=== PATIENT | male | born 1950 | race Caucasian/White ===

== ENCOUNTER 2023-01-09 07:10 | Outpatient (OUT) | payer MEDICARE, OTHER, SELFPAY ==
[2023-01-09 07:55] LABS: Basophils Absolute Auto 0.1 10^3/uL (0.0-0.1); Basophils Percent Auto 1.1 % (0.2-2.0); Eosinophils Absolute Auto 0.2 10^3/uL (0.0-0.7); Eosinophils Percent Auto 4.4 % (0.9-7.0); Hematocrit 40.3 % (42.0-54.0); Hemoglobin 13.5 g/dL (14.0-18.0); Immature Granulocytes Abs Auto 0.01 10^3/uL (0.00-0.03); Immature Granulocytes Pct Auto 0.2 % (0.0-0.5); Lymphocytes Absolute Auto 1.3 10^3/uL (1.2-3.8); Lymphocytes Percent Auto 28.9 % (20.5-60.0); Mean Corpuscular HGB Conc 33.5 g/dL (29.9-35.2); Mean Corpuscular Hemoglobin 31.2 pg (25.9-34.0); Mean Corpuscular Volume 93.1 fL (80.0-94.0); Mean Platelet Volume 9.4 fL (9.5-13.5); Monocytes Absolute Auto 0.5 10^3/uL (0.3-0.8); Monocytes Percent Auto 11.7 % (1.7-12.0); Neutrophils Absolute Auto 2.3 10^3/uL (1.4-6.5); Neutrophils Percent Auto 53.7 % (43.0-75.0); Platelet Count 283 10^3/uL (150-450); Red Blood Count 4.33 10^6/uL (4.70-6.10); Red Cell Distribution Width 12.6 % (11.0-15.0); White Blood Count 4.4 10^3/uL (4.0-11.0)
[2023-01-09 09:08] LABS: Estimated Average Glucose 111 mg/dL; Glycohemoglobin A1C 5.5 % (4.5-6.2)
[2023-01-09 13:00] LABS: BUN Creatinine Ratio 19.1; Calcium 9.4 mg/dL (8.5-10.1); Carbon Dioxide 28.3 mmol/L (21.0-32.0); Chloride 101 mmol/L (98-107); Chol HDL Ratio 3.8; Cholesterol 211 mg/dL (<=200); Estimated GFR (African America >60 (>=60); Estimated GFR (Non-African Ame >60 (>=60); Glucose 103 mg/dL (74-106); HDL Cholesterol 55 mg/dL (40-60); Potassium 4.3 mmol/L (3.5-5.1); Sodium 138 mmol/L (136-145); Triglycerides 95 mg/dL (<=150)
[2023-01-09 13:32] LABS: Prostate Specific Antigen Scrn 2.31 ng/mL (<=4.00)
== END 2023-01-09 07:11 | disposition home or self-care (01) ==
LOC: LAB 07:17
PROVIDERS: PCP Internal Medicine; Visit Provider Internal Medicine
DX: E78.00 Pure hypercholesterolemia, unspecified (principal); I10 Essential (primary) hypertension; Z12.5 Encounter for screening for malignant neoplasm of prostate; R73.01 Impaired fasting glucose; D64.9 Anemia, unspecified
CPT/HCPCS: 36415; 80048; 80061; 83036; 85025; G0103

== ENCOUNTER 2023-02-04 19:59 | Outpatient (OUT) | payer MEDICARE, OTHER, SELFPAY | END 2023-02-04 20:00 | disposition home or self-care (01) | LOC: SLEEP 20:00 | PROVIDERS: PCP Internal Medicine; Visit Provider Internal Medicine | DX: G47.33 Obstructive sleep apnea (adult) (pediatric) (principal) | CPT/HCPCS: 95810 ==

== ENCOUNTER 2023-02-17 08:56 | Outpatient (OUT) | payer MEDICARE, OTHER, SELFPAY ==
--- NOTE | 2023-02-17 09:06 | XR_ITS ---
The [address] [address] Patient Name: EMILY RAMEY MRN: [id number] date: 1950 Sex: M Assigned Patient Location: Current Patient Location: Accession/Order Number: [id number] Exam Date: 02/17/2023 09:06 Report Date: 02/19/2023 09:20 At the request of: ANGEL GALLARDO Procedure: XR foot COLBY min 3V EXAMINATION: XR foot COLBY min 3V HISTORY: BILATERAL FOOT PAIN COMPARISON: No relevant comparison available. FINDINGS: RIGHT FINDINGS: BONES: Mild degenerative changes the first metatarsophalangeal joint. Persistent flexion and medial deviation of the second toe. No fracture, dislocation, bone lesion. Mild flattening of plantar arch. SOFT TISSUES: No visible soft tissue swelling. OTHER: Negative. LEFT FINDINGS: BONES: Moderate degenerative changes of the first metatarsophalangeal joint with qgao-wa-lhik articulation along the lateral margin. Persistent flexion of second toe. Calcaneal plantar spur. SOFT TISSUES: No visible soft tissue swelling. OTHER: Negative. XR/XR foot COLBY min 3V IMPRESSION: RIGHT CONCLUSION: 1. Persistent flexion of second toe consistent with history of hammertoe. 2. Mild degenerative changes of first metatarsophalangeal joint. LEFT CONCLUSION: 1. Persistent flexion of second toe consistent with history of hammertoe. 2. Moderate-marked degenerative changes of first metatarsophalangeal joint. Electronically authenticated by: ANA ACUÑA Date: 02/19/2023 09:20
== END 2023-02-17 08:57 | disposition home or self-care (01) ==
LOC: RAD 08:57
PROVIDERS: PCP Internal Medicine; Visit Provider Podiatrist Foot & Ankle Surgery
DX: M79.671 Pain in right foot (principal); M79.672 Pain in left foot
CPT/HCPCS: 73630

== ENCOUNTER 2023-03-09 20:08 | Outpatient (OUT) | payer MEDICARE, OTHER, SELFPAY | END 2023-03-09 20:09 | disposition home or self-care (01) | LOC: SLEEP 20:08 | PROVIDERS: PCP Internal Medicine; Visit Provider Internal Medicine | DX: G47.33 Obstructive sleep apnea (adult) (pediatric) (principal) | CPT/HCPCS: 95811 ==

== ENCOUNTER 2023-06-17 06:40 | Outpatient (OUT) | payer MEDICARE, OTHER, SELFPAY ==
[2023-06-17 06:59] LABS: Estimated GFR (African America >60 (>=60); Estimated GFR (Non-African Ame 52 (>=60)
--- NOTE | 2023-06-17 07:30 | CT_ITS ---
[address] [address] Patient Name: EMILY RAMEY MRN: [id number] date: 1950 Sex: M Assigned Patient Location: CT Current Patient Location: Accession/Order Number: [id number] Exam Date: 06/17/2023 08:20 Report Date: 06/18/2023 06:59 At the request of: ELICIA FRAGA Procedure: CT abdomen pelvis w con EXAMINATION: CT abdomen pelvis w con HISTORY: LUQ abdominal pain R10.12 COMPARISON: No relevant comparison available. TECHNIQUE: Axial, Coronal, and Sagittal images were obtained without and/or with IV contrast as indicated by examination type. Dose reduction techniques were achieved by using automated exposure control and/or adjustment of mA and/or kV according to patient size and/or use of iterative reconstruction technique. FINDINGS: LUNG BASES: No visible pulmonary or pleural disease. LIVER: No enlargement, atrophy, suspicious density, or significant focal lesion. BILIARY: No dilatation or calcification. PANCREAS: No lesion, fluid collection, or abnormal duct dilatation. SPLEEN: No enlargement or focal lesion. ADRENALS: No mass or enlargement. KIDNEYS: No mass, obstruction, or calcification. BOWEL/MESENTERY: No visible mass, obstruction, or bowel wall thickening. Normal appendix. Normal stool burden. AORTA/VASCULAR: No aneurysm or dissection. RETROPERITONEUM: No mass or adenopathy. LYMPH NODES: No adenopathy. URINARY BLADDER: No visible focal wall thickening, lesion, or calculus. PELVIC ORGANS: No visible mass. Pelvic organs appropriate for patient age. ABDOMINAL WALL: No mass or hernia. BONES: Multilevel marked degenerative disc disease of lumbar spine. Posterior decompression L3 and L5. Posterior mechanical fusion L5-S1. OTHER: Negative. CT/CT abdomen pelvis w con IMPRESSION: 1. No abnormal or suspicious findings to account for patient's symptoms. 2. Surgical changes and marked degenerative changes of lumbar spine. Electronically authenticated by: ANA ACUÑA Date: 06/18/2023 06:59
== END 2023-06-17 06:41 | disposition home or self-care (01) ==
LOC: CT 06:40
PROVIDERS: PCP Internal Medicine; Visit Provider Internal Medicine
DX: R10.12 Left upper quadrant pain (principal); R53.83 Other fatigue
CPT/HCPCS: 36415; 74177; 82565; Q9967

== ENCOUNTER 2023-09-16 13:58 | Outpatient (OUT) | payer MEDICARE, OTHER, SELFPAY ==
--- NOTE | 2023-09-16 | XR_ITS ---
The [address] [address] Patient Name: EMILY RAMEY MRN: [id number] date: 1950 Sex: M Assigned Patient Location: Current Patient Location: Accession/Order Number: [id number] Exam Date: 09/16/2023 14:00 Report Date: 09/16/2023 14:41 At the request of: ANGEL GALLARDO Procedure: XR foot LT min 3V PROCEDURE: XR foot LT min 3V COMPARISON: None. HISTORY: LEFT FOOT PAIN FINDINGS: BONES:No acute fracture or dislocation. Severe degenerative changes of the first metatarsal-phalangeal joint with [id number]-[id number]-[id number] articulation. Mild degenerative changes of the midfoot with joint space narrowing marginal osteophyte formation. Moderate enthesopathic spurring of the calcaneus SOFT TISSUES:Negative. No visible soft tissue swelling. EFFUSION:None visible. OTHER: Resting calcifications XR/XR foot LT min 3V IMPRESSION: Degenerative changes most significant at the first metatarsal-phalangeal joint Electronically authenticated by: SASHA BELL Date: 09/16/2023 14:41
== END 2023-09-16 13:59 | disposition home or self-care (01) ==
LOC: EC 13:58
PROVIDERS: PCP Internal Medicine; Visit Provider Podiatrist Foot & Ankle Surgery
DX: M79.672 Pain in left foot (principal)
CPT/HCPCS: 73630

== ENCOUNTER 2023-10-29 09:03 | Outpatient (OUT) | payer MEDICARE, OTHER, SELFPAY ==
--- OUTSIDE RECORDS SUMMARY | 2023-10-29 09:22 | XMS_ITS | CCD ---
Author Organization [facility] Care Team Providers Care Development Manager Name Role Phone Dipesh Cárdenas Unavailable Emily Pena Unavailable ENRIQUE SINGER Admitting Unavailable ENRIQUE SINGER Attending Unavailable UNKNOWN, PHYSICIAN Primary Care Unavailable UNKNOWN, PHYSICIAN Referring Unavailable Hector Fraga Unavailable FLAKITO, DR YOUNG Admitting Unavailable BALL, DR YOUNG Attending Unavailable BALL, DR YOUNG Primary Care Unavailable BALL, DR YOUNG Consulting Unavailable BALL, DR YOUNG Primary Care Unavailable HAY ., DR COLLADO Admitting Unavailable HAY ., DR COLLADO Attending Unavailable GRECHNY, CESAR Consulting Unavailable HAY ., DR COLLADO Consulting Unavailable BALL, DR YOUNG Admitting Unavailable BALL, DR YOUNG Attending Unavailable BALL, DR YOUNG Primary Care Unavailable BALL, DR YOUNG Consulting Unavailable BALL, DR YOUNG Admitting Unavailable BALL, DR YOUNG Attending Unavailable BALL, DR YOUNG Primary Care Unavailable BALL, DR YOUNG Consulting Unavailable FLAKITO, DR YOUNG Admitting Unavailable BALL, DR YOUNG Attending Unavailable BALL, DR YOUNG Primary Care Unavailable BALL, DR YOUNG Consulting Unavailable FLAKITO, HECTOR Primary Care Unavailable FLAKITO, HECTOR Primary Care Unavailable Héctor Jean Baptiste Primary Care Provider Hector Fraga DO Primary Care Provider KALFAS, RUBIN H Referring Unavailable KALFAS, RUBIN H Attending Unavailable HECTOR FRAGA Primary Care Unavailable KALFAS, RUBIN H Referring Unavailable KALGARCÍA, RUBIN H Attending Unavailable HECTOR FRAGA Primary Care Unavailable SHANDRA DALLAS Referring Unavailable HECTOR FRAGA Primary Care Unavailable TAY RUIZ Referring Unavailable HECTOR FRAGA Primary Care Unavailable DENZEL DALLASI Referring Unavailable HECTOR FRAGA Primary Care Unavailable HECTOR FRAGA Primary Care Unavailable KALGARCÍA, RUBIN H Referring Unavailable HECTOR FRAGA Primary Care Unavailable TAY RUIZ Referring Unavailable HÉCTOR JEAN BAPTISTE Primary Care Unavailab le KALFAS, RUBIN H Referring Unavailable HÉCTOR JEAN BAPTISTE Primary Care Unavailab le KALFAS, RUBIN H Referring Unavailable KALFAS, RUBIN H Admitting Unavailable JESSICA RUBIN H Attending Unavailable HÉCTOR JEAN BAPTISTE Primary Care Unavailab dorothy KALGARCÍA, RUBIN H Attending Unavailable HÉCTOR JEAN BAPTISTE Primary Care Unavailab le KALFAS, RUBIN H Referring Unavailable Allergies Allergy Classification Reported Allergen(s) Allergy Type Date of Onset Reaction(s) Facility (6 sources) patient allergy list reviewed by nurse or physicia Propensity to adverse reactions Comment:Done Tap.Me Other Medications Current Medications Medication Drug Class(es) Dates Sig (Normalized) Sig (Original) acetaminophen 325 mg oral tablet (20 sources) Start: 09-11-2023 take 1 tablet by mouth four times daily as needed Acetaminophen (Tylenol) 325 mg tablet Active MG PO September 11, 2023 12:00am FreeText[employer] tablet as needed Orally qid; Note: Source Status: Not-Taking\PRN; Provider: Flakito Young ( ) take 1 tablet by mouth every six hours Tylenol 325 MG 1 tablet as needed Orally qid Not-Taking/PRN acetaminophen (T YLENOL) 325 mg tablet Take by mouth q 6 HR. 0 Active Comment on above: Take by mouth q 6 HR . benazepril hydrochloride 20 mg oral tablet (20 sources) Angiotensin Converting Enzyme Inhibitor take 1 tablet by mouth every twenty-four hours Benazepril HCl 20 MG 1 tablet Orally Once a day Active benazepril (LOTE NSIN) 20 mg tablet Take by mouth q 24 HR. 0 Active Comment on above: Take by mouth q 24 H R. benazepril hydrochloride 20 mg / hydroCHLOROthiazide 25 mg oral tablet (17 sources) Thiazide Diuretic, Angiotensin Converting Enzyme Inhibitor take 1 tablet by mouth every twenty-four hours Benazepril-hydro CHLOROthiazide 20-25 MG 1 tablet Orally Once a day Active take 1 tablet by eddie th once daily Benazepril-hydroCHLOROthiazide 20-25 MG 1 tablet Orally Once a day Active celecoxib 100 mg oral capsule (19 sources) Nonsteroidal Anti-inflammatory Drug take 1 capsule by mouth every twelve hours CeleBREX 100 MG 1 capsule with food Orally bid Active cyclobenzaprine hydrochloride 10 mg oral tablet (18 sources) Muscle Relaxant Start: 2021 take 1 tablet by mouth every twenty-four hours Cyclobenzaprine HCl 10 MG 1 tablet at bedtime as needed Orally Once a day for 30 day(s) Feb, Active doxepin hydrochloride 10 mg oral capsule (3 sources) Tricyclic Antidepressant Start: 2022 take 1 capsule by mouth every twenty-four hours Doxepin HCl 10 MG 1 capsule at bedtime Orally Once a day for 30 days May, Active escitalopram 10 mg oral tablet (18 sources) Serotonin Reuptake Inhibitor Start: 2023 take 1 tablet by mouth once daily at bedtime Escitalopram Oxalate Active 1 TAB PO Daily at bedtime September 11, 2023 12:00am FreeTextSig: TAKE 1 TABLET BY MOUTH AT BEDTIME; Note: Source Status: Taking; Refills: 5; Qty: 30 Tablet; Provider: Flakito Young ( ) Start: 08-18-2022 take 1 tablet by eddie th once at bedtime Escitalopram Oxalate 10 MG 1 tablet Orally q HS for 30 day(s) Jul, Active take 1 tablet by eddie th at bedtime Escitalopram Oxalate 10 mg TAKE 1 TABLET BY MOUTH AT BEDTIME for 30 Active gabapentin 300 mg oral capsule (1 source) Anti-epileptic Agent Start: 12-10-2022 End: 01-10-2023 gabapentin (NEURONTIN) 300 mg capsule Indications: Low back pain with sciatica, sciatica laterality unspecified, unspecified back pain laterality, unspecified chronicity Take one 2-3 times per day 90 capsule 0 12/10/2022 01/10/2023 Active Comment on above: Take one 2-3 times per day omeprazole 40 mg delayed release oral capsule (17 sources) Proton Pump Inhibitor Start: 08-26-2022 take 1 capsule by mouth once daily Omeprazole 40 MG 1 capsule 30 minutes before morning meal Orally Once a day Aug, Active sildenafil 100 mg oral tablet (16 sources) Phosphodiesterase 5 Inhibitor Start: 09-11-2023 take 1 tablet by mouth once daily as needed Sildenafil Active MG PO September 11, 2023 12:00am [employer]Text[employer] tablet as needed Orally Once a day as needed for ED; Note: Source Status: Taking; Refills: 5; Provider: Flakito Moya Start: 10-01-2022 take 1 tablet by eddie th once daily as needed Sildenafil Citrate 100 MG 1 tablet as needed Orally Once a day as needed for ED for 30 days Sep, Active triamcinolone acetonide 0.001 mg/mg topical ointment (18 sources) Corticosteroid Start: 09-11-2023 Triamcinolone Acetonide Active 1 APPLIC TOPICAL Twice daily September 11, 2023 12:00am FreeText[employer] application Externally Twice a day; Note: Source Status: Taking; Provider: Flakito Young ( ) Triamcinolone Ac etonide 0.1 % 1 application Externally Twice a day Active zolpidem tartrate 5 mg oral tablet (14 sources) gamma-Aminobutyric Acid-ergic Agonist take 1 tablet by mouth every twenty-four hours Zolpidem Tartrate 5 MG 1 tablet at bedtime Orally Once a day Active Completed/Discontinued Medications Medication Drug Class(es) Dates Sig (Normalized) Sig (Original) aspirin 325 mg oral tablet (9 sources) Platelet Aggregation Inhibitor, Nonsteroidal Anti-inflammatory Drug take 1 tablet by mouth once daily aspirin 325 mg tablet Indications: Confusion , Mixed migraine and muscle contraction headache , Cervical spondylosis without myelopathy , Essential tremor , Disturbed concentration , Tinnitus, bilateral , Bradycardia , Vitamin D deficiency Take 325 mg by mouth once daily. 0 Active Comment on above: Take 325 mg by mouth once daily. Dexamethasone (20 sources) Corticosteroid Start: 02-20-2022 DEXAMETHASONE Feb, 4 mg eszopiclone 3 mg oral tablet (9 sources) eszopiclone (LUNESTA) 3 mg tab Indications: Confusion , Mixed migraine and muscle contraction headache , Cervical spondylosis without myelopathy , Essential tremor , Disturbed concentration , Tinnitus, bilateral , Bradycardia , Vitamin D deficiency Take by mouth at bedtime as needed. 0 Active Comment on above: Take by mouth at bed time as needed. Lisinopril (20 sources) Angiotensin Converting Enzyme Inhibitor Lisinopril Not-Taking/PRN take 1 tablet by mouth once aydee y lisinopril (ZESTRIL, PRINIVIL) 10 mg tablet Indications: Confusion , Mixed migraine and muscle contraction headache , Cervical spondylosis without myelopathy , Essential tremor , Disturbed concentration , Tinnitus, bilateral , Bradycardia , Vitamin D deficiency Take 10 mg by mouth once daily. 0 Active Lisinopril Not-T aking Lisinopril Activ e Comment on above: Take 10 mg by mouth once daily. methocarbamol 750 mg oral tablet (1 source) Muscle Relaxant Start: 023 take 1 tablet by mouth every six hours as needed methocarbamol (ROBAXIN) 750 mg tablet Take 1 tablet by mouth every 6 hours as needed. 40 tablet 0 11/08/2022 Active Comment on above: Take 1 tablet by eddie every 6 hours as needed. methylPREDNISolone acetate 40 mg/ml injectable suspension (20 sources) Corticosteroid Start: 022 DEPO-Medrol Feb, 40 mg Start: 09-02-2013 Depo-Medrol 80 mg Aug, 80 mg pantoprazole 40 mg delayed release oral tablet (10 sources) Proton Pump Inhibitor take 1 tablet by mouth once daily as needed pantoprazole DR (PROTONIX) 40 mg tablet Indications: Confusion , Mixed migraine and muscle contraction headache , Cervical spondylosis without myelopathy , Essential tremor , Disturbed concentration , Tinnitus, bilateral , Bradycardia , Vitamin D deficiency Take 40 mg by mouth once daily as needed. 0 Active Comment on above: Take 40 mg by mouth once daily as needed. predniSONE 20 mg oral tablet (19 sources) Start: 2 take 2 tablets by mouth every twenty-four hours predniSONE 20 MG 2 tablets Orally Once a day for 5 day(s) Feb, Not-Taking/PRN Problems Active Problems Problem Classification Problem Date Documented Da te Episodic/Chronic Abdominal pain (2 sources) Left upper quadrant pain Episodic Allergic reactions (1 source) Allergic contact dermatitis due to adhesives Episodic Anxiety disorders (8 sources) Generalized anxiety disorder; Translations: [Generalized anxiety disorder] 09-11-2023 Chronic Blindness and vision defects (10 sources) Other subjective visual disturbances; Translations: [Distorted vision] Episodic Chronic kidney disease (1 source) Chronic kidney disease; Translations: [CHRONIC KIDNEY DISEASE STAGE 3A] Onset: 01-08-2022 Deficiency and other anemia (12 sources) Anemia, unspecified; Translations: [ANEMIA UNSPECIFIED] Onset: 03-06-2022 Episodic Deficiency and other anemia (5 sources) Anemia; Translations: [Anemia, unspecified] Onset: 03-06-2022 Episodic Diabetes mellitus without complication (20 sources) Impaired fasting glycemia; Translations: [Impaired fasting glucose] Onset: 2022 Episodic Disorders of lipid metabolism (20 sources) Familial hypercholesterolemia ; Translations: [Familial hypercholesterolemia ] Onset: 02-04-2022 Chronic Esophageal disorders (20 sources) Gastro-esophageal reflux disease with esophagitis; Translations: [Gastroesophageal reflux disease with esophagitis without hemorrhage] Onset: 10-31-2022 Chronic Essential hypertension (20 sources) Essential hypertension; Translations: [Essential (primary) hypertension] Onset: 02-04-2022 Chronic Headache; including migraine (8 sources) Chronic tension-type headache; Translations: [Chronic tension-type headache, not intractable] 09-11-2023 Chronic Headache; including migraine (10 sources) Headache disorder; Translations: [Other complicated headache syndrome] Episodic Hyperplasia of prostate (20 sources) Lower urinary tract symptoms due to benign prostatic hypertrophy; Translations: [Benign prostatic hyperplasia with lower urinary tract symptoms] Chronic Hypertension with complications and secondary hypertension (19 sources) Chronic kidney disease due to hypertension; Translations: [Hypertensive chronic kidney disease with stage 1 through stage 4 chronic kidney disease, or unspecified chronic kidney disease] Onset: 01-08-2022 09-11-2023 Chronic Immunizations and screening for infectious disease (1 source) Contact with or exposure to other viral diseases; Translations: [Exposure to 2019 novel coronavirus] 09-11-2023 Episodic Malaise and fatigue (20 sources) Malaise; Translations: [Other malaise] Onset: 01-08-2022 Episodic Miscellaneous mental health disorders (18 sources) Primary insomnia; Translations: [Primary insomnia] 09-11-2023 Chronic Other aftercare (3 sources) Surgical follow-up; Translations: [Encounter for removal of sutures] Episodic Other aftercare (1 source) Encounter for removal of sutures Episodic Other connective tissue disease (13 sources) History of lumbar fusion; Translations: [Arthrodesis status] Episodic Other connective tissue disease (2 sources) History of spinal fusion; Translations: [Arthrodesis status] Episodic Other connective tissue disease (1 source) Other symptoms and signs involving the nervous system Episodic Other gastrointestinal disorders (1 source) Abdominal distension (gaseous) Episodic Other hereditary and degenerative nervous system conditions (20 sources) Resting tremor; Translations: [Other specified forms of tremor] Onset: 10-31-2022 Chronic Other hereditary and degenerative nervous system conditions (2 sources) Other specified forms of tremor; Translations: [Resting tremor] Onset: 10-31-2022 Chronic Other lower respiratory disease (1 source) Wheezing; Translations: [Wheeze] Episodic Other lower respiratory disease (7 sources) Solitary nodule of lung; Translations: [Solitary pulmonary nodule] 09-11-2023 Episodic Other lower respiratory disease (1 source) Solitary pulmonary nodule; Translations: [Solitary pulmonary nodule] Episodic Other male genital disorders (17 sources) Impotence of organic origin; 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] Chronic Other male genital disorders (1 source) Erectile dysfunction co-occurrent and due to arterial insufficiency; 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] 09-11-2023 Chronic Other nervous system disorders (1 source) Lesion of sciatic nerve, left lower limb Onset: 02-20-2022 Resolved: 02-20-2022 Chronic Other nervous system disorders (17 sources) Inflammatory and toxic neuropathy; Translations: [Polyneuropathy, unspecified] Chronic Other nervous system disorders (8 sources) Polyneuropathy; Translations: [Polyneuropathy, unspecified] 09-11-2023 Chronic Other nervous system disorders (1 source) Polyneuropathy, unspecified; Translations: [Polyneuropathy, unspecified] Chronic Other nervous system disorders (17 sources) Impaired cognition; Translations: [Other symptoms and signs involving cognitive functions and awareness] 09-11-2023 Episodic Other nervous system disorders (10 sources) Abnormal gait; Translations: [Unsteadiness on feet] Episodic Other nervous system disorders (11 sources) Paresthesia; Translations: [Paresthesia of skin] 09-11-2023 Episodic Other nervous system disorders (1 source) Other symptoms and signs involving cognitive functions and awareness; Translations: [Cognitive impairment] Episodic Other nutritional; endocrine; and metabolic disorders (8 sources) Overweight; Translations: [Overweight] 09-11-2023 Episodic Other screening for suspected conditions (not mental disorders or infectious disease) (4 sources) Encounter for screening for malignant neoplasm of prostate; Translations: [Encounter for screening for malignant neoplasm of colon] Onset: 01-08-2022 Episodic Other skin disorders (17 sources) Vesicular eczema of hands and/or feet; Translations: [Dyshidrosis [pompholyx]] Episodic Other skin disorders (1 source) Vesicular eczema; Translations: [Dyshidrosis [pompholyx]] 09-11-2023 Episodic Other upper respiratory disease (7 sources) Vasomotor rhinitis; Translations: [Vasomotor rhinitis] 09-11-2023 Chronic Other upper respiratory disease (1 source) Vasomotor rhinitis; Translations: [Vasomotor rhinitis] Chronic Parkinson`s disease (20 sources) Parkinson's disease; Translations: [Parkinson's disease] 09-11-2023 Chronic Residual codes; unclassified (8 sources) Obstructive sleep apnea syndrome; Translations: [Obstructive sleep apnea (adult) (pediatric)] 09-11-2023 Chronic Residual codes; unclassified (1 source) Obstructive sleep apnea (adult) (pediatric) Chronic Residual codes; unclassified (1 source) H/O Spinal surgery; Translations: [Other specified postprocedural states] Episodic Residual codes; unclassified (1 source) Other specified postprocedural states; Translations: [S/P laminectomy] Onset: 01-08-2023 Episodic Spondylosis; intervertebral disc disorders; other back problems (20 sources) Lumbar spondylosis with myelopathy; Translations: [Other spondylosis with myelopathy, lumbar region] Onset: 08-25-2022 Chronic Viral infection (1 source) COVID-19; Translations: [COVID-19] Onset: 02-04-2022 Past or Other Problems Problem Classification Problem Date Documented Date Episodic/Chronic Acute and unspecified renal failure (7 sources) Acute renal failure syndrome; Translations: [Acute kidney failure, unspecified] Resolved: 07-26-2021 Episodic Esophageal disorders (7 sources) Esophageal disorders; Translations: [Gastro-esophageal reflux disease with esophagitis, without bleeding] Onset: 10-31-2022 Fever of unknown origin (4 sources) Fever, unspecified; Translations: [FEVER UNSPECIFIED] Onset: 01-31-2022 Episodic Other aftercare (1 source) 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; Translations: [OTH [facility] CURRENT DRUG THERAPY] Onset: 02-04-2022 Episodic Other connective tissue disease (2 sources) Disorder of muscle, unspecified Onset: 02-20-2022 Resolved: 03-06-2022 Episodic Other connective tissue disease (1 source) Other symptoms and signs involving the musculoskeletal system Onset: 08-18-2022 Resolved: 03-06-2022 Episodic Other connective tissue disease (3 sources) Arthrodesis status; Translations: [S/P spinal fusion] Onset: 10-10-2022 Episodic Other connective tissue disease (7 sources) Prepatellar bursitis; Translations: [Prepatellar bursitis, right knee] Resolved: 02-15-2020 Episodic Other nutritional; endocrine; and metabolic disorders (7 sources) Body mass index 25-29 - overweight; Translations: [Body mass index 28.0-28.9, adult] Onset: 09-01-2017 Episodic Other upper respiratory disease (6 sources) Seasonal allergic rhinitis; Translations: [Other seasonal allergic rhinitis] Resolved: 02-15-2020 Chronic Other upper respiratory disease (1 source) Other seasonal allergic rhinitis; Translations: [Other seasonal allergic rhinitis] Resolved: 02-15-2020 Chronic Other upper respiratory infections (2 sources) Acute maxillary sinusitis; Translations: [Acute maxillary sinusitis] Onset: 02-04-2022 Episodic Spondylosis; intervertebral disc disorders; other back problems (20 sources) Lumbago with sciatica; Translations: [Lumbago with sciatica, unspecified side] Onset: 08-25-2022 Episodic Sprains and strains (2 sources) Strain of muscle, fascia and tendon of left hip, initial encounter Onset: 03-06-2022 Resolved: 03-06-2022 Episodic Results Test Name Value Interpretation Reference Range Facility No Panel InformationOrdered By: Freda Oneill on 09-11-2023 COVID/Influenza Antigen (POC) [facility] 03-02-2023 CNPN Telephone (NIQ) EMILY CALDWELL ([id number]) 1950 M Date Time Provider Department 03/02/23 RUBIN LOPEZ During your visit today, we recorded the following information about you: Leola Mtz 03/02/2023 3:49 PM Signed Patient is calling would like outside PT order and sent to [facility] [place] therapy. Phone number Call back # [phone] Naomi Raya RN 03/02/2023 4:57 PM Signed Neuro SPINE CARE COORDINATION QUICK NOTE Call to [facility] PT to obtain fax number- - order has been faxed. Fabiana Ricci PA-C 03/03/2023 6:16 AM Signed Addended by: FABIANA RICCI on: 03/03/2023 06:16 AM Modules accepted: Orders Allergies As of Date: 03/02/2023 (No Known Allergies) Date Reviewed: 11/08/2022 Reviewed by: Shannon Salmeron RN - Fully Assessed Reason for Visit: Orders [681] Primary Visit Diagnosis:S/P lumbar laminectomy [Z98.890] Other Visit Diagnosis:Radiculopa thy, lumbar region [M54.16] Order(s):CONSULT TO PHYSICAL THERAPY [9032] Order #: [id number]: 1 FUTURE Prescriptions as of 03/03/2023 - gabapentin (NEURONTIN) 300 mg capsule Take one 2-3 times per day - methocarbamol (ROBAXIN) 750 mg tablet Take 1 tablet by mouth every 6 hours as needed. - acetaminophen (TYLENOL) 325 mg tablet Take by mouth q 6 HR. - benazepril (LOTENSIN) 20 mg tablet Take by mouth q 24 HR. - pantoprazole DR (PROTONIX) 40 mg tablet Take 40 mg by mouth once daily as needed. Problem List As Of Date 03/02/2023 Noted Resolved Gastroesophageal reflux disease with esophagiti* Essential (primary) hypertension [I10] 02/04/2022 Anemia, unspecified [D64.9] 03/06/2022 Low back pain with sciatica [M54.40] 10/31/2022 Resting tremor [G25.2] 10/31/2022 Lumbar stenosis with neurogenic claudication [M*11/07/2022 Encounter Status:Closed by NAOMI RAYA on 03/02/23 [facility] 12-10-2022 [facility] Telephone (NIQ) EMILY CALDWELL ([id number]) 1950 M Date Time Provider Department 12/10/22 RUBIN LOPEZ During your visit today, we recorded the following information about you: Angélica Dove 12/10/2022 10:37 AM Signed Patient called reporting: continuing pain Pain level (Scale of 1 to 10): 7 Location: lower leg Describe your pain: burning When did the pain begin? Since surgery Any new weakness, falling, numbness/tingling of extremities? No Any changes in bowel/bladder control? No Are you taking pain medications or muscle relaxants? No If so, what are you taking and current dosage? Forwarded to team for review. Angélica Raya RN 12/10/2022 12:54 PM Signed Neuro SPINE CARE COORDINATION QUICK NOTE 11-07-22- SURGERY/PROCEDURE: Lumbar re-exploration with bilateral L3 and bilateral L4 nerve root foraminotomies Call to the and she has requested call back to pt at [phone]. CC-left lateral dennis burning pain - left buttock ( same as pre- op ) - standing Conservative tx Mobic daily Neurontin- - he took pre op and would like to restart. Pt requests script to [facility] - routed to BRANDY covering for refill Will follow up with pt. On 12-12-22 Allergies As of Date: 12/10/2022 (No Known Allergies) Date Reviewed: 11/08/2022 Reviewed by: Shannon Salmeron RN - Fully Assessed Reason for Visit: Pain [78] Primary Visit Diagnosis:Low back pain with sciatica, sciatica laterality unspecified, unspecified back pain laterality, unspecified chronicity [M54.40] Order(s):gabapentin (NEURONTIN) 300 mg capsuleTake one 2-3 times per dayDisp: 90 capsuleRfl: 0 Prescriptions as of 12/10/2022 - gabapentin (NEURONTIN) 300 mg capsule Take one 2-3 times per day - methocarbamol (ROBAXIN) 750 mg tablet Take 1 tablet by mouth every 6 hours as needed. - acetaminophen (TYLENOL) 325 mg tablet Take by mouth q 6 HR. - benazepril (LOTENSIN) 20 mg tablet Take by mouth q 24 HR. - pantoprazole DR (PROTONIX) 40 mg tablet Take 40 mg by mouth once daily as needed. Problem List As Of Date 12/10/2022 Noted Resolved Gastroesophageal reflux disease with esophagiti* Essential (primary) hypertension [I10] 02/04/2022 Anemia, unspecified [D64.9] 03/06/2022 Low back pain with sciatica [M54.40] 10/31/2022 Resting tremor [G25.2] 10/31/2022 Lumbar stenosis with neurogenic claudication [M*11/07/2022 Prescriptions ordered this encounter Disp Refills Start End GABAPENTIN 300 MG CAPSULE 90 c* 0 12/10/2022 01/10/2023 Sig: Take one 2-3 times per day Encounter Status:Closed by NAOMI SILVERMAN on 12/10/22 [facility] 11-13-2022 CNPN Telephone (NIQ) EMILY CALDWELL ([id number]) 1950 M Date Time Provider Department 11/13/22 RUBIN LOPEZ NIAnitha During your visit today, we recorded the following information about you: Mya Odom [facility] 11/13/2022 11:02 AM Signed Pt needs his sutures removed. Naomi Raya, RN 11/13/2022 12:51 PM Signed Neuro SPINE CARE COORDINATION POST OP FOLLOW UP SURGERY/PROCEDURE: Lumbar re-exploration with bilateral L3 and bilateral L4 nerve root foraminotomies ( 11/07/22) Call to the and they will have tejas removed 2 weeks post op locally . No red flags noted. Pt has not LE symptoms - he continues only with LBP tightness. Pt has not been icing or taking the Robaxin - encourage to take 1/2 of the Robaxin PRN Naomi Raya RN Allergies As of Date: 11/13/2022 (No Known Allergies) Date Reviewed: 11/08/2022 Reviewed by: Shannon Salmeron RN - Fully Assessed Reason for Visit: Suture removal [Other] Prescriptions as of 11/13/2022 - methocarbamol (ROBAXIN) 750 mg tablet Take 1 tablet by mouth every 6 hours as needed. - senna-docusate (SENNA-S) 8.6-50 mg per tablet 2 tablets by ORAL/FEEDING TUBE route twice daily. - oxyCODONE-acetaminop hen (PERCOCET) 5-325 mg tablet Take 1 tablet by mouth every 6 hours as needed for pain (for pain.) for up to 7 days. - acetaminophen (TYLENOL) 325 mg tablet Take by mouth q 6 HR. - benazepril (LOTENSIN) 20 mg tablet Take by mouth q 24 HR. - pantoprazole DR (PROTONIX) 40 mg tablet Take 40 mg by mouth once daily as needed. Problem List As Of Date 11/13/2022 Noted Resolved Gastroesophageal reflux disease with esophagiti* Essential (primary) hypertension [I10] 02/04/2022 Anemia, unspecified [D64.9] 03/06/2022 Low back pain with sciatica [M54.40] 10/31/2022 Resting tremor [G25.2] 10/31/2022 Lumbar stenosis with neurogenic claudication [M*11/07/2022 Encounter Status:Closed by NAOMI RAYA on 11/13/22 Normal [facility] CNCOon 11-11-2022 CNCO Letter Text Normal [facility] CNDSon 11-08-2022 CNDS HNO ID: [id number] Author: Juan David Benites MD Service: Neurosurgery Author Type: Resident Type: Discharge Summary Filed: 11/08/2022 9:41 AM Note Text: Attestation signed by Rubin Lopez MD at 11/12/2022 2:56 PM x [facility] [place] [id number] or [phone] [facility] C [facility] N F I D E N T I A L I N F O R M A T I O N Neurological [place] Discharge Summary Patient Name: Emily Caldwell Account #: Data Unavailable Admission Date: 11/07/2022 Date of Evaluation: 11/08/2022 Time of Evaluation: 9:33 AM Admission Date: 11/07/2022 Discharge Date: 11/08/2022 Attending Physician: Rubin Lopez MD PCP: Hector Fraga DO Reason for Hospitalization: L3/4 decompression Final Diagnoses: Patient Active Hospital Problem List: Lumbar stenosis with neurogenic claudication (11/07/2022) Operations During Hospitalization: 11/07/2022: Procedure: LAMINOTOMY W/ DECOMPRESSION OF NERVE ROOT(S) PARTIAL FACETECTOMY FORAMINOTOMY AND/OR EXCISION OF HERNIATED INTERVERTEBRAL DISC 1 INTERSPACE LUMBAR CPT(R) Code: 39850 - LAMNOTMY INCL W/DCMPRSN NRV ROOT 1 INTRSPC LUMBR Procedure: LAMINOTOMY W/ DECOMPRESSION OF NERVE ROOT(S) W/ PARTIAL FACETECTOMY FORAMINOTOMY AND/OR EXCISION OF HERNIATED INTERVERTEBRAL DISC CERVICAL/LUMBAR LEVEL 3 CPT(R) Code: 59121 - LAMNOTMY W/DCMPRSN NRV EACH ADDL CRVCL/LMBR Operative Duration: 3 Hr 34 Min 26 Sec Implants Used for Surgery: * No implants in log * Surgical Specimens: * No specimens in log * Incision/Procedure Start Time: 4:05 PM Incision Close/Procedure End Time: 6:29 PM Surgeon(s) and Role: * Rubin Lopez MD - Primary * Juan David Benites MD - Resident - Assisting Procedures During Hospitalization: No procedures performed Hospital Course: The patient was electively admitted to the [facility]. After being optimized for surgery by the Neurosurgery and IMPACT teams, Emily Caldwell was identified and brought into the Operating Room by the anesthesia and nursing teams. Prior to surgery the patient was treated with antibiotics and continued with antibiotics postoperatively. The patient underwent a L3/4 decompression with general endotracheal anesthesia. The patient tolerated the procedure and was taken to PACU in stable condition. The patient was then transferred up to [place] [address] hospital room for postoperative management. Patient was fitted with sequential compression devices for DVT prophylaxis. The patient was discharged on POD # 1 in stable condition. Complete and comprehensive discharge instructions were provided to the patient as well as necessary prescriptions. The patient had no further questions and was advised to call with any questions, concerns, or problems. Patient's pain was well controlled with Oral Pain Medications. Patient was hemodynamically stable postoperatively. Relevant labs included: CBC:No results for input(s): WBC, HB, HCT, PLT, MCV, RDWCV, NEUTP, ABSNEUT, LYMPHP, MONOP, EODINP in the last 168 hours. COAG: No results for input(s): APTT, INR in the last 168 hours. BMP: No results for input(s): GLUC, NA, K, CHLOR, CO2, ANION, BUN, CREAT in the last 168 hours. CHEM: No results for input(s): ALB, TPROT, CA, MG, P in the last 168 hours. HEPATIC: No results for input(s): ALKPHOS, ALT, AST, TBILI, LIPASE in the last 168 hours. URINALYSIS:No results for input(s): PH, SPGR, UGLUC, UBILI, UKET, UHB, UPROT, UROBIL, UWBC, SSA in the last 168 hours. Invalid input(s): NITR CARDIAC: No results for input(s): CKTEST, CKMB, CKMBP, TROPT, PBNP in the last 168 hours. HbA1C: No results found for: HBA1C Blood Glucose Checks: Vitamin D: Vitamin D 25 Hydroxy (ng/mL) Date Value 01/28/2016 34.1 ESR: WSR Date Value Ref Range Status 01/28/2016 5 0 - 10 mm/hr Final CRP: No results found for: CRP Estimated Creatinine Clearance: 56.1 mL/min (A) (based on SCr of 1.23 mg/dL (H)). Patient had no signs/symptoms of DVT, so no ultrasound was done during hospital course. NO Imaging performed during postoperative hospital course. Discharge Medications: Current Discharge Medication List START taking these medications methocarbamol (ROBAXIN) 750 mg Take 750 mg by mouth every 6 hours as needed. Qty: 40 tablet Refills: 0 senna-docusate (SENNA-S) 2 tablets 2 tablets by ORAL/FEEDING TUBE route twice daily. Qty: 120 tablet Refills: 0 oxyCODONE-acetaminop hen (PERCOCET) 1 tablet Take 1 tablet by mouth every 6 hours as needed for pain (for pain.). Qty: 28 tablet Refills: 0 Associated Diagnoses:Lumbar stenosis with neurogenic claudication CONTINUE these med (more content not included)... Normal [facility] THERAPY NTon 11-08-2022 THERAPY NT HNO ID: [id number] Author: Seble Jj, PT, DPT Service: Physical Therapy Author Type: Physical Therapist Type: Therapy (PT/OT/Speech/Resp) Filed: 11/08/2022 10:00 AM Note Text: Physical Therapy Evaluation SERVICE DATE: 11/08/2022 SERVICE TIME: 844 to 937 ROOM: [place] [address] Recommended Discharge Disposition: Home Recommended Discharge Disposition Comments: w/ progression to outpatient PT once spine precautions are lifted Anticipated Discharge Needs: Physical Assist at Home, Supervision at Home Physical Assist at Home for: Cleaning, Laundry, Meals, Shopping, Transportation Supervision at Home due to: Other: See Comment (to ensure pt is following spine precautions) PT 6 Clicks Score: 20 Precautions/Activity Restrictions: Fall Risk, Spine, Lines/Tubes/Drains Current Hospital Course: s/p L3/4 decompression Reason for Hospital Admission: planned surgery Relevant Past Medical History: HTN, GERD, Resting tremor, lumbar spine stenosis Response to Therapy Interventions: Good Participation in Activities, On-Track to Achieve Discharge Goals Assessment Comments: Pt demos good participation in therapy; PT evaluation orders dropped as PT started evaluation; Pt ambulated 400 feet w/ CGA and ww (350 feet w/ ww and 50 feet w/out ww); Pt demos an increase in LOB w/out ww as compared to ambulation w/ ww; LOB was minimal; Pt navigated 15 stairs w/ CGA and unilateral rail; Pt and family educated extensively on spine precautions via teach back and explanation; Pt provided w/ LE exercises in supine and seated; Pt and family provided w/ PT rec of home w/ potential progression to outpatient PT once spine precautions are lifted and they are agreeable Physical Therapy Problem List: Decreased Activity Tolerance, Decreased Range Of Motion, Decreased Strength, Functional Mobility Impairment, Balance Impaired Home Environment Patient Lives With: Spouse Assistance Available: Part-Time Entry To Home: Stairs, With Rail Number Of Stairs Into Home: 3 Number Of Stairs To Bed/Bath: 12 (pt has half bath on 1st floor; requires 2nd floor bath for shower) Stairs to Bed/Bath with: Unilateral Rail Tub/Shower Type: walk in Laundry: basement ( can complete; around 12 stairs to get to laundry) Equipment Owned: Cane, Shower Chair, Walker- Standard, Walker- Wheeled, Recyclable Materials Sorter Prior Functional Level: Within Functional Limits Prior Functional Level Comments: Per pt, previously indep w/ ADLs/iADLs; drives; works; grocery shopping Patient Report: I can walk with you CURRENT FUNCTIONAL STATUS: Most recent performance Current Functional Mobility Assist Level Additional Information Rolling Stand By Assistance Supine to Sit Stand By Assistance log roll technique Sit to Supine NT; pt OOB in chair at end of PT session Scooting Stand By Assistance Sit to Stand Contact Guard Assistance Stand to Sit Contact Guard Assistance Bed to Chair Contact Guard Assistance Bed To Chair Transfer Type: Stepping Bed To Chair Transfer Equipment: Gait Belt Toilet/Commode Gait Contact Guard Assistance Gait Device: Wheeled Walker, None (350 feet w/ ww; 50 feet w/out ww) Gait Distance (feet): 400 feet Stairs Contact Guard Assistance Stairs Device: Rail Number of Stairs: 15 Curb Step Car Transfer Blank sofia indicate activity not attempted General Deviations/Observati ons: Flexed trunk posture, Step length decreased -HLM: 8: Walk 250 feet or more Learning/Educational Needs: Functional Activities/Mobility, Precautions, Rehabilitation Techniques and Procedures, Safety Goals for Plan of Care: Patient/Caregiver Goals: Walk, Go Home Goals: Patient will demonstrate progress with functional mobility to allow safe discharge to home with available support and/or physical assistance. Rehab Potential: Good Patient will be discontinued from Physical Therapy when no further skilled needs are identified in this setting. PLAN: PT Frequency: Discontinue therapy services Reasons Therapy Services Discontinued: No skilled needs Plan of Care developed with: Patient, Family TREATMENT INTERVENTIONS: Therapy Diagnosis: Decreased activities of daily living (ADL), Muscle Weakness (generalized), General symptoms and signs-other Interventions Provided: Evaluation, Therapeutic Activity (96939), Gait Training (28347) $ Evaluation-Moderate (87919) Billed Units: 1 unit Therapeutic Activity (51259) Treatment Minutes: 28 $ Therapeutic Activity (11886) Billed Units: 2 units Gait Training (32274) Treatment Minutes: 10 $ Gait Training (08091) Billed Units: 1 unit Training AND Education Provided in: Assistive Device Use, Bed Mobility, Benefits of In-Hospital Mobility, Energy Conservation, Falls Prevention, Handout Issued, Positioning, Precautions/Restrict ions, Pre-gait Activities, Role of Physical Therapy, Sitting Balance, Stair Navigation, Standing Balance, Transfers The Following Therapeutic Skills Were Used: Acti (more content not included)... Normal [facility] ANES POSTPROC EVALon 023 ANES POSTPROC EVAL HNO ID: [id number] Author: Edis Ling MD Service: ? Author Type: Anesthesiologist Type: Anesthesia Postprocedure Evaluation Filed: 11/07/2022 9:48 PM Note Text: POST ANESTHESIA EVALUATION NOTE : 1950 Procedure Summary Date: 11/07/22 Room / Location: [address] [facility] Anesthesia Start: 1520 Anesthesia Stop: 1901 Procedures: LAMINOTOMY W/ DECOMPRESSION OF NERVE ROOT(S) PARTIAL FACETECTOMY FORAMINOTOMY AND/OR EXCISION OF HERNIATED INTERVERTEBRAL DISC 1 INTERSPACE LUMBAR (Bilateral: Back) LAMINOTOMY W/ DECOMPRESSION OF NERVE ROOT(S) W/ PARTIAL FACETECTOMY FORAMINOTOMY AND/OR EXCISION OF HERNIATED INTERVERTEBRAL DISC CERVICAL/LUMBAR LEVEL 3 (Bilateral: Back) Diagnosis: S/P spinal fusion Spinal stenosis of lumbar region with neurogenic claudication Pre-op testing (S/P spinal fusion [Z98.1]) (Spinal stenosis of lumbar region with neurogenic claudication [M48.062]) (Pre-op testing [Z01.818]) Surgeons: Rubin Lopez MD Responsible Provider: Edis Ling MD Anesthesia Type: general ASA Status: 2 Anesthesia Type: general Airway Type: ETT Last Vitals Vitals Value Taken Time BP 138/86 11/07/222099 Temp 36.7 ?C (98.1 ?F) 11/07/222099 Pulse 80 11/07/222099 Resp 17 11/07/222020 SpO2 95 % 11/07/222099 Vitals shown include unvalidated device data. Post Anesthesia Patient Status Patient Evaluation: bedside. Anticipated Disposition: inpatient floor planned admission. Neurological Status: aware and responsive. Pulmonary Status: breathing comfortably on room air Airway Control: returned to baseline unsupported. Cardiovascular Status: stable. Pain Management: clinically adequate Postoperative Hydration: acceptable. Intraoperative Events: no significant anesthesia events Post Operative Nausea/Vomiting Status: no significant post operative nausea or vomiting Recommendation: continue current plan of care. Anesthesia Observations No Documentation SIGNATURE: Edis Ling MD PATIENT NAME: Emily Caldwell DATE: November 07, 2022 TIME: 9:48 PM CSN: [id number] Normal [facility] ANES PRE-OPon 11-07-2022 ANES PRE-OP HNO ID: [id number] Author: Asael Beck III, MD Service: ? Author Type: Physician Type: Anesthesia Preprocedure Evaluation Filed: 11/07/2022 2:35 PM Note Text: ANESTHESIOLOGY DAY OF SURGERY NOTE : 1950 Procedure Information Date/Time: 11/07/22 1142 Procedures: LAMINOTOMY W/ DECOMPRESSION OF NERVE ROOT(S) PARTIAL FACETECTOMY FORAMINOTOMY AND/OR EXCISION OF HERNIATED INTERVERTEBRAL DISC 1 INTERSPACE LUMBAR (Bilateral: Back) LAMINOTOMY W/ DECOMPRESSION OF NERVE ROOT(S) W/ PARTIAL FACETECTOMY FORAMINOTOMY AND/OR EXCISION OF HERNIATED INTERVERTEBRAL DISC CERVICAL/LUMBAR LEVEL 3 (Bilateral: Back) Location: [facility] Surgeons: Rubin Lopez MD Estimated body mass index is 28.82 kg/m? as calculated from the following: Height as of this encounter: 170.2 cm (5' 7 ). Weight as of this encounter: 83.5 kg (184 lb). Most recent hematocrit and potassium results: Hematocrit 35.6 10/31/2022 Potassium 4.1 10/31/2022 Relevant Problems CARDIO (+) Essential (primary) hypertension GI (+) Gastroesophageal reflux disease with esophagitis I - PHYSICAL EVALUATION AIRWAY Patient intubated: No. Tracheostomy tube not present Mallampati: II. TM distance: >3 FB. Neck ROM: full ROM without neurological symptoms. Mouth opening: adequate. Short neck: no. Thick neck: no DENTAL Dental findings: teeth intact. II - ANESTHESIA PLAN ASA Score: 2 Anesthetic Plan: general Airway type: ETT NPO Status: adequate Beta Camryn Monitoring Plan Monitoring plan: standard ASA. Post Procedure Analgesic Plan Postoperative analgesic plan: parenteral or oral opioids and multimodal analgesia. Informed Consent Anesthetic risks, benefits, alternatives, personnel and consent discussed: yes. Patient / Responsible Libertarian agrees to proceed: yes Patient / Surrogate agrees to blood products: Yes Significant changes in the patient condition since the History and Physical, not otherwise documented in primary service progress note: no. Potential Anesthesia issues that may suggest increased risk of complications or contraindication to planned procedure: none. Vitals Value Taken Time BP 151/81 11/07/22 1219 Pulse 69 11/07/22 1219 Resp 18 11/07/22 1219 Temp 36.6 ?C (97.9 ?F) 11/07/22 1219 SpO2 97 % 11/07/22 1219 Facility-Administere d Medications as of 11/07/2022 Medication Dose Route Frequency - lidocaine (PF) 10 mg/mL (1 %) 1-2 mg injection (XYLOCAINE) 0.1-0.2 mL INTRADERMAL PRN Or - lidocaine 1% 0.25 mL subcutaneous j-tip syringe (XYLOCAINE) 0.25 mL SUBCUTANEOUS PRN - lactated ringers iv infusion 5-30 mL/hr INTRAVENOUS CONTINUOUS - NaCl 0.9% iv flush bag 20 mL INTRAVENOUS PRN - ceFAZolin iv piggyback 2 g in D5W (iso-osmotic) 100 mL (ANCEF) 2 g INTRAVENOUS Pre-Op Once - [COMPLETED] acetaminophen 1,000 mg tab(s) (TYLENOL) 1,000 mg ORAL ONCE - [COMPLETED] gabapentin 300 mg cap(s) (NEURONTIN) 300 mg ORAL ONCE Outpatient Medications as of 11/07/2022 Medication Sig - acetaminophen (TYLENOL) 325 mg tablet Take by mouth q 6 HR. - benazepril (LOTENSIN) 20 mg tablet Take by mouth q 24 HR. - lisinopril (ZESTRIL, PRINIVIL) 10 mg tablet Take 10 mg by mouth once daily. (Patient not taking: No sig reported) - aspirin 325 mg tablet Take 325 mg by mouth once daily. (Patient not taking: No sig reported) - pantoprazole DR (PROTONIX) 40 mg tablet Take 40 mg by mouth once daily as needed. - eszopiclone (LUNESTA) 3 mg tab Take by mouth at bedtime as needed. (Patient not taking: Reported on 10/10/2022) I have interviewed and examined the patient. I have reviewed the medical record and/or the pre-anesthesia evaluation, pertinent labs, and test results. This contains updated information obtained within 48 hours of Surgery/Procedure. SIGNATURE: Asael Beck III, MD PATIENT NAME: Emily Caldwell DATE: November 07, 2022 TIME: 2:35 PM CSN: [id number] Normal [facility] BRIEF OP NOTon 11-07-2022 BRIEF OP NOT HNO ID: [id number] Author: Juan David Benites MD Service: Neurosurgery Author Type: Resident Type: Brief Op Note Filed: 11/07/2022 6:44 PM Note Text: BRIEF OP NOTE LOG ID: [id number] Surgery/Procedure Date: 11/07/2022 Incision/Procedure Start Time: 4:05 PM Incision Close/Procedure End Time: 6:29 PM Surgeon(s)/Procedura list(s) and Truck Operator(s): Surgeon(s) and Role: * Rubin Lopez MD - Primary * Juan David Benites MD - Resident - Assisting Procedure(s): 1. L3/4 decompression Anesthesia: General Findings: 1. Satisfactory decompression of bilateral L3/4 nerve roots, L3/4 lateral recesses Estimated Blood Loss: 250 mls Specimens: * No specimens in log * Complications: None Pre-Op/Pre-Procedure Diagnosis: lumbar stenosis Post-Op/Post-Procedu re Diagnosis: Same as pre-op SIGNATURE: Juan David Benites MD PATIENT NAME: Emily Caldwell DATE: November 07, 2022 TIME: 6:43 PM PAGER/CONTACT #: [phone] Normal [facility] OPERATIVE NOon 11-07-2022 OPERATIVE NO HNO ID: [id number] Author: Rubin Lopez MD Service: Neurosurgery Author Type: Physician Type: Operative Report Filed: 11/12/2022 2:50 PM Note Text: [facility] - Operative Report [address] [place] [address] [place] EMILY CALDWELL : 1950 AGE: 72. SEX: M PATIENT TYPE: OP HOSP SVC: [facility] LOCATION: [place] [address] ATTENDING PHYSICIAN: Rubin Lopez M.D. CSN NUMBER: [id number] DATE OF SURGERY/PROCEDURE: 11/07/2022 INCISION/PROCEDURE START TIME: 4:05 PM INCISION CLOSE/PROCEDURE END TIME: 6:29 PM PREOPERATIVE DIAGNOSIS: Lumbar foraminal stenosis. POSTOPERATIVE DIAGNOSIS: Lumbar foraminal stenosis. SURGEON: Rubin Lopez M.D. PATHOLOGY TRANSCRIPTIONIST: Bud Benites. SURGERY/PROCEDURE: Lumbar re-exploration with bilateral L3 and bilateral L4 nerve root foraminotomies. The CPT codes for these procedures are 64072-89 and 51515-97. ANESTHESIA: General. DESCRIPTION OF PROCEDURE: After general endotracheal anesthesia was induced, the patient was placed in the prone position on the Fredy frame. The lumbosacral region was prepped and draped in the usual sterile fashion. A vertical midline incision was made from the spinous process of L2-L4. Paraspinal muscles were reflected bilaterally and a localization of the patient's pre-existing L5-S1 instrumentation confirmed the appropriate level. Scar tissue was dissected off the lateral bony margins on the left side at the L3 and L4 level. Foraminotomies were performed for the L3 and L4 nerve roots on the left side. Scar tissue was dissected off the lateral bony margins on the right side and foraminotomies were performed for the right L3 and L4 nerve roots. Hemostasis was achieved. The wound was thoroughly irrigated until clear and closed in the usual 3-layer fashion. The patient was then placed in the supine position, extubated, and taken to the recovery room in satisfactory condition. Dr. Gomez performed an unsupervised opening and closing of the incision with Dr. Lopez immediately available. Dr. Lopez performed the neural decompression with the assistance of Dr. Benites. Rubin Lopez M.D. IK:[id number] /[id number] Normal [facility] Basic metabolic 2000 panelon 10-31-2022 Anion gap [Moles/Vol] 12 mmol/L 9 - 18 mmol/L [facility] Calcium [Mass/Vol] 9.6 mg/dL 8.5 - 10. 2 mg/dL [facility] Chloride [Moles/Vol] 101 mmol/L 97 - 10 5 mmol/L [facility] CO2 [Moles/Vol] 25 mmol/L 22 - 30 mmol/L [facility] Creatinine [Mass/Vol] 1.23 mg/dL High 0.73 - 1.22 mg/dL [facility] Estimated Glomerular Filtration Rate 62 mL/min/1.73m >=60 mL/min/1.73m [facility] Glucose [Mass/Vol] 90 mg/dL 74 - 99 mg/dL [facility] Potassium [Moles/Vol] 4.1 mmol/L 3.7 - 5.1 mmol/L [facility] Sodium [Moles/Vol] 138 mmol/L 136 - 144 mmol/L [facility] Urea nitrogen [Mass/Vol] 20 mg/dL 9 - 24 mg/dL [facility] Anion gap [Moles/Vol] 12 mmol/L Normal 9-18 [facility] Comment on above: Order Comment: Speci men Type: BLOOD SPECIMENOrdering Facility: [facility] Address: [address] [place] [id number] Performed By: #### 2 4321-2 ####[facility] LABCLIA [id number] [place] [address] [place] Calcium [Mass/Vol] 9.6 mg/dL Normal 8.5-10.2 [facility] Comment on above: Order Comment: Speci men Type: BLOOD SPECIMENOrdering Facility: [facility] Address: [address] [place] [address] Performed By: #### 2 4321-2 ####[facility] LABCLIA [id number] [place] [address] [place] Chloride [Moles/Vol] 101 mmol/L Normal 97-105 [facility] Comment on above: Order Comment: Speci men Type: BLOOD SPECIMENOrdering Facility: [facility] Address: [address] [place] [address] Performed By: #### 2 4321-2 ####[facility] LABCLIA [id number] [place] [address] [place] CO2 [Moles/Vol] 25 mmol/L Normal 22-30 [facility] Comment on above: Order Comment: Speci men Type: BLOOD SPECIMENOrdering Facility: [facility] Address: [address] [place] [address] Performed By: #### 2 4321-2 ####[facility] LABCLIA [id number] [place] [address] [place] Creatinine [Mass/Vol] 1.23 mg/dL High 0.73-1.22 [facility] Comment on above: Order Comment: Speci men Type: BLOOD SPECIMENOrdering Facility: [facility] Address: [address] [place] [address] Performed By: #### 2 4321-2 ####[facility] LABCLIA [id number] [place] [address] [place] ESTIMATED GLOMERULAR FILTRATION RATE 62 mL/min/1.73m??? Normal >=60 [facility] Comment on above: Order Comment: Speci men Type: BLOOD SPECIMENOrdering Facility: [facility] Address: [address] Result Comment: Yanni mated Glomerular Filtration Rate (eGFR) is calculated using the 2020 CKD-EPI creatinine equation. This equation utilizes serum creatinine, sex, and age as parameters. The creatinine assay has traceable calibration to isotope dilution-mass spectrometry. Refer to KDIGO guidelines for clinical interpretation. In patients with unstable renal function, e.g. those with acute kidney injury, the eGFR may not accurately reflect actual GFR. Performed By: #### 2 4321-2 ####[facility] LABIA [id number] [place] [address] [place] Glucose [Mass/Vol] 90 mg/dL Normal 74-99 [facility] Comment on above: Order Comment: Beverly rea Type: BLOOD SPECIMENOrdering Facility: [facility] Address: [address] [place] [address] Result Comment: The [place] [employer] (ADA) provides guidance for cutoff values for fasting glucose and random glucose. The ADA defines fasting as no caloric intake for at least 8 hours. Fasting plasma glucose results between 100 to 125 mg/dL indicate increased risk for diabetes (prediabetes). Fasting plasma glucose results greater than or equal to 126 mg/dL meet the criteria for diagnosis of diabetes. In the absence of unequivocal hyperglycemia, results should be confirmed by repeat testing. In a patient with classic symptoms of hyperglycemia or hyperglycemic crisis, random plasma glucose results greater than or equal to 200 mg/dL meet the criteria for diagnosis of diabetes. Reference: Standards of Medical Care in Diabetes 2016, [place] [employer]. Diabetes Care. 2016.39(Suppl 1). Performed By: #### 2 4321-2 ####[facility] LABIA [id number] [place] [address] [place] Potassium [Moles/Vol] 4.1 mmol/L Normal 3.7-5.1 [facility] Comment on above: Order Comment: Beverly rea Type: BLOOD SPECIMENOrdering Facility: [facility] Address: [address] [address] Performed By: #### 2 4321-2 ####[facility] LABCLIA [id number] [place] [address] [place] Sodium [Moles/Vol] 138 mmol/L Normal 136-144 [facility] Comment on above: Order Comment: Speci men Type: BLOOD SPECIMENOrdering Facility: [facility] Address: [address] [address] Performed By: #### 2 4321-2 ####[facility] LABCLIA [id number] [address] [place] Urea nitrogen [Mass/Vol] 20 mg/dL Normal 9-24 [facility] Comment on above: Order Comment: Speci men Type: BLOOD SPECIMENOrdering Facility: [facility] Address: [address] [address] Performed By: #### 2 4321-2 ####[facility] LABCLIA [id number] [address] [place] CBC panel Auto (Bld)on 10-31 Erythrocyte distribution width (RBC) [Ratio] 13.8 % 11.5 - 15.0 % [facility] Hematocrit (Bld) [Volume fraction] 35.6 % Low 39.0 - 51.0 % [facility] Hemoglobin (Bld) [Mass/Vol] 12.0 g/dL Low 13.0 - 17.0 g/dL [facility] MCH (RBC) [Entitic mass] 31.7 pg 26.0 - 34.0 pg [facility] MCHC (RBC) [Mass/Vol] 33.7 g/dL 30.5 - 36.0 g/dL [facility] MCV (RBC) [Entitic vol] 94.2 fL 80.0 - 100.0 fL [facility] Nucleated RBC (Bld) [#/Vol] <0.01 k/uL [facility] Platelet mean volume (Bld) [Entitic vol] 9.7 fL 9.0 - 12.7 fL [facility] Platelets (Bld) [#/Vol] 269 10*3/uL 150 - 400 k/uL [facility] RBC (Bld) [#/Vol] 3.78 10*6/uL Low 4.20 - 6.0 0 m/uL [facility] WBC (Bld) [#/Vol] 5.19 10*3/uL 3.70 - 11. 00 k/uL [facility] Erythrocyte distribution width (RBC) [Ratio] 13.8 % Normal 11.5-15.0 [facility] Comment on above: Order Comment: Speci men Type: BLOOD SPECIMENOrdering Facility: [facility] Address: [address] [place] [address] Performed By: #### 5 8410-2 ####[facility] LABIA [id number] [address] STATES OF [facility] Hematocrit (Bld) [Volume fraction] 35.6 % Low 39.0-51.0 [facility] Comment on above: Order Comment: Speci men Type: BLOOD SPECIMENOrdering Facility: [facility] Address: [address] [place] [address] Performed By: #### 5 8410-2 ####[facility] LABIA [id number] [address] [place] Hemoglobin (Bld) [Mass/Vol] 12.0 g/dL Low 13.0-17.0 [facility] Comment on above: Order Comment: Speci men Type: BLOOD SPECIMENOrdering Facility: [facility] Address: [address] [place] [address] Performed By: #### 5 8410-2 ####[facility] LABCLIA [id number] [place] [address] [place] MCH (RBC) [Entitic mass] 31.7 pg Normal 26.0-34.0 [facility] Comment on above: Order Comment: Speci men Type: BLOOD SPECIMENOrdering Facility: [facility] Address: [address] [place] [address] Performed By: #### 5 8410-2 ####[facility] LABCLIA [id number] [place] [address] [place] MCHC (RBC) [Mass/Vol] 33.7 g/dL Normal 30.5-36.0 [facility] Comment on above: Order Comment: Speci men Type: BLOOD SPECIMENOrdering Facility: [facility] Address: [address] [place] [address] Performed By: #### 5 8410-2 ####[facility] [id number] [place] [address] [place] MCV (RBC) [Entitic vol] 94.2 fL Normal 80.0-100.0 [facility] Comment on above: Order Comment: Speci men Type: BLOOD SPECIMENOrdering Facility: [facility] Address: [address] [place] [address] Performed By: #### 5 8410-2 ####[facility] [id number] [place] [address] [place] Nucleated RBC (Bld) [#/Vol] 10*3/uL Normal <0.01 [facility] Comment on above: Order Comment: Speci men Type: BLOOD SPECIMENOrdering Facility: [facility] Address: [address] [place], [place] [address] Performed By: #### 5 8410-2 ####[facility] [id number] [place] [address] [place] Platelet mean volume (Bld) [Entitic vol] 9.7 fL Normal 9.0-12.7 [facility] Comment on above: Order Comment: Speci men Type: BLOOD SPECIMENOrdering Facility: [facility] Address: [address] [place], [place] [address] Performed By: #### 5 8410-2 ####[facility] [id number] [place] [address] [place] Platelets (Bld) [#/Vol] 269 10*3/uL Normal 150-400 [facility] Comment on above: Order Comment: Speci men Type: BLOOD SPECIMENOrdering Facility: [facility] Address: [address] [address] Performed By: #### 5 8410-2 ####[facility] LABCLIA [id number] [place] [address] [place] RBC (Bld) [#/Vol] 3.78 10*6/uL Low 4.20-6.[address] [facility] Comment on above: Order Comment: Speci men Type: BLOOD SPECIMENOrdering Facility: [facility] Address: [address] [address] Performed By: #### 5 8410-2 ####[facility] LABCLIA [id number] [place] [address] [place] WBC (Bld) [#/Vol] 5.19 10*3/uL Normal 3.70-11.[address] [facility] Comment on above: Order Comment: Speci men Type: BLOOD SPECIMENOrdering Facility: [facility] Address: [address] [address] Performed By: #### 5 8410-2 ####[facility] LABCLIA [id number] [place] [address] [place] CNOVon 10-31-2022 CNOV Office Visit (SPNSMN) EMILY CALDWELL ([id number]) 1950 M Date Time Provider Department 10/31/22 4:00 PM RUBIN LOPEZ SPNSMN During your visit today, we recorded the following information about you: Pulse Respiration Blood pressure Weight 79/minute 16/minute 114/69 83.5 kg Height 1.702 m Rubin Lopez MD 10/31/2022 2:47 PM Signed Complains of back pain and bilateral buttock and leg pain. Pain occurs primarily with activity and ambulation. It limits his activities plan: L3-4 decompression Risks, benefits, alternatives and personnel of surgery discussed with patient. He agrees to proceed. Rubin Lopez MD Referring Provider: RUBIN LOPEZ [[id number]] Allergies As of Date: 10/31/2022 (No Known Allergies) Date Reviewed: 10/31/2022 Reviewed by: Deyanira Reid MA - Fully Assessed Reason for Visit: Pre-Op Exam [87] Primary Visit Diagnosis:Neural foraminal stenosis of lumbar spine [M48.061] Other Visit Diagnoses:S/P spinal fusion [Z98.1] Spinal stenosis of lumbar region with neurogenic claudication [M48.062] Prescriptions as of 10/31/2022 - acetaminophen (TYLENOL) 325 mg tablet Take by mouth q 6 HR. - benazepril (LOTENSIN) 20 mg tablet Take by mouth q 24 HR. - lisinopril (ZESTRIL, PRINIVIL) 10 mg tablet Take 10 mg by mouth once daily. - aspirin 325 mg tablet Take 325 mg by mouth once daily. - pantoprazole DR (PROTONIX) 40 mg tablet Take 40 mg by mouth once daily as needed. - eszopiclone (LUNESTA) 3 mg tab Take by mouth at bedtime as needed. Problem List As Of Date 10/31/2022 Noted Resolved Gastroesophageal reflux disease with esophagiti* Essential (primary) hypertension [I10] 02/04/2022 Anemia, unspecified [D64.9] 03/06/2022 Low back pain with sciatica [M54.40] 10/31/2022 Resting tremor [G25.2] 10/31/2022 Encounter Status:Closed by RUBIN LOPEZ on 10/31/22 Normal [facility] CONFIRM BLOOD TYPEon 023 ABO O [facility] Rh Nom (Bld) Positive [facility] ABO O Normal [facility] Comment on above: Order Comment: Speci men Type: BLOOD SPECIMENOrdering Facility: [facility] Address: [address] [address] Performed By: #### C ONABO ####CC MAIN BLOOD BANKCLIA [id number] [address] Rh Nom (Bld) Positive Normal [facility] Comment on above: Order Comment: Speci men Type: BLOOD SPECIMENOrdering Facility: [facility] Address: [address] [address] Performed By: #### C ONABO ####CC MAIN BLOOD BANKCLIA [id number] [address] ECG COMPLETEon 10-31-2022 ECG COMPLETE Ventricular Rate : 67 BPM Atrial Rate : 67 BPM P-R Interval : 180 ms QRS Duration : 98 ms Q-T Interval : 420 ms QTC Calculation(Bazett) : 443 ms Calculated P [place] : 35 degrees Calculated R [place] : -11 degrees Calculated T [place] : 52 degrees NORMAL SINUS RHYTHM NORMAL ECG Confirmed by CHONG FOWLER M.D. ([id number]) on 11/03/2022 3:56:25 PM NAME : EMILY CALDWELL PID : [id number] : 1950 Gender : Male Race : ORD : [id number] Procedure Date : Oct 31 2022 12:14:42 Edit Date : Nov 03 2022 15:56:46 Diagnosis: NORMAL SINUS RHYTHM NORMAL ECG Confirmed by CHONG FOWLER M.D. ([id number]) on 11/03/2022 3:56:25 PM Test Reason : Location : 119 : A17 A17 Overread By : CHONG FOWLER M.D. Edited By : CHONG FOWLER M.D. Referred By : SHANDRA DALLAS Acquired by : MARIAN VERA [facility] HISTORY PHYSICALon 3 HISTORY PHYSICAL HNO ID: [id number] Author: Yousuf Killian MD Service: ? Author Type: Resident Type: HANDP Filed: 10/31/2022 12:28 PM Note Text: HISTORY AND PHYSICAL EXAMINATION Attending Note I evaluated the patient and personally participated in the meyer components. I agree with the resident's findings and plan as documented and have discussed the case and management of the patient's care with the resident. Signature: Shandra Dallas MD, PhD Date: 10/31/2022 Time: 12:28 PM SERVICE DATE: October 31, 2022 SERVICE TIME: 9:01 AM PRIMARY CARE PHYSICIAN: Hector Fraga DO REASON FOR VISIT: Emily Caldwell is a 72 year old male who is scheduled for LAMINOTOMY W/ DECOMPRESSION OF NERVE ROOT(S) PARTIAL FACETECTOMY FORAMINOTOMY AND/OR EXCISION OF HERNIATED INTERVERTEBRAL DISC 1 INTERSPACE LUMBAR, LAMINOTOMY W/ DECOMPRESSION OF NERVE ROOT(S) W/ PARTIAL FACETECTOMY FORAMINOTOMY AND/OR EXCISION OF HERNIATED INTERVERTEBRAL DISC CERVICAL/LUMBAR LEVEL 3 at the request of Dr. Rubin Lopez for consultation. My final recommendation will be communicated back to the requesting physician by way of shared medical record or letter. The patient has the following: There is no problem list on file for this patient. Subjective CHIEF COMPLAINT: Pre-op exam HPI: Emily Caldwell is a 72 year old male who presents for pre-anesthesia consultation for upcoming procedure. Patient has a history of stenosis of lumbar spine. Underwent L5-S1 interbody fusion and fixation with L3 laminectomy in 10/08. Has limited activity due to back pain and bilateral leg pain. Denies any fever, chills, nausea, vomiting, chest pain, abdominal pain, SOB. Above procedure is recommended to manage symptoms. Patient is scheduled for surgery on 11/07/2022. PAST MEDICAL HISTORY Diagnosis Date Hypertension Sinus disease PAST SURGICAL HISTORY Procedure Laterality Date LAMINECTOMY,LUMBAR SINUS SURGERY HX FAMILY HISTORY Problem Relation Age of Onset Diabetes Mother other (HTN) Father Heart Attack Father Heart Failure Father SOCIAL HISTORY: Social History Tobacco Use Smoking status: Never Substance Use Topics Alcohol use: No Drug use: No MEDICATIONS: Prior to Admission medications as of 10/10/22 1552 Medication Sig Last Dose Taking acetaminophen (TYLENOL) 325 mg tablet Take by mouth q 6 HR. benazepril (LOTENSIN) 20 mg tablet Take by mouth q 24 HR. lisinopril (ZESTRIL, PRINIVIL) 10 mg tablet Take 10 mg by mouth once daily. Patient not taking: Reported on 10/10/2022 aspirin 325 mg tablet Take 325 mg by mouth once daily. Patient not taking: Reported on 10/10/[address] (PROTONIX) 40 mg tablet Take 40 mg by mouth once daily as needed. eszopiclone (LUNESTA) 3 mg tab Take by mouth at bedtime as needed. Patient not taking: Reported on 10/10/2022 No medication comments found. CURRENT ALLERGIES: ALLERGIES No Known Allergies COVID VACCINATION STATUS: Not vaccinated, prior infection REVIEW OF SYSTEMS: PAIN ASSESSMENT: General: No weight loss, malaise or fevers. Neuro: No history of TIA's, stroke, FI[employer] tumor, impaired sensorium, hemiplegia, paraplegia or quadraplegia. Respiratory: No history of current cough or dyspnea, or pneumonia in the past 6 weeks. No history of respiratory/pulmonar y symptoms or problems. Cardiovascular: +HTN, No history of CHF or [place] GI: +GERD : No history of dysuria, frequency or incontinence,, stones or chronic kidney disease Endocrine: No history of diabetes. Has not taken steroids within the past 30 days. No history of endocrinological symptoms or problems. Hematology: No history of bleeding or clotting disorder. Pt is not taking anti-coagulation or platelet medications. No history of hematological symptoms or problems. Oncology: No history of CA metastasis, chemo within 30 days, or radiotherapy within 90 days. Has not lost 10% of body wt in 6 months. No history of oncological symptoms or problems. Psych: No history of psychiatric symptoms or problems. Musculoskeletal: +Lower back and bilateral leg pain Skin: Negative for lesions, rash and itching. Objective PHYSICAL EXAM: VITALS: BP 133/71 Pulse 70 Temp (Src) 97.3 (Temporal) Ht 5' 7 (1.70m) Wt 184 lb (83.5kg) SpO2 97% BMI 28.81 kg/(m2). General: Alert and oriented Skin: Normal color, no rash, no lesions. HEENT: EOM, pupils equal, round and reactive. Cardiovascular: Normal S1 AND S2, no rubs, murmurs or gallops. No JVD. Lungs: Normal breath sounds, no wheezes or crackles. Abdomen: Positive bowel sounds Extremities: No deformity, no edema or tenderness, no joint swelling or clubbing. Neurological: Normal cognition and motor skills. Pulses: Radial pulses 2+ Diagnostic tests reviewed for today's visit: Lab Value Units Date High Low HB No results within date range. HCT No results within date range. WBC No results within date range. PLT No results within date range. NA No results (more content not included)... Normal [facility] STAPH AUREUS PCRon 3 S. aureus and MRSA panel DIANA+probe (Nose) Normal Negative [facility] Comment on above: Order Comment: Speci men Type: SWAB OF INTERNAL NOSEOrdering Facility: [facility] Address: [address] [place] [address] Result Comment: Nega tive for Staphylococcus aureus by PCR. Negative for MRSA by PCR Performed By: #### S APCR ####[facility] LABCLIA [id number] [address] [place] TYPE AND SCREEN,30 DAYon ABO O [facility] HIstorical Ab Scr Status Negative [facility] Rh Nom (Bld) Positive [facility] ABO O Normal [facility] Comment on above: Order Comment: Speci men Type: BLOOD SPECIMENOrdering Facility: [facility] Address: [address] [place] [address] Performed By: #### T SCR30 ####CC [facility] BLOOD BANKCLIA [id number] [address] HISTORICAL AB SCR STATUS Negative Normal [facility] Comment on above: Order Comment: Speci men Type: BLOOD SPECIMENOrdering Facility: [facility] Address: [address] [place] [address] Performed By: #### T SCR30 ####CC MAIN BLOOD BANKCLIA [id number] [address] Rh Nom (Bld) Positive Normal [facility] Comment on above: Order Comment: Speci men Type: BLOOD SPECIMENOrdering Facility: [facility] Address: [address] [place] [address] Performed By: #### T SCR30 ####CC MAIN BLOOD BANKCLIA [id number] [address] [place] CNPNon 04-05-2023 CNPN Telephone (SPNSMN) TANVIREMILY Mehran ([id number]) 1950 Date Time Provider Department 10/22/22 RUBIN LOPEZ SPNSMN During your visit today, we recorded the following information about you: Naomi Raya RN 10/22/2022 2:53 PM Signed Neuro SPINE CARE COORDINATION SURGERY SCHEDULING Patient accepts surgery date of 11-07-[address] Lopez . Planned procedure is L3-4 foraminal decompression . PACC will be 10-31-22 . [employer]quest : completed Medications reviewed : Yes}. Meds to be stopped prior to surgery : NSAIDS and Vitamins and supplements. Additional pre op clearances needed : none. Any implanted devices : No. Transplant History No . Patient will get optimization lab work : none. Questions answered. Patient verbalizes understanding via teach back. Additional comments : home with . Preoperative Needs Assessment Do you live alone or with someone that can help you? Lives with caregiver Will you have assistance available at home after your surgery to help with physical activities such a toileting or dressing? Never How many steps do you need to climb to get into your home? 1-10 Once in your home, how many steps do you need to climb to access your bedroom or bathroom? 11-20 Do you use a mobility aid for walking/getting around? (note, if more than one type of aid is used, select the one that is used more frequently) None Anticipated LOS > 5 days: No Significant home social issues or Current history or past history of substance abuse: No Wheelchair baseline, Homebound baseline, Significant gait instability, or History of significant falls: No Thora/lumbar fusion any level planned or 2+ level posterior cervical fusion planned: No Myelopathic or Spine tumor: No Probability of non-home discharge disposition : Low [0] Naomi Raya RN Allergies As of Date: 10/22/2022 (No Known Allergies) Date Reviewed: 10/10/2022 Reviewed by: Natasha Rivera MA - Fully Assessed Reason for Visit: Follow Up [171] Prescriptions as of 10/22/2022 - acetaminophen (TYLENOL) 325 mg tablet Take by mouth q 6 HR. - benazepril (LOTENSIN) 20 mg tablet Take by mouth q 24 HR. - lisinopril (ZESTRIL, PRINIVIL) 10 mg tablet Take 10 mg by mouth once daily. - aspirin 325 mg tablet Take 325 mg by mouth once daily. - pantoprazole DR (PROTONIX) 40 mg tablet Take 40 mg by mouth once daily as needed. - eszopiclone (LUNESTA) 3 mg tab Take by mouth at bedtime as needed. Problem List As Of Date: 10/22/2022 (None) Encounter Status:Closed by NAOMI R[facility]A [facility] CALDWE[facility] ([id number]) 1950 M Date Time Provider Department 10/22/22 RUBIN LOPEZ SPNSDC During your visit today, we recorded the following information about you: Naomi Raya RN 10/22/2022 2:15 PM Signed Neuro SPINE CARE COORDINATION QUICK NOTE As per Dr. Lopez- MRI review L3 foraminal stenosis - L3-4 decompression recommended with no fusion Call to the pt and LM on identified VM requesting a call back - call back number has been provided. Allergies As of Date: 10/22/2022 (No Known Allergies) Date Reviewed: 10/10/2022 Reviewed by: Natasha Rivera MA - Fully Assessed Reason for Visit: Follow Up [171] Prescriptions as of 10/22/2022 - acetaminophen (TYLENOL) 325 mg tablet Take by mouth q 6 HR. - benazepril (LOTENSIN) 20 mg tablet Take by mouth q 24 HR. - lisinopril (ZESTRIL, PRINIVIL) 10 mg tablet Take 10 mg by mouth once daily. - aspirin 325 mg tablet Take 325 mg by mouth once daily. - pantoprazole DR (PROTONIX) 40 mg tablet Take 40 mg by mouth once daily as needed. - eszopiclone (LUNESTA) 3 mg tab Take by mouth at bedtime as needed. Problem List As Of Date: 10/22/2022 (None) Encounter Status:Closed by NAOMI RAYA on 10/22/22 [facility] CNPN Telephone (SPNSMN) EMILY CALDWELL ([id number]) 1950 M Date Time Provider Department 10/14/22 RUBIN LOPEZ [facility] During your visit today, we recorded the following information about you: Ilda Mckenzie [facility] 10/15/2022 2:08 PM Addendum Pt's called checking for receipt of the following image being sent from [facility]: 03/21/22: MRI Lumbar Spine W AND WO Contrast (report scanned) Images have not yet arrived; she will call back tomorrow to check again. FYI: Dr. Lopez requested this at 10/10/22 OV. Ilda Mckenzie [facility] 10/15/2022 2:10 PM Signed Images received via PACS and are available in Get Images. Ilda Mckenzie [facility] 10/15/2022 2:10 PM Signed Pt's called; she was advised that images have been received. Please advise once reviewed; ph: [phone] Naomi Raya RN 10/15/2022 2:52 PM Signed Neuro SPINE CARE COORDINATION QUICK NOTE Pending review with Dr. Lopez Allergies As of Date: 10/14/2022 (No Known Allergies) Date Reviewed: 10/10/2022 Reviewed by: Natasha Rivera MA - Fully Assessed Reason for Visit: External Imaging [Other] Prescriptions as of 10/15/2022 - acetaminophen (TYLENOL) 325 mg tablet Take by mouth q 6 HR. - benazepril (LOTENSIN) 20 mg tablet Take by mouth q 24 HR. - lisinopril (ZESTRIL, PRINIVIL) 10 mg tablet Take 10 mg by mouth once daily. - aspirin 325 mg tablet Take 325 mg by mouth once daily. - pantoprazole DR (PROTONIX) 40 mg tablet Take 40 mg by mouth once daily as needed. - eszopiclone (LUNESTA) 3 mg tab Take by mouth at bedtime as needed. Problem List As Of Date: 10/14/2022 (None) Encounter Status:Closed by ILDA FUENTES on 10/15/22 [facility] CNOVon 10-10-2022 CNOV Office Visit (SPNSMN) EMILY CALDWELL ([id number]) 1950 M Date Time Provider Department 10/10/22 4:00 PM RUBIN LOPEZ During your visit today, we recorded the following information about you: Pulse Respiration Blood pressure Weight 92/minute 16/minute 143/74 80.3 kg Height 1.702 m Rubin Lopez MD 10/10/2022 5:47 PM Signed SPINE SURGERY OUTPATIENT CONSULT This is an in-person visit. SERVICE DATE: 10/10/2022 PCP: DO Emily Barry is a 72 year old male presenting with spouse. CHIEF COMPLAINT: Bilateral buttock and leg pain > back pain HISTORY OF PRESENT ILLNESS Complains of back pain and bilateral buttock and leg pain. Pain occurs primarily with activity and ambulation. It limits his activities. He underwent L5-S1 interbody fusion and fixation with L3 laminectomy in 10/08. He had a short period of pain improvement but it has recurred. He also had ED immediately after surgery and this has not improved. He had left foot dorsiflexion weakness before surgery. This has not improved. Conservative measures to date have not given him any relief PREVIOUS CONSERVATIVE TREATMENTS: NSAID Tylenol PT Muscle relaxants Injections x 5 PREVIOUS SPINAL SURGERY: SURGERY #1: 10/08: L5-S1 interbody fusion and fixation with L3 laminectomy There is no problem list on file for this patient. PAST MEDICAL HISTORY Diagnosis Date Hypertension Sinus disease History reviewed. No pertinent surgical history. History reviewed. No pertinent family history. Social History Tobacco Use Smoking status: Never Substance Use Topics Alcohol use: No Drug use: No ALLERGIES No Known Allergies MEDICATIONS: acetaminophen (TYLENOL) 325 mg tablet Take by mouth q 6 HR. benazepril (LOTENSIN) 20 mg tablet Take by mouth q [address] (PROTONIX) 40 mg tablet Take 40 mg by mouth once daily as needed. lisinopril (ZESTRIL, PRINIVIL) 10 mg tablet Take 10 mg by mouth once daily. (Patient not taking: Reported on 10/10/2022) aspirin 325 mg tablet Take 325 mg by mouth once daily. (Patient not taking: Reported on 10/10/2022) eszopiclone (LUNESTA) 3 mg tab Take by mouth at bedtime as needed. (Patient not taking: Reported on 10/10/2022) Patient Entered Questionnaires PROMIS Score Percentiles Percentiles provide an indication of how the patient's score ranks in relation to the general population. Higher percentile rankings indicate better function/quality of life. 50th percentile is the average of the general population and indicates half of respondents had a worse score. Depression Screening: PHQ-9 Self-Harm (Item 9) response options: 0 Not at all 1 Several days 2 More than half the days 3 Nearly every day PHQ-9 Levels: 0-4 No to mild depression 5-9 Mild depression 10-14 Moderate depression 15-19 Moderately severe depression 20-27 Severe depression OBJECTIVE: PHYSICAL EXAM BP 143/74 Pulse 92 Resp 16 Ht 170.2 cm (5' 7 ) Wt 80.3 kg (177 lb) SpO2 98% BMI 27.72 kg/m? GENERAL APPEARANCE: Well nourished, well developed, and no apparent distress. NEURO PSYCH: Patient oriented to person, place, and time. Mood pleasant. Benign affect. MUSCULOSKELETAL VISUAL INSPECTION CERVICAL: WNL THORACIC: WNL LUMBAR: WNL MOTOR: 5/5 in all muscle groups. except left foot dorsiflexion 4/5 SENSORY: Normal sensory exam GAIT: Normal. IMAGING lumbar plain films (12/08); s/p L5-S1 fixation and interbody fusion. S/p L3 laminectomy Lumbar MRI 04/10) report only: severe bilateral foraminal stenosis at L3-4, L4-5 and L5-S1 ASSESSMENT/PLAN (Z98.1) S/P lumbar fusion (primary encounter diagnosis) (M48.061) Neural foraminal stenosis of lumbar spine Emily Caldwell has a condition that requires further workup. 1. Imaging: Lumbar X-Ray 2. He will send in his MRI 3. Follow up: Following above SIGNATURE: Rubin Lopez MD PATIENT NAME: Emily Caldwell DATE: October 10, 2022 TIME: 3:56 PM PAGER: Referring Provider: RUBIN LOPEZ [[id number]] Allergies As of Date: 10/10/2022 (No Known Allergies) Date Reviewed: 10/10/2022 Reviewed by: Natasha Rivera MA - Fully Assessed Reason for Visit: New Patient [172] Primary Visit Diagnosis:S/P lumbar fusion [Z98.1] Other Visit Diagnosis:Neural foraminal stenosis of lumbar spine [M48.061] Order(s):XR LUMBAR LIMITED 2V FLEX/EXT [[id number]] Order #: [id number] FUTURE Prescriptions as of 10/10/2022 - acetaminophen (TYLENOL) 325 mg tablet Take by mouth q 6 HR. - benazepril (LOTENSIN) 20 mg tablet Take by mouth q 24 HR. - lisinopril (ZESTRIL, PRINIVIL) 10 mg tablet Take 10 mg by mouth once daily. - aspirin 325 mg tablet Take 325 mg by mouth once daily. - pantoprazole DR (PROTONIX) 40 mg tablet Take 40 mg by mouth once daily as needed. - eszopiclone (LUNESTA) 3 mg tab Take by mouth at bedtime (more content not included)... Normal [facility] No Panel Informationon 10-10 [facility] XR LUMBAR 2V FLEX/EXTon 09-18 XR LUMBAR 2V FLEX/EXT * * *Final Report* * * DATE OF EXAM: Oct 10 2022 4:26PM HALLE 5230 - XR LUMBAR 2V FLEX/EXT / PROCEDURE REASON: S/P lumbar fusion * * * * Physician Interpretation * * * * EXAMINATION: XR LUMBAR 2V FLEX/EXT CLINICAL HISTORY: Lumbar fusion TECHNIQUE: XR LUMBAR 2V FLEX/EXT with 2 views on 2 images MQ: XLS_1 COMPARISON: None. RESULT: Lateral projections of the lumbar spine only Counting Reference: Lumbosacral junction on lateral view. For the purposes of this report, L5S1 is considered the last lumbar type disc space and L4-5 is considered the level of the iliac crest. Normal. Post-op assessment: Pedicle screws at L5/S1 with discectomy and interbody fusion with metallic cage at the same level. There is no fracture identified. There is degenerative disc disease which is severe from L1/L2 to L3/L4 with retrolisthesis of L3 and L2. No instability. IMPRESSION: Postsurgical and degenerative changes of the lumbar spine. No gross fracture. Anatomic Variant: None. L4-5 is considered the level of the iliac crest and assume there are 5 lumbar-type vertebrae. Airline Pilot: PSCB Transcribe Date/Time: Oct 10 2022 4:28P Dictated by : EDUAR TIAN MD This examination was interpreted and the report reviewed and electronically signed by: EDUAR TIAN MD on Oct 10 2022 4:30PM EST [id number] CN Normal [facility] CBC AUTO DIFFon 09-29-2022 BASO # 0.0 103/ul Normal 0.0-0.1 [facility] Comment on above: Performed By: #### F ERR, B12FOL, FETIBC #### [facility] [address] [address] [address] Nicole Lam Basophils/100 WBC (Bld) 0.8 % Normal 0.2-2.0 The [facility] Comment on above: Performed By: #### F ERR, B12FOL, FETIBC #### [facility] [address] [address] [address] Nicole Lam EO # 0.1 103/ul Normal 0.0-0.7 [facility] Comment on above: Performed By: #### F ERR, B12FOL, FETIBC #### [facility] [address] [place] [address] Dr. Nicole Lam Eosinophils/100 WBC (Bld) 3.0 % Normal 0.9-7.0 [facility] Comment on above: Performed By: #### F ERR, B12FOL, FETIBC #### [facility] [address] [place] [address] Dr. Nicole Lam Erythrocyte distribution width (RBC) [Ratio] 13.8 % Normal 11.0-15.0 [facility] Comment on above: Performed By: #### F ERR, B12FOL, FETIBC #### [facility] [address] [place] [address] Dr. Nicole Lam Hematocrit (Bld) [Volume fraction] 38.9 % Critically low 42.0-54.0 [facility] Comment on above: Performed By: #### F ERR, B12FOL, FETIBC #### [facility] [address] [place] [address] Dr. Nicole Lam Hemoglobin (Bld) [Mass/Vol] 13.2 g/dL Critically low 14.0-18.0 [facility] Comment on above: Performed By: #### F ERR, B12FOL, FETIBC #### [facility] [address] [place] [address] Dr. Nicole Lam IG # 0.01 10e3/ul Normal 0.00-0.03 The [facility] Comment on above: Performed By: #### F ERR, B12FOL, FETIBC #### [facility] [address] [place] [address] Dr. Nicole Lam IG % 0.3 % Normal 0.0-0.5 The [facility] Comment on above: Performed By: #### F ERR, B12FOL, FETIBC #### [facility] [address] [place] [address] Dr. Nicole Lam LYMPH # 1.1 103/ul Critically low 1.2-3.8 [facility] [place] Comment on above: Performed By: #### F ERR, B12FOL, FETIBC #### [facility] [address] [place] [address] Dr. Nicole Lam Lymphocytes/100 WBC (Bld) 26.4 % Normal 20.5-60.0 [facility] Comment on above: Performed By: #### F ERR, B12FOL, FETIBC #### [facility] [address] [place] [address] Dr. Nicole Lam MANUAL DIFF REQ NO Normal [facility] Comment on above: Performed By: #### F ERR, B12FOL, FETIBC #### [facility] [address] [place] [address] Dr. Nicole Lam MCH (RBC) [Entitic mass] 31.9 pg Normal 25.9-34.0 [facility] Comment on above: Performed By: #### F ERR, B12FOL, FETIBC #### [facility] [address] [place] [address] Dr. Nicole Lam MCHC (RBC) [Mass/Vol] 33.9 g/dL Normal 29.9-35.2 The [facility] Comment on above: Performed By: #### F ERR, B12FOL, FETIBC #### [facility] [address] [place] [address] Dr. Nicole Lam MCV (RBC) [Entitic vol] 94.0 fL Normal 80.0-94.0 The [facility] Comment on above: Performed By: #### F ERR, B12FOL, FETIBC #### [facility] [address] [place] [address] Dr. Nicole Lam MONO # 0.5 103/ul Normal 0.3-0.8 The [facility] Comment on above: Performed By: #### F ERR, B12FOL, FETIBC #### [facility] [address] [place] [address] Dr. Nicole Lam Monocytes/100 WBC (Bld) 11.6 % Normal 1.7-12.0 The [facility] Comment on above: Performed By: #### F ERR, B12FOL, FETIBC #### [facility] [address] [address] [address] Nicole Lam NEUT # 2.3 103/ul Normal 1.4-6.5 [facility] Comment on above: Performed By: #### F ERR, B12FOL, FETIBC #### [facility] [address] [place] [address] Dr. Nicole Lam Neutrophils/100 WBC (Bld) 57.9 % Normal 43.0-75.0 The [facility] Comment on above: Performed By: #### F ERR, B12FOL, FETIBC #### [facility] [address] [place] [address] Dr. Nicole Lam Platelet mean volume (Bld) [Entitic vol] 8.7 fL Critically low 9.5-13.5 [facility] Comment on above: Performed By: #### F ERR, B12FOL, FETIBC #### [facility] [address] [place] [address] Dr. Nicole Lam PLT 263 103/ul Normal 150-450 [facility] Comment on above: Performed By: #### F ERR, B12FOL, FETIBC #### [facility] [address] [place] [address] Dr. Nicole Lam RBC 4.14 106/ul Critically low 4.70-6.10 [facility] Comment on above: Performed By: #### F ERR, B12FOL, FETIBC #### [facility] [address] [place] [address] Dr. Nicole Lam WBC 4.0 103/ul Normal 4.0-11.0 The [facility] Comment on above: Performed By: #### F ERR, B12FOL, FETIBC #### [facility] [address] [place] [address] Dr. Nicole Lam FERRITINon 09-29-2022 Ferritin [Mass/Vol] 325.2786608 ng/mL 26. 0-388.0 ng/mL [employer] Other Ferritin [Mass/Vol] 202.0 ng/mL Normal 26.0-388.0 [facility] Comment on above: Performed By: #### F ERR, B12FOL, FETIBC #### [facility] [address] [address] [address] Nicole Lam IRON AND TIBCon 09-29-2022 Iron [Mass/Vol] 97.9120549 ug/dL 65.0-175 .0 ug/dL [employer] Other IRON AND TIBC 334.0 ug/dL 250.0-450.0 ug/dL [employer] Other IRON AND TIBC 29.0 % [employer] Other % SATURATION 29.0 % Normal [facility] Comment on above: Performed By: #### F ERR, B12FOL, FETIBC #### [facility] [address] [place] [address] Dr. Nicole Lam Iron [Mass/Vol] 97.0 ug/dL Normal 65.0-175.0 [facility] Comment on above: Performed By: #### F ERR, B12FOL, FETIBC #### [facility] [address] [address] [address] Nicole Lam TIBC DIRECT 334.0 ug/dL Normal 250.0-450.0 [facility] Comment on above: Performed By: #### F ERR, B12FOL, FETIBC #### [facility] [address] [place] [address] Dr. Nicole Lam VIT B12 AND FOLATEon 023 Cobalamin (Vitamin B12) [Mass/Vol] 774.5032157 pg/mL 193.0-986.0 pg/mL [employer] Other VIT B12 AND FOLATE 21.20 ng/mL 8.60-58.9 0 ng/mL [employer] Other VIT B12 AND FOLATE see note [employer] Other Cobalamin (Vitamin B12) [Mass/Vol] 611.0 pg/mL Normal 193.0-986.0 [facility] Comment on above: Performed By: #### F ERR, B12FOL, FETIBC #### [facility] [address] [address] [address] Nicole Lam FOLATE 21.20 ng/mL Normal 8.60-58.90 The [facility] Comment on above: Performed By: #### F ERR, B12FOL, FETIBC #### [facility] [address] [place] [address] Dr. Nicole Lam CBC AUTO DIFFon 06-17-2022 BASO # 0.1 103/ul Normal 0.0-0.1 [facility] Comment on above: Performed By: #### F ERR, B12FOL, FETIBC #### [facility] [address] [place] [address] Dr. Nicole Lam Basophils/100 WBC (Bld) 1.0 % Normal 0.2-2.0 [facility] Comment on above: Performed By: #### F ERR, B12FOL, FETIBC #### [facility] [address] [place] [address] Dr. Nicole Lam EO # 0.1 103/ul Normal 0.0-0.7 The [facility] Comment on above: Performed By: #### F ERR, B12FOL, FETIBC #### [facility] [address] [place] [address] Dr. Nicole Lam Eosinophils/100 WBC (Bld) 2.5 % Normal 0.9-7.0 The [facility] Comment on above: Performed By: #### F ERR, B12FOL, FETIBC #### [facility] [address] [place] [address] Dr. Nicole Lam Erythrocyte distribution width (RBC) [Ratio] 12.5 % Normal 11.0-15.0 The [facility] Comment on above: Performed By: #### F ERR, B12FOL, FETIBC #### [facility] [address] [place] [address] Dr. Nicole Lam Hematocrit (Bld) [Volume fraction] 37.5 % Critically low 42.0-54.0 [facility] Comment on above: Performed By: #### F ERR, B12FOL, FETIBC #### [facility] [address] [place] [address] Dr. Nicole Lam Hemoglobin (Bld) [Mass/Vol] 12.9 g/dL Critically low 14.0-18.0 [facility] Comment on above: Performed By: #### F ERR, B12FOL, FETIBC #### [facility] [address] [place] [address] Dr. Nicole Lam IG # 0.01 10e3/ul Normal 0.00-0.03 [facility] Comment on above: Performed By: #### F ERR, B12FOL, FETIBC #### [facility] [address] [place] [address] Dr. Nicole Lam IG % 0.2 % Normal 0.0-0.5 [facility] Comment on above: Performed By: #### F ERR, B12FOL, FETIBC #### [facility] [address] [place] [address] Dr. Nicole Lam LYMPH # 1.4 103/ul Normal 1.2-3.8 The [facility] Comment on above: Performed By: #### F ERR, B12FOL, FETIBC #### [facility] [address] [place] [address] Dr. Nicole Lam Lymphocytes/100 WBC (Bld) 28.0 % Normal 20.5-60.0 [facility] Comment on above: Performed By: #### F ERR, B12FOL, FETIBC #### [facility] [address] [place] [address] Dr. Nicole Lam MANUAL DIFF REQ NO Normal [facility] Comment on above: Performed By: #### F ERR, B12FOL, FETIBC #### [facility] [address] [place] [address] Dr. Nicole Lam MCH (RBC) [Entitic mass] 32.3 pg Normal 25.9-34.0 [facility] Comment on above: Performed By: #### F ERR, B12FOL, FETIBC #### [facility] [address] [place] [address] Dr. Nicole Lam MCHC (RBC) [Mass/Vol] 34.4 g/dL Normal 29.9-35.2 The [facility] Comment on above: Performed By: #### F ERR, B12FOL, FETIBC #### [facility] [address] [place] [address] Dr. Nicole Lam MCV (RBC) [Entitic vol] 94.0 fL Normal 80.0-94.0 The [facility] Comment on above: Performed By: #### F ERR, B12FOL, FETIBC #### [facility] [address] [place] [address] Dr. Nicole Lam MONO # 0.4 103/ul Normal 0.3-0.8 The [facility] Comment on above: Performed By: #### F ERR, B12FOL, FETIBC #### [facility] [address] [place] [address] Dr. Nicole Lam Monocytes/100 WBC (Bld) 7.8 % Normal 1.7-12.0 [facility] Comment on above: Performed By: #### F ERR, B12FOL, FETIBC #### [facility] [address] [place] [address] Dr. Nicole Lam NEUT # 3.1 103/ul Normal 1.4-6.5 The [facility] Comment on above: Performed By: #### F ERR, B12FOL, FETIBC #### [facility] [address] [place] [address] Dr. Nicole Lam Neutrophils/100 WBC (Bld) 60.5 % Normal 43.0-75.0 The [facility] Comment on above: Performed By: #### F ERR, B12FOL, FETIBC #### [facility] [address] [place] [address] Dr. Nicole Lam Platelet mean volume (Bld) [Entitic vol] 8.8 fL Critically low 9.5-13.5 [facility] Comment on above: Performed By: #### F ERR, B12FOL, FETIBC #### [facility] [address], [place] [address] Dr. Nicole Lam PLT 294 103/ul Normal 150-450 The [facility] Comment on above: Performed By: #### F ERR, B12FOL, FETIBC #### [facility] [address], [place] [address] Dr. Nicole Lam RBC 3.99 106/ul Critically low 4.70-6.10 [facility] Comment on above: Performed By: #### F ERR, B12FOL, FETIBC #### [facility] [address], [place] [address] Dr. Nicole Lam WBC 5.1 103/ul Normal 4.0-11.0 [facility] Comment on above: Performed By: #### F ERR, B12FOL, FETIBC #### [facility] [address], [place] [address] Dr. Nicole Lam EYE FOR FOREIGN BODYon 03-21 EYE FOR FOREIGN BODY [facility] Department of Radiology [address] [place] [id number] Patient Name: EMILY CALDWELL : 1950 Sex: M Age: Race: White Pt. 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 COMPARISON: None available. FINDINGS: There is no evidence of metallic or radiopaque foreign body within the orbits. Paranasal sinuses are clear. There is a presence of the dental filling. IMPRESSION: No evidence of metallic foreign body within the orbits. Electronically signed: Aj Givens. Transcribed by: [email or web address], User Resident: Electronically Signed by: AJ GIVENS @ 03/21/2022 02:37 PM Normal [facility] Comment on above: Order Comment: No: D o not add to previous draw MRI LUMBAR SPINE W WO CONTRA STon 03-21-2022 MRI LUMBAR SPINE W WO CONTRAST [facility] Department of Radiology [address] [place] [id number] Patient Name: EMILY CALDWELL : 1950 Sex: M Age: Race: White Pt. 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 Post contrast images obtained in sagittal T1 and axial T1. CONTRAST: Contrast: CLARISCAN .5mmol, 15 milliliter, Intravenous COMPARISON: Lumbar spine MRI dated 07/29/2021 FINDINGS: Minimal grade I retrolisthesis of L2 on L3. There is preservation of vertebral body heights and intervertebral disc spaces. The marrow signals within normal limits. The conus terminates at the L1 level. No epidural or paraspinous fluid collection is appreciated. No discitis or osteomyelitis in the lumbar spine. Mild levoscoliosis of the lumbar spine. T12-L1: There is a normal disc, central canal, and neural foramen. L1-L2: Moderate disc space narrowing. Disc desiccation. Mild disc bulge. No significant spinal canal stenosis. Bilateral neural foraminal are patent. L2-L3: Moderate disc space narrowing. Disc desiccation. Modic type II degenerative changes within the endplates. Mild disc bulge. No spinal canal stenosis. Moderate bilateral neural foraminal narrowing. L3-L4: Moderate disc space narrowing. Modic type I degenerative changes within the endplates. Mild disc bulge. Mild facet hypertrophic degenerative changes. Posterior decompression with bilateral laminectomy at this level. Severe bilateral neural foraminal narrowing. L4-L5: Moderate disc bulge. Posterior decompression with bilateral laminectomy. Bilateral transpedicular screws at L5. No spinal canal stenosis. Severe left neural foraminal narrowing. Moderate right neural foraminal narrowing. L5-S1: Previously seen mild grade I anterolisthesis of L5 on S1 is not appreciated on this exam. Intervertebral cage at L5-S1. Bilateral transpedicular screws at L4 and L5. Posterior decompression with bilateral laminectomy. No spinal canal stenosis. Severe left neural foraminal narrowing. Moderate right neural foraminal narrowing. No suspicious enhancement with IV contrast. IMPRESSION: Degenerative changes in the lumbar spine lead to: - Moderate bilateral neural foraminal narrowing at L2-L3. - Severe bilateral neural foraminal narrowing at L3-L4. - Severe left and moderate right neural foraminal narrowing at L4-L5. - Severe left and moderate right neural foraminal narrowing at L5-S1. -Modic type I degenerative changes within the endplates at L3-L4. Modic type II degenerative changes within the endplates at L2-L3. Posterior decompression with bilateral laminectomies at L3 and L5. Intervertebral cage at L5-S1. Bilateral transpedicular screws at L5 and S1. Electronically signed: Mili Rolon. Transcribed by: [email or web address], User Resident: Electronically Signed by: MILI ROLON @ 03/25/2022 09:18 AM Normal [facility] Comment on above: Order Comment: No: D o not add to previous draw METHYLMALONIC ACID (MMA)on 0 03-08-2022 Methylmalonic Acid, Serum 225 nmol/L Normal 0-378 [facility] Comment on above: Performed By: #### M MA2 #### [facility] [address] [place] [address] Dr. Nicole Lam CBC AUTO DIFFon 03-05-2022 BASO # 0.0 103/ul Normal 0.0-0.1 [facility] Comment on above: Performed By: #### C BC #### [facility] [address] [place] [address] Dr. Nicole Lam Basophils/100 WBC (Bld) 0.7 % Normal 0.2-2.0 [facility] Comment on above: Performed By: #### C BC #### [facility] [address] [place] [address] Dr. Nicole Lam EO # 0.1 103/ul Normal 0.0-0.7 [facility] Comment on above: Performed By: #### C BC #### [facility] [address] [place] [address] Dr. Nicole Lam Eosinophils/100 WBC (Bld) 3.2 % Normal 0.9-7.0 [facility] Comment on above: Performed By: #### C BC #### [facility] [address] [place] [address] Dr. Nicole Lam Erythrocyte distribution width (RBC) [Ratio] 14.5 % Normal 11.0-15.0 [facility] Comment on above: Performed By: #### C BC #### [facility] [address] [place] [address] Dr. Nicole Lam Hematocrit (Bld) [Volume fraction] 37.2 % Critically low 42.0-54.0 [facility] Comment on above: Performed By: #### C BC #### [facility] [address] [place] [address] Dr. Nicole Lam Hemoglobin (Bld) [Mass/Vol] 12.0 g/dL Critically low 14.0-18.0 [facility] Comment on above: Performed By: #### C BC #### [facility] [address] [place] [address] Dr. Nicole Lam IG # 0.01 10e3/ul Normal 0.00-0.03 [facility] Comment on above: Performed By: #### C BC #### [facility] [address] [place] [address] Dr. Nicole Lam IG % 0.2 % Normal 0.0-0.5 The [facility] Comment on above: Performed By: #### C BC #### [facility] [address] [place] [address] Dr. Nicole Lam LYMPH # 1.2 103/ul Normal 1.2-3.8 The [facility] Comment on above: Performed By: #### C BC #### [facility] [address] [place] [address] Dr. Nicole Lam Lymphocytes/100 WBC (Bld) 30.0 % Normal 20.5-60.0 [facility] Comment on above: Performed By: #### C BC #### [facility] [address] [place] [address] Dr. Nicole Lam MANUAL DIFF REQ NO Normal [facility] Comment on above: Performed By: #### C BC #### [facility] [address] [place] [address] Dr. Nicole Lam MCH (RBC) [Entitic mass] 30.0 pg Normal 25.9-34.0 [facility] Comment on above: Performed By: #### C BC #### [facility] [address] [place] [address] Dr. Nicole Lam MCHC (RBC) [Mass/Vol] 32.3 g/dL Normal 29.9-35.2 [facility] Comment on above: Performed By: #### C BC #### [facility] [address] [place] [address] Dr. Nicole Lam MCV (RBC) [Entitic vol] 93.0 fL Normal 80.0-94.0 [facility] Comment on above: Performed By: #### C BC #### [facility] [address] [place] [address] Dr. Nicole Lam MONO # 0.4 103/ul Normal 0.3-0.8 [facility] Comment on above: Performed By: #### C BC #### [facility] [address] [place] [address] Dr. Nicole Lam Monocytes/100 WBC (Bld) 8.9 % Normal 1.7-12.0 [facility] Comment on above: Performed By: #### C BC #### [facility] [address] [place] [address] Dr. Nicole Lam NEUT # 2.3 103/ul Normal 1.4-6.5 The [facility] Comment on above: Performed By: #### C BC #### [facility] [address] [place] [address] Dr. Nicole Lam Neutrophils/100 WBC (Bld) 57.0 % Normal 43.0-75.0 The [facility] Comment on above: Performed By: #### C BC #### [facility] [address] [address] [address] Nicole Lam Platelet mean volume (Bld) [Entitic vol] 9.2 fL Critically low 9.5-13.5 [facility] Comment on above: Performed By: #### C BC #### [facility] [address] [address] [address] Nicole Lam PLT 300 103/ul Normal 150-450 The [facility] Comment on above: Performed By: #### C BC #### [facility] [address] [address] [address] Nicole Lam RBC 4.00 106/ul Critically low 4.70-6.10 [facility] Comment on above: Performed By: #### C BC #### [facility] [address] [address] [address] Nicole Lam WBC 4.0 103/ul Normal 4.0-11.0 [facility] Comment on above: Performed By: #### C BC #### [facility] [address] [address] [address] Nicole Lam DIRECT LDLon 03-05-2022 Cholesterol in LDL [Mass/Vol] 152 mg/dL Normal [facility] Comment on above: Performed By: #### A LT, DLDL #### [facility] [address] [address] [address] Nicole Lam DLDL NORMAL SEE BELOW Normal The [facility] Comment on above: Result Comment: <100 mg/dl OPTIMAL 100 - 129 mg/dl NEAR OR ABOVE OPTIMAL 130 - 159 mg/dl BORDERLINE HIGH 160 - 189 mg/dl HIGH >190 mg/dl VERY HIGH Performed By: #### A LT, DLDL #### [facility] [address] [address] [address] Nicole Lam FERRITINon 03-05-2022 Ferritin [Mass/Vol] 272.0 ng/mL Normal 26.0-388.0 [facility] Comment on above: Performed By: #### F ERR, B12FOL, FETIBC #### [facility] [address] [place] [address] Dr. Nicole Lam IRON AND TIBCon 03-05-2022 % SATURATION 24.4 % Normal [facility] Comment on above: Performed By: #### F ERR, B12FOL, FETIBC #### [facility] [address] [place] [address] Dr. Nicole Lam Iron [Mass/Vol] 73.0 ug/dL Normal 65.0-175.0 The [facility] Comment on above: Performed By: #### F ERR, B12FOL, FETIBC #### [facility] [address] [place] [address] Dr. Nicole Lam TIBC DIRECT 299.0 ug/dL Normal 250.0-450.0 The [facility] Comment on above: Performed By: #### F ERR, B12FOL, FETIBC #### [facility] [address] [place] [address] Dr. Nicoel Lam SGPTon 03-05-2022 ALT [Catalytic activity/Vol] 27 U/L Normal 16-63 The [facility] Comment on above: Performed By: #### F ERR, B12FOL, FETIBC #### [facility] [address] [place] [address] Dr. Nicole Lam VIT B12 AND FOLATEon 022 Cobalamin (Vitamin B12) [Mass/Vol] 551.0 pg/mL Normal 193.0-986.0 [facility] Comment on above: Performed By: #### F ERR, B12FOL, FETIBC #### [facility] [address] [place] [address] Dr. Nicole Lam FOLATE 21.40 ng/mL Normal 8.60-58.90 [facility] Comment on above: Performed By: #### F ERR, B12FOL, FETIBC #### [facility] [address] [place] [address] Dr. Nicole Lam [facility]17 SARS-CoV-2 (COVID-19) RNA DIANA+probe Ql (Unsp spec) Detected Critically abnormal NOT DETECTED The [facility] Comment on above: Result Comment: This test is not yet approved or cleared by the [place] FDA. When there are no FDA-approved or cleared tests available, and other criteria are met, FDA can make tests available under an emergency access mechanism called an Emergency Use Authorization (EUA). The EUA for this test is supported by the Immigration Judge of Health and Human Service's declaration that circumstances exist to justify the emergency use of in vitro diagnostics for the detection and/or diagnosis of the virus that causes COVID-19. This EUA will remain in effect for the duration of the COVID-19 declaration justifying emergency of IVDs, unless it is terminated or revoked by the FDA (after which the test may no longer be used). Performed By: #### F ERR, B12FOL, FETIBC #### [facility] [address] [address] [address] Nicole Lam GROUP A STREP CULTUREon 01-17 S. pyogenes Ag Ql (Unsp spec) Culture Observations: NEGATIVE FOR GROUP A STREPTOCOCCUS. Normal The [facility] Comment on above: Performed By: #### G RASTCX, SSCRN #### [facility] [address] [address] [address] Nicole Lam STREPT SCREENon 01-31-2022 STREP SCREEN A Negative Normal NEGATIVE The [facility] Comment on above: Performed By: #### G RASTCX, SSCRN #### [facility] [address] [address] [address] Nicole Lam TESTOSTERONE, TOTALon 2021 Testosterone [Mass/Vol] 510 ng/dL Normal 264-916 [facility] Comment on above: Result Comment: Adul t male reference interval is based on a population of healthy nonobese males (BMI <30) between 19 and 39 years old. Marina et.al. JCEM 2017,102;3646-7415. PMID: [id number]. Performed By: #### F ERR, B12FOL, FETIBC #### [facility] [address] [address] [address] Nicole Lam CBC AUTO DIFFon 2022 BASO # 0.0 103/ul Normal 0.0-0.1 The [facility] Comment on above: Performed By: #### F ERR, B12FOL, FETIBC #### [facility] [address] [place] [address] Dr. Nicole Lam Basophils/100 WBC (Bld) 0.5 % Normal 0.2-2.0 The [facility] Comment on above: Performed By: #### F ERR, B12FOL, FETIBC #### [facility] [address] [place] [address] Dr. Nicole Lam EO # 0.2 103/ul Normal 0.0-0.7 The [facility] Comment on above: Performed By: #### F ERR, B12FOL, FETIBC #### [facility] [address] [place] [address] Dr. Nicole Lam Eosinophils/100 WBC (Bld) 2.9 % Normal 0.9-7.0 The [facility] Comment on above: Performed By: #### F ERR, B12FOL, FETIBC #### [facility] [address] [place] [address] Dr. Nicole Lam Erythrocyte distribution width (RBC) [Ratio] 13.6 % Normal 11.0-15.0 The [facility] Comment on above: Performed By: #### F ERR, B12FOL, FETIBC #### [facility] [address] [place] [address] Dr. Nicole Lam Hematocrit (Bld) [Volume fraction] 38.6 % Critically low 42.0-54.0 The [facility] Comment on above: Performed By: #### F ERR, B12FOL, FETIBC #### [facility] [address] [place] [address] Dr. Nicole Lam Hemoglobin (Bld) [Mass/Vol] 13.0 g/dL Critically low 14.0-18.0 [facility] Comment on above: Performed By: #### F ERR, B12FOL, FETIBC #### [facility] [address] [place] [address] Dr. Nicole Lam IG # 0.01 10e3/ul Normal 0.00-0.03 [facility] Comment on above: Performed By: #### F ERR, B12FOL, FETIBC #### [facility] [address] [place] [address] Dr. Nicole Lam IG % 0.2 % Normal 0.0-0.5 [facility] Comment on above: Performed By: #### F ERR, B12FOL, FETIBC #### [facility] [address] [place] [address] Dr. Nicole Lam LYMPH # 1.1 103/ul Critically low 1.2-3.8 The [facility] Comment on above: Performed By: #### F ERR, B12FOL, FETIBC #### [facility] [address] [place] [address] Dr. Nicole Lam Lymphocytes/100 WBC (Bld) 19.8 % Critically low 20.5-60.0 [facility] Comment on above: Performed By: #### F ERR, B12FOL, FETIBC #### [facility] [address] [place] [address] Dr. Nicole Lam MANUAL DIFF REQ NO Normal [facility] Comment on above: Performed By: #### F ERR, B12FOL, FETIBC #### [facility] [address] [place] [address] Dr. Nicole Lam MCH (RBC) [Entitic mass] 31.1 pg Normal 25.9-34.0 [facility] Comment on above: Performed By: #### F ERR, B12FOL, FETIBC #### [facility] [address] [place] [address] Dr. Nicole Lam MCHC (RBC) [Mass/Vol] 33.7 g/dL Normal 29.9-35.2 The [facility] Comment on above: Performed By: #### F ERR, B12FOL, FETIBC #### [facility] [address] [place] [address] Dr. Nicole Lam MCV (RBC) [Entitic vol] 92.3 fL Normal 80.0-94.0 [facility] Comment on above: Performed By: #### F ERR, B12FOL, FETIBC #### [facility] [address] [address] [address] Nicole Lam MONO # 0.5 103/ul Normal 0.3-0.8 The [facility] Comment on above: Performed By: #### F ERR, B12FOL, FETIBC #### [facility] [address] [place] [address] Dr. Nicole Lam Monocytes/100 WBC (Bld) 8.2 % Normal 1.7-12.0 [facility] Comment on above: Performed By: #### F ERR, B12FOL, FETIBC #### [facility] [address] [place] [address] Dr. Nicole Lam NEUT # 3.8 103/ul Normal 1.4-6.5 The [facility] Comment on above: Performed By: #### F ERR, B12FOL, FETIBC #### [facility] [address] [place] [address] Dr. Nicole Lam Neutrophils/100 WBC (Bld) 68.4 % Normal 43.0-75.0 The [facility] Comment on above: Performed By: #### F ERR, B12FOL, FETIBC #### [facility] [address] [place] [address] Dr. Nicole Lam Platelet mean volume (Bld) [Entitic vol] 8.9 fL Critically low 9.5-13.5 The [facility] Comment on above: Performed By: #### F ERR, B12FOL, FETIBC #### [facility] [address] [place] [address] Dr. Nicole Lam PLT 295 103/ul Normal 150-450 The [facility] Comment on above: Performed By: #### F ERR, B12FOL, FETIBC #### [facility] [address] [place] [address] Dr. Nicole Lam RBC 4.18 106/ul Critically low 4.70-6.10 The [facility] Comment on above: Performed By: #### F ERR, B12FOL, FETIBC #### [facility] [address] [address] [address] Nicole Lam WBC 5.6 103/ul Normal 4.0-11.0 [facility] Comment on above: Performed By: #### F ERR, B12FOL, FETIBC #### [facility] [address] [address] [address] Nicole Lam GLYCOHEMOGLOBIN A1Con 2021 ADA RECOMMENDATION SEE BELOW Normal The [facility] Comment on above: Result Comment: ADA RECOMMENDED LIMIT 4.0 - 6.0 ADA THERAPEUTIC TARGET < 7.0 ACTION SUGGESTED > 7.0 Performed By: #### F ERR, B12FOL, FETIBC #### [facility] [address] [address] [address] Nicole Lam Glucose [Mass/Vol] 120 mg/dL Normal The [facility] Comment on above: Performed By: #### F ERR, B12FOL, FETIBC #### [facility] [address] [address] [address] Nicole Lam HbA1c (Bld) [Mass fraction] 5.8 % Normal 4.5-6.2 [facility] Comment on above: Performed By: #### F ERR, B12FOL, FETIBC #### [facility] [address] [place] [address] Dr. Nicole Lam LIPID PROFILEon 2022 CHOL-HDL RATIO NORM SEE BELOW Normal [facility] Comment on above: Result Comment: 3.3 - 4.4 LOW RISK 4.4 - 7.1 AVERAGE RISK 7.1 - 11.0 MODERATE RISK >11.0 HIGH RISK Performed By: #### L IPID, BMP #### [facility] [address] [address] [address] Nicole Lam Cholesterol [Mass/Vol] 251 mg/dL Critically high <=200 [facility] Comment on above: Performed By: #### L IPID, BMP #### [facility] [address] [address] [address] Nicole Lam Cholesterol in HDL [Mass/Vol] 63 mg/dL Critically high 40-60 [facility] Comment on above: Performed By: #### L IPID, BMP #### [facility] [address] [address] [address] Nicole Lam Cholesterol in LDL [Mass/Vol] 151.6 mg/dL Normal [facility] Comment on above: Performed By: #### L IPID, BMP #### [facility] [address] [address] [address] Nicole Lam Cholesterol.total/Cho lesterol in HDL [Mass ratio] 4.0 {ratio} Normal [facility] Comment on above: Performed By: #### L IPID, BMP #### [facility] [address] [place] [address] Dr. Nicole Lam HDL NORMAL > or = 60 mg/dl - LOW CARDIOVASCULAR RISK <40 mg/dl - HIGH CARDIOVASCULAR RISK Normal [facility] Comment on above: Performed By: #### L IPID, BMP #### [facility] [address] [place] [address] Dr. Nicole Lam LDL CALC NORMAL SEE BELOW Normal [facility] Comment on above: Result Comment: <100 mg/dl OPTIMAL 100 - 129 mg/dl NEAR OR ABOVE OPTIMAL 130 - 159 mg/dl BORDERLINE HIGH 160 - 189 mg/dl HIGH >190 mg/dl VERY HIGH Performed By: #### L IPID, BMP #### [facility] [address] [place] [address] Dr. Nicole Lam Triglyceride [Mass/Vol] 182 mg/dL Critically high <=150 [facility] Comment on above: Performed By: #### L IPID, BMP #### [facility] [address] [place] [address] Dr. Nicole Lam VLDL CALC 36.4 mg/dL Normal [facility] Comment on above: Performed By: #### L IPID, BMP #### [facility] [address] [place] [address] Dr. Nicole Lam PROF CHEM 8 (BAS METB)on Anion gap [Moles/Vol] 10.5 mmol/L Normal [facility] Comment on above: Performed By: #### L IPID, BMP #### [facility] [address] [address] [address] Nicole Lam Calcium [Mass/Vol] 9.4 mg/dL Normal 8.5-10.[address] [facility] Comment on above: Performed By: #### L IPID, BMP #### [facility] [address] [place] [address] Dr. Nicole Lam Chloride [Moles/Vol] 104 mmol/L Normal 98-107 The [facility] Comment on above: Performed By: #### L IPID, BMP #### [facility] [address] [place] [address] Dr. Nicole Lam CO2 [Moles/Vol] 29.9 mmol/L Normal 21.0-32.0 The [facility] Comment on above: Performed By: #### L IPID, BMP #### [facility] [address] [place] [address] Dr. Nicole Lam Creatinine [Mass/Vol] 1.16 mg/dL Normal 0.70-1.30 The [facility] Comment on above: Performed By: #### L IPID, BMP #### [facility] [address] [place] [address] Dr. Nicole Lam EGFR-AF AZERBAIJANI >60 Normal >=60 The [facility] Comment on above: Performed By: #### L IPID, BMP #### [facility] [address] [place] [address] Dr. Nicole Lam EGFR-NON AF AZERBAIJANI >60 Normal >=60 The [facility] Comment on above: Performed By: #### L IPID, BMP #### [facility] [address] [place] [address] Dr. Nicole Lam Glucose [Mass/Vol] 104 mg/dL Normal 74-[address] [facility] Comment on above: Performed By: #### L IPID, BMP #### [facility] [address] [place] [address] Dr. Nicole Lam Potassium [Moles/Vol] 4.4 mmol/L Normal 3.5-5.1 The [facility] Comment on above: Performed By: #### L IPID, BMP #### [facility] [address] [address] [address] Nicole Lam Sodium [Moles/Vol] 140 mmol/L Normal 136-145 [facility] Comment on above: Performed By: #### L IPID, BMP #### [facility] [address] [place] [address] Dr. Nicole Lam Urea nitrogen [Mass/Vol] 18.0 mg/dL Normal 7.0-18.0 [facility] Comment on above: Performed By: #### L IPID, BMP #### [facility] [address] [address] [address] Nicole Lam Urea nitrogen/Creatinine [Mass ratio] 15.5 mg/mg Normal [facility] Comment on above: Performed By: #### L IPID, BMP #### [facility] [address] [place] [address] Dr. Nicole Lam HIP RIGHT 1 OR 2 VWS WITH PE LVISon 12-10-2021 HIP RIGHT 1 OR 2 VWS WITH PELVIS [facility] Department of Radiology [address] [place] [id number] Patient Name: EMILY CALDWELL : 1950 Sex: M Age: Race: White Pt. Location: Patient Status: D Ordered Date: 12/10/2021 2:40:00 PM Completed Date: 12/10/2021 02:48 PM Requesting Provider: DENA SPENCER Attending Provider: DENA SPENCER Report Copy To: HECTOR FRAGA Signs & Symptoms: M25.551 Pain in right hip I10 History: Comments: , right hip and groin pain, r/o fx, arthritis , Exam: HIP RIGHT 1 OR 2 VWS WITH PELVIS HIP RIGHT 1 OR 2 VWS WITH PELVIS 12/10/2021 2:48 PM CLINICAL INDICATIONS: M25.551 Pain in right hip I10 TECHNOLOGIST COMMENTS: pt states having right hip pain. no known trauma. evaluate lumbar hardware post op 8 weeks ago QUESTION FOR THE RADIOLOGIST: , right hip and groin pain, r/o fx, arthritis , PROTOCOL: AP(PA) and Lateral views were obtained. COMPARISON: None FINDINGS: No fracture, dislocation or healing fracture is appreciated. Hardware fusing L5-S1 is noted. Pelvic ring is intact. SI joints are symmetric. Subtle levoscoliosis is noted. Lateral osteophytes are appreciated and likely fused at least L2-L3 IMPRESSION: Chronic findings as detailed above Electronically signed: Laura Burns. Transcribed by: [email or web address], User Resident: Electronically Signed by: LAURA BURNS @ 12/11/2021 12:11 PM Normal The [facility] Comment on above: Order Comment: No: D o not add to previous draw LUMBAR SPINE 2 OR 3 [facility] LUMBAR SPINE 2 OR 3 [facility] Department of Radiology [address] [place] [id number] Patient Name: EMILY CALDWELL : 1950 Sex: M Age: Race: White Pt. Location: Patient Status: D Ordered Date: 12/10/2021 2:35:00 PM Completed Date: 12/10/2021 02:48 PM Requesting Provider: DENA SPENCER Attending Provider: DENA SPENCER Report Copy To: HECTOR FRAGA Signs & Symptoms: M48.061 Spinal stenosis, lumbar region without neurogenic catina I10 History: Comments: , eval hardware and alignment, r/o hardware malfunction, increased pain Exam: LUMBAR SPINE 2 OR 3 [facility] LUMBAR SPINE 2 OR 3 [facility] 12/10/2021 2:48 PM CLINICAL INDICATIONS: M48.061 Spinal stenosis, lumbar region without neurogenic catina I10 TECHNOLOGIST COMMENTS: pt states having right hip pain. no known trauma. evaluate lumbar hardware post op 8 weeks ago QUESTION FOR RADIOLOGIST: , eval hardware and alignment, r/o hardware malfunction, increased pain PROTOCOL: AP, Lateral and L5-S1 spot film was obtained. COMPARISON: 11/21/2021 FINDINGS: Prior L3 laminectomy. Hardware for fusion of L5-S1 is noted. 4 transpedicular screws are noted. Hardware appears well-positioned and intact. No acute complication. No new fracture is seen. Lateral osteophyte formation at L1-2 is noted. Lateral osteophytes fuses L2-3 IMPRESSION: Chronic findings as detailed above Electronically signed: Laura Burns. Transcribed by: [email or web address], User Resident: Electronically Signed by: LAURA BURNS @ 12/11/2021 12:49 PM Normal The [facility] Comment on above: Order Comment: No: D o not add to previous draw LUMBAR SPINE 4 OR 5 [facility] LUMBAR SPINE 4 OR 5 [facility] Department of Radiology [address] [place] [id number] Patient Name: EMILY CALDWELL : 1950 Sex: M Age: Race: White Pt. Location: 85 Patient Status: D Ordered Date: 11/21/2021 1:10:00 PM Completed Date: 11/21/2021 01:20 PM Requesting Provider: DENA SPENCER Attending Provider: ENRIQUE SINGER Report Copy To: HECTOR FRAGA Signs & Symptoms: M48.061 Spinal stenosis, lumbar region without neurogenic catina I10 History: Caldwell Comments: , in 1 month, eval hardware and alignment, s/p laminectomy and fusion , in 1 month, eval hardware and alignment, s/p laminectomy and fusion , , , Ordering Provider - A [employer]J [employer] , Exam: LUMBAR SPINE 4 OR 5 VWS LUMBAR SPINE 4 OR 5 VWS 11/21/2021 1:20 PM CLINICAL INDICATIONS: M48.061 Spinal stenosis, lumbar region without neurogenic catina I10 TECHNOLOGIST COMMENTS: pt states he had low back surgery in September 2021, s/p laminectomy and fusion, follow up QUESTION FOR RADIOLOGIST: , in 1 month, eval hardware and alignment, s/p laminectomy and fusion , in 1 month, eval hardware and alignment, s/p laminectomy and fusion , , , Ordering Provider - A TJ [employer] , PROTOCOL: AP,Lateral,L5-S1 spot,Flexion and Extension views were obtained. COMPARISON: October 12, 2021 IMPRESSION: Posterior shiv pedicle screw fixation L5-S1, associated interbody cage device, laminectomy of L3. No hardware complication is seen. Overall preserved lumbar vertebral body heights. Multilevel malalignment with 3 to 4 mm retrolisthesis L2 on L3, L3 on L4. Unchanged broad levoconvex lumbar curvature apex at L2-3. Vascular calcifications. Electronically signed: Adria Craig. Transcribed by: [email or web address], User Resident: Electronically Signed by: ADRIA CRAIG @ 11/24/2021 01:58 AM Normal [facility] Comment on above: Order Comment: No: D o not add to previous draw Operative Reporton 2 Operative Report MR#: [id number] I [facility] Pt. Name: Emily Caldwell Room #: [id number] Discharge 10/15/2021 Date: Birthdate: 1950 OPERATIVE REPORT DATE OF SURGERY: 10/11/2021 SURGEON: Enrique Singer MD CLINICAL SERVICE: Neurosurgery. PREOPERATIVE DIAGNOSES: Multilevel lumbar stenosis, low back pain, radiculopathy, spondylolysis with spondylolisthesis at L5-S1. POSTOPERATIVE DIAGNOSES: Multilevel lumbar stenosis, low back pain, radiculopathy, spondylolysis with spondylolisthesis at L5-S1. PROCEDURES: 1. L3 decompressive laminectomy with partial medial and lateral facetectomy and foraminotomy for decompression of spinal stenosis. 2. L5 complete laminectomy with resection of abnormal facets (Cabrales procedure) with decompression of severe stenosis with bilateral extensive foraminotomies. 3. Left-sided transverse lumbar interbody fusion using a titanium cage packed with locally harvested, cleaned, and morselized bone as well as extra packing of the disk space at L5-S1 for interbody fusion, use of image guidance for placement of the interbody cage. 4. Posterior nonsegmental instrumentation L5-S1 using Medtronic Solera pedicle screws, placed with the aid of the Cynvecor robot and with image guidance. 5. Posterior lateral fusion at L5-S1 using the remaining morselized, cleaned autograft bone from the laminectomies. ANESTHESIA: General endotracheal. ESTIMATED BLOOD LOSS: 200 mL. DRAINS: Hemovac. COMPLICATIONS: None. SPECIMEN: None. POSTOPERATIVE DISPOSITION: Recovery room, then on to the floor. INDICATION FOR PROCEDURE: The patient is a male in his 70s with back and left leg pain. He has spondylolisthesis at L5-S1. He has severe foraminal stenosis for the L5 nerve roots. He also has stenosis at the L3 level in buccal ligamentum flavum. He has subarticular and central stenosis. I counseled about the risks and benefits of surgery. I recommended decompression at L3 and decompression with fusion at L5-S1 given the pars defects and the spondylolisthesis. He voiced understanding and wished to proceed. OPERATIVE REPORT IN DETAIL: After obtaining written informed consent for the procedure, the patient was brought to the operating room, kept on his bed for induction of general anesthesia. After induction of general anesthesia and intubation, a Fan catheter was placed. SCDs were placed on his legs for DVT prophylaxis. He was rolled into the prone position on the open Fredy table. The iliac crest pads, thigh pads, and chest pad were in good position. His face on the prone pillow with no pressure on his eyes, nose, or chin. His arms are on armboards with padding. His feet were on pillows to take tension off his back and legs. His back was marked and then prepped and draped in usual sterile fashion. The preoperative time-out was completed. Perioperative IV antibiotic prophylactic therapy was given. Local anesthetic was instilled. The skin incision was created with a #10 blade scalpel. Subcutaneous tissue divided with Bovie electrocautery. Subperiosteal dissection was used to expose from the lower portion of L2 to the midportion of S1. Subperiosteal dissection was used to expose the L3, L5, and S1 lamina in particular. Gelpi retractors were inserted. A small stab incision was created on the left side and the PSIS pin was placed without difficulty. This was then docked to the Akella robot. The O-arm was brought to the field after draping the field sterilely and then the spin was completed. The registration was good and the O-arm was removed. With the O-arm registration good and confirmation of the levels to be operated, the site for the pedicle screws were selected on the Cynvecor robot. The trajectories were selected and then the robot was used to cannulate the pedicles bilaterally at L5 and S1. The pedicles were tapped and then sounded with a small ball probe. The instrumentation for the pedicle screws was placed without difficulty. Once the instrumentation was well placed, the robot was kept docked for the interbody fusion. The Leksell rongeur was used to remove the L5 spinous process and the lamina. The lamina was completely detached because of the bilateral pars defects. The remnant bones from the lateral portions were removed and there were large fragments of bone in the neural foramina. The L5 nerves were identified as were the S1 nerves. The epidural veins were coagulated as needed. The ligament was removed and then on the left side, the disk space was incised. The disk was removed and a good decompression was completed bilaterally. A bullet shaped titanium cage was then placed from the left side, packed with locally harvested, cleaned, and morselized bone for the interbody fusion at L5-S1. TLIF graft was placed from the left. The disk space was packed with further bone for bone fusion. The final x-rays were taken once the hardware and cag (more content not included)... Normal [facility] BASIC METABOLIC PANELon 09-18 Calcium [Mass/Vol] 8.8 mg/dL Normal 8.6-10.3 [facility] Comment on above: Order Comment: No: D o not add to previous draw Performed By: #### 5 0608 #### [facility] [address] Chloride [Moles/Vol] 97 mmol/L Low 98-107 [facility] Comment on above: Order Comment: No: D o not add to previous draw Performed By: #### 5 0608 #### [facility] [address] [place] [address], [facility] CO2 [Moles/Vol] 27 mmol/L Normal 21-31 [facility] Comment on above: Order Comment: No: D o not add to previous draw Performed By: #### 5 0608 #### [facility] [address] [place] [address], [facility] Creatinine [Mass/Vol] 0.99 mg/dL Normal 0.70-1.30 [facility] Comment on above: Order Comment: No: D o not add to previous draw Performed By: #### 5 0608 #### [facility] [address] [place] [address], [facility] GFR/1.73 sq M.predicted among blacks MDRD (S/P/Bld) [Vol rate/Area] mL/min/{1.73_m2} Normal >60 [facility] Comment on above: Order Comment: No: D o not add to previous draw Result Comment: Calc ulation may not be valid for patients over 70 years Performed By: #### 5 0608 #### [facility] [address] [place] [address], [place] GFR/1.73 sq M.predicted among non-blacks MDRD (S/P/Bld) [Vol rate/Area] mL/min/{1.73_m2} Normal >60 [facility] Comment on above: Order Comment: No: D o not add to previous draw Result Comment: Calc ulation may not be valid for patients over 70 years Performed By: #### 5 0608 #### [facility] [address] [place] [address], [place] Glucose [Mass/Vol] 107 mg/dL High 70-100 [facility] Comment on above: Order Comment: No: D o not add to previous draw Performed By: #### 5 0608 #### [facility] [address] [place] [address], [place] Potassium [Moles/Vol] 3.8 mmol/L Normal 3.5-5.1 [facility] Comment on above: Order Comment: No: D o not add to previous draw Performed By: #### 5 0608 #### [facility] [address] [place] [address], [place] Sodium [Moles/Vol] 132 mmol/L Low 136-145 [facility] Comment on above: Order Comment: No: D o not add to previous draw Performed By: #### 5 0608 #### [facility] [address] [place] [address], [place] Urea nitrogen [Mass/Vol] 18 mg/dL Normal 7-25 [facility] Comment on above: Order Comment: No: D o not add to previous draw Performed By: #### 5 0608 #### [facility] [address] [place] [id number], [facility] CBC COMPLETE BLOOD COUNTon 0 10-15-2021 Erythrocyte distribution width (RBC) [Ratio] 12.6 % Normal 11.5-15.0 [facility] Comment on above: Order Comment: No: D o not add to previous draw Performed By: #### 1 0070, 78456, 35748 #### [facility] [address] [place] [address], [facility] Hematocrit (Bld) [Volume fraction] 30.5 % Low 39.0-50.0 [facility] Comment on above: Order Comment: No: D o not add to previous draw Performed By: #### 1 0070, 09298, 66046 #### [facility] [address] [place] [address], [facility] Hemoglobin (Bld) [Mass/Vol] 10.6 g/dL Low 13.0-17.0 [facility] Comment on above: Order Comment: No: D o not add to previous draw Performed By: #### 1 0070, 30187, 41374 #### [facility] [address] [place] [address], [facility] MCH (RBC) [Entitic mass] 32.0 pg Normal 27.0-33.0 [facility] Comment on above: Order Comment: No: D o not add to previous draw Performed By: #### 1 0070, 75570, 30373 #### [facility] [address] [place] [address], [place] MCHC (RBC) [Mass/Vol] 34.8 g/dL Normal 32.0-35.0 [facility] Comment on above: Order Comment: No: D o not add to previous draw Performed By: #### 1 0070, 64450, 75262 #### [facility] [address] [place] [address], [place] MCV (RBC) [Entitic vol] 92.1 fL Normal 82.0-98.0 [facility] Comment on above: Order Comment: No: D o not add to previous draw Performed By: #### 1 0070, 14383, 75280 #### [facility] [address] [place] [address], [facility] Nucleated RBC/100 WBC (Bld) [Ratio] 0 % Normal 0-0 [facility] Comment on above: Order Comment: No: D o not add to previous draw Performed By: #### 1 0070, 14550, 24104 #### [facility] [address] [place] [address], [facility] PLAT CNT 277 10*3/uL Normal 150-400 [facility] Comment on above: Order Comment: No: D o not add to previous draw Performed By: #### 1 0070, 65652, 19271 #### [facility] [address] [place] [address], [facility] RBC (Bld) [#/Vol] 3.31 10*6/uL Low 4.20-5.70 [facility] Comment on above: Order Comment: No: D o not add to previous draw Performed By: #### 1 0070, 60408, 37791 #### [facility] [address] [place] [address], [facility] WBC (Bld) [#/Vol] 8.91 10*3/uL Normal 4.00-10.60 [facility] Comment on above: Order Comment: No: D o not add to previous draw Performed By: #### 1 0070, 23603, 97983 #### [facility] [address] [place] [address], [facility] BASIC METABOLIC PANELon 03-2 Calcium [Mass/Vol] 8.9 mg/dL Normal 8.6-10.3 [facility] Comment on above: Order Comment: No: D o not add to previous draw Performed By: #### 1 0070, 38509, 72050 #### [facility] [address] [place] [address], [place] Chloride [Moles/Vol] 98 mmol/L Normal 98-107 [facility] Comment on above: Order Comment: No: D o not add to previous draw Performed By: #### 1 0070, 70618, 61443 #### [facility] [address] [place] [address], [place] CO2 [Moles/Vol] 28 mmol/L Normal 21-31 [facility] Comment on above: Order Comment: No: D o not add to previous draw Performed By: #### 1 0070, 82078, 61861 #### [facility] [address] [place] [address], [place] Creatinine [Mass/Vol] 1.10 mg/dL Normal 0.70-1.30 [facility] Comment on above: Order Comment: No: D o not add to previous draw Performed By: #### 1 0070, 60552, 26660 #### [facility] [address] [place] [address], [place] GFR/1.73 sq M.predicted among blacks MDRD (S/P/Bld) [Vol rate/Area] mL/min/{1.73_m2} Normal >60 [facility] Comment on above: Order Comment: No: D o not add to previous draw Result Comment: Calc ulation may not be valid for patients over 70 years Performed By: #### 1 0070, 86719, 53454 #### [facility] [address] [place] [address], [place] GFR/1.73 sq M.predicted among non-blacks MDRD (S/P/Bld) [Vol rate/Area] mL/min/{1.73_m2} Normal >60 [facility] Comment on above: Order Comment: No: D o not add to previous draw Result Comment: Calc ulation may not be valid for patients over 70 years Performed By: #### 1 0070, 02180, 16020 #### [facility] [address] [place] [address], [place] Glucose [Mass/Vol] 105 mg/dL High 70-100 [facility] Comment on above: Order Comment: No: D o not add to previous draw Performed By: #### 1 0070, 97813, 32029 #### [facility] [address] [place] [address], [place] Potassium [Moles/Vol] 4.0 mmol/L Normal 3.5-5.1 [facility] Comment on above: Order Comment: No: D o not add to previous draw Performed By: #### 1 0070, 23142, 69874 #### [facility] [address] [place] [address], [place] Sodium [Moles/Vol] 133 mmol/L Low 136-145 [facility] Comment on above: Order Comment: No: D o not add to previous draw Performed By: #### 1 0070, 42721, 77278 #### [facility] [address] [place] [address], [place] Urea nitrogen [Mass/Vol] 18 mg/dL Normal 7-25 [facility] Comment on above: Order Comment: No: D o not add to previous draw Performed By: #### 1 0070, 56794, 83666 #### [facility] [address] [place] [address], [facility] CBC COMPLETE BLOOD COUNTon 0 10-14-2021 Erythrocyte distribution width (RBC) [Ratio] 13.2 % Normal 11.5-15.0 [facility] Comment on above: Order Comment: No: D o not add to previous draw Performed By: #### 5 0608 #### [facility] [address] [place] [address], [place] Hematocrit (Bld) [Volume fraction] 30.8 % Low 39.0-50.0 [facility] Comment on above: Order Comment: No: D o not add to previous draw Performed By: #### 5 0608 #### [facility] [address] [place] [address], [facility] Hemoglobin (Bld) [Mass/Vol] 10.7 g/dL Low 13.0-17.0 [facility] Comment on above: Order Comment: No: D o not add to previous draw Performed By: #### 5 0608 #### [facility] [address] [place] [address], [facility] MCH (RBC) [Entitic mass] 31.6 pg Normal 27.0-33.0 [facility] Comment on above: Order Comment: No: D o not add to previous draw Performed By: #### 5 0608 #### [facility] [address] [place] [address], [facility] MCHC (RBC) [Mass/Vol] 34.7 g/dL Normal 32.0-35.0 [facility] Comment on above: Order Comment: No: D o not add to previous draw Performed By: #### 5 0608 #### [facility] [address] [facility] [place] [address], [facility] MCV (RBC) [Entitic vol] 90.9 fL Normal 82.0-98.0 [facility] Comment on above: Order Comment: No: D o not add to previous draw Performed By: #### 5 0608 #### [facility] [address] [facility] [place] [address], [facility] Nucleated RBC/100 WBC (Bld) [Ratio] 0 % Normal 0-0 [facility] Comment on above: Order Comment: No: D o not add to previous draw Performed By: #### 5 0608 #### [facility] [address] [place] [address], [facility] PLAT CNT 222 10*3/uL Normal 150-400 [facility] Comment on above: Order Comment: No: D o not add to previous draw Performed By: #### 5 0608 #### [facility] [address] [place] [address], [facility] RBC (Bld) [#/Vol] 3.39 10*6/uL Low 4.20-5.70 [facility] Comment on above: Order Comment: No: D o not add to previous draw Performed By: #### 5 0608 #### [facility] [address] [place] [address], [facility] WBC (Bld) [#/Vol] 9.97 10*3/uL Normal 4.00-10.60 [facility] Comment on above: Order Comment: No: D o not add to previous draw Performed By: #### 5 0608 #### [facility] [address] [place] [address], [facility] MAGNESIUM BLOODon 10-14-2021 Magnesium [Mass/Vol] 1.9 mg/dL Normal 1.9-2.7 [facility] Comment on above: Order Comment: No: D o not add to previous draw Performed By: #### 1 0070, 39837, 87331 #### [facility] [address] [place] [address], [facility] PHOSPHORUS BLOODon Phosphate [Mass/Vol] 2.6 mg/dL Normal 2.5-5.0 [facility] Comment on above: Order Comment: No: D o not add to previous draw Performed By: #### 1 0070, 33018, 29455 #### [facility] [address] [place] [address], [facility] BASIC METABOLIC PANELon - Calcium [Mass/Vol] 8.7 mg/dL Normal 8.6-10.3 [facility] Comment on above: Order Comment: No: D o not add to previous draw Performed By: #### 1 0070, 98921, 70242 #### [facility] [address] [place] [address], [place] Chloride [Moles/Vol] 98 mmol/L Normal 98-107 [facility] Comment on above: Order Comment: No: D o not add to previous draw Performed By: #### 1 0070, 70768, 33623 #### [facility] [address] [place] [address], [place] CO2 [Moles/Vol] 24 mmol/L Normal 21-31 [facility] Comment on above: Order Comment: No: D o not add to previous draw Performed By: #### 1 0070, 83141, 07355 #### [facility] [address] [place] [address], [place] Creatinine [Mass/Vol] 1.16 mg/dL Normal 0.70-1.30 [facility] Comment on above: Order Comment: No: D o not add to previous draw Performed By: #### 1 0, 41983, 48112 #### [facility] [address] [place] [address], [place] GFR/1.73 sq M.predicted among blacks MDRD (S/P/Bld) [Vol rate/Area] mL/min/{1.73_m2} Normal >60 [facility] Comment on above: Order Comment: No: D o not add to previous draw Result Comment: Calc ulation may not be valid for patients over 70 years Performed By: #### 1 0, 58833, 23320 #### [facility] [address] [place] [address], [place] GFR/1.73 sq M.predicted among non-blacks MDRD (S/P/Bld) [Vol rate/Area] mL/min/{1.73_m2} Normal >60 [facility] Comment on above: Order Comment: No: D o not add to previous draw Result Comment: Calc ulation may not be valid for patients over 70 years Performed By: #### 1 0, 49221, 75720 #### [facility] [address] [place] [address], [facility] Glucose [Mass/Vol] 157 mg/dL High 70-100 [facility] on [facility]: Order Comment: No: D o not add to previous draw Performed By: #### 1 0070, 62507, 24371 #### [facility] [address] [place] [address], [place] Potassium [Moles/Vol] 3.3 mmol/L Low 3.5-5.1 [facility] Comment on above: Order Comment: No: D o not add to previous draw Performed By: #### 1 0, 95871, 45486 #### [facility] [address] [place] [address], [place] Sodium [Moles/Vol] 132 mmol/L Low 136-145 [facility] Comment on above: Order Comment: No: D o not add to previous draw Performed By: #### 1 0, 37623, 37657 #### [facility] [address] [place] [address], [facility] Urea nitrogen [Mass/Vol] 18 mg/dL Normal 7-25 [facility] Comment on above: Order Comment: No: D o not add to previous draw Performed By: #### 1 0, 37100, 32429 #### [facility] [address] [place] [address], [place] MAGNESIUM BLOODon 10-13-2021 Magnesium [Mass/Vol] 1.6 mg/dL Low 1.9-2.7 [facility] Comment on above: Order Comment: No: D o not add to previous draw Performed By: #### 1 0, 04413, 74056 #### [facility] [address] [place] [address], [place] PHOSPHORUS BLOODon Phosphate [Mass/Vol] 2.9 mg/dL Normal 2.5-5.0 [facility] Comment on above: Order Comment: No: D o not add to previous draw Performed By: #### 1 0070, 39691, 80743 #### [facility] [address] [place] [address], [facility] BASIC METABOLIC PANELon - Calcium [Mass/Vol] 8.9 mg/dL Normal 8.6-10.3 [facility] Comment on above: Order Comment: No: D o not add to previous draw Performed By: #### 0 0071 #### [facility] [address] [place] [address], [place] Chloride [Moles/Vol] 104 mmol/L Normal 98-107 [facility] Comment on above: Order Comment: No: D o not add to previous draw Performed By: #### 0 0071 #### [facility] [address] [place] [address], [place] CO2 [Moles/Vol] 22 mmol/L Normal 21-31 [facility] Comment on above: Order Comment: No: D o not add to previous draw Performed By: #### 0 0071 #### [facility] [address] [place] [address], [place] Creatinine [Mass/Vol] 0.98 mg/dL Normal 0.70-1.30 [facility] Comment on above: Order Comment: No: D o not add to previous draw Performed By: #### 0 0071 #### [facility] [address] [place] [address], [place] GFR/1.73 sq M.predicted among blacks MDRD (S/P/Bld) [Vol rate/Area] mL/min/{1.73_m2} Normal >60 [facility] Comment on above: Order Comment: No: D o not add to previous draw Result Comment: Calc ulation may not be valid for patients over 70 years Performed By: #### 0 0071 #### [facility] [address] [place] [address], [place] GFR/1.73 sq M.predicted among non-blacks MDRD (S/P/Bld) [Vol rate/Area] mL/min/{1.73_m2} Normal >60 [facility] Comment on above: Order Comment: No: D o not add to previous draw Result Comment: Calc ulation may not be valid for patients over 70 years Performed By: #### 0 [id number] #### [facility] [address] [place] [address], [place] Glucose [Mass/Vol] 115 mg/dL High 70-100 [facility] Comment on above: Order Comment: No: D o not add to previous draw Performed By: #### 0 [id number] #### [facility] [address] [place] [address], [place] Potassium [Moles/Vol] 3.9 mmol/L Normal 3.5-5.1 [facility] Comment on above: Order Comment: No: D o not add to previous draw Performed By: #### 0 [id number] #### [facility] [address] [place] [address], [place] Sodium [Moles/Vol] 135 mmol/L Low 136-145 [facility] Comment on above: Order Comment: No: D o not add to previous draw Performed By: #### 0 [id number] #### [facility] [address] [place] [address], [place] Urea nitrogen [Mass/Vol] 20 mg/dL Normal 7-25 [facility] Comment on above: Order Comment: No: D o not add to previous draw Performed By: #### 0 [id number] #### [facility] [address] [place] [address], [facility] CBC COMPLETE BLOOD COUNTon 0 - Erythrocyte distribution width (RBC) [Ratio] 13.2 % Normal 11.5-15.0 [facility] Comment on above: Order Comment: No: D o not add to previous draw Performed By: #### [id number] #### [facility] [address] [place] [address], [facility] Hematocrit (Bld) [Volume fraction] 30.8 % Low 39.0-50.0 [facility] Comment on above: Order Comment: No: D o not add to previous draw Performed By: #### [id number] #### [facility] [address] [place] [address], [facility] Hemoglobin (Bld) [Mass/Vol] 10.6 g/dL Low 13.0-17.0 [facility] Comment on above: Order Comment: No: D o not add to previous draw Performed By: #### [id number] #### [facility] [address] [facility] [facility] [place] [address], [facility] MCH (RBC) [Entitic mass] 31.9 pg Normal 27.0-33.0 [facility] Comment on above: Order Comment: No: D o not add to previous draw Performed By: #### [id number] #### [facility] [address] [place] [address], [facility] MCHC (RBC) [Mass/Vol] 34.4 g/dL Normal 32.0-35.0 [facility] Comment on above: Order Comment: No: D o not add to previous draw Performed By: #### [id number] #### [facility] [address] [place] [address], [facility] MCV (RBC) [Entitic vol] 92.8 fL Normal 82.0-98.0 [facility] Comment on above: Order Comment: No: D o not add to previous draw Performed By: #### [id number] #### [facility] [address] [facility] [facility] [place] [address], [facility] Nucleated RBC/100 WBC (Bld) [Ratio] 0 % Normal 0-0 [facility] Comment on above: Order Comment: No: D o not add to previous draw Performed By: #### [id number] #### [facility] [address] PLAT CNT 253 10*3/uL Normal 150-400 The [facility] Comment on above: Order Comment: No: D o not add to previous draw Performed By: #### [id number] #### [address] RBC (Bld) [#/Vol] 3.32 10*6/uL Low 4.20-5.70 The [facility] Comment on above: Order Comment: No: D o not add to previous draw Performed By: #### [id number] #### [address] WBC (Bld) [#/Vol] 13.88 10*3/uL High 4.00-10.60 [facility] Comment on above: Order Comment: No: D o not add to previous draw Performed By: #### [id number] #### [address] LUMBAR SPINE 2 OR 3 [facility] LUMBAR SPINE 2 OR 3 [facility] Department of Radiology [address] [place], [place] [id number] Patient Name: EMILY CALDWELL : 1950 Sex: M Age: Race: White Pt. Location: OUTP Patient Status: I Ordered Date: 10/12/2021 10:00:00 AM Completed Date: 10/12/2021 10:05 AM Requesting Provider: DENA SPENCER Attending Provider: ENRIQUE SINGER Report Copy To: Signs & Symptoms: Post OP History: See Comments Comments: Hardware Evaluation Exam: LUMBAR SPINE 2 OR 3 [facility] LUMBAR SPINE 2 OR 3 [facility] HISTORY: Postop surgery. COMPARISON: 10/11/2021. IMPRESSION: 1. Postoperative changes from L5-S1 posterior and interbody fusion. Minimal grade 1 anterolisthesis L5-S1. Postoperative changes from L3, likely L5 posterior decompression. 2. No acute modality. No compression deformity. Unchanged degenerative changes from MRI dated 07/29/2021. Slight broad-based levoconvex curvature spanning the lumbar spine. Electronically signed: Vish Ayon. Transcribed by: [email or web address], User Resident: Electronically Signed by: VISH AYON @ 10/13/2021 06:48 PM Normal [facility] Comment on above: Order Comment: No: D o not add to previous draw LUMBAR SPINE 2 OR 3 [facility] LUMBAR SPINE 2 OR 3 [facility] Department of Radiology [address] [place] [id number] Patient Name: EMILY CALDWELL : 1950 Sex: M Age: Race: White Pt. Location: OUTP Patient Status: I Ordered Date: 10/11/2021 10:30:00 AM Completed Date: 10/11/2021 03:47 PM Requesting Provider: ENRIQUE SINGER Attending Provider: ENRIQUE SINGER Report Copy To: Signs & Symptoms: L3 LAMINECTOMY, L5 LAMINECTOMY WITH L5-S1 INTERBODY FUSION AND POSTERIOR INSTRUMENTED FUSION History: Comments: L3 LAMINECTOMY, L5 LAMINECTOMY WITH L5-S1 INTERBODY FUSION AND POSTERIOR INSTRUMENTED FUSION Exam: LUMBAR SPINE 2 OR 3 [facility] LUMBAR SPINE 2 OR 3 [facility] 10/11/2021 3:47 PM CLINICAL INDICATIONS: L3 LAMINECTOMY, L5 LAMINECTOMY WITH L5-S1 INTERBODY FUSION AND POSTERIOR INSTRUMENTED FUSION TECHNOLOGIST COMMENTS: Dr Singer used 9 seconds of combined fluoro time for l3 laminectomy and L5-S1 fusion o-arm and red c-arm used QUESTION FOR RADIOLOGIST: L3 LAMINECTOMY, L5 LAMINECTOMY WITH L5-S1 INTERBODY FUSION AND POSTERIOR INSTRUMENTED FUSION PROTOCOL: AP, Lateral and L5-S1 spot film was obtained. COMPARISON: None. FINDINGS: 9 seconds fluoroscopy time utilized. [address] fluoroscopic runs were obtained. IMPRESSION: As above Electronically signed: Darin Garcia. Transcribed by: [email or web address], User Resident: DARIN GARCIA Electronically Signed by: DARIN GARCIA @ 10/13/2021 09:07 AM I personally read this/these film(s) with this resident Normal [facility] Comment on above: Order Comment: No: D o not add to previous draw POC GLUCOSE LABon 10-11-2021 Glucose [Mass/Vol] 107 mg/dL High 70-100 [facility] Comment on above: Performed By: #### [id number] #### [facility] [address] [place] [address], [facility] *MRSA/MSSA DNA NASALon 09-17 *MRSA/MSSA DNA NASAL Clinical Report: (D ) Specimen: NASAL SWAB Collected: 09/17/2021 15:02 Status: Final Last Updated: 09/17/2021 19:17 MSSA DNA (Final) Negative MRSA DNA (Final) Methicillin Resistant Staphylococcus aureus DNA Detected Normal [facility] Comment on above: Performed By: #### [id number] #### [facility] [address] [place] [address], [facility] APTTon 09-17-2021 aPTT Coag (Bld) [Time] 29.2 s Normal 25.0-35.0 [facility] Comment on above: Result Comment: ALL RESULTS MUST BE INTERPRETED WITH RESPECT TO BLOOD DRAWING ARTIFACT OR DILUTION ERROR OF ANTICOAGULANT AT THE TIME OF SAMPLING. THE APTT SHOULD NOT BE USED TO MONITOR UNFRACTIONATED HEPARIN THERAPY, THIS LABORATORY NO LONGER HAS AN ESTABLISHED THERAPEUTIC RANGE BASED ON THE APTT. IT IS RECOMMENDED THAT THE [facility] - HEPARIN ASSAY (ANTI-XA ACTIVITY) BE USED FOR THIS PURPOSE. Performed By: #### [id number] #### [facility] [address] [place] [address], [facility] BASIC METABOLIC PANELon Calcium [Mass/Vol] 9.1 mg/dL Normal 8.6-10.3 [facility] Comment on above: Performed By: #### 0 [id number] #### [facility] [address] [place] [address], [facility] Chloride [Moles/Vol] 103 mmol/L Normal 98-107 [facility] Comment on above: Performed By: #### 0 [id number] #### [facility] [address] [place] [address], [facility] CO2 [Moles/Vol] 28 mmol/L Normal 21-31 The [facility] Comment on above: Performed By: #### 0 [id number] #### [facility] [address] [place] [address], [facility] Creatinine [Mass/Vol] 1.31 mg/dL High 0.70-1.30 [facility] Comment on above: Performed By: #### 0 [id number] #### [facility] [address] [place] [address], [facility] eGFR- non- 54 ml/min/1.73sq m Abnormal >60 The [facility] Comment on above: Result Comment: Calc ulation may not be valid for patients over 70 years Performed By: #### 0 [id number] #### [facility] [address] [place] [address], [facility] GFR/1.73 sq M.predicted among blacks MDRD (S/P/Bld) [Vol rate/Area] mL/min/{1.73_m2} Normal >60 [facility] Comment on above: Result Comment: Calc ulation may not be valid for patients over 70 years Performed By: #### 0 [id number] #### [facility] [address] [place] [address], [facility] Glucose [Mass/Vol] 82 mg/dL Normal 70-100 [facility] Comment on above: Performed By: #### 0 [id number] #### [facility] [address] [place] [address], [facility] Potassium [Moles/Vol] 4.1 mmol/L Normal 3.5-5.1 [facility] Comment on above: Performed By: #### 0 [id number] #### [facility] [address] [facility] [facility] [place] [address], [facility] Sodium [Moles/Vol] 138 mmol/L Normal 136-145 [facility] Comment on above: Performed By: #### 0 [id number] #### [facility] [address] [place] [address], [facility] Urea nitrogen [Mass/Vol] 28 mg/dL High 7-25 [facility] Comment on above: Performed By: #### 0 [id number] #### [facility] [address] [place] [address], [facility] CBC W/DIFFon 09-17-2021 ABS IMM GRANS 0.0 10*3/uL Normal 0.0-0.2 The [facility] Comment on above: Performed By: #### [id number] #### [facility] [address] [facility] [place] [place] [address], [facility] ABS NEUTROPHILS 3.6 10*3/uL Normal 1.6-7.6 The [facility] Comment on above: Performed By: #### 5 [id number] #### [facility] [address] [place] [address], [facility] Basophils (Bld) [#/Vol] 0.0 10*3/uL Normal 0.0-0.2 [facility] Comment on above: Performed By: #### [id number] #### [facility] [address] [place] [address], [facility] Basophils/100 WBC (Bld) 0.7 % Normal 0.0-1.0 [facility] Comment on above: Performed By: #### 5 [id number] #### [facility] [address] [place] [address], [facility] Eosinophils (Bld) [#/Vol] 0.1 10*3/uL Normal 0.0-0.5 [facility] Comment on above: Performed By: #### 5 [id number] #### [facility] [address] [place] [address], [facility] Eosinophils/100 WBC (Bld) 2.4 % Normal 0.0-6.0 [facility] Comment on above: Performed By: #### 5 [id number] #### [facility] [address] [place] [address], [facility] Erythrocyte distribution width (RBC) [Ratio] 14.5 % Normal 11.5-15.0 [facility] Comment on above: Performed By: #### 5 [id number] #### [facility] [address] [place] [address], [facility] Hematocrit (Bld) [Volume fraction] 34.9 % Low 39.0-50.0 [facility] Comment on above: Performed By: #### 5 [id number] #### [facility] [address] Hemoglobin (Bld) [Mass/Vol] 12.1 g/dL Low 13.0-17.0 [facility] Comment on above: Performed By: #### 5 [id number] #### [facility] [address] [place] [address], [facility] IMMATURE GRANS 0.5 % Normal 0.0-1.0 [facility] Comment on above: Performed By: #### 5 [id number] #### [facility] [address] [place] [address], [facility] Lymphocytes (Bld) [#/Vol] 1.3 10*3/uL Normal 1.2-4.0 [facility] Comment on above: Performed By: #### 5 [id number] #### [facility] [address] [place] [address], [facility] Lymphocytes/100 WBC (Bld) 22.8 % Normal 20.0-45.0 [facility] Comment on above: Performed By: #### 5 [id number] #### [facility] [address] MCH (RBC) [Entitic mass] 31.8 pg Normal 27.0-33.0 [facility] Comment on above: Performed By: #### 5 [id number] #### [facility] [address] [facility] [place] [address], [facility] MCHC (RBC) [Mass/Vol] 34.7 g/dL Normal 32.0-35.0 [facility] Comment on above: Performed By: #### 5 [id number] #### [facility] [address] [place] [address], [facility] MCV (RBC) [Entitic vol] 91.8 fL Normal 82.0-98.0 [facility] Comment on above: Performed By: #### 5 [id number] #### [facility] [address] [facility] [place] [address], [facility] Monocytes (Bld) [#/Vol] 0.6 10*3/uL Normal 0.1-1.0 [facility] Comment on above: Performed By: #### [id number] #### [facility] [address] [place] [id number], [facility] MONOS 11.0 % Normal 5.0-12.0 [facility] Comment on above: Performed By: #### 5 [id number] #### [facility] [address] [place] [id number], [facility] Neutrophils/100 WBC (Bld) 62.6 % Normal 40.0-72.0 [facility] Comment on above: Performed By: #### [id number] #### [facility] [address] [facility] [place] [address], [facility] Nucleated RBC/100 WBC (Bld) [Ratio] 0 % Normal 0-0 [facility] Comment on above: Performed By: #### [id number] #### [facility] [address] [place] [address], [facility] PLAT CNT 256 10*3/uL Normal 150-400 [facility] Comment on above: Performed By: #### [id number] #### [facility] [address] [place] [id number], [facility] RBC (Bld) [#/Vol] 3.80 10*6/uL Low 4.20-5.70 [facility] Comment on above: Performed By: #### [id number] #### [facility] [address] [facility] [facility] [place] [id number], [facility] WBC (Bld) [#/Vol] 5.80 10*3/uL Normal 4.00-10.60 [facility] Comment on above: Performed By: #### [id number] #### [facility] [address] [place] [address], [facility] CHEST AND LATERALon 09-18-19 CHEST AND LATERAL [facility] Department of Radiology [address] [place] [address] Patient Name: EMILY CALDWELL : 1950 Sex: M Age: Race: White Pt. Location: 85 Patient Status: D Ordered Date: 09/17/2021 3:20:00 PM Completed Date: 09/17/2021 03:23 PM Requesting Provider: DENA SPENCER Attending Provider: DENA SPENCER Report Copy To: HECTOR FRAGA Signs & Symptoms: M43.16 Spondylolisthesis, lumbar region I10 History: Comments: evaluate Exam: CHEST AND LATERAL CHEST AND LATERAL 09/17/2021 3:23 PM CLINICAL INDICATIONS: M43.16 Spondylolisthesis, lumbar region I10 TECHNOLOGIST COMMENTS: pre op cxr hx: HBP QUESTION FOR THE RADIOLOGIST: evaluate PROTOCOL: AP(PA) and Lateral views were obtained. COMPARISON: None FINDINGS: Cardiomediastinal silhouette is mildly enlarged and aorta is tortuous with prominent aortic knob. The lungs are clear apart from nodule seen in the right upper lobe measuring 9 mm which likely represent calcified granuloma. No pneumothorax or pleural effusion. There is evidence of calcified right hilar and paratracheal mediastinal granulomatous lymph nodes. IMPRESSION: No acute process. 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 Approved by:Hilda Navarro09/17/2021 4:05 PM. I, Khalida Salas,have reviewed the image(s) and agree with the findings in this report. Electronically signed: Khalida Salas. Transcribed by: [email or web address], User Resident: HILDA BAPTISTE Electronically Signed by: KHALIDA SALAS @ 09/18/2021 09:54 AM I personally read this/these film(s) with this resident Normal [facility] Comment on above: Order Comment: No: D o not add to previous draw PROTHROMBIN TIMEon INR Coag (PPP) [Relative time] 0.96 {INR} Normal 0.91-1.16 [facility] Comment on above: Result Comment: ACCC P RECOMMENDED INR FOR WARFARIN THERAPY -------- ------- CONDITION INR PROPHYLAXIS OF VENOUS THROMBOSIS 2-3 (HIGH-RISK SURGERY) TREATMENT OF VENOUS THROMBOSIS 2-3 TREATMENT OF PULMONARY EMBOLISM 2-3 PREVENTION OF SYSTEMIC EMBOLISM: 2-3 ACUTE MYOCARDIAL INFARCTION TISSUE HEART VALVES VALVULAR HEART DISEASE ATRIAL FIBRILLATION RECURRENT SYSTEMIC EMBOLISM MECHANICAL HEART VALVE 2.5-3.5 FROM: ORAL ANTICOAGULANTS. MECHANISM OF ACTION, CLINICAL EFFECTIVENESS, AND OPTIMAL THERAPEUTIC RANGE. CHEST 1995;108:231S-246S. Performed By: #### [id number] #### [facility] [address] [facility] [place] [address], [facility] PT Coag (PPP) [Time] 12.8 s Normal 12.3-14.8 [facility] Comment on above: Result Comment: ALL RESULTS MUST BE INTERPRETED WITH RESPECT TO BLOOD DRAWING ARTIFACT OR DILUTION ERROR OF ANTICOAGULANT AT THE TIME OF SAMPLING. Performed By: #### [id number] #### [facility] [address] [place] [address], [facility] TYPE AND SCREENon 09-17-2021 ABO INTERPRETATION O Normal [facility] Comment on above: Performed By: #### [id number] #### [facility] [address] [place] [address], [place] RH INTERPRETATION Positive Normal [facility] Comment on above: Performed By: #### [id number] #### [facility] [address] [place] [address], [facility] Vital Signs Date Time Vital Sign Value Performing Clinician Facility 09-11-2023 17:13-0500 Body height 170.18 cm [facility] 09-11-2023 17:13-0500 Body mass index (BMI) [Ratio] 27.3 kg/m2 [facility] 09-11-2023 17:13-0500 Body temperature 101 [degF] [facility] 09-11-2023 17:13-0500 Body weight 79.37 kg [facility] 09-11-2023 17:13-0500 Diastolic blood pressure 70 mm[Hg] [facility] 09-11-2023 17:13-0500 Heart rate 79 /min [facility] 09-11-2023 17:13-0500 Respiratory rate 18 /min [facility] 09-11-2023 17:13-0500 SaO2% (BldA) [Mass fraction] 96 % [facility] 09-11-2023 17:13-0500 Systolic blood pressure 121 mm[Hg] [facility] 06-29-2023 11:30-0500 Body height 170.18 cm Hector Ball Other [facility] 06-29-2023 11:30-0500 Body mass index (BMI) [Ratio] 28.47 kg/m2 Hcetor Ball Other [employer] Other 06-29-2023 11:30-0500 Body weight 82.46 kg Hector Ball Other [facility] 06-29-2023 11:30-0500 Diastolic blood pressure 80 mm[Hg] Hector Ball Other [facility] 06-29-2023 11:30-0500 Respiratory rate 12 /min Hector Ball Other [facility] Other 06-29-2023 11:30-0500 Systolic blood pressure 135 mm[Hg] Hector Ball Other [facility] 2023 09:30-0400 Body height 170.18 cm Hector Ball Other [facility] Other 2023 09:30-0400 Body mass index (BMI) [Ratio] 28.88 kg/m2 Hector Ball Other [facility] [employer] Other 2023 09:30-0400 Body weight 83.64 kg Hector Ball Other [facility] Other 2023 09:30-0400 Diastolic blood pressure 72 mm[Hg] Hector Ball Other [facility] [employer] Other 2023 09:30-0400 Respiratory rate 12 /min Hector Ball Other [employer] Other 2023 09:30-0400 Systolic blood pressure 134 mm[Hg] Hector Ball Other [employer] Other 11-20-2022 10:45-0400 Body height 170.18 cm Hector Ball Other [employer] Other 11-20-2022 10:45-0400 Body mass index (BMI) [Ratio] 28.88 kg/m2 Hector Ball Other [employer] Other 11-20-2022 10:45-0400 Body weight 83.64 kg Hector Fraga Other [employer] Other 11-20-2022 10:45-0400 Diastolic blood pressure 73 mm[Hg] Hector Fraga Other [employer] Other 11-20-2022 10:45-0400 Systolic blood pressure 143 mm[Hg] Hector Fraga Other [employer] Other 10-31-2022 14:29-0400 Body height 170.2 cm Rubin Lopez MD Work Phone: [facility] 10-31-2022 14:29-0400 Body weight 83.46 kg Rubin Lopez MD Work Phone: [facility] 10-31-2022 14:29-0400 Diastolic blood pressure 69 mm[Hg] Rubin Lopez MD Work Phone: [facility] 10-31-2022 14:29-0400 Heart rate 79 /min Rubin Lopez MD Work Phone: [facility] 10-31-2022 14:29-0400 Respiratory rate 16 /min Rubin Lopez MD Work Phone: [facility] 10-31-2022 14:29-0400 SaO2% (BldA) [Mass fraction] 94 % Rubin Lopez MD Work Phone: [facility] 10-31-2022 14:29-0400 Systolic blood pressure 114 mm[Hg] Rubin Lopez MD Work Phone: [facility] 10-31-2022 10:21-0400 Body height 170.2 cm Pac 7 Work Phone: [facility] 10-31-2022 10:21-0400 Body temperature 97.3 [degF] Pacc 7 Work Phone: [facility] 10-31-2022 10:21-0400 Body weight 83.46 kg Pacc 7 Work Phone: [facility] 10-31-2022 10:21-0400 Diastolic blood pressure 71 mm[Hg] [facility] 7 Work Phone: [facility] 10-31-2022 10:21-0400 Heart rate 70 /min Pac 7 Work Phone: [facility] 10-31-2022 10:21-0400 SaO2% (BldA) [Mass fraction] 97 % [facility] 7 Work Phone: [facility] 10-31-2022 10:21-0400 Systolic blood pressure 133 mm[Hg] [facility] 7 Work Phone: [facility] 10-10-2022 15:45-0400 Body height 170.2 cm Rubin Lopez MD Work Phone: [facility] 10-10-2022 15:45-0400 Body weight 80.29 kg Rubin Lopez MD Work Phone: [facility] 10-10-2022 15:45-0400 Diastolic blood pressure 74 mm[Hg] Rubin Lopez MD Work Phone: [facility] 10-10-2022 15:45-0400 Heart rate 92 /min Rubin Lopez MD Work Phone: [facility] 10-10-2022 15:45-0400 Respiratory rate 16 /min Rubin Lopez MD Work Phone: [facility] 10-10-2022 15:45-0400 SaO2% (BldA) [Mass fraction] 98 % Rubin Lopez MD Work Phone: [facility] 10-10-2022 15:45-0400 Systolic blood pressure 143 mm[Hg] Rubin Lopez MD Work Phone: [facility] 10-01-2022 11:00-0400 Body height 170.18 cm Hector Ball Other [facility] Other 10-01-2022 11:00-0400 Body mass index (BMI) [Ratio] 28.38 kg/m2 Hector Ball Other [facility] Other 10-01-2022 11:00-0400 Body weight 82.19 kg Hector Ball Other [facility] Other 10-01-2022 11:00-0400 Diastolic blood pressure 88 mm[Hg] Hector Ball Other [facility] Other 10-01-2022 11:00-0400 Respiratory rate 12 /min Hector Ball Other [facility] Other 10-01-2022 11:00-0400 Systolic blood pressure 154 mm[Hg] Hector Ball Other [facility] Other 08-26-2022 10:45-0500 Body height 170.18 cm Hector Ball Other [facility] Other 08-26-2022 10:45-0500 Body mass index (BMI) [Ratio] 28.53 kg/m2 Hector Ball Other [facility] Other 08-26-2022 10:45-0500 Body weight 82.65 kg Hector Ball Other [facility] Other 08-26-2022 10:45-0500 Diastolic blood pressure 76 mm[Hg] Hector Ball Other [facility] Other 08-26-2022 10:45-0500 Respiratory rate 12 /min Hector Ball Other [facility] Other 08-26-2022 10:45-0500 Systolic blood pressure 122 mm[Hg] Hector Ball Other [facility] Other 03-06-2022 09:30-0400 Body height 170.18 cm Dipesh Cárdenas Other [facility] Other 03-06-2022 09:30-0400 Body mass index (BMI) [Ratio] 27.26 kg/m2 Dipesh Cárdenas Other [facility] Other 03-06-2022 09:30-0400 Body weight 78.97 kg Dipesh Cárdenas Other [facility] Other 03-06-2022 09:30-0400 Diastolic blood pressure 90 mm[Hg] Dipesh Cárdenas Other [facility] Other 03-06-2022 09:30-0400 Respiratory rate 18 /min Dipesh Cárdenas Other [facility] Other 03-06-2022 09:30-0400 SaO2% (BldA) [Mass fraction] 98 % Dipesh Cárdenas Other [facility] Other 03-06-2022 09:30-0400 Systolic blood pressure 138 mm[Hg] Dipesh Cárdenas Other [facility] Other 02-20-2022 14:00-0400 Body height 170.18 cm Dipesh Cárdenas Other [facility] Other 02-20-2022 14:00-0400 Body mass index (BMI) [Ratio] 27.26 kg/m2 Dipesh Cárdenas Other [facility] Other 02-20-2022 14:00-0400 Body weight 78.97 kg Dipesh Cárdenas Other [facility] Other 02-20-2022 14:00-0400 Diastolic blood pressure 82 mm[Hg] Dipesh Camargomer Other [facility] Other 02-20-2022 14:00-0400 Respiratory rate 18 /min Dipesh Cárdenas Other [facility] Other 02-20-2022 14:00-0400 SaO2% (BldA) [Mass fraction] 96 % Dipesh Cárdenas Other [facility] Other 02-20-2022 14:00-0400 Systolic blood pressure 134 mm[Hg] Dipesh Cárdenas Other [facility] Other Encounters Encounter Date Encounter Type Care Provider Facility Start: 09-11-2023 End: 09-11-2023 ambulatory [facility] Work Phone: Start: 09-11-2023 End: 09-11-2023 Patient encounter procedure [facility] Александр Work Phone: Start: 06-29-2023 End: 06-29-2023 ambulatory Hector Fraga Other [facility] Other Start: 06-29-2023 Office outpatient vi sit 15 minutes Hector Fraga [facility] Start: 06-29-2023 End: 06-29-2023 Patient encounter procedure [facility] Work Phone: Start: 06-19-2023 End: 06-19-2023 ambulatory Hector Fraga Other [facility] Other Start: 06-19-2023 Telephone encounter Hector Fraga [facility] Start: 06-18-2023 End: 06-18-2023 ambulatory Hector Flakito Other [facility] Other Start: 06-18-2023 Telephone encounter Hector Fraga [facility] Start: 06-15-2023 End: 06-15-2023 ambulatory Hector Fraga Other [facility] Other Start: 06-15-2023 Telephone encounter Hector Fraga [facility] Start: 06-08-2023 End: 06-08-2023 ambulatory Hector Fraga Other [facility] Other Start: 06-08-2023 Telephone encounter Hector Fraga [facility] Start: 03-10-2023 End: 03-10-2023 ambulatory Hector Fraga Other [facility] Other Start: 03-10-2023 Telephone encounter Hector Fraga [facility] Start: 02-11-2023 End: 02-11-2023 ambulatory Hector Fraga Other [facility] Other Start: 02-11-2023 Telephone encounter Hector BUSTILLO [facility] Start: 01-13-2023 End: 01-13-2023 ambulatory Hector Fraga Other [facility] Other Start: 01-13-2023 Telephone encounter Hector BUSTILLO [facility] Start: 01-08-2023 End: 01-08-2023 ambulatory Rubin Lopez MD Work Phone: [facility] Comment on above: S/P laminectomy (Jennifer mercedez Dx) Start: 01-08-2023 End: 01-08-2023 Telemedicine consultation with patient Rubin Lopez MD Work Phone: [facility] Start: 01-08-2023 End: 01-09-2023 ambulatory RUBIN LOPEZ Facility:[facility] Start: 2023 End: 2023 ambulatory Hector Fraga Other [facility] Other Start: 2023 Patient encounter procedure Hector Fraga [facility] Start: 11-20-2022 End: 11-20-2022 ambulatory Hector Fraga Other [facility] Other Start: 11-20-2022 Office outpatient vi sit 10 minutes Hector Fraga [facility] Start: 11-12-2022 End: 11-12-2022 ambulatory Hector Frgaa Other [facility] Other Start: 11-12-2022 Telephone encounter Hector Fraga [facility] Start: 11-07-2022 End: 11-08-2022 Evaluation and management of inpatient RUBIN LOPEZ Facility:[facility] Start: 10-31-2022 End: 11-01-2022 ambulatory RUBIN LOPEZ Facility:[facility] Start: 10-31-2022 End: 10-31-2022 Patient encounter procedure Rubin Lopez MD Work Phone: [facility] Comment on above: 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); S/P spinal fusion; Spinal stenosis of lumbar region with neurogenic claudication Start: 10-31-2022 Encounter for other preprocedural examination RUBIN LOPEZ [facility] Start: 10-31-2022 End: 11-01-2022 ambulatory TAY RUIZ Facility:[facility] Start: 10-31-2022 End: 11-01-2022 ambulatory HECTOR Griffin [place] Facility:[facility] Start: 10-31-2022 End: 10-31-2022 Admission to establishment [facility] 7 Work Phone: [facility] Start: 10-31-2022 End: 10-31-2022 ambulatory [facility] 7 Work Phone: Pre Anesthesia Comment on above: Preop testing (Prima ry Dx); Essential (primary) hypertension; Gastroesophageal reflux disease with esophagitis without hemorrhage; Anemia, unspecified type; Resting tremor Start: 10-31-2022 End: 10-31-2022 Patient encounter status [facility] 7 Work Phone: Pre Anesthesia Start: 10-27-2022 End: 10-27-2022 ambulatory Nurse [facility] Work Phone: [facility] Comment on above: Pre-Op Teaching Start: 10-22-2022 ambulatory Rubin Lopez MD Work Phone: [facility] Start: 10-22-2022 Patient encounter status Rubin Loepz MD Work Phone: [facility] Start: 10-22-2022 Telephone encounter Rubin naylor MD Work Phone: [facility] Comment on above: Follow Up Start: 10-17-2022 ambulatory Rubin Lopez MD Work Phone: [facility] Comment on above: MRI Start: 10-14-2022 End: 10-14-2022 ambulatory Hector Fraga Other [facility] Other Start: 10-14-2022 Telephone encounter Hector BUSTILLO [facility] Comment on above: External Imaging Start: 10-10-2022 End: 10-10-2022 ambulatory HÉCTOR JEAN BAPTISTE Facility:[facility] Start: 10-10-2022 End: 10-11-2022 ambulatory RUBIN LOPEZ Facility:[facility] Start: 10-10-2022 End: 10-10-2022 Subsequent hospital visit by physician Dank Moore J1-4 Work Phone: Radiology Comment on above: S/P lumbar fusion [Z 98.1] Start: 10-10-2022 End: 10-10-2022 Patient encounter procedure Rubin Lopez MD Work Phone: [facility] Comment on above: S/P lumbar fusion (P rimary Dx); Neural foraminal stenosis of lumbar spine Start: 10-01-2022 End: 10-01-2022 ambulatory HECTOR FRAGA Facility:[facility] Start: 10-01-2022 Office outpatient vi sit 15 minutes Hector FUNK [facility] Start: 09-29-2022 Telephone encounter Hector Fraga [facility] Start: 09-29-2022 End: 09-30-[address] HECTOR FRAGA Facility: Start: 09-23-2022 End: 09-23-2022 ambulatory Hector Fraga Other [facility] Other Start: 09-23-2022 Telephone encounter Hector Fraga [facility] Start: 09-16-2022 ambulatory HECTOR FRAGA Facility: [facility] Start: 08-26-2022 End: 08-26-2022 ambulatory Hector Fraga Other [facility] Other Start: 08-26-2022 Office outpatient vi sit 25 minutes Hector Fraga [facility] Start: 08-25-2022 ambulatory HECTOR FRAGA Facility: [facility] Start: 08-18-2022 End: 08-18-2022 ambulatory Hector Fraga Other [facility] Other Start: 08-18-2022 Telephone encounter Hector Fraga [facility] Start: 06-17-2022 End: 06-18-[address] HECTOR FRAGA Facility:[facility] Start: 03-06-2022 End: 03-06-2022 ambulatory Dipesh Cárdenas Other [facility] Other Start: 03-06-2022 Office outpatient vi sit 15 minutes Dipesh Cárdenas [facility] Start: 03-06-2022 Telephone encounter Emily BUSTILLO [facility] Start: 03-05-2022 End: 03-06-[address] HECTOR FRAGA Facility:[facility] Start: 02-20-2022 End: 02-20-2022 ambulatory Dipesh Cárdeans Other [facility] Other Start: 02-20-2022 Office outpatient vi sit 15 minutes Dipesh Cárdenas [facility] Start: 01-31-2022 End: 01-31-[address] HECTOR FRAGA Facility:[facility] Start: 2022 End: 01-07-[address] HECTOR FRAGA Facility:[facility] Start: 10-11-2021 End: 10-15-2021 Evaluation and management of inpatient ENRIQUE SINGER Facility:[facility] Procedures Date Procedure Procedure Detail Performing Clinician Start: 02-23-2024 COVID/Influenza Anti gen (POC) Start: 10-31-2022 Antibody screen Pacc 7 Work Phone: Start: 10-31-2022 Antibody screen RUBIN SHEEHANS Comment on above: Order Comment: Speci men Type: BLOOD SPECIMENOrdering Facility: [facility] Address: [address] [place], [place] [address] Performed By: #### T [id number] ####CC [facility] BLOOD BANKCLIA [id number] [facility] [id number] [id number] [facility] Start: 10-10-2022 Radex spine lumbosac ral 2/3 views Rubin Lopez MD Work Phone: Start: [address] GRADY IN [place] Comment on above: Performed By: #### F ERR, [id number], [id number] #### [facility] [address] [place] [address] Dr. Nicole Lam Start: 09-17-2021 Antibody screen ENRIQUE CHOU Comment on above: Performed By: #### [id number] #### [facility] [address] [facility] [place] [address], [facility] Start: 09-29-2018 Screening for malign ant neoplasm of prostate Hector Fraga Other Plan of Treatment Date Care Activity Detail Author Start: 10-31-2025 DIABETES SCREEN DIABETES SCREEN [facility] Start: 11-01-2023 BP CONTROLLED (<130/80) BP CONTROLLE D (<130/80) [facility] Start: 03-20-2023 Influenza vaccination INFLUENZ A (Season Ended) [facility] Start: 10-22-2022 End: 04-20-2023 [facility] PCR [facility] PCR Lab Routine S/P spinal fusion Spinal stenosis of lumbar region with neurogenic claudication Pre-op testing Expected: 10/22/2022, Expires: 04/20/2023 [facility] Work Phone: Comment on above: Expected: 10/22/2022 , Expires: 04/20/2023 Start: 07-20-2022 ADVANCE DIRECTIVE DISCUSSION ADVANCE DIRECTIVE DISCUSSION [facility] Start: 07-20-2022 DEPRESSION ASSESSMENT DEPRESSION ASS ESSMENT [facility] Start: 03-20-2022 Influenza vaccination INFLUENZA (#1) [facility] Start: 01-27-2019 DIABETES SCREEN DIABETES SCREEN [facility] Start: 2015 PNEUMOCOCCAL: 65+ (1 - PCV) PNEUMOCOCCAL: 65+ (1 - PCV) [facility] Start: 01-07-2000 SHINGRIX VACCINE (1 of 2) SHINGRIX VACCINE (1 of 2) [facility] Start: 1995 COLOGUARD (FIT-DNA) COLOGUARD (FIT-D NA) [facility] Start: 1995 Colonoscopy COLONOSCOPY [facility] Start: 1995 COLORECTAL CANCER SCREENING COLORECTAL CANCER SCREENING [facility] Start: [address] COLONOGRAPHY [facility] Start: 1995 FECAL OCCULT BLOOD FECAL OCCULT BLOO D [facility] Start: 1995 SIGMOIDOSCOPY SIGMOIDOSCOPY [facility] Start: 1985 LIPID SCREEN LIPID SCREEN [facility] Start: 1969 Urine microalbumin profile DTAP,TDAP,TD (1 - Tdap) [facility] Start: 01-07-1968 ANNUAL PCP TEAM DIRECTOR OF VIDEO ANALYTICS ERICA DISEASE VISIT ANNUAL PCP TEAM CHRONIC DISEASE VISIT [facility] Start: 01-07-1968 HEPATITIS C SCREENING HEPATITIS C SC ROSIE [facility] Start: 1950 COVID-19 VACCINE (#1) COVID-19 VACCI NE (#1) [facility] ECG COMPLETE ECG COMPLETE ECG Routine Preop testing 10/31/2022 12:14 PM EDT [facility] Work Phone: [employer] Proc edures Routine S/P spinal fusion Spinal stenosis of lumbar region with neurogenic claudication Pre-op testing Ordered: 10/22/2022 [facility] Work Phone: Comment on above: Ordered: 10/22/2022 REFER FOR ADMIT INTERVIEW REFER FOR ADMIT INTERVIEW Procedures Routine S/P spinal fusion Spinal stenosis of lumbar region with neurogenic claudication Pre-op testing Ordered: 10/22/2022 [facility] Work Phone: Comment on above: Ordered: 10/22/2022 [facility] Immunizations Immunization Date Immunization Notes Care Provider Fa cility 04-23-2020 influenza virus vaccine, split virus (incl. purified surface antigen) Hector Fraga Other [facility] Other 04-23-2020 influenza virus vaccine, unspecified formulation [facility] 12-30-2018 pneumococcal conjuga te vaccine, 13 valent Hector Fraga Other [facility] Payers Date Payer Category Payer Unknown [employer] SUPPLEMENT [id number] 2016-Present [id number] [place] [address] Indemnity [id number] 2014 Medicare MEDICARE MEDICAR E A AND B [id number] 2014-Present [phone] [address] [address] [place] [address] Medicare [id number] 1959 Medicare [id number] 1959 Private Health Insurance [id number] 1950 Unknown [id number]. [id number] 1950 Unknown [id number]. [id number] 1950 Unknown [id number]. [id number] 1950 Unknown [id number]. [id number] 1950 Unknown [id number] [id number]. [id number] 1950 Unknown [id number] [id number]. [id number] 1950 Unknown [id number]. [id number] 1950 Unknown [id number] [id number]. 2.594 1950 Unknown [id number] [id number] Unknown Regular Insurance [id number] Social History Date Type Detail Facility Sex Assigned At [facility] Other Start: 10-31-2022 End: 09-11-2023 Tobacco smoking status NHIS Never smoked tobacco [facility] Start: 10-10-2022 Alcohol intake Current non-dr home companion of alcohol (finding) [facility] Start: 1950 Sex Assigned At Not on file [facility] Start: 10-31-2022 Tobacco use and exposure Former smokeless tobacco user [facility] History of tobacco use Chews Tobacco [facility] Start: 10-31-2022 Alcohol intake Current drinke r of alcohol (finding) [facility] Start: 10-31-2022 Alcohol Comment 2 times a week per pt 10/31/2022 [facility] Start: 1950 Sex Assigned At Male F [facility] Clinical Notes 10-16-2021 to 06-29-2023 Note Date & Type Note Facility 06-29-2023 Evaluation note Encounter Date Diagnosis Assessment Notes Jun, Primary hypertension (ICD-10 - I10) This patient is instructed to consume a healthy, low-fat, low-salt diet. They are also encouraged to continue exercise to achieve/mainta in a normal BMI. Patient is instructed on home BP measurements: - rest for 5 minutes w/o talking- positioned w/ feet on floor and arm supported- average best 2/3 readings w/ goal < 135/85 _update office w/ home readings Jun, Lumbar spondylosis with myelopathy (ICD-10 - M47.16) The patient is instructed to avoid bending, twisting or lifting. They are to use intermittent heat and ice as needed. They may schedule a massage or gentle manipulation. They may safely use Tylenol as needed. Back much better after second procedure. Continues w/ left foot drop, which is likely permanent,. Jun, Gastroesophageal reflux disease with esophagitis without hemorrhage (ICD-10 - K21.00) Diet instructions: Smaller portions, avoid eating and laying flat, avoid eating or drinking prior to bedtime. Weight loss. Stopped PPI Jun, Anemia, unspecified type (ICD-10 - D64.9) Normal Fe, B12, FA No s/s GIB Suggest EGD due to intermittent heartburn to r/o esophagitis, gastritis or H. Pylori. Due for CRC screening Jun, Colon cancer screening (ICD-10 - Z12.11) Recommend colonoscopy due to anemia of unknown etiology. Denies change in appetite, bowel habits or weight. Denies melena or hematochezia [facility] Other 11-27-2023 Evaluation note* Encounter Date Diagnosis Assessment Notes Treatment Notes Treatment Clinical Notes May, Fatigue (ICD-10 - R53.83) [facility] Other 11-20-2023 Evaluation note* Encounter Date Diagnosis Assessment Notes Treatment Notes Treatment Clinical Notes May, LUQ abdominal pain (ICD-10 - R10.12) May, Fatigue, unspecified type (ICD-10 - R53.83) [facility] Other 07-26-2023 Evaluation note* Encounter Date Diagnosis Assessment Notes Treatment Notes Treatment Clinical Notes Jan, Anemia, unspecified type (ICD-10 - D64.9) Jan, Primary hypertension (ICD-10 - I10) Jan, MARU (obstructive sleep apnea) (ICD-10 - G47.33) AHI 46 [facility] Other 06-22-2023 NoteHNO ID: [id number] Author: Rubin Lopez MD Service: ? Author Type: Physician Type: Progress Notes Filed: 01/08/2023 11:39 AM Note Text: Phone call, postop visit, 15 minutes I have communicated my name and active licensure. The patient's identity and physical location were verified at the time of this visit. Either the patient or their legal sales representative printing has been informed of the risks and benefits of -- and alternatives to -- treatment through a remote evaluation and consents to proceed with the evaluation remotely. 11/07/2022: L3-4 decompression He states that his back and bilateral buttock and leg pain have improved. He is still having intermittent burning discomfort over his left dennis. The mild left foot weakness he had for approximately 1 year before the surgery has not improved. The weakness is intermittent but he occasionally catches his foot while he is walking. He was unable to tolerate gabapentin for his left dennis burning discomfort. He will see his pain therapy specialist for consideration of other treatment options. We will increase his activities. Return to clinic as needed. Rubin Lopez, [facility]06-22-2023 History of Present illness Narrative* Rubin Lopez MD - 01/08/2023 11:30 AM EDT Phone call, postop visit, 15 minutes I have communicated my name and active licensure. The patient's identity and physical location wereverified at the time of this visit. Either the patient or their legal sales representative printing has been informed of the risks and benefits of -- and alternatives to -- treatment through a remote evaluation andconsents to proceed with the evaluation remotely. 11/07/2022: L3-4 decompression He states that his back and bilateral buttock and leg pain have improved. He is still having intermittent burning discomfort over his left dennis. The mild left foot weakness he had for approximately 1year before the surgery has not improved. The weakness is intermittent but he occasionally catches his foot while he is walking. He was unable to tolerate gabapentin for his left dennis burning discomfort. He will see his pain therapy specialist for consideration of other treatment options. We will increase his activities. Return to clinic as needed. [facility]in [facility]* Encounter Date Diagnosis Assessment Notes Treatment Notes Treatment Clinical Notes Dec, Medicare annual well ness visit, subsequent (ICD-10 - Z00.00) Personalized health advice was given to the beneficiary including a written plan for screenings discussed and provided. Advanced care planning reviewed and/or information given as requested. Additional counseling was provided here today in regards to, [ ]. The above visit was performed by [ ], under direct supervision of [ ]. Document reviewed and amended by provider signed below. Dec, IFG (impaired fastin g glucose) (ICD-10 - R73.01) This patient is following a comprehensive diabetic treatment plan. They are checking their feet daily for calluses and nonhealing ulcers. They are being seen for yearly dilated eye examinations. Goals: SBP less than 130, LDL less than 100, FBS less than 140, AC and A1C less than 7%. They are checking their BS daily, will which are reviewed at the office visit. Continue regular routine monitoring of A1C,] Microalbumin, Dilated eye exam and Foot exam Dec, Primary hypertension (ICD-10 - I10) This patient is instructed to consume a healthy, low-fat, low-salt diet. They are also encouraged to continue exercise to achieve/maintain a normal BMI. Dec, Pure hypercholestero lemia (ICD-10 - E78.00) Instructed on diet and exercise with continued statin therapy.Discussed the beneficial effects of lowering cholesterol in reducing the risk for cerebrovascular and cardiovascular disease. Dec, Benign prostatic hyperplasia with lower urinary tract symptoms (ICD-10 - N40.1) Symptoms tolerable Yearly PSA Dec, Lumbar spondylosis w ith myelopathy (ICD-10 - M47.16) Much improved since most recent procedure Increase activity as tolerated Dec, Resting tremor (ICD- 10 - G25.2) Slight improvement, monitor for now Dec, Gastroesophageal ref lux disease with esophagitis without hemorrhage (ICD-10 - K21.00) Diet instructions: Smaller portions, avoid eating and laying flat, avoid eating or drinking prior to bedtime. Weight loss. PPI on occasion Dec, Suspected sleep apne a (ICD-10 - R29.818) Dec, Anemia, unspecified type (ICD-10 - D64.9) No s/s GI bleeding. Fe, B12, FA normal. Due for CRC screening, recommend colonoscopy Dec, Screening PSA (prost ate specific antigen) (ICD-10 - Z12.5) Dec, Colon cancer screeni ng (ICD-10 - Z12.11) [facility] Other 05-04-2023 Evaluation note* Encounter Date Diagnosis Assessment Notes Treatment Notes Treatment Clinical Notes November, Encounter for staple removal (ICD-10 - Z48.02) 12 tejas removed wo difficulty or complications November, Allergic contact dermatitis due to adhesives (ICD-10 - L23.1) Keep open to air. OTC topical steroids for itching November, S/P lumbar fusion (ICD-10 - Z98.1) Doing well postop w/o pain. Increase activity as tolerated [facility] Other 04-22-2023 NoteHNO ID: [id number] Author: Miranda Ford RN Service: Care Management Author Type: Registered Nurse Type: Care Mgt Progress Note Filed: 11/10/2022 10:51 AM Note Text: CARE MANAGEMENT UTILIZATION REVIEW COMMITTEE PROVIDER LIABLE (Admission Status Discrepancy Review) Admission Date: 11/07/2022 Patient's Initial Order is: Inpatient Date Received: November 10, 2022 Date Reviewed: November 10, 2022 Under the authority of the Utilization Management Plan, the Physician Advisor, Dr. Sagar Sherwood, has reviewed the medical record of the above patient. The following recommendation has been made by the Physician Advisor, based upon the current available medical information as of the date of this determination. The patient is appropriate for: Outpatient in a Bed/Extended Recovery Rationale for this decision: Lack of medical necessity for inpatient admission and less than 2 midnight stay SIGNATURE: Miranda Ford RN PATIENT NAME: Emily Caldwell DATE: November 10, 2022 TIME: 10:51 AM Disclaimer: The information in this determination is to be used for utilization management purposes only. The information and recommendation is made pursuant to Medicare Hospital Conditions of Participation (442 CFR Part 482) and is neither a judgment nor an assessment with regard to the appropriateness or quality of the clinical care. Nothing in this document may be used to limit clinical services provided to the above named patient. This form should be used as one part of the process utilized to ensure compliance with [facility] policy regarding Inpatient Admission and Observation Services. The definitions of Inpatient and Observation used in making the determination above are those provided in Medicare Benefit Policy Manual Chapter 1, Section 1 and 10, Chapter 6, Section 20, and the Medicare Claims Processing Manual Chapter 1, Section 50.3 and Chapter 4, Section 290. This recommendation should be considered as only one factor in determining the patient's final level of service along with other pertinent documentation such as the treating physician's order as documented evidence of concurrence.[facility]04-22-2023 NoteHNO ID: [id number] Author: Juan David Benites MD Service: Neurosurgery Author Type: Resident Type: Procedures Filed: 11/08/2022 11:18 AM Note Text: Neurosurgery Procedure Note Procedure: lumbar NA drain removal Area was prepped with betadine. Anchoring suture was cut and catheter slowly removed from patient. Catheter tip was intact. Steristrips were used to closed drain site. No complications. Hemostatic. Patient tolerated the procedure well. Juan David eBnites MD PGY-2, Neurological Surgery Pager: [phone] Neurosurgery measurement and verification engineer: [id number] 11:17 AM 11/08/22 Please page [phone] on weekends and after 6pmFirelands [facility]04-21-2023 NoteHNO ID: [id number] Author: Juan David Benites MD Service: Neurosurgery Author Type: Resident Type: Plan of Care Filed: 11/07/2022 6:54 PM Note Text: Neurosurgery Postop Note Patient: Emily Caldwell Interval HPI Postop check Objective Vitals 11/07/22 1219 BP: 151/81 Pulse: 69 Resp: 18 Temp: 36.6 ?C (97.9 ?F) TempSrc: Temporal SpO2: 97% Weight: 83.5 kg (184 lb) Height: 170.2 cm (5' 7 ) Exam Waking up from anesthesia CN grossly intact Strength: BUE: 5 RLE: HF 5 KE 5 DF 5 EHL 5 PF 5 LLE: HF 5 KE 5 DF 4 (baseline) EHL 5 PF 5 SILT in all dermatomes Dressing clean, dry, and intact (incision closed with tejas) Drain in place with minimal serosanguinous drainage Assessment/Plan 72 y/o M PMH HTN, GERD, anemia, resting tremor, back pain > bilateral buttock/BLE pain s/p L3 laminectomy, L5/S1 TLIF (09/2021, OSH), MRI from 03/2022 with L3/4 lateral recess stenosis and foraminal stenosis, now s/p L3/4 decompression 11/07/2022. -Neurologically stable -Drain output, full suction -Pain control -No fan -Advance diet as tolerated -PT/OT, mobilize -SQH on POD 2 -H60 when meets PACU criteria Juan David Benites MD PGY-2, Neurological Surgery Pager: [phone] Neurosurgery measurement and verification engineer: [id number] 6:54 PM 11/07/22 Please page [phone] on weekends and after 6pmFirelands [facility]04-21-2023 NoteHNO ID: [id number] Author: Vin Lynne APRN.SENIOR PRODUCT DEVELOPMENT ENGINEER Service: ? Author Type: Nurse Civil Engineering Draftsperson Type: Anesthesia Procedure Notes Filed: 11/07/2022 3:59 PM Note Text: ANESTHESIOLOGY PROCEDURE NOTE PIV General Information Procedure Start Time/Medication Administration: 11/07/2022 3:58 PM Procedure End Time: 11/07/2022 3:58 PM Patient Location: OR Staffing SENIOR PRODUCT DEVELOPMENT ENGINEER: Vin Lynne APRN.SENIOR PRODUCT DEVELOPMENT ENGINEER Performed by: JOSH Preparation Sterility Preparation: hand hygiene performed prior to procedure, surgical cap used, mask used, skin prep agent completely dried prior to procedure Site Prep: alcohol Procedure Details Indication: need for IV access Needle Size/Type: 18 gauge angiocath Orientation: Left Location: Hand SIGNATURE: Vin Lynne APRN.CRNA PATIENT NAME: Emily Caldwell DATE: November 07, 2022 TIME: 3:58 PM CSN: [id number] [facility]04-21-2023 NoteHNO ID: [id number] Author: Vin Lynne APRN.SENIOR PRODUCT DEVELOPMENT ENGINEER Service: ? Author Type: Nurse Civil Engineering Draftsperson Type: Anesthesia Procedure Notes Filed: 11/07/2022 3:58 PM Note Text: ANESTHESIOLOGY PROCEDURE NOTE Airway General Information Procedure Start Time/Medication Administration: 11/07/2022 3:34 PM Procedure End Time: 11/07/2022 3:36 PM Patient location during procedure: OR Timeout Performed Pre-procedure: timeout performed Consent Obtained: Yes Patient identity confirmed: arm band and patient Staffing SENIOR PRODUCT DEVELOPMENT ENGINEER: Vin Lynne APRN.SENIOR PRODUCT DEVELOPMENT ENGINEER Performed by: JOSH Indications and Patient Condition Indications for airway management: anesthesia Preoxygenated: yes anesthesia circuit Patient position: sniffing Method: asleep Difficult Mask: No Final Airway Details Final airway type: endotracheal airway Final Endotracheal Airway: ETT Cuffed: yes Successful intubation technique: video laryngoscopy Devices used: Hinkle and intubating stylet Endotracheal tube insertion site: oral Blade: Jayla Blade size: #4 ETT size (mm): 7.5 Measured from: teeth Measurement (cm): 22 Placement verified by: capnometry Cormack-Lehane Classification: grade I - full view of glottis SIGNATURE: Vin Lynne APRN.CRNA PATIENT NAME: Emily Caldwell DATE: November 07, 2022 TIME: 3:56 PM CSN: [id number] [facility]04-14-2023 NoteHNO ID: [id number] Author: Rubin Lopez MD Service: ? Author Type: Physician Type: Progress Notes Filed: 10/31/2022 2:47 PM Note Text: Complains of back pain and bilateral buttock and leg pain. Pain occurs primarily with activity and ambulation. It limits his activities plan: L3-4 decompression Risks, benefits, alternatives and personnel of surgery discussed with patient. He agrees to proceed. Rubin Lopez, [facility]04-14-2023 History of Present illness Narrative* Rubin Lopez MD - 10/31/2022 2:33 PM EDT Complains of back pain and bilateral buttock and leg pain. Pain occurs primarily with activity and ambulation. It limits his activities plan: L3-4 decompression Risks, benefits, alternatives and personnel of surgery discussed with patient. He agrees to proceed. Rubin Lopez MD documented in this encounterAult[facility]04-14-2023 History and physical note * Yousuf Killian MD - 10/31/2022 10:40 AM EDT HISTORY AND PHYSICAL EXAMINATION Attending Note I evaluated the patient and personally participated in the meyer components. I agree with the resident's findings and plan as documented and have discussed the case and management of the patient's carewith the resident. Signature: Shandra Dallas MD, PhD Date: 10/31/2022 Time: 12:28 PM SERVICE DATE: October 31, 2022 SERVICE TIME: 9:01 AM PRIMARY CARE PHYSICIAN: Hector Fraga DO REASON FOR VISIT: Emily Caldwell is a 72 year old male who is scheduled for LAMINOTOMY W/ DECOMPRESSION OF NERVE ROOT(S) PARTIAL FACETECTOMY FORAMINOTOMY AND/OR EXCISION OF HERNIATED INTERVERTEBRAL DISC 1 INTERSPACE LUMBAR, LAMINOTOMY W/ DECOMPRESSION OF NERVE ROOT(S) W/ PARTIAL FACETECTOMY FORAMINOTOMY AND/OR EXC ISION OF HERNIATED INTERVERTEBRAL DISC CERVICAL/LUMBAR LEVEL 3 at the request of Dr. Rubin Lopez for consultation. My final recommendation will be communicated back to the requesting physician by way of shared medical record or letter. The patient has the following: There is no problem list on file for this patient. Subjective CHIEF COMPLAINT: Pre-op exam HPI: Emily Caldwell is a 72 year old male who presents for pre-anesthesia consultation for upcoming procedure. Patient has a history of stenosis of lumbar spine. Underwent L5-S1 interbody fusion and fixation with L3 laminectomy in 10/08. Has limited activity due to back pain and bilateral leg pain. Denies any fever, chills, nausea, vomiting, chest pain, abdominal pain, SOB. Above procedure is recommended to manage symptoms. Patient is scheduled for surgery on 11/07/2022. PAST MEDICAL HISTORY Diagnosis Date Hypertension Sinus disease PAST SURGICAL HISTORY Procedure Laterality Date LAMINECTOMY,LUMBAR SINUS SURGERY HX FAMILY HISTORY Problem Relation Age of Onset Diabetes Mother other (HTN) Father Heart Attack Father Heart Failure Father SOCIAL HISTORY: Social History Tobacco Use Smoking status: Never Substance Use Topics Alcohol use: No Drug use: No MEDICATIONS: Prior to Admission medications as of 10/10/22 1552 Medication Sig Last Dose Taking acetaminophen (TYLENOL) 325 mg tablet Take by mouth q 6 HR. benazepril (LOTENSIN) 20 mg tablet Take by mouth q 24 HR. lisinopril (ZESTRIL, PRINIVIL) 10 mg tablet Take 10 mg by mouth once daily. Patient not taking: Reported on 10/10/2022 aspirin 325 mg tablet Take 325 mg by mouth once daily. Patient not taking: Reported on 10/10/[address] (PROTONIX) 40 mg tablet Take 40 mg by mouth once daily as needed. eszopiclone (LUNESTA) 3 mg tab Take by mouth at bedtime as needed. Patient not taking: Reported on 10/10/2022 No medication comments found. CURRENT ALLERGIES: ALLERGIES No Known Allergies COVID VACCINATION STATUS: Not vaccinated, prior infection REVIEW OF SYSTEMS: PAIN ASSESSMENT: General: No weight loss, malaise or fevers. Neuro: No history of TIA's, stroke, FIELD SUPERVISOR tumor, impaired sensorium, hemiplegia, paraplegia or quadraplegia. Respiratory: No history of current cough or dyspnea, or pneumonia in the past 6 weeks. No history of respiratory/pulmonary symptoms or problems. Cardiovascular: +HTN, No history of CHF or [place] GI: +GERD : No history of dysuria, frequency or incontinence,, stones or chronic kidney disease Endocrine: No history of diabetes. Has not taken steroids within the past 30 days. No history of endocrinological symptoms or problems. Hematology: No history of bleeding or clotting disorder. Pt is not taking anti- coagulation or platelet medications. No history of hematological symptoms or problems. Oncology: No history of CA metastasis, chemo within 30 days, or radiotherapy within 90 days. Has not lost 10% of body wt in 6 months. No history of oncological symptoms or problems. Psych: No history of psychiatric symptoms or problems. Musculoskeletal: +Lower back and bilateral leg pain Skin: Negative for lesions, rash and itching. Objective PHYSICAL EXAM: VITALS: BP 133/71 Pulse 70 Temp (Src) 97.3 (Temporal) Ht 5' 7 (1.70m) Wt 184 lb (83.5kg) SpO2 97% BMI 28.81 kg/(m^2). General: Alert and oriented Skin: Normal color, no rash, no lesions. HEENT: EOM, pupils equal, round and reactive. Cardiovascular: Normal S1 & S2, no rubs, murmurs or gallops. No JVD. Lungs: Normal breath sounds, no wheezes or crackles. Abdomen: Positive bowel sounds Extremities: No deformity, no edema or tenderness, no joint swelling or clubbing. Neurological: Normal cognition and motor skills. Pulses: Radial pulses 2+ Diagnostic tests reviewed for today's visit: Lab Value Units Date High Low HB No results within date range. HCT No results within date range. WBC No results within date range. PLT No results within date range. NA No results within date range. K No results within date range. GLUC No results within date range. BUN No results within date range. CREAT No results within date range. PTSEC No results within date range. INR No results within date range. APTT No results within date range. ALT No results within date range. AST No results within date range. TBILI No results within date range. TSH No results within date range. Lab Value Units Date High Low HCGQT No results within date range. UHCG No results within date range. HCG, BODY* No results within date range. Lab Value Units Date High Low ABORHD No results within date range. ABSCREEN No results within date range. No results found for: HBA1C No results found for this or any previous visit (from the past 8760 hour(s)). No results found for this or any previous visit (from the past 90167 hour(s)). Assessment/Plan Essential (primary) hypertension On benazepril 20 mg Gastroesophageal reflux disease with esophagitis Stable on pantoprazole Anemia, unspecified No clear reason. Scheduled for colonoscopy. Resting tremor Has had for 2 years. Not been worked up. METS: Climb a flight of stairs or walk up a hill (5.50 METs) ASA Class: 2 ANESTHESIA FINDINGS: Intubation History: No history of difficult intubation Significant Anesthesia Considerations: None Airway Exam: General: Normal appearance Mallampati Score is CLASS II ULBT: Class II - Lower incisors can bite the upper lip below the rosy line Neck: Distance from hyoid to mentum during neck extension is at least 3 finger breaths, Pain with neck movement (extension) Mouth: Normal tongue size Dentition: Intact Airway History: No abnormal airway history STOP BANG Score: Criteria: Snoring: no Tired: no Observed apnea: no Hypertension: yes PLAN This patient is optimally prepared for surgery pending LABS and EKG. CONSULTS: Patient does not require consults for optimization at this time. LABS INITIATED: BMP, CBC, Type+screen, Con ABO, EKG Planned Anesthetic: Per anesthesia choice Instructions Given to Patient: Instructions located in the after visit summary. Patient given verbal and written preop instructions and voices comprehension and compliance. SIGNATURE: Yousuf Killian MD PATIENT NAME: Emily Caldwell DATE: October 31, 2022 TIME: 9:01 AM documented in this encounterAultman Hospital04-14-2023 Instructions* Patient Instructions* Yousuf Killian MD - 10/31/2022 9:02 AM EDT PATIENT PREOPERATIVE INSTRUCTIONS Rubin Lopez MD has scheduled you for your procedure at this surgery center: [facility] Scheduling Office: [phone] --[address] [place] [address]. Please read below carefully for your personalized instructions. Dietary Restrictions: - No solid food after midnight. - You may have 12 ounces of clear liquids (water, clear juices such as apple juice or gatorade, carbonated beverages, clear tea, black coffee, jello) until 2 hours before scheduled arrival at facility. Is Patient Diabetic:No Medications: Do NOT take benazepril morning of surgery. If you start any new medications after today's visit, please contact the surgeon's office. Blood Thinning Medications: - Stop Vitamin E, ALL multi-vitamins, herbals and dietary supplements 7 days before surgery. Important Reminders: - Candy, mints, and tobacco products are NOT permitted the morning of surgery. - Hearing aids, dentures and glasses may be worn the morning of surgery. - NO jewelry, body piercings, makeup, hairpins or contacts are to be worn the day of surgery. If you develop symptoms such as a fever, cold, or flu, or have other changes to your health within TWO DAYS of scheduled surgery or the morning of surgery, please contact the surgery center above. Personal Belongings: -Please have photo ID and insurance cards. -If you do not have a copy of advance directives on file with us, please bring a copy with you on the day of surgery. - Leave ALL valuables and money at home or with family members. For Outpatient Procedures: - YOU MUST HAVE A RESPONSIBLE CANDLE MAKER TAKE YOU HOME. A HEDGE FUND ACCOUNTANT OR RN CORRECTIONAL CANNOT BE MADE A RESPONSIBLE CANDLE MAKER. - We recommend that a responsible person stays with you overnight to take care of you. - You cannot stay in a hotel alone after outpatient surgery. You will not be permitted to have yoursurgery, if you do not have someone to take care of you. Arrival Time for Surgery: - To obtain your arrival time for surgery, call your physician's office the day before your surgery. - If your surgery is scheduled for Thursday, call the Thursday before. Your surgeon s alterations expert will tell you what time to call the office. - If you have not reached the departmental alterations expert by 5 P.M., call [phone] after 5 P.M. the day before your surgery. Please be aware that emergency situations arise, which may delay or change your surgical time. If this happens, we will notify you as soon as possible and regret any inconvenience. If you already have an Advance Directive, please fax a copy to [phone] or email to for it to be added to your chart. If you do not have an Advance Directive, you can find the appropriate form and more information at [email or web address]. We recommend that youcomplete the Advance Directive form found on the website and bring it with you the day of your surgery. It can be witnessed and scanned into your chart that day. Yousuf Killian MD documented in this encounterAultman Hospital04-10-2023 NoteHNO ID: [id number] Author: Mikaela Upton LPN Service: ? Author Type: LICENSED NURSE Type: Progress Notes Filed: 10/27/2022 10:48 AM Note Text: Neuro SPINE CARE COORDINATION VSEA PRE-OP VISIT Met with patient via VSEA for pre op education. Given both written and verbal instructions re : Skin prep, wound care, pain management and post op restrictions. Provided to patient: [facility] Surgery Guide, Spine Surgery Pre/post op education. Yes Reviewed with patient to report to desk J19 for surgery ? Yes. Reviewed with the patient to call [phone] the day before to get surgery report time? Yes. Patient aware eat nothing after midnight prior to surgery, clear liquids only until 2 hours before report time. Yes. Discussed care post discharge : Self care, Home Health Care ( PT-OT-nurse), and acute rehab. Does patient have transportation to and from surgery ? Yes. Falls Education provided ? Yes Nasal swab to be obtained during PACC. Patient instructed in mupirocin treatment : to begin treatment 5 days prior to surgery if nasal swab positive or if swab not obtained. Questions answered and patient voice(s) understanding via teach back. Physical Therapy : if appropriate Additional Comments : All question answered. [facility] History of Present illness Narrative* Mikaela Upton LPN - 10/27/2022 10:47 AM EDT Neuro SPINE CARE COORDINATION VSEA PRE-OP VISIT Met with patient via VSEA for pre op education. Given both written and verbal instructions re : Skin prep, wound care, pain management and post op restrictions. Provided to patient: [facility] Surgery Guide, Spine Surgery Pre/post op education. Yes Reviewed with patient to report to desk Apriva for surgery ? Yes. Reviewed with the patient to call [phone] the day before to get surgery report time? Yes. Patient aware eat nothing after midnight prior to surgery, clear liquids only until 2 hours before report time. Yes. Discussed care post discharge : Self care, Home Health Care ( PT-OT-nurse), and acute rehab. Does patient have transportation to and from surgery ? Yes. Falls Education provided ? Yes Nasal swab to be obtained during PACC. Patient instructed in mupirocin treatment : to begin treatment 5 days prior to surgery if nasal swab positive or if swab not obtained. Questions answered and patient voice(s) understanding via teach back. Physical Therapy : if appropriate Additional Comments : All question answered. Mikaela Upton LPN documented in this encounterAultman Hospital04-05-2023 Miscellaneous Notes* Telephone Encounter - Naomi Raya RN - 10/22/2022 2:13 PM EDT Neuro SPINE CARE COORDINATION QUICK NOTE As per Dr. Lopez- MRI review L3 foraminal stenosis - L3-4 decompression recommended with no fusion Call to the pt and LM on identified VM requesting a call back - call back number has been provided. documented in this encounterAultman Hospital03-31-2023 Miscellaneous Notes* Telephone Encounter - Mya Odom [facility] - 10/17/2022 12:36 PM EDT withoutReceived outside imaging/report: Transmitted Yes - MRI images Report Yes Type of study MRI Lumbar spine w/wo contrast 03/21/22 Xray lumbar limited 10/10/22 Forwarded to team for review. Mya Odom [facility] documented in this encounterAultman Hospital03-29-2023 Miscellaneous Notes* Telephone Encounter - Naomi Raya RN - 10/15/2022 2:51 PM EDT Neuro SPINE CARE COORDINATION QUICK NOTE Pending review with Dr. Lopez * [facility] - [facility] 2[facility]09 PM EDT Pt's called; she was advised that images have been received. Please advise once reviewed; ph: [phone] * [facility] 2[facility]07 PM EDT Images received via PACS and are available in Get Images. * Telephone Encounter - [facility] - 10/14/2022 9:20 AM EDT Pt's called checking for receipt of the following image being sent from [facility]: 03/21/22: MRI Lumbar Spine W & WO Contrast (report scanned) Images have not yet arrived; she will call back tomorrow to check again. FYI: Dr. Lopez requested this at 10/10/22 OV. documented in this encounterAultman Hospital03-28-2023 Evaluation note* Encounter Date Diagnosis Assessment Notes Treatment Notes Treatment Clinical Notes Sep, Primary hypertension (ICD-10 - I10) [employer] Other 03-24-2023 NoteHNO ID: [id number] Author: RT Magnus(R) Service: Radiology Author Type: Technologist Type: Progress Notes Filed: 10/10/2022 4:27 PM Note Text: Radiology Service Progress Note PATIENT NAME: Emily Caldwell DATE OF SERVICE: October 10, 2022 TIME: 4:26 PM PATIENT IDENTITY VERIFICATION COMPLETED USING TWO (2) IDENTIFIERS: Name and Date of confirmed by patient verbally. FALL SCREENING: Has the patient had 2 falls in the last year or 1 fall with injury or currently using an Ambulatory Assistive Device (Walker, Cane, Wheelchair, Crutches, etc.)? No PATIENT GENDER DATA: Male PATIENT RELEVANT IMPLANT DATA REVIEWED: Not Applicable RADIOLOGY DEPARTMENT: General X-ray: Exam(s) Completed: Spine X-Ray(s): Lumbar FLEX-EXT PERIPHERAL IV DATA: Not applicable SIGNED BY: RT Magnus(R) October 10, 2022 4:26 [facility]03-24-2023 NoteHNO ID: [id number] Author: Rubin Lopez MD Service: ? Author Type: Physician Type: Progress Notes Filed: 10/10/2022 5:47 PM Note Text: SPINE SURGERY OUTPATIENT CONSULT This is an in-person visit. SERVICE DATE: 10/10/2022 PCP: Héctor Jean Baptiste DO Emily Caldwell is a 72 year old male presenting with spouse. CHIEF COMPLAINT: Bilateral buttock and leg pain > back pain HISTORY OF PRESENT ILLNESS Complains of back pain and bilateral buttock and leg pain. Pain occurs primarily with activity and ambulation. It limits his activities. He underwent L5-S1 interbody fusion and fixation with L3 laminectomy in 10/08. He had a short period of pain improvement but it has recurred. He also had ED immediately after surgery and this has not improved. He had left foot dorsiflexion weakness before surgery. This has not improved. Conservative measures to date have not given him any relief PREVIOUS CONSERVATIVE TREATMENTS: NSAID Tylenol PT Muscle relaxants Injections x 5 PREVIOUS SPINAL SURGERY: SURGERY #1: 10/08: L5-S1 interbody fusion and fixation with L3 laminectomy There is no problem list on file for this patient. PAST MEDICAL HISTORY Diagnosis Date Hypertension Sinus disease History reviewed. No pertinent surgical history. History reviewed. No pertinent family history. Social History Tobacco Use Smoking status: Never Substance Use Topics Alcohol use: No Drug use: No ALLERGIES No Known Allergies MEDICATIONS: acetaminophen (TYLENOL) 325 mg tablet Take by mouth q 6 HR. benazepril (LOTENSIN) 20 mg tablet Take by mouth q [address] (PROTONIX) 40 mg tablet Take 40 mg by mouth once daily as needed. lisinopril (ZESTRIL, PRINIVIL) 10 mg tablet Take 10 mg by mouth once daily. (Patient not taking: Reported on 10/10/2022) aspirin 325 mg tablet Take 325 mg by mouth once daily. (Patient not taking: Reported on 10/10/2022) eszopiclone (LUNESTA) 3 mg tab Take by mouth at bedtime as needed. (Patient not taking: Reported on 10/10/2022) Patient Entered Questionnaires PROMIS Score Percentiles Percentiles provide an indication of how the patient's score ranks in relation to the general population. Higher percentile rankings indicate better function/quality of life. 50th percentile is the average of the general population and indicates half of respondents had a worse score. Depression Screening: PHQ-9 Self-Harm (Item 9) response options: 0 Not at all 1 Several days 2 More than half the days 3 Nearly every day PHQ-9 Levels: 0-4 No to mild depression 5-9 Mild depression 10-14 Moderate depression 15-19 Moderately severe depression 20-27 Severe depression OBJECTIVE: PHYSICAL EXAM BP 143/74 Pulse 92 Resp 16 Ht 170.2 cm (5' 7 ) Wt 80.3 kg (177 lb) SpO2 98% BMI 27.72 kg/m? GENERAL APPEARANCE: Well nourished, well developed, and no apparent distress. NEURO PSYCH: Patient oriented to person, place, and time. Mood pleasant. Benign affect. MUSCULOSKELETAL VISUAL INSPECTION CERVICAL: WNL THORACIC: WNL LUMBAR: WNL MOTOR: 5/5 in all muscle groups. except left foot dorsiflexion 4/5 SENSORY: Normal sensory exam GAIT: Normal. IMAGING lumbar plain films (12/08); s/p L5-S1 fixation and interbody fusion. S/p L3 laminectomy Lumbar MRI 04/10) report only: severe bilateral foraminal stenosis at L3-4, L4-5 and L5-S1 ASSESSMENT/PLAN (Z98.1) S/P lumbar fusion (primary encounter diagnosis) (M48.061) Neural foraminal stenosis of lumbar spine Emily Caldwell has a condition that requires further workup. 1. Imaging: Lumbar X-Ray 2. He will send in his MRI 3. Follow up: Following above SIGNATURE: Rubin Lopez MD PATIENT NAME: Emily Caldwell DATE: October 10, 2022 TIME: 3:56 PM PAGER:[facility]03-24-2023 History of Present illness Narrative* RT Magnus(R) - 10/10/2022 4:50 PM EDT Radiology Service Progress Note PATIENT NAME: Emily Caldwell DATE OF SERVICE: October 10, 2022 TIME: 4:26 PM PATIENT IDENTITY VERIFICATION COMPLETED USING TWO (2) IDENTIFIERS: Name and Date of confirmedby patient verbally. FALL SCREENING: Has the patient had 2 falls in the last year or 1 fall with injury or currently using an Ambulatory Assistive Device (Walker, Cane, Wheelchair, Crutches, etc.)? No PATIENT GENDER DATA: Male PATIENT RELEVANT IMPLANT DATA REVIEWED: Not Applicable RADIOLOGY DEPARTMENT: General X-ray: Exam(s) Completed: Spine X-Ray(s): Lumbar FLEX-EXT PERIPHERAL IV DATA: Not applicable SIGNED BY: RT Magnus(R) October 10, 2022 4:26 PM [facility] History of Present illness Narrative* Rubin Lopez MD - 10/10/2022 3:55 PM EDT SPINE SURGERY OUTPATIENT CONSULT This is an in-person visit. SERVICE DATE: 10/10/2022 PCP: Héctor Jean Baptiste DO Emily Caldwell is a 72 year old male presenting with spouse. CHIEF COMPLAINT: Bilateral buttock and leg pain > back pain HISTORY OF PRESENT ILLNESS Complains of back pain and bilateral buttock and leg pain. Pain occurs primarily with activity and ambulation. It limits his activities. He underwent L5-S1 interbody fusion and fixation with L3 laminectomy in 10/08. He had a short period of pain improvement but it has recurred. He also had ED immediately after surgery and this has not improved. He had left foot dorsiflexion weakness before surgery. This has not improved. Conservative measures to date have not given him any relief PREVIOUS CONSERVATIVE TREATMENTS: NSAID Tylenol PT Muscle relaxants Injections x 5 PREVIOUS SPINAL SURGERY: SURGERY #1: 10/08: L5-S1 interbody fusion and fixation with L3 laminectomy There is no problem list on file for this patient. PAST MEDICAL HISTORY Diagnosis Date Hypertension Sinus disease History reviewed. No pertinent surgical history. History reviewed. No pertinent family history. Social History Tobacco Use Smoking status: Never Substance Use Topics Alcohol use: No Drug use: No ALLERGIES No Known Allergies MEDICATIONS: acetaminophen (TYLENOL) 325 mg tablet Take by mouth q 6 HR. benazepril (LOTENSIN) 20 mg tablet Take by mouth q [address] (PROTONIX) 40 mg tablet Take 40 mg by mouth once daily as needed. lisinopril (ZESTRIL, PRINIVIL) 10 mg tablet Take 10 mg by mouth once daily. (Patient not taking: Reported on 10/10/2022) aspirin 325 mg tablet Take 325 mg by mouth once daily. (Patient not taking: Reported on 10/10/2022) eszopiclone (LUNESTA) 3 mg tab Take by mouth at bedtime as needed. (Patient not taking: Reported on10/10/2022) Patient Entered Questionnaires PROMIS Score Percentiles Percentiles provide an indication of how the patient's score ranks in relation to the general population. Higher percentile rankings indicate better function/quality of life. 50th percentile is the average of the general population and indicates half of respondents had a worse score. Depression Screening: PHQ-9 Self-Harm (Item 9) response options: 0 Not at all 1 Several days 2 More than half the days 3 Nearly every day PHQ-9 Levels: 0-4 No to mild depression 5-9 Mild depression 10-14 Moderate depression 15-19 Moderately severe depression 20-27 Severe depression OBJECTIVE: PHYSICAL EXAM BP 143/74 Pulse 92 Resp 16 Ht 170.2 cm (5' 7 ) Wt 80.3 kg (177 lb) SpO2 98% BMI 27.72 kg/m GENERAL APPEARANCE: Well nourished, well developed, and no apparent distress. NEURO PSYCH: Patient oriented to person, place, and time. Mood pleasant. Benign affect. MUSCULOSKELETAL VISUAL INSPECTION CERVICAL: WNL THORACIC: WNL LUMBAR: WNL MOTOR: 5/5 in all muscle groups. except left foot dorsiflexion 4/5 SENSORY: Normal sensory exam GAIT: Normal. IMAGING lumbar plain films (12/08); s/p L5-S1 fixation and interbody fusion. S/p L3 laminectomy Lumbar MRI 04/10) report only: severe bilateral foraminal stenosis at L3-4, L4-5 and L5-S1 ASSESSMENT/PLAN (Z98.1) S/P lumbar fusion (primary encounter diagnosis) (M48.061) Neural foraminal stenosis of lumbar spine Emily Caldwell has a condition that requires further workup. 1. Imaging: Lumbar X-Ray 2. He will send in his MRI 3. Follow up: Following above SIGNATURE: Rubin Lopez MD PATIENT NAME: Emily Caldwell DATE: October 10, 2022 TIME: 3:56 PM PAGER: [facility] Evaluation note* Encounter Date Diagnosis Assessment Notes Treatment Notes Treatment Clinical Notes Sep, Primary hypertension (ICD-10 - I10) This patient is instructed to consume a healthy, low-fat, low-salt diet. They are also encouraged to continue exercise to achieve/maintain a normal BMI. Check home BP - rest, feet on floor and take 3 readings - average 2 lowest readings - goal < 140/90 Sep, Lumbar spondylosis with myelopathy (ICD-10 - M47.16) The patient is instructed to avoid bending, twisting or lifting. They are to use intermittent heat and ice as needed. They may schedule a massage or gentle manipulation. They may safely use Tylenol as needed. Keep active, seeking second opinion w/ [facility] Sep, Gastroesophageal reflux disease with esophagitis without hemorrhage (ICD-10 - K21.00) Diet instructions: Smaller portions, avoid eating and laying flat, avoid eating or drinking prior to bedtime. Weight loss. Continue PPI x 8-12 weeks than d/c of asymptomatic Sep, Anemia, unspecified type (ICD-10 - D64.9) Vitamin levels normal. No s/s bleeding. No further abdominal pain. Monitor for now w/ recommendations for EGD and colonoscopy later this year [facility] Other 03-07-2023 Evaluation note* Encounter Date Diagnosis Assessment Notes Treatment Notes Treatment Clinical Notes Sep, Anemia, unspecified type (ICD-10 - D64.9) [facility] Other 02-07-2023 Evaluation note* Encounter Date Diagnosis Assessment Notes Treatment Notes Treatment Clinical Notes Aug, Left upper quadrant abdominal pain (ICD-10 - R10.12) Diet instructions, monitor bowel habits, inspect for bleeding. Initiate PPI for next [address], scope, labs Aug, Abdominal bloating (ICD-10 - R14.0) Dietary instructions Aug, Primary hypertension (ICD-10 - I10) This patient is instructed to consume a healthy, low-fat, low-salt diet. They are also encouraged to continue exercise to achieve/maintain a normal BMI. Aug, IFG (impaired fasting glucose) (ICD-10 - R73.01) Healthy diet, exercise and weight loss. A1C yearly w/ MWE Aug, Benign prostatic hyperplasia with lower urinary tract symptoms (ICD-10 - N40.1) Symptoms w/o benefit w/ Cialis, tolerable. Yearly TERE and PSA Aug, Lumbar spondylosis with myelopathy (ICD-10 - M47.16) s/p fusion w/ post laminectomy syndrome. Completed injections w/ temporary improvement, considering pain stimulator. Aug, Fatigue (ICD-10 - R53.83) Consistent sleep routine, healthy diet and keep active Aug, Anemia, unspecified type (ICD-10 - D64.9) No s/s bleeding, previous Fe, B12, FA normal. Due for CRC screening, consider colonoscopy [facility] Other 08-18-2022 Evaluation note* Encounter Date Diagnosis Assessment Notes Treatment Notes Treatment Clinical Notes Feb, Tight unbalanced muscles (ICD-10 - R29.898) Patient has continued tightness and muscle strain in multiple muscle groups in the pelvic girdle as well as in the lower extremities. Predominantly his issues now in the gluteus medius but he also has significant tightness in his hamstrings as well as tightness and inflammation in the IT band and quads. Patient needs aggressive rehab exercising and at this point it is unclear if he can do all of this at home and I recommended physical therapy. He is in agreement with this and an order was given to him. He was also given other exercise handouts to work on gluten medius strengthening as well as IT band stretching. He is to follow-up after finishing physical therapy if he is not improving. I also recommended starting a muscle relaxer at nighttime to help alleviate some of the tightness in the muscles to see if we can get these muscles to relax better. Feb, Strain of gluteus medius of left lower extremity, initial encounter (ICD-10 - S76.012A) Feb, Hamstring tightness of both lower extremities (ICD-10 - M62.9) [facility] Other 08-18-2022 Evaluation note* Encounter Date Diagnosis Assessment Notes Treatment Notes Treatment Clinical Notes Feb, Strain of gluteus medius of left lower extremity, initial encounter (ICD-10 - S76.012A) [facility] Other 08-04-2022 Evaluation note* Encounter Date Diagnosis Assessment Notes Treatment Notes Treatment Clinical Notes Feb, Hamstring tightness of both lower extremities (ICD-10 - M62.9) Patient was also instructed to work on hamstring stretching as this will help to reduce strain on the back as well. Feb, Piriformis syndrome of left side (ICD-10 - G57.02) Patient has a significant history of spinal stenosis with surgical decompression and lumbar fusion. I did instruct him that some of his pain and discomfort in certain positions is coming from the spinal fusion in the decreased range of motion in the L5-S1 region. Because he has decreased range of motion in this region he is putting for stress on the pelvic girdle muscles which is now causing strain to the piriformis and causing compression of the sciatic nerve causing radicular symptoms. His worksite is on the left and I recommended a piriformis injection which she agreed to it was performed in the office today. Aftercare instruction detail the patient. Patient was given piriformis rehab exercises and instructed to do these starting in 2 days. He is to call and return if he needs further assistance and he is not improving as he would like. [facility] Other 04-01-2022 History general Narrative - Reported* Type Description Date Medical History hypertension Surgical History sinus surgery 1997 Surgical History back fusion 10/2021 Hospitalization History leg injury 2005 [facility] Other 03-30-2022 NoteMR#: [id number] I [facility] Pt[facility] Name: Emily Caldwell Admitted: 10/11/2021 Discharged: 10/15/2021 Date of : 1950 Physician: Enrique Singer MD DISCHARGE SUMMARY PRINCIPAL DIAGNOSIS FOR ADMISSION: The patient came in for a planned surgery for lumbar stenosis, lumbar spondylolisthesis, lumbar spondylosis, status post L3 laminectomy, L5 laminectomy with interbody fusion, L5 through S1 and posterior instrumented fusion, L5 through S1 that was performed on 10/11. Overall, procedure went well. HOSPITAL COURSE: No significant outcomes. The patient's condition at discharge is good. DISPOSITION: Home. Discharge instruction packet will be provided to the patient, that will include discharging on a healthy low-sodium diet. He may shower, allow water to run over the incision, do not scrub, itch, soak, immerse the incision in water. He may return to work when released by Neurosurgery. He is able to drive once he is not on narcotic pain medications and until released by Neurosurgery. No lifting more than 5 to 10 pounds and avoid any repetitive bending and twisting. He may weightbear as tolerated. Dressings are on his back and he may use gauze and tape and change this dressing every 1 to 2 days or when soiled, if it is wet or dirty and replace with just any dry dressing. Discharging home with walker and cane per request of the patient to help with his activities of daily living. Scripts were provided for this. He will have a followup appointment with Dena Spencer, nurse practitioner with Neurosurgery on October 24 at 2:45 p.m. in the Surgery Clinic. He is discharging home on his home medications as benazepril, hydrochlorothiazide 20-25 mg daily, gabapentin 300 mg oral 3 times per day. We will give him prescriptions for Senna-S 2 tablets daily for constipation. Scripts were provided for this. He may take Tylenol 650 mg oral every 6 hours as needed for pain, cyclobenzaprine 10 mg per day as needed for muscle spasms. Prescription was provided for 7 days and MiraLax, he can take daily as needed for constipation, which is 17 g oral powder packet once daily as needed. If any other questions or concerns, please give us a call. Electronically Signed by: Enrique Singer MD 10/16/2021 09:07 P Enrique Singer MD I have reviewed this discharge summary and confirmed the resident's documentation. Please note that there may be additional documentation from me. Date Dict: 10/15/2021/12:52 P/Sonja Cisneros CNP Date Trans: 10/16/2021 05:14 Klaudia/jose a [id number] [facility] [employer] Other Evaluation note* Diagnosis S/P lumbar fusion- Primary Arthrodesis status Neural foraminal stenosis of lumbar spine Spinal stenosis, lumbar region, without neurogenic claudication [facility] Diagnosis S/P lumbar fusion Arthrodesis status [facility]* Diagnosis S/P spinal fusion- Primary Arthrodesis status Spinal stenosis of lumbar region with neurogenic claudication Spinal stenosis, lumbar region, with neurogenic claudication Pre-op testing Preoperative examination, unspecified [facility]* Diagnosis Preop testing- Primary Preoperative examination, unspecified Essential (primary) hypertension Unspecified essential hypertension Gastroesophageal reflux disease with esophagitis without hemorrhage Anemia, unspecified type Resting tremor Abnormal involuntary movements S/P spinal fusion Arthrodesis status Spinal stenosis of lumbar region with neurogenic claudication Spinal stenosis, lumbar region, with neurogenic claudication Pre-op testing Preoperative examination, unspecified [facility]* Diagnosis Neural foraminal stenosis of lumbar spine- Primary Spinal stenosis, lumbar region, without neurogenic claudication S/P spinal fusion Arthrodesis status Spinal stenosis of lumbar region with neurogenic claudication Spinal stenosis, lumbar region, with neurogenic claudication S/P spinal fusion Arthrodesis status Spinal stenosis of lumbar region with neurogenic claudication Spinal stenosis, lumbar region, with neurogenic claudication Pre-op testing Preoperative examination, unspecified [facility]* Diagnosis S/P laminectomy- Primary Other postprocedural status [facility]* Diagnosis Onset Date Resolution Status Contact with and (suspected) exposure to covid-19 [email or web address] [facility] Work Phone: History general Narrative - Reported* Type Description Date Medical History hypertension Medical History Anemia, unspecified Medical History Benign prostatic hyp erplasia with lower urinary tract symptoms Medical History Erectile dysfunction due to robi rial insufficiency Medical History Lumbar spondylosis with myelopat hy Medical History Benign hypertension with chronic kidney disease, stage III Medical History IFG (impaired fasting glucose) Medical History Acute left-sided low back pain with left-sided sciatica Medical History Paresthesia Medical History Fatigue Medical History Peripheral polyneuropathy Medical History [place] Medical History Distorted vision Medical History Other complicated headache syndr ome Medical History Cognitive impairment Medical History Generally unsteady Medical History Dyshidrotic eczema Medical History Primary insomnia Medical History Parkinson''s disease Medical History Resting tremor Medical History Familial hypercholesterolemia Surgical History sinus surgery 1997 Surgical History back fusion 10/2021 Surgical History REMOVAL OF SPINAL LAMINA 2021 Hospitalization History leg injury 2005 Hospitalization History see surgical hx [facility] Other History general Narrative - Reported* Type Description Date Medical History hypertension Medical History Anemia, unspecified Medical History Benign prostatic hyp erplasia with lower urinary tract symptoms Medical History Erectile dysfunction due to robi rial insufficiency Medical History Lumbar spondylosis with myelopat hy Medical History Benign hypertension with chronic kidney disease, stage III Medical History IFG (impaired fasting glucose) Medical History Acute left-sided low back pain with left-sided sciatica Medical History Paresthesia Medical History Fatigue Medical History Peripheral polyneuropathy Medical History [place] Medical History Distorted vision Medical History Other complicated headache syndr ome Medical History Cognitive impairment Medical History Generally unsteady Medical History Dyshidrotic eczema Medical History Primary insomnia Medical History Parkinson''s disease Medical History Resting tremor Medical History Familial hypercholesterolemia Surgical History sinus surgery 1997 Surgical History back fusion 10/2021 Surgical History REMOVAL OF SPINAL LAMINA 2021 Surgical History Decompression Laminotomy 10/2022 Hospitalization History leg injury 2005 Hospitalization History see surgical hx [facility] Other History general Narrative - Reported* Type Description Date Medical History hypertension Medical History Anemia, unspecified Medical History Benign prostatic hyp erplasia with lower urinary tract symptoms Medical History Erectile dysfunction due to robi rial insufficiency Medical History Lumbar spondylosis with myelopat hy Medical History Benign hypertension with chronic kidney disease, stage III Medical History IFG (impaired fasting glucose) Medical History Paresthesia Medical History Fatigue Medical History Peripheral polyneuropathy Medical History Cognitive impairment Medical History Dyshidrotic eczema Medical History Primary insomnia Medical History Parkinson''s disease Medical History Resting tremor Medical History Familial hypercholesterolemia Medical History MARU Medical History lumbar spondyosis Surgical History sinus surgery 1997 Surgical History back fusion 10/2021 Surgical History REMOVAL OF SPINAL LAMINA 2021 Surgical History Decompression Laminotomy 10/2022 Hospitalization History leg injury 2005 Hospitalization History see surgical hx [facility] Other Reason for referral (narrative)* Diagnostic Procedure Only (Routine) - Pending Review Specialty Diagnoses / Procedures Referred By Bia t Referred To Contact XR IMAGING Diagnoses S/P lumbar fusion Procedures XR LUMBAR LIMITED 2V FLEX/EXT RADEX SPINE LUMBOSACRAL 2/3 VIEWS Rubin Lopez MD [address] [place] [address] Xr Imaging Referral ID Status Reason Start Date Expiration Date Visits Requested Visits Authorized [id number] Pending Review Auto-Generat ed Referral 10/10/2022 11/09/2023 1 1 [facility] for referral (narrative)* Diagnostic Procedure Only (Routine) - Pending Review Specialty Diagnoses / Procedures Referred By Jonasac t Referred To Contact XR IMAGING Diagnoses S/P lumbar fusion Procedures XR LUMBAR LIMITED 2V FLEX/EXT RADEX SPINE LUMBOSACRAL 2/3 VIEWS Rubin Lopez MD [address] [place] [address] Xr Imaging Referral ID Status Reason Start Date Expiration Date Visits Requested Visits Authorized [id number] Pending Review Auto-Generat ed Referral 10/10/2022 11/09/2023 1 [facility] Outpatient Procedure (Routine) - Closed Specialty Diagnoses / Procedures Referred By Contac t Referred To Contact [facility] Diagnoses Preop testing Procedures ECG COMPLETE ECG ROUTINE ECG W/LEAST 12 LDS W/I&R Shandra Dallas MD, PhD [address] [place] [address] [facility] [address] [address] Referral ID Status Reason Start Date Expiration Date V isits Requested Visits Authorized [id number] Closed Auto-Generate d Referral 10/31/2022 10/31/2023 1 1 [facility] Summary Purpose Family History Relationship Condition Age at Onset Recorded Date/T elton father Unknown Myocardial infarction Unknown Not Specified Diabetes mellitus Unknown Unknown Advance Directives Advance Directive Response Recorded Date/ Time Advance Directives No August 4:59pm Reason for Referral Specialty Diagnoses / Procedures Referred By Contac t Referred To Contact Diagnoses S/P spinal fusion Spinal stenosis of lumbar region with neurogenic claudication Pre-op testing Procedures REFER TO PACC - PRE ANESTHESIA CONSULTATION CLINIC OFFICE/OUTPATIENT [facility] 60-74 MINUTES Linda Blevins PA-C [address] [place] [address] Referral ID Status Reason Start Date Expiration Date Visits Requested Visits Authorized [id number] Authorized PCP Requested Referral 10/22/2022 10/22/2023 1 1 Specialty Diagnoses / Procedures Referred By Contac t Referred To Contact [facility] [place] Diagnoses S/P spinal fusion Spinal stenosis of lumbar region with neurogenic claudication Pre-op testing Procedures CONSULT TO [facility] OFFICE/OUTPATIENT NEW HIGH MDM 60-74 MINUTES Linda Blevins PA-C [address] [place] [address] Referral ID Status Reason Start Date Expiration Date Visits Requested Visits Authorized [id number] Authorized PCP Requested Referral 10/22/2022 10/22/2023 1 1 Chief Complaint and Reason for Visit Chief Complaint Follow Up Cough, congestion Reason for Visit Contact with and (cano spected) exposure to covid-19 Additional Source Comments REASON FOR VISIT (unrecogniz ed section and content) Reason Comments New Patient Reason Comments Radio Main J1 Specialty Diagnoses / Procedures Referred By Contac t Referred To Contact XR IMAGING Diagnoses S/P lumbar fusion Procedures XR LUMBAR LIMITED 2V FLEX/EXT RADEX SPINE LUMBOSACRAL 2/3 VIEWS Rubin Lopez MD [address] [id number] Xr Imaging Referral ID Status Reason Start Date Expiration Date Visits Requested Visits Authorized [id number] Pending Review Auto-Generat ed Referral 10/10/2022 11/09/2023 1 1 Reason Comments External Imaging Reason Comments Follow Up Reason Onset Date Comments Pre-Op Teaching 10/27/2022 Reason Comments Pre-Op Exam Reason Comments Post Op (unrecognized sect ion and content) No Status Records FoundNo Status Records FoundNo Status Records FoundNo Status Records Found INFORMATION SOURCE (unrecogn ized section and content) DATE CREATED AUTHOR 03/29/2022 [facility] DATE CREATED AUTHOR AUTHOR'S ORGANIZ ATION 09/30/2022 [facility] DATE CREATED AUTHOR AUTHOR'S ORGANIZ ATION 10/07/2022 [facility] DATE CREATED AUTHOR AUTHOR'S ORGANIZ ATION 03/03/2023 [facility] Source Comments (unrecognize d section and content) In the event this informatio n is protected by the Federal Confidentiality of Alcohol and Drug Abuse Patient Records regulations: The Federal rules restrict any use of the information to criminally investigate or prosecute any alcohol or drug abuse patient.[facility] the event this information is protected by the Federal Confidentiality of Alcohol and Drug Abuse Patient Records regulations: The Federal rules restrict any use of the information to criminally investigate or prosecute any alcohol or drug abuse patient.[facility] the event this information is protected by the Federal Confidentiality of Alcohol and Drug Abuse Patient Records regulations: The Federal rules restrict any use of the information to criminally investigate or prosecute any alcohol or drug abuse patient.[facility] the event this information is protected by the Federal Confidentiality of Alcohol and Drug Abuse Patient Records regulations: The Federal rules restrict any use of the information to criminally investigate or prosecute any alcohol or drug abuse patient.[facility] the event this information is protected by the Federal Confidentiality of Alcohol and Drug Abuse Patient Records regulations: The Federal rules restrict any use of the information to criminally investigate or prosecute any alcohol or drug abuse patient.[facility] the event this information is protected by the Federal Confidentiality of Alcohol and Drug Abuse Patient Records regulations: The Federal rules restrict any use of the information to criminally investigate or prosecute any alcohol or drug abuse patient.[facility] the event this information is protected by the Federal Confidentiality of Alcohol and Drug Abuse Patient Records regulations: The Federal rules restrict any use of the information to criminally investigate or prosecute any alcohol or drug abuse patient.[facility] Hospital[facility] the event this information is protected by the Federal Confidentiality of Alcohol and Drug Abuse Patient Records regulations: The Federal rules restrict any use of the information to criminally investigate or prosecute any alcohol or drug abuse patient.[facility] the event this information is protected by the Federal Confidentiality of Alcohol and Drug Abuse Patient Records regulations: The Federal rules restrict any use of the information to criminally investigate or prosecute any alcohol or drug abuse patient.[facility] the event this information is protected by the Federal Confidentiality of Alcohol and Drug Abuse Patient Records regulations: The Federal rules restrict any use of the information to criminally investigate or prosecute any alcohol or drug abuse patient.[facility] Care Teams (unrecognized sec tion and content) Development Manager Relationship Specialty Start Date End Date Héctor Jean Baptiste PCP - General Family Medicine 01/28/16 Development Manager Relationship Specialty Start Date End Date Héctor Jean Baptiste PCP - General Family Medicine 01/28/16 Development Manager Relationship Specialty Start Date End Date Héctor Jean Baptiste PCP - General Family Medicine 01/28/16 Development Manager Relationship Specialty Start Date End Date Héctor Jean Baptiste PCP - General Family Medicine 01/28/16 Development Manager Relationship Specialty Start Date End Date Héctor Jean Baptiste PCP - General Family Medicine 01/28/16 Development Manager Relationship Specialty Start Date End Date Héctor Jean Baptiste PCP - General Family Medicine 01/28/16 Development Manager Relationship Specialty Start Date End Date Hector Fraga, DO [address] [place] [address] PCP - General Internal Medicine 10/27/22 Development Manager Relationship Specialty Start Date End Date Hector Fraga, DO [address] [place] [address] PCP - General Internal Medicine 10/27/22 Development Manager Relationship Specialty Start Date End Date Hector Fraga, DO [address] [place] [address] PCP - General Internal Medicine 10/27/22 Development Manager Relationship Specialty Start Date End Date Hector Fraga, DO [address] [place] [address] PCP - General Internal Medicine 10/27/22 Team Status: Active Member Role Status Dates Hector Fraga DO Primary Care Provider Active Team Status: Inactive Member Role Status Dates Hector Fraga DO Attending Provider Active Sta rt: June 29, 2023 End: June 29, 2023 Team Status: Inactive Member Role Status Dates Hector Fraga DO Primary Care Provider Active Start: September 11, 2023 End: September 11, 2023 Freda Oneill APRN Attending Provider Active Start: September 11, 2023 End: September 11, 2023 Goals (unrecognized section and content) Goals may be documented in a n alternate section FOR RECORDS PERTAINING TO PATIENTS WHO ARE OR HAVE BEEN ENROLLED IN A CHEMICAL DEPENDENCY/SUBSTANCEABUSE PROGRAM, SOME INFORMATION MAY BE OMITTED. This clinical summary was aggregated from multiple sources. Caution should be exercised in using it in the provision of clinical care. This summary normalizes information from multiple sources, and as a consequence, information in this document may materially change the coding, format and clinical context of patient data. In addition, data may be omitted in some cases. CLINICAL DECISIONS SHOULD BE BASED ON THE PRIMARY CLINICAL RECORDS. [facility]. provides no warranty or guarantee of the accuracy or completeness of information in this document.
[2023-10-29 09:35] LABS: Basophils Absolute Auto 0.1 10^3/uL (0.0-0.1); Basophils Percent Auto 0.9 % (0.2-2.0); Eosinophils Absolute Auto 0.2 10^3/uL (0.0-0.7); Eosinophils Percent Auto 3.4 % (0.9-7.0); Hematocrit 41.9 % (42.0-54.0); Hemoglobin 13.9 g/dL (14.0-18.0); Immature Granulocytes Abs Auto 0.01 10^3/uL (0.00-0.03); Immature Granulocytes Pct Auto 0.2 % (0.0-0.5); Lymphocytes Absolute Auto 1.6 10^3/uL (1.2-3.8); Lymphocytes Percent Auto 24.8 % (20.5-60.0); Mean Corpuscular HGB Conc 33.2 g/dL (29.9-35.2); Mean Corpuscular Hemoglobin 31.1 pg (25.9-34.0); Mean Corpuscular Volume 93.7 fL (80.0-94.0); Mean Platelet Volume 9.5 fL (9.5-13.5); Monocytes Absolute Auto 0.7 10^3/uL (0.3-0.8); Monocytes Percent Auto 10.6 % (1.7-12.0); Neutrophils Absolute Auto 3.9 10^3/uL (1.4-6.5); Neutrophils Percent Auto 60.1 % (43.0-75.0); Platelet Count 287 10^3/uL (150-450); Red Blood Count 4.47 10^6/uL (4.70-6.10); Red Cell Distribution Width 13.5 % (11.0-15.0); White Blood Count 6.4 10^3/uL (4.0-11.0)
[2023-10-29 10:13] LABS: Alanine Aminotransferase 31 U/L (16-63); Albumin Level 3.9 g/dL (3.4-5.0); Alkaline Phosphatase 66 U/L (46-116); Anion Gap 15.1; Aspartate Amino Transferase 27 U/L (15-37); BUN Creatinine Ratio 18.4; Bilirubin Total 0.4 mg/dL (0.2-1.0); Calcium 9.8 mg/dL (8.5-10.1); Carbon Dioxide 28.2 mmol/L (21.0-32.0); Chloride 102 mmol/L (98-107); Estimated GFR (African America >60 (>=60); Estimated GFR (Non-African Ame 51 (>=60); Globulin 3.9 g/dL; Glucose 94 mg/dL (74-106); Potassium 4.3 mmol/L (3.5-5.1); Sodium 141 mmol/L (136-145); Thyroid Stimulating Hormone 1.842 uIU/mL (0.358-3.740); Total Protein 7.8 g/dL (6.4-8.2)
[2023-10-29 10:59] LABS: Estimated Average Glucose 126 mg/dL
== END 2023-10-29 09:04 | disposition home or self-care (01) ==
LOC: LAB 09:05
PROVIDERS: PCP Internal Medicine; Visit Provider Internal Medicine
DX: R53.83 Other fatigue (principal); N18.9 Chronic kidney disease, unspecified; E78.00 Pure hypercholesterolemia, unspecified; I12.9 Hypertensive chronic kidney disease with stage 1 through stage 4 chronic kidney disease, or unspecified chronic kidney disease
CPT/HCPCS: 36415; 80053; 83036; 84443; 85025

== ENCOUNTER 2023-11-11 13:43 | Outpatient (OUT) | payer MEDICARE, OTHER, SELFPAY ==
--- NOTE | 2023-11-11 14:00 | CA_ITS ---
Patient Name: EMILY RAMEY MR#: [id number] : 1950 Exam Date: 11/11/2023 Ordering Doctor: DR Hector Eagle D.O. ECHOCARDIOGRAM REPORT PROCEDURE: CA ECHO DOPPLER COMPLETE INDICATIONS: Chest pain, systolic murmur, hypertension COMPARISON: None. DESCRIPTION: COMPLETE ECHOCARDIOGRAM Real-time transthoracic echocardiography with 2D, M-mode, spectral and color flow Doppler performed. QUALITY: Technical quality was good. 67 , 170#, BSA 1.89 m2, BP 148/74 LEFT VENTRICLE: Normal chamber size. Normal left ventricular wall thickness. LV EF: Global left ventricular systolic function is normal; visually estimated ejection fraction is 55 to 60%. No segmental wall motion abnormalities. DIASTOLIC: Unable to assess diastolic function. ATRIAL SEPTUM: Visually appears intact. LEFT ATRIUM: Mild dilatation. RIGHT ATRIUM: Normal chamber size. RIGHT VENTRICLE: Normal chamber size. Normal right ventricular systolic function. TRICUSPID VALVE: Normal mobility and thickness. No stenosis with trivial regurgitation. No evidence of pulmonary hypertension. RVSP 34 mmHg MITRAL VALVE: Normal mobility and thickness. No evidence of mitral valve stenosis. There is no mitral annular calcification. Mild mitral regurgitation. AORTIC VALVE: Normal trileaflet appearance. Thickened aortic valve. Normal leaflet mobility. No evidence of aortic valve stenosis. No aortic regurgitation. AORTIC ROOT: Normal diameter and appearance. Ascending aorta is normal in size. PULMONIC VALVE: Normal thickness and mobility. No stenosis. No regurgitation. PERICARDIUM: No evidence of pericardial effusion. IVC: Collapses with inspirations. IVC is normal in size. CONCLUSION: 1. Global left ventricular systolic function is normal; visually estimated ejection fraction is 55 to 60% 2. Normal right ventricular size and systolic function 3. The left atrium is mildly dilated 4. Mild mitral regurgitation Adult Echocardiography Procedure Report Left Ventricle LVEDD (3.7 - 5.6 cm): 4.96 cm LVESD (2.2 - 4.0 cm): 3.42 cm LVIVS thickness (0.6 - 1.2 cm): 1.07 cm LVPW thickness (0.5 - 1.0 cm): 0.87 cm e': 0.06 m/s E - e': 6.49 LVOT Max Gradient: 2.56 mm[Hg] LVOT Area (cm2): 0.80 m/s Peak Velocity (LVOT): 0.80 m/s Mean Velocity (LVOT): 0.48 m/s LVOT Diameter 2.33 cm Left Atrium LA Volume Index (2D A2C): 38.97 ml/m2 Left Atrium Systolic Dimension: 4.85 cm Mitral Valve MV E to A Ratio: 0.50 Mitral Valve A-Wave Peak Velocity: 0.80 m/s Mitral Valve E-Wave Peak Velocity: 0.40 m/s Right Ventricle Aorta AO Root Diam: 3.34 cm Ascending Ao Diam: 3.28 cm Aortic Valve AoV Area (Peak Nick): 2.33 cm2, 2.33 cm2 AoV Area (VTI): 2.36 cm2, 2.36 cm2 Peak Velocity(Antegrade Flow): 1.47 m/s Peak Gradient(Antegrade Flow): 8.66 mm[Hg] Mean Velocity(Antegrade Flow): 0.93 m/s Mean Gradient(Antegrade Flow): 4.02 mm[Hg] Velocity Time Integral: 31.90 cm Tricuspid Valve Peak Velocity (Regurgitant Flow): 2.79 m/s, 2.73 m/s Pulmonic Valve Mean Gradient: 5.17 mm[Hg], 6.05 mm[Hg] Mean Velocity: 1.05 m/s, 1.20 m/s Peak Gradient: 9.55 mm[Hg], 10.55 mm[Hg] Right Atrium Dictated by: Girish Espinoza M.D. on 11/12/2023 at 15:37 Approved by: Girish Espinoza M.D. on 11/12/2023 at 15:41
== END 2023-11-11 13:44 | disposition home or self-care (01) ==
LOC: CARD 13:43
PROVIDERS: PCP Internal Medicine; Visit Provider Internal Medicine
DX: R01.1 Cardiac murmur, unspecified (principal); R07.9 Chest pain, unspecified; E78.00 Pure hypercholesterolemia, unspecified; R73.01 Impaired fasting glucose; I10 Essential (primary) hypertension
CPT/HCPCS: 93306

== ENCOUNTER 2023-11-12 10:57 | Outpatient (OUT) | payer MEDICARE, OTHER, SELFPAY ==
--- NOTE | 2023-11-12 10:45 | NM_ITS ---
Patient Name: EMILY RAMEY MR#: [id number] : 1950 Exam Date: 11/12/2023 Ordering Doctor: DR ELICIA FRAGA D.O. RADIOLOGY REPORT PROCEDURE: NM YASMANI PERF SPECT REST STR COMPARISON: None. INDICATIONS: CHEST PAIN, SYSTOLIC MURMUR, HYPERTENSION TECHNIQUE: Exam Description: Stress/Rest one day protocol gated SPECT Rest Imagin.2 mCi Tc-99m Cardiolite IV on 11/12/2023 Stress Imaging 30.0 mCi Tc-99m Cardiolite IV on 11/12/2023 Exercise Protocol: Darin Heart Rate (bpm): Rest: 78 Max: 151 PMHR: 102 Blood Pressure: Rest: 124/66 Max: 148/72 Exercise Time: Minutes: 7 Seconds: 00 Stage Reached: Stage: 3 Mets 10.1 Symptoms: Rest and peak stress ECG findings were normal and the exercise portion of the study was normal per attending physician Dr. Ronn Fraga . For more details please see separate cardiac stress test report. FINDINGS: QUALITY OF STUDY: Excellent. PERFUSION DEFECT: None. LOCATION: N/A SIZE: N/A. SEVERITY: N/A. TYPE: N/A. WALL MOTION: Normal. LV SIZE: Normal. 104 mL. TID / TCD: None; 0.9 LVEF: Normal. Calculated EF 58%. SUMMARY: Myocardial perfusion imaging study is NORMAL. CONCLUSION: 1. Normal nuclear medicine myocardial perfusion scan. Dictated by: Yasmani Robles M.D. on 11/12/2023 at 15:50 Approved by: Yasmani Robles M.D. on 11/12/2023 at 15:51
--- NOTE | 2023-11-12 13:31 | PM.STRESS ---
Stress Test Stress Test Requesting physician: Hector Eagle Procedure: Treadmill exercise test General Information: Reason for Stress Test: [Evaluation of chest pain] Cardiac History and Risk Factors: [This is a 73-year-old patient with no personal history of coronary disease. His father suffered a CVA. His primary risk factors include with additional primary risk factors include essential hypertension] Resting 12 - Lead Electrocardiogram: . Normal sinus rhythm with a ventricular rate of [address] interval is 0.20, QRS 0.08 and the QT 0.40. There are no pathologic Q waves and only nonspecific ST-T wave changes. Stress Test: Protocol: [. Darin protocol] Exercise Capacity: [. He demonstrated above average exercise capacity. He exercised for seven minutes achieving a heart rate of 151 bpm which is equivalent equivalent to one hundred two percent maximum predicted heart rate. He exercised into stage III of this protocol which is equal to 3.4 miles per hour fourteen percent grade in 10.1 METs units.] Blood Pressure Response: [Patient demonstrated normal blood pressure response to exercise. His resting blood pressure 124/66 increasing to a peak of 148/72 the gradually returning to baseline during recovery phase.] Rhythm: [Patient remained in sinus rhythm with rare PVCs during exercise.] ST - Response: [At peak exercise was minimal J-point depression with upsloping ST segments easily returning to baseline prior to 0.08 seconds.] Patient Response: [Patient denied chest pain or severe dyspnea during exercise.] Interpretation: There is no subjective or objective evidence suspicious for myocardial ischemia. Patient demonstrated normal heart rate and blood pressure response to exercise with an above average exercise capacity. Patient's Ott treadmill score was seven placing him in the low risk category. Cardiolite was injected with images in interpretation pending
== END 2023-11-12 10:58 | disposition home or self-care (01) ==
LOC: NM 10:57
PROVIDERS: PCP Internal Medicine; Visit Provider Internal Medicine
DX: R07.9 Chest pain, unspecified (principal); R01.1 Cardiac murmur, unspecified; E78.00 Pure hypercholesterolemia, unspecified; R73.01 Impaired fasting glucose; I10 Essential (primary) hypertension
CPT/HCPCS: 78452; 93017; A9500

== ENCOUNTER 2024-01-04 12:35 | Outpatient (OUT) | payer MEDICARE, OTHER, SELFPAY ==
[2024-01-04 13:53] LABS: Prostate Specific Antigen Scrn 2.05 ng/mL (<=4.00)
== END 2024-01-04 12:36 | disposition home or self-care (01) ==
PROVIDERS: PCP Internal Medicine; Visit Provider Internal Medicine
DX: Z00.00 Encounter for general adult medical examination without abnormal findings (principal); Z12.5 Encounter for screening for malignant neoplasm of prostate
CPT/HCPCS: 36415; G0103

== ENCOUNTER 2024-08-24 07:30 | Outpatient (OUT) | payer MEDICARE, OTHER, SELFPAY ==
--- OUTSIDE RECORDS SUMMARY | 2024-08-24 07:36 | XMS_ITS | CCD ---
Author Organization [facility] Care Team Providers Care Paving Bed Maker Name Role Phone Dipesh Cárdenas Unavailable Emily [...] Unavailable HAY ., DR COLLADO Attending Unavailable GRECHNYCESAR Consulting Unavailable HAY ., DR COLLADO Consulting [...] Consulting Unavailable FLAKITO, HECTOR Primary Care Unavailable BALL, HECTOR Primary Care Unavailable Héctor Jean Baptiste Primary Care Provider Hector Fraga DO Primary Care Provider Hector Fraga DO Primary Care Provider RUBIN LOPEZ Attending Unavailable HECTOR FRAGA Primary Care Unavailable Unavailable Primary Care Provider UnavailALEKSANDER Codne Attending Unavailable HECTOR FRAGA Referring Unavailable ALEKSANDER URENA Attending Unavailable HECTOR FRAGA Referring Unavailable ALEKSANDER URENA Attending Unavailable HECTOR FRAGA Referring Unavailable SASHA LACEY Attending Unavailable FABIANA RICCI Referring Unavailable Allergies Allergy Classification Reported Allergen(s) Allergy Type Date of Onset Reaction(s) Facility (6 sources) patient allergy list reviewed by nurse or physicia Propensity to adverse reactions 9 Comment:Done [employer] Other Medications Current Medications Medication Drug Class(es) Dates Sig (Normalized) Sig (Original) benazepril hydrochloride 20 mg / hydroCHLOROthiazide 25 mg oral tablet (20 sources) Thiazide Diuretic, Angiotensin Converting Enzyme Inhibitor Start: 11-09-2023 take 1 tablet by mouth once daily Benazepril-Hydr ochlorothiazide 20-25 mg tablet Active 0 .ROUTE .COMPLEX 90 November 09, 2023 12:24pm TAKE 1 TABLET BY MOUTH DAILY Start: 09-16-2023 End: 11-09-2023 take 1 tablet by mouth once daily Benazepril-Hydrochlorothiazide 20-25 mg tablet Discontinued 1 TAB PO Daily September 16, 2023 12:00am November 09, 2023 12:24pm take 1 tablet by eddie th once daily Benazepril-hydroCHLOROthiazide 20-25 MG 1 tablet Orally Once a day Active cyclobenzaprine hydrochloride 10 mg oral tablet (18 sources) Muscle Relaxant Start: 03-06-2022 take 1 tablet by mouth every twenty-four hours Cyclobenzaprine HCl 10 MG 1 tablet at bedtime as needed Orally Once a day for 30 day(s) Feb, Active gabapentin 300 mg oral capsule (4 sources) Anti-epilepti c Agent Start: 12-10-2022 End: 01-10-2023 gabapentin (NEURONTIN) 300 mg capsule Indications: Low back pain with sciatica, sciatica laterality unspecified, unspecified back pain laterality, unspecified chronicity Take one 2-3 times per day 90 capsule 12/10/2022 Active Comment on above: Take one 2-3 times p er day methocarbamol 750 mg oral tablet (5 sources) Muscle Relaxant Start: 01-19-2024 End: 02-18-2024 take 1 tablet by mouth three times daily methocarbamol (ROBAXIN) 750 mg tablet Take 1 tablet by mouth three times a day. 90 tablet 0 01/19/2024 02/18/2024 Active Start: 11-08-2022 take 1 tablet by eddie th every six hours as needed methocarbamol (ROBAXIN) 750 mg tablet Take 1 tablet by mouth every 6 hours as needed. 40 tablet 11/08/2022 Active Comment on above: Take 1 tablet by eddie th every 6 hours as needed. omeprazole 40 mg delayed release oral capsule (20 sources) Proton Pump Inhibitor Start: End: Omeprazole 40 mg capsule,delayed release(DR/EC) Active 40 MG PO Daily August 18, 2024 9:55am 30 minutes before morning meal pantoprazole 40 mg delayed release oral tablet (13 sources) Proton Pump Inhibitor take 1 tablet by mouth once daily as needed pantoprazole DR (PROTONIX) 40 mg tablet Indications: Confusion , Mixed migraine and muscle contraction headache , Cervical spondylosis without myelopathy , Essential tremor , Disturbed concentration , Tinnitus, bilateral , Bradycardia , Vitamin D deficiency Take 40 mg by mouth once daily as needed. Active Comment on above: Take 40 mg by mouth once daily as needed. sildenafil 100 mg oral tablet (20 sources) Phosphodiesterase 5 Inhibitor Start: take 1 tablet by mouth once daily as needed Sildenafil 100 mg tablet Active MG PO September 11, 2023 12:00am [employer] tablet as needed Orally Once a day as needed for ED; Note: Source Status: Taking; Refills: 5; Provider: Flakito Moya triamcinolone acetonide 0.001 mg/mg topical ointment (20 sources) Corticosteroid Start: Triamcinolone Acetonide 0.1 % ointment Active 1 APPLIC TOPICAL Twice daily September 11, 2023 12:00am [employer] application Externally Twice a day; Note: Source Status: Taking; Provider: Flakito Young ( ) zolpidem tartrate 5 mg oral tablet (14 sources) gamma-Aminobutyric Acid-ergic Agonist take 1 tablet by mouth every twenty-four hours Zolpidem Tartrate 5 MG 1 tablet at bedtime Orally Once a day Active Completed/Discontinued Medications Medication Drug Class(es) Dates Sig (Normalized) Sig (Original) acetaminophen 325 mg oral tablet (20 sources) Start: 09-11-2023 End: 09-16-2023 take 1 tablet by mouth four times daily as needed Acetaminophen (Tylenol) 325 mg tablet Discontinued MG PO September 11, 2023 12:00am September 16, 2023 2:25pm FreeTextSi tablet as needed Orally qid; Note: Source Status: Not-Takingundefined PRN; Provider: Flakito Young ( ) acetaminophen (T YLENOL) 325 mg tablet Take by mouth q 6 HR. Active Comment on above: Take by mouth q 6 HR . aspirin 325 mg oral tablet (9 sources) [...] Take 325 mg by mouth once daily. benazepril hydrochloride 20 mg oral tablet (20 sources) Angiotensin Converting Enzyme Inhibitor Start: 09-16-19 End: 01-04-20 take 1 tablet by mouth once daily Benazepril 20 mg tablet Discontinued 20 MG PO Daily September 16, 2023 12:00am January 04, 2024 10:41am benazepril (LOTE NSIN) 20 mg tablet Take by mouth q 24 HR. Active Comment on above: Take by mouth q 24 H R. celecoxib 200 mg oral capsule (20 sources) Nonsteroidal Anti-inflammatory Drug Start: End: take 1 capsule by mouth once daily as needed for pain Celecoxib 200 mg capsule Discontinued 200 MG PO Daily as needed for pain January 03, 2024 11:00pm August 18, 2024 9:54am take 1 capsule by mo [facility] every twelve hours CeleBREX 100 MG 1 capsule with food Oral ly bid Active Dexamethasone (20 sources) Corticosteroid Start: 02-20-2022 DEXAMETHASONE Feb, 4 mg dextromethorphan hydrobromide 1.5 mg/ml / pyrilamine maleate 1.5 mg/ml oral solution (3 sources) Uncompetitive I-pilvcj-L-aspartat e Receptor Antagonist, Sigma-1 Agonist Start: 09-11-2023 End: 09-16-2023 take 1 mL by mouth every eight hours Pyrilamine-Dextrom ethorphan (Arcade Dm) 7.5-7.5 mg/5 mL liquid Discontinued 10 ML PO Every 8 hours 150 5 September 11, 2023 12:00am September 16, 2023 2:25pm doxepin hydrochloride 10 mg oral capsule (7 sources) Tricyclic Antidepressant Start: 06-18-2023 End: 08-18-2024 take 1 capsule by mouth once daily at bedtime Doxepin 10 mg capsule Discontinued 10 MG PO Daily at bedtime September 16, 2023 12:00am August 18, 2024 9:54am doxycycline hyclate 100 mg oral capsule (3 sources) Tetracycline-class Drug Start: 09-16-2023 End: 10-28-2023 take 1 capsule by mouth twice daily Doxycycline Hyclate 100 mg capsule Discontinued 100 MG PO Twice daily 10 September 16, 2023 12:00am October 28, 2023 5:15pm escitalopram 10 mg oral tablet (20 sources) Serotonin Reuptake Inhibitor Start: 09-11-2023 End: 08-18-2024 take 1 tablet by mouth once daily at bedtime Escitalopram Oxalate 10 mg tablet Discontinued 1 TAB PO Daily at bedtime September 11, 2023 12:00am August 18, 2024 9:54am FreeTextSig: TAKE 1 TABLET BY MOUTH AT BEDTIME; Note: Source Status: Taking; Refills: 5; Qty: 30 Tablet; Provider: Flakito Young ( ) Start: 08-18-2022 take 1 tablet by eddie th once at bedtime Escitalopram Oxalate 10 MG 1 tablet Orally q HS for 30 day(s) Jul, Active eszopiclone 3 mg oral tablet (9 sources) eszopiclone (ASTON ESTA) 3 mg tab Indications: Confusion , Mixed migraine and muscle contraction headache , Cervical spondylosis without myelopathy , Essential tremor , Disturbed concentration , Tinnitus, bilateral , Bradycardia , Vitamin D deficiency Take by mouth at bedtime as needed. 0 Active Comment on above: Take by mouth at bed time as needed. Lisinopril (20 sources) Angiotensin Converting Enzyme Inhibitor Lisinopril Not-Takin g/PRN take 1 tablet by mouth once aydee [...] Take 10 mg by mouth once daily. methylPREDNISolone acetate 4 0 mg/ml injectable suspension (20 sources) Corticosteroid Start: 02-20-2022 DEPO-Medrol Feb, 40 mg Start: 09-02-2013 Depo-Medrol 80 mg Aug, 80 mg oseltamivir 75 mg oral capsule (3 sources) Neuraminidase Inhibitor Start: 09-11-2023 End: 09-16-2023 take 1 capsule by mouth twice daily Oseltamivir (Tamiflu) 75 mg capsule Discontinued 75 MG PO Twice daily 10 September 11, 2023 12:00am September 16, 2023 2:25pm predniSONE 20 mg oral tablet (20 sources) Start: 09-16-2023 End: 10-28-2023 take 1 tablet by mouth three times daily, then take 1 tablet by mouth twice daily, then take 1 tablet by mouth once daily Prednisone 20 mg tablet Discontinued 20 MG PO As Directed 12 September 16, 2023 12:00am October 28, 2023 5:15pm 1 tab tid w/ food x 2 days, then 1 tab bid w/ food x 2 days, then 1 tab qd w/ food x 2 days Start: 09-11-2023 End: 09-16-2023 take 1 tablet by mouth twice daily Prednisone 20 mg tablet Discontinued 20 MG PO Twice daily 10 September 11, 2023 12:00am September 16, 2023 2:25pm Start: 03-06-2022 take 2 tablets by mo uth every twenty-four hours predniSONE 20 MG 2 tablets Orally Once a day for 5 day(s) Feb, Not-Taking/PRN Problems Active Problems Problem Classification Problem Date Documented Da te Episodic/Chronic Abdominal pain (2 sources) Left upper quadrant pain Episodic Acute bronchitis (4 sources) Acute infective bronchitis; Translations: [Acute bronchitis due to other specified organisms] 09-16-2023 Episodic Allergic reactions (1 source) Allergic contact dermatitis due to adhesives Episodic Anxiety disorders (12 sources) Generalized anxiety disorder; Translations: [Generalized anxiety disorder] 09-11-2023 Chronic Blindness and vision defects (10 sources) Other subjective visual disturbances; Translations: [Distorted vision] Episodic Chronic kidney disease (4 sources) Chronic kidney disease; Translations: [Chronic kidney disease, unspecified] 10-28-2023 Chronic Chronic kidney disease (1 source) Chronic kidney disease; Translations: [CHRONIC KIDNEY DISEASE STAGE 3A] Onset: 01-08-2022 Deficiency and other anemia (11 sources) Anemia, unspecified; Translations: [ANEMIA UNSPECIFIED] Onset: 03-06-2022 Episodic Deficiency and other anemia (11 sources) Anemia; Translations: [Anemia, unspecified] Onset: 03-06-2022 [...] hypertension] Onset: 02-04-2022 Chronic Headache; including migraine (12 sources) Chronic tension-type headache; Translations: [Chronic tension-type headache, not intractable] 09-11-2023 Chronic Headache; including migraine (10 sources) Headache disorder; Translations: [Other complicated headache syndrome] Episodic Hyperplasia of prostate (20 sources) Lower urinary tract symptoms due to benign prostatic hypertrophy; Translations: [Benign prostatic hyperplasia with lower urinary tract symptoms] Chronic Hypertension with complications and secondary hypertension (20 sources) Chronic kidney disease due to hypertension; Translations: [Hypertensive chronic kidney disease with stage 1 through stage 4 chronic kidney disease, or unspecified chronic kidney disease] Onset: 01-08-2022 09-11-2023 Chronic Immunizations and screening for infectious disease (2 sources) Contact with or exposure to other viral diseases; Translations: [Exposure to 2019 novel coronavirus] 09-11-2023 Episodic Malaise and fatigue (20 sources) Malaise; Translations: [Other malaise] Onset: 01-08-2022 Episodic Miscellaneous mental health disorders (20 sources) Primary insomnia; Translations: [Primary insomnia] 09-11-2023 Chronic Nonspecific chest pain (3 sources) Chest pain; Translations: [Chest pain, unspecified] 10-29-2023 Episodic Other aftercare (3 sources) Surgical follow-up; Translations: [Encounter for removal of sutures] Episodic Other aftercare (1 source) Encounter for removal of sutures Episodic Other connective tissue disease (18 sources) History of lumbar fusion; Translations: [Arthrodesis status] Episodic Other connective tissue disease (2 sources) History of spinal fusion; Translations: [Arthrodesis status] Episodic Other connective tissue disease (1 source) Arthrodesis status Episodic Other connective tissue disease (1 source) Other symptoms and signs involving the nervous system Episodic Other connective tissue disease (1 source) Spasm of cervical paraspinous muscle; Translations: [Other muscle spasm] 07-22-2024 Episodic Other gastrointestinal disorders (1 source) Abdominal distension (gaseous) Episodic Other hereditary and degenerative nervous system conditions (20 sources) Resting tremor; Translations: [Other specified forms of tremor] Onset: 10-31-2022 Chronic Other hereditary and degenerative nervous system conditions (2 sources) Other specified forms of tremor; Translations: [Abnormal involuntary movements] Chronic Other lower respiratory disease (1 source) Wheezing; Translations: [Wheeze] Episodic Other lower respiratory disease (11 sources) Solitary nodule of lung; Translations: [Solitary pulmonary nodule] 09-11-2023 Episodic Other lower respiratory disease (1 source) Solitary pulmonary nodule; Translations: [Solitary pulmonary nodule] Episodic Other male genital disorders (18 sources) Impotence of organic origin; 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] Chronic Other male genital disorders (4 sources) Erectile dysfunction co-occurrent and due to arterial insufficiency; 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] 09-11-2023 Chronic Other nervous system disorders (1 source) Lesion of sciatic nerve, left lower limb Onset: 02-20-2022 Resolved: 02-20-2022 Chronic Other nervous system disorders (18 sources) Inflammatory and toxic neuropathy; Translations: [Polyneuropathy, unspecified] Chronic Other nervous system disorders (15 sources) Polyneuropathy; Translations: [Polyneuropathy, unspecified] 09-11-2023 Chronic Other nervous system disorders (1 source) Polyneuropathy, unspecified; Translations: [Polyneuropathy, unspecified] Chronic Other nervous system disorders (20 sources) Impaired cognition; Translations: [Other symptoms and signs involving cognitive functions and awareness] 09-11-2023 Episodic Other nervous system disorders (10 sources) Abnormal gait; Translations: [Unsteadiness on feet] Episodic Other nervous system disorders (14 sources) Paresthesia; Translations: [Paresthesia of skin] 09-11-2023 Episodic Other nervous system disorders (1 source) Other symptoms and signs involving cognitive functions and awareness; Translations: [Cognitive impairment] Episodic Other nutritional; endocrine; and metabolic disorders (12 sources) Overweight; Translations: [Overweight] 09-11-2023 Episodic Other screening for suspected conditions (not mental disorders or infectious disease) (9 sources) Encounter for screening for malignant neoplasm of prostate; Translations: [Encounter for screening for malignant neoplasm of colon] Onset: 01-08-2022 Episodic Other skin disorders (18 sources) Vesicular eczema of hands and/or feet; Translations: [Dyshidrosis [pompholyx]] Episodic Other skin disorders (4 sources) Vesicular eczema; Translations: [Dyshidrosis [pompholyx]] 09-11-2023 Episodic Other upper respiratory disease (11 sources) Vasomotor rhinitis; Translations: [Vasomotor rhinitis] 09-11-2023 Chronic Other upper respiratory disease (1 source) Vasomotor rhinitis; Translations: [Vasomotor rhinitis] Chronic Parkinson`s disease (20 sources) Parkinson's disease; Translations: [Parkinson's disease] 09-11-2023 Chronic Residual codes; unclassified (15 sources) Obstructive sleep apnea syndrome; Translations: [Obstructive sleep apnea (adult) (pediatric)] 09-11-2023 Chronic Residual codes; unclassified (4 sources) Obstructive sleep apnea (adult) (pediatric); Translations: [Obstructive sleep apnea (adult)(pediatric)] Chronic Residual codes; unclassified (2 sources) H/O Spinal surgery; Translations: [Other specified postprocedural states] Episodic Residual codes; unclassified (1 source) Other general symptoms and signs; Translations: [Other general symptoms] 09-11-2023 Episodic Residual codes; unclassified (4 sources) History of lumbar laminectomy; Translations: [Other specified postprocedural states] Onset: 03-06-2023 07-04-2024 Episodic Residual codes; unclassified (1 source) Memory impairment; Translations: [Other amnesia] 08-18-2024 Episodic Residual codes; unclassified (1 source) Other amnesia; Translations: [Memory loss] 08-18-2024 Episodic Spondylosis; intervertebral disc disorders; other back problems (20 sources) Lumbar spondylosis with myelopathy; Translations: [Other spondylosis with myelopathy, lumbar region] Onset: 08-25-2022 Chronic Spondylosis; intervertebral disc disorders; other back problems (20 sources) Lumbago with sciatica; Translations: [Lumbago with sciatica, unspecified side] Onset: 08-25-2022 Episodic Viral infection (1 source) COVID-19; Translations: [COVID-19] Onset: 02-04-2022 Past or Other Problems Problem Classification Problem Date Documented Date Episodic/Chronic Acquired foot deformities (3 sources) Left foot drop; Translations: [Foot drop, left foot] Onset: 03-06-2023 01-19-2024 Episodic Acute and unspecified renal failure (8 sources) Acute renal failure syndrome; Translations: [Acute kidney failure, unspecified] Resolved: 07-26-2021 Episodic Esophageal disorders (6 sources) Esophageal disorders; Translations: [Gastro-esophageal reflux disease with esophagitis, without bleeding] Fever of unknown origin (4 sources) Fever, unspecified; Translations: [FEVER UNSPECIFIED] Onset: 01-31-2022 Episodic Other aftercare (1 source) 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; Translations: [OTH ACTIVITY COORDINATOR CURRENT DRUG THERAPY] Onset: 02-04-2022 Episodic Other connective tissue disease (2 sources) Disorder of muscle, unspecified Onset: 02-20-2022 Resolved: 03-06-2022 Episodic Other connective tissue disease (1 source) Other symptoms and signs involving the musculoskeletal system Onset: 03-06-2022 Resolved: 03-06-2022 Episodic Other connective tissue disease (8 sources) Prepatellar bursitis; Translations: [Prepatellar bursitis, right knee] Resolved: 02-15-2020 Episodic Other nutritional; endocrine; and metabolic disorders (8 sources) Body mass index 25-29 - overweight; Translations: [Body mass index 28.0-28.9, adult] Onset: 09-01-2017 Episodic Other upper respiratory disease (7 sources) Seasonal allergic rhinitis; Translations: [Other seasonal allergic rhinitis] Resolved: 02-15-2020 Chronic Other upper respiratory disease (1 source) Other seasonal allergic rhinitis; Translations: [Other seasonal allergic rhinitis] Resolved: 02-15-2020 Chronic Other upper respiratory infections (2 sources) Acute maxillary sinusitis; Translations: [Acute maxillary sinusitis] Onset: 02-04-2022 Episodic Sprains and strains (2 sources) Strain of muscle, fascia and tendon of left hip, initial encounter Onset: 03-06-2022 Resolved: 03-06-2022 Episodic Results Test Name Value Interpretation Reference Range Facility [facility] 07-04-2024 [facility] Telephone (NIQ) PAULETTEEMILY PINEDA ([id number]) 1950 M Date Time Provider Department 07/04/24 RUBIN LOPEZ During your visit today, we recorded the following information about you: Luis Manuel Goodwin 07/04/2024 1:13 PM Signed Call received for Rubin Lopez MD regarding Emily Mehran Paulette. Caller: self Patient Identified by Name and : Emily Caldwell 1950 Reason for Call: Pt called an stated he is requesting a new PT Order. Last PT order was in January. Is there any additional information the provider should know? No Last Office Visit: 01/19/2024 Next scheduled appointment: Visit date not found Best number to reach caller: [phone] Best time to reach caller: Any Is it OK to leave a detailed voice message? Yes Naomi Agosto RN 07/04/2024 1:54 PM Signed Neuro SPINE CARE COORDINATION QUICK NOTE WALKER 02-09- for HX L3-4 decompression in 2022 PT recommended - pt would like to continue and is requesting updated script. Routed to BRANDY for review. Allergies As of Date: 07/04/2024 (No Known Allergies) Date Reviewed: 01/19/2024 Reviewed by: Lisandra Vazquez MA - Fully Assessed Reason for Visit: Orders [681] Primary Visit Diagnosis:S/P lumbar laminectomy [Z98.890] Other Visit Diagnosis:Radiculopa thy, lumbar region [M54.16] Order(s):CONSULT TO PHYSICAL THERAPY [9032] Order #: [id number]: 1 FUTURE Prescriptions as of 07/04/2024 - gabapentin (NEURONTIN) 300 mg capsule Take [...] as needed. Problem List As Of Date 07/04/2024 Noted Resolved Gastroesophageal reflux disease with esophagiti* Essential (primary) hypertension [I10] 02/04/2022 Anemia, unspecified [D64.9] 03/06/2022 Low back pain with sciatica [M54.40] 10/31/2022 Resting tremor [G25.2] 10/31/2022 Lumbar stenosis with neurogenic claudication [M*11/07/2022 Encounter Status:Closed by FABIANA RICCI on 07/04/24 [place] [facility] 01-19-2024 [facility] Office Visit ([facility]) EMILY CALDWELL ([id number]) 1950 M Date Time Provider Department 01/19/24 10:45 AM RUBIN LOPEZ [facility] During your visit today, we recorded the following information about you: Pulse Respiration Blood pressure Weight 63/minute 18/minute 155/84 80.9 kg Height 1.702 m Rubin Lopez MD 01/19/2024 11:57 AM Signed Return Patient Visit 11/07/2022: L3-4 decompression CC: Persistent back pain 74 year old prior history of L3/4 decompression on 11/07/22 and prior L5/S1 TLIF. Presents today in clinic regarding persistent low back pain as well as worsening left foot drop. Overall he denies any new numbness, tingling or changes in bowel or bladder function. He did do some PT that seems to help this. The back pain is relatively constant and does not have a particular position that improve his pain. No radiating pain. He also complains of some hand numbness but this is not new or worsening. CMT: PT Tylenol Aleve PE: BUE and BLE 5/5 left EHL and DF 2/5. No numbness in the bilateral lowers. Reflexes 1+ throughout. No hoffmans or babinski. Imaging: No recent imaging I had a discussion with the patient and his regarding his longstanding left foot drop. I told him that I did not feel that there was a high degree of probability that surgical decompression would give him any reasonable chance for improvement. Will start PT for electrical stimulation Start trial of Robaxin. Rubin Lopez MD Allergies As of Date: 01/19/2024 (No Known Allergies) Date Reviewed: 01/19/2024 Reviewed by: Lisandra Vazquez MA - Fully Assessed Reason for Visit: Established Patient [175] Primary Visit Diagnosis:S/P lumbar fusion [Z98.1] Other Visit Diagnoses:S/P laminectomy [Z98.890] Chronic bilateral low back pain without sciatica [M54.50, G89.29] Left foot drop [M21.372] Order(s):CONSULT TO PHYSICAL THERAPY [9093] Order #: [id number]: 1 FUTURE methocarbamol (ROBAXIN) 750 mg tabletTake 1 tablet by mouth three times a day.Disp: 90 tabletRfl: 0 Prescriptions as of 01/19/2024 - methocarbamol (ROBAXIN) 750 mg tablet Take 1 tablet by mouth three times a day. - gabapentin (NEURONTIN) 300 mg capsule Take [...] as needed. Problem List As Of Date 01/19/2024 Noted Resolved Gastroesophageal reflux disease with esophagiti* 3 Essential (primary) hypertension [I10] 02/04/2022 Anemia, unspecified [D64.9] 03/06/2022 Low back pain with sciatica [M54.40] 10/31/2022 Resting tremor [G25.2] 10/31/2022 Lumbar stenosis with neurogenic claudication [M*11/07/2022 Prescriptions ordered this encounter Disp Refills Start End METHOCARBAMOL 750 MG TABLET 90 t* 0 01/19/2024 02/18/2024 Route: ORAL Sig: Take 1 tablet by mouth three times a day. Encounter Status:Closed by RUBIN LOPEZ on 01/19/24 [facility] 01-07-2024 [facility] Telephone (NIQ) EMILY CALDWELL ([id number]) 1950 M Date Time Provider Department 01/07/24 RUBIN LOPEZ NIQ During your visit today, we recorded the following information about you: Leola Mtz 01/07/2024 1:23 PM Signed Call received for Rubin Lopez MD regarding Emily Caldwell. Caller: Self Patient Identified by Name and : Yes Reason for Call: General Question Patient is calling said his drop foot is getting worse and he is not sure what to do next. He said to call his phone he is hard to get hold of. Is there any additional information the provider should know? No Last Office Visit: 03/02/2023 Next scheduled appointment: Visit date not found Best number to reach caller: [phone] Best time to reach caller: anytime Is it OK to leave a detailed voice message? Yes Naomi Adorno RN 01/07/2024 2:20 PM Addendum Neuro SPINE CARE COORDINATION QUICK NOTE Call to the pt and LM Call back number provided Naomi Ryaa RN 01/07/2024 2:25 PM Signed Neuro SPINE CARE COORDINATION QUICK NOTE Call to the pt. And DW . CC- increased LBP and worsening of left foot drop- he continues with AFO No updated imaging done locally Pt and agree on follow up apt to discuss They accept apt with Dr. Lopez on 01-19-24 @ 10 45 am ( in person ) Allergies As of Date: 01/07/2024 (No Known Allergies) Date Reviewed: 11/08/2022 Reviewed by: Shannon Salmeron RN - Fully Assessed Reason for Visit: Patient Update [1234] Patient Question [1477] Prescriptions as of 01/07/2024 - gabapentin (NEURONTIN) 300 mg capsule Take [...] as needed. Problem List As Of Date 01/07/2024 Noted Resolved Gastroesophageal reflux disease with esophagiti* Essential (primary) hypertension [I10] 02/04/2022 Anemia, unspecified [D64.9] 03/06/2022 Low back pain with sciatica [M54.40] 10/31/2022 Resting tremor [G25.2] 10/31/2022 Lumbar stenosis with neurogenic claudication [M*11/07/2022 Encounter Status:Closed by NAOMI RAYA on 01/07/24 Normal [facility] Basophils Auto (Bld) [#/Vol] on 10-29-2023 Basophils (Bld) [#/Vol] 0.1 10 3/uL 0.0-0.1 [facility] Basophils/100 WBC Auto (Bld) on 10-29-2023 Basophils/100 WBC (Bld) 0.9 % 0.2-2.0 [facility] Eosinophils/100 WBC Auto (Bl d)on 10-29-2023 Eosinophils/100 WBC (Bld) 3.4 % 0.9-7.0 [facility] Erythrocyte distribution wid th Auto (RBC) [Ratio]on 10-29-2023 Erythrocyte distribution width (RBC) [Ratio] 13.5 % 11.0-15.0 [facility] Estimated glomerular filtrat ion rate (GFR) non- Americanon 10-29-2023 GFR/1.73 sq M.predicted among non-blacks MDRD (S/P/Bld) [Vol rate/Area] 51 mL/min/{1.73_m2} >=60 [facility] Globulin Calc (S) [Mass/Vol] on 10-29-2023 Globulin (S) [Mass/Vol] 3.9 g/dL [facility] Glucose mean value [Mass/vol ume] in Blood Estimated from glycated hemoglobinon 10-29-2023 Average glucose Estimated from glycated hemoglobin (Bld) [Mass/Vol] 126 mg/dL [facility] Hematocrit Auto (Bld) [Volum e fraction]on 10-29-2023 Hematocrit (Bld) [Volume fraction] 41.9 % 42.0-54.0 [facility] Hemoglobin [Mass/volume] in Bloodon 10-29-2023 Hemoglobin (Bld) [Mass/Vol] 13.9 g/dL 14.0-18.0 [facility] Laboratory - Chemistry and C hemistry - challengeon 10-29-2023 Albumin [Mass/Vol] 3.9 g/dL 3.4-5.0 [facility] ALP [Catalytic activity/Vol] 66 U/L 46-116 [facility] ALT [Catalytic activity/Vol] 31 U/L 16-63 [facility] AST [Catalytic activity/Vol] 27 U/L 15-37 [facility] Bilirubin [Mass/Vol] 0.4 mg/dL 0.2-1.0 [facility] Calcium [Mass/Vol] 9.8 mg/dL 8.5-10.1 [facility] Chloride [Moles/Vol] 102 mmol/L 98-107 [facility] CO2 [Moles/Vol] 28.2 mmol/L 21.0-32.0 [facility] Creatinine [Mass/Vol] 1.36 mg/dL 0.70-1.30 [facility] GFR/1.73 sq M.predicted MDRD (S/P/Bld) [Vol rate/Area] mL/min/{1.73_m2} >=60 [facility] Glucose [Mass/Vol] 94 mg/dL 74-106 [facility] Potassium [Moles/Vol] 4.3 mmol/L 3.5-5.1 [facility] Protein [Mass/Vol] 7.8 g/dL 6.4-8.2 [facility] Sodium [Moles/Vol] 141 mmol/L 136-145 [facility] TSH Qn 1.842 m[IU]/L 0.358-3.740 [facility] Urea nitrogen [Mass/Vol] 25.0 mg/dL 7.0-18.0 [facility] Urea nitrogen/Creatinine [Mass ratio] 18.4 mg/mg [facility] Laboratory - Hematology and Cell countson 10-29-2023 HbA1c (Bld) [Mass fraction] 6.0 % 4.5-6.2 [facility] Comment on above: ADA RECOMMENDED LIMI T 4.0 - 6.0ADA THERAPEUTIC TARGET < 7.0ACTION SUGGESTED> 7.0 Immature granulocytes/100 WBC (Bld) 0.2 % 0.0-0.5 [facility] Leukocytes [#/volume] correc ten for nucleated erythrocytes in Blood by Automated counon 10-29-2023 WBC corrected for nucl RBC Auto (Bld) [#/Vol] 6.4 10 3/uL 4.0-11.0 [facility] Lymphocytes Auto (Bld) [#/Vo l]on 10-29-2023 Lymphocytes (Bld) [#/Vol] 1.6 10 3/uL 1.2-3.8 [facility] Lymphocytes/100 WBC Auto (Bl d)on 10-29-2023 Lymphocytes/100 WBC (Bld) 24.8 % 20.5-60.0 [facility] MCH Auto (RBC) [Entitic mass ]on 10-29-2023 MCH (RBC) [Entitic mass] 31.1 pg 25.9-34.0 [facility] MCHC Auto (RBC) [Mass/Vol]on 10-29-2023 MCHC (RBC) [Mass/Vol] 33.2 g/dL 29.9-35.2 [facility] MCV Auto (RBC) [Entitic vol] on 10-29-2023 MCV (RBC) [Entitic vol] 93.7 fL 80.0-94.0 [facility] Monocytes Auto (Bld) [#/Vol] on 10-29-2023 Monocytes (Bld) [#/Vol] 0.7 10 3/uL 0.3-0.8 [facility] Monocytes/100 WBC Auto (Bld) on 10-29-2023 Monocytes/100 WBC (Bld) 10.6 % 1.7-12.0 [facility] Neutrophils Auto (Bld) [#/Vo l]on 10-29-2023 Neutrophils (Bld) [#/Vol] 3.9 10 3/uL 1.4-6.5 [facility] Neutrophils/100 WBC Auto (Bl d)on 10-29-2023 Neutrophils/100 WBC (Bld) 60.1 % 43.0-75.0 [facility] No Panel Informationon 10-28 Eosinophils # (Auto) 0.2 10 3/uL 0.0-0.7 [facility] Immature Granulocyte # (Auto) 0.01 10 3/uL 0.00-0.03 [facility] Platelet mean volume Auto (B ld) [Entitic vol]on 10-29-2023 Platelet mean volume (Bld) [Entitic vol] 9.5 fL 9.5-13.5 [facility] Platelets Auto (Bld) [#/Vol] on 10-29-2023 Platelets (Bld) [#/Vol] 287 10 3/uL 150-450 [facility] RBC Auto (Bld) [#/Vol]on RBC (Bld) [#/Vol] 4.47 10 6/uL 4.70-6.10 [facility] Serum or plasma albumin/glob ulin mass ratioon 10-29-2023 Albumin/Globulin [Mass ratio] 1.0 {ratio} [facility] Serum or plasma anion gap de terminationon 10-29-2023 Anion gap [Moles/Vol] 15.1 mmol/L [facility] No Panel InformationOrdered By: Freda Oneill on 09-11-2023 COVID/Influenza Antigen (POC) [facility] COVID/Influenza Antigen (POC) [facility] Basic metabolic 2000 panelon 10-31-2022 Anion gap [Moles/Vol] 12 mmol/L 9 - 18 mmol/L [facility] Calcium [Mass/Vol] 9.6 mg/dL 8.5 - 10. 2 mg/dL [facility] Chloride [Moles/Vol] 101 mmol/L 97 - 10 5 mmol/L [facility] CO2 [Moles/Vol] 25 mmol/L 22 - 30 mmol/L [facility] Creatinine [Mass/Vol] 1.23 mg/dL High 0.73 - 1.22 mg/dL [facility] Estimated Glomerular Filtration Rate 62 mL/min/1.73m >=60 mL/min/1.73m [facility] Glucose [Mass/Vol] 90 mg/dL 74 - 99 mg/dL [facility] Potassium [Moles/Vol] 4.1 mmol/L 3.7 - 5.1 mmol/L [facility] Sodium [Moles/Vol] 138 mmol/L 136 - 144 mmol/L [facility] Urea nitrogen [Mass/Vol] 20 mg/dL 9 - 24 mg/dL [facility] CBC panel Auto (Bld)on 10-31 Erythrocyte distribution width (RBC) [Ratio] 13.8 % 11.5 - 15.0 % [facility] Hematocrit (Bld) [Volume fraction] 35.6 % Low 39.0 - 51.0 % [facility] Hemoglobin (Bld) [Mass/Vol] 12.0 g/dL Low 13.0 - 17.0 g/dL [facility] MCH (RBC) [Entitic mass] 31.7 pg 26.0 - 34.0 pg [facility] MCHC (RBC) [Mass/Vol] 33.7 g/dL 30.5 - 36.0 g/dL [facility] MCV (RBC) [Entitic vol] 94.2 fL 80.0 - 100.0 fL [facility] Nucleated RBC (Bld) [#/Vol] <0.01 k/uL [facility] Platelet mean volume (Bld) [Entitic vol] 9.7 fL 9.0 - 12.7 fL [facility] Platelets (Bld) [#/Vol] 269 10*3/uL 150 - 400 k/uL [facility] RBC (Bld) [#/Vol] 3.78 10*6/uL Low 4.20 - 6.0 0 m/uL [facility] WBC (Bld) [#/Vol] 5.19 10*3/uL 3.70 - 11. 00 k/uL [facility] CONFIRM BLOOD TYPEon 023 ABO O [facility] Rh Nom (Bld) Positive [facility] TYPE AND SCREEN,30 DAYon ABO O [facility] HIstorical Ab Scr Status Negative [facility] Rh Nom (Bld) Positive [facility] No Panel Informationon 10-10 [facility] CBC AUTO DIFFon 09-29-2022 BASO # 0.0 103/ul Normal 0.0-0.1 [facility] Comment on above: Performed By: #### F ERR, B12FOL, FETIBC #### [facility] [address] [place] [address] Dr. Nicole Lam Basophils/100 WBC (Bld) 0.8 % Normal 0.2-2.0 [facility] Comment on above: Performed By: #### F ERR, B12FOL, FETIBC #### [facility] [address] [place] [address] Dr. Nicole Lam EO # 0.1 103/ul Normal 0.0-0.7 [facility] Comment on above: Performed By: #### F ERR, B12FOL, FETIBC #### [facility] [address] [place] [address] Dr. Nicole Lam Eosinophils/100 WBC (Bld) 3.0 % Normal 0.9-7.0 [facility] Comment on above: Performed By: #### F ERR, B12FOL, FETIBC #### [facility] [address] [place] [address] Dr. Nicole Lam Erythrocyte distribution width (RBC) [Ratio] 13.8 % Normal 11.0-15.0 [facility] Comment on above: Performed By: #### F ERR, B12FOL, FETIBC #### [facility] [address] [place] [address] Dr. Nicole Lam Hematocrit (Bld) [Volume fraction] 38.9 % Critically low 42.0-54.0 [facility] Comment on above: Performed By: #### F ERR, B12FOL, FETIBC #### [facility] [address] [place] [address] Dr. Nicole Lam Hemoglobin (Bld) [Mass/Vol] 13.2 g/dL Critically low 14.0-18.0 [facility] Comment on above: Performed By: #### F ERR, B12FOL, FETIBC #### [facility] [address] [place] [address] Dr. Nicole Lam IG # 0.01 10e3/ul Normal 0.00-0.03 [facility] Comment on above: Performed By: #### F ERR, B12FOL, FETIBC #### [facility] [address] [place] [address] Dr. Nicole Lam IG % 0.3 % Normal 0.0-0.5 [facility] Comment on above: Performed By: #### F ERR, B12FOL, FETIBC #### [facility] [address] [place] [address] Dr. Nicole Lam LYMPH # 1.1 103/ul Critically low 1.2-3.[address] [facility] Comment on above: Performed By: #### F ERR, B12FOL, FETIBC #### [facility] [address] [place] [address] Dr. Nicole Lam Lymphocytes/100 WBC (Bld) 26.4 % Normal 20.5-60.0 [facility] Comment on above: Performed By: #### F ERR, B12FOL, FETIBC #### [facility] [address] [place] [address] Dr. Nicole Lam MANUAL DIFF REQ NO Normal [facility] Comment on above: Performed By: #### F ERR, B12FOL, FETIBC #### [facility] [address] [place] [address] Dr. Nicole Lam MCH (RBC) [Entitic mass] 31.9 pg Normal 25.9-34.0 [facility] Comment on above: Performed By: #### F ERR, B12FOL, FETIBC #### [facility] [address] [place] [address] Dr. Nicole Lam MCHC (RBC) [Mass/Vol] 33.9 g/dL Normal 29.9-35.2 [facility] Comment on above: Performed By: #### F ERR, B12FOL, FETIBC #### [facility] [address] [place] [address] Dr. Nicole Lam MCV (RBC) [Entitic vol] 94.0 fL Normal 80.0-94.0 [facility] Comment on above: Performed By: #### F ERR, B12FOL, FETIBC #### [facility] [address] [place] [address] Dr. Nicole Lam MONO # 0.5 103/ul Normal 0.3-0.8 [facility] Comment on above: Performed By: #### F ERR, B12FOL, FETIBC #### [facility] [address] [place] [address] Dr. Nicole Lam Monocytes/100 WBC (Bld) 11.6 % Normal 1.7-12.0 [facility] Comment on above: Performed By: #### F ERR, B12FOL, FETIBC #### [facility] [address] [place] [address] Dr. Nicole Lam NEUT # 2.3 103/ul Normal 1.4-6.5 [facility] Comment on above: Performed By: #### F ERR, B12FOL, FETIBC #### [facility] [address] [place] [address] Dr. Nicole Lam Neutrophils/100 WBC (Bld) 57.9 % Normal 43.0-75.0 [facility] Comment on above: Performed By: #### F ERR, B12FOL, FETIBC #### [facility] [address] [place] [address] Dr. Nicole Lam Platelet mean volume (Bld) [Entitic vol] 8.7 fL Critically low 9.5-13.5 [facility] Comment on above: Performed By: #### F ERR, B12FOL, FETIBC #### [facility] [address] [address] [address] Nicole Lam PLT 263 103/ul Normal 150-450 [facility] Comment on above: Performed By: #### F ERR, B12FOL, FETIBC #### [facility] [address] [address] [address] Nicole Lam RBC 4.14 106/ul Critically low 4.70-6.10 [facility] Comment on above: Performed By: #### F ERR, B12FOL, FETIBC #### [facility] [address] [address] [address] Nicole Lam WBC 4.0 103/ul Normal 4.0-11.0 [facility] Comment on above: Performed By: #### F ERR, B12FOL, FETIBC #### [facility] [address] [address] [address] Nicole Lam FERRITINon 09-29-2022 Ferritin [Mass/Vol] 869.2822750 ng/mL 26. 0-388.0 ng/mL [employer] [facility] [employer] Other Ferritin [Mass/Vol] 202.0 ng/mL Normal 26.0-388.0 [facility] Comment on above: Performed By: #### F ERR, B12FOL, FETIBC #### [facility] [address] [address] [address] Nicole Lam IRON AND TIBCon 09-29-2022 Iron [Mass/Vol] 97.5958821 ug/dL 65.0-175 .0 ug/dL [employer] Other IRON AND TIBC 334.0 ug/dL 250.0-450.0 ug/dL [employer] Other IRON AND TIBC 29.0 % [employer] Other % SATURATION 29.0 % Normal [facility] Comment on above: Performed By: #### F ERR, B12FOL, FETIBC #### [facility] [address] [place] [address] Dr. Nicole Lam Iron [Mass/Vol] 97.0 ug/dL Normal 65.0-175.0 [facility] Comment on above: Performed By: #### F ERR, B12FOL, FETIBC #### [facility] [address] [place] [address] Dr. Nicole Lam TIBC DIRECT 334.0 ug/dL Normal 250.0-450.0 [facility] Comment on above: Performed By: #### F ERR, B12FOL, FETIBC #### [facility] [address] [place] [address] Dr. Nicole Lam VIT B12 AND FOLATEon 023 Cobalamin (Vitamin B12) [Mass/Vol] 719.2504268 pg/mL 193.0-986.0 pg/mL [employer] Other VIT B12 AND FOLATE 21.20 ng/mL 8.60-58.9 0 ng/mL [employer] Other VIT B12 AND FOLATE see note [employer] Other Cobalamin (Vitamin B12) [Mass/Vol] 611.0 pg/mL Normal 193.0-986.0 [facility] Comment on above: Performed By: #### F ERR, B12FOL, FETIBC #### [facility] [address] [place] [address] Dr. Nicole Lam FOLATE 21.20 ng/mL Normal 8.60-58.90 [facility] Comment on above: Performed By: #### F ERR, B12FOL, FETIBC #### [facility] [address] [place] [address] Dr. Nicole Lam CBC AUTO DIFFon 06-17-2022 BASO # 0.1 103/ul Normal 0.0-0.1 [facility] Comment on above: Performed By: #### F ERR, B12FOL, FETIBC #### [facility] [address] [place] [address] Dr. Nicole Lam Basophils/100 WBC (Bld) 1.0 % Normal 0.2-2.0 [facility] Comment on above: Performed By: #### F ERR, B12FOL, FETIBC #### [facility] [address] [place] [address] Dr. Nicole Lam EO # 0.1 103/ul Normal 0.0-0.7 [facility] Comment on above: Performed By: #### F ERR, B12FOL, FETIBC #### [facility] [address] [place] [address] Dr. Nicole Lma Eosinophils/100 WBC (Bld) 2.5 % Normal 0.9-7.0 [facility] Comment on above: Performed By: #### F ERR, B12FOL, FETIBC #### [facility] [address] [place] [address] Dr. Nicole Lam Erythrocyte distribution width (RBC) [Ratio] 12.5 % Normal 11.0-15.0 [facility] Comment on above: Performed By: #### F ERR, B12FOL, FETIBC #### [facility] [address] [place] [address] Dr. Nicole Lam Hematocrit (Bld) [Volume fraction] 37.5 % Critically low 42.0-54.0 [facility] Comment on above: Performed By: #### F ERR, B12FOL, FETIBC #### [facility] [address] [place] [address] Dr. Nicole Lam Hemoglobin (Bld) [Mass/Vol] 12.9 g/dL Critically low 14.0-18.0 [facility] Comment on above: Performed By: #### F ERR, B12FOL, FETIBC #### [facility] [address] [place] [address] Dr. Nicole Lam IG # 0.01 10e3/ul Normal 0.00-0.03 [facility] Comment on above: Performed By: #### F ERR, B12FOL, FETIBC #### [facility] [address] [place] [address] Dr. Nicole Lam IG % 0.2 % Normal 0.0-0.5 [facility] Comment on above: Performed By: #### F ERR, B12FOL, FETIBC #### [facility] [address] [place] [address] Dr. Nicole Lam LYMPH # 1.4 103/ul Normal 1.2-3.8 [facility] Comment on above: Performed By: #### F ERR, B12FOL, FETIBC #### [facility] [address] [place] [address] Dr. Nicole Lam Lymphocytes/100 WBC (Bld) 28.0 % Normal 20.5-60.0 [facility] Comment on above: Performed By: #### F ERR, B12FOL, FETIBC #### [facility] [address] [place] [address] Dr. Nicole Lam MANUAL DIFF REQ NO Normal [facility] Comment on above: Performed By: #### F ERR, B12FOL, FETIBC #### [facility] [address] [place] [address] Dr. Nicole Lam MCH (RBC) [Entitic mass] 32.3 pg Normal 25.9-34.0 [facility] Comment on above: Performed By: #### F ERR, B12FOL, FETIBC #### [facility] [address] [place] [address] Dr. Nicole Lam MCHC (RBC) [Mass/Vol] 34.4 g/dL Normal 29.9-35.2 [facility] Comment on above: Performed By: #### F ERR, B12FOL, FETIBC #### [facility] [address] [place] [address] Dr. Nicole Lam MCV (RBC) [Entitic vol] 94.0 fL Normal 80.0-94.0 [facility] Comment on above: Performed By: #### F ERR, B12FOL, FETIBC #### [facility] [address] [place] [address] Dr. Nicole Lam MONO # 0.4 103/ul Normal 0.3-0.8 [facility] Comment on above: Performed By: #### F ERR, B12FOL, FETIBC #### [facility] [address] [address] [address] Nicole Lam Monocytes/100 WBC (Bld) 7.8 % Normal 1.7-12.0 [facility] Comment on above: Performed By: #### F ERR, B12FOL, FETIBC #### [facility] [address] [place] [address] Dr. Nicole Lam NEUT # 3.1 103/ul Normal 1.4-6.5 [facility] Comment on above: Performed By: #### F ERR, B12FOL, FETIBC #### [facility] [address] [place] [address] Dr. Nicole Lam Neutrophils/100 WBC (Bld) 60.5 % Normal 43.0-75.0 [facility] Comment on above: Performed By: #### F ERR, B12FOL, FETIBC #### [facility] [address] [place] [address] Dr. Nicole Lam Platelet mean volume (Bld) [Entitic vol] 8.8 fL Critically low 9.5-13.5 [facility] Comment on above: Performed By: #### F ERR, B12FOL, FETIBC #### [facility] [address] [place] [address] Dr. Nicole Lam PLT 294 103/ul Normal 150-450 [facility] Comment on above: Performed By: #### F ERR, B12FOL, FETIBC #### [facility] [address] [place] [address] Dr. Nicole Lam RBC 3.99 106/ul Critically low 4.70-6.10 [facility] Comment on above: Performed By: #### F ERR, B12FOL, FETIBC #### [facility] [address] [place] [address] Dr. Nicole Lam WBC 5.1 103/ul Normal 4.0-11.0 [facility] Comment on above: Performed By: #### F ERR, B12FOL, FETIBC #### [facility] [address] [address] [address] 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 Electronically signed: Aj Givens. Transcribed by: [email or web address], User Resident: Electronically Signed by: AJ GIVENS @ 03/21/2022 02:37 PM Normal [facility] Comment on above: Order Comment: No: D o not add to previous draw MRI LUMBAR SPINE W WO CONTRA STon 03-21-2022 MRI LUMBAR SPINE W WO CONTRAST [facility] Department of Radiology [address] [place] [id number] Patient Name: EMILY CALDWELL : 1950 Sex: M Age: Race: White Pt. Location: Patient Status: D Ordered Date: 01/29/2022 4:05:00 PM Completed Date: 03/21/2022 03:16 PM Requesting Provider: DENA SPENCER Attending Provider: DENA SPENCER Report Copy To: Signs & Symptoms: M48.061 Spinal stenosis, lumbar region without neurogenic catina I10 History: Gosia Comments: persistent back pain, recent surgery, now [...] S1. Electronically signed: Mili Rolon. Transcribed by: [email or web address], User Resident: Electronically Signed by: MILI ROLON @ 03/25/2022 09:18 AM Normal [facility] Comment on above: Order Comment: No: D o not add to previous draw METHYLMALONIC ACID (MMA)on 0 03-08-2022 Methylmalonic Acid, Serum 225 nmol/L Normal 0-378 [facility] Comment on above: Performed By: #### M MA2 #### [facility] [address] [place] [address] Dr. Nicole Lam CBC AUTO DIFFon 03-05-2022 BASO # 0.0 103/ul Normal 0.0-0.1 [facility] Comment on above: Performed By: #### C BC #### [facility] [address] [place] [address] Dr. Nicole Lam Basophils/100 WBC (Bld) 0.7 % Normal 0.2-2.0 [facility] Comment on above: Performed By: #### C BC #### [facility] [address] [place] [address] Dr. Nicole Lam EO # 0.1 103/ul Normal 0.0-0.7 [facility] Comment on above: Performed By: #### C BC #### [facility] [address] [place] [address] Dr. Nicole Lam Eosinophils/100 WBC (Bld) 3.2 % Normal 0.9-7.0 [facility] Comment on above: Performed By: #### C BC #### [facility] [address] [place] [address] Dr. Nicole Lam Erythrocyte distribution width (RBC) [Ratio] 14.5 % Normal 11.0-15.0 [facility] Comment on above: Performed By: #### C BC #### [facility] [address] [place] [address] Dr. Nicole Lam Hematocrit (Bld) [Volume fraction] 37.2 % Critically low 42.0-54.0 [facility] Comment on above: Performed By: #### C BC #### [facility] [address] [place] [address] Dr. Nicole Lam Hemoglobin (Bld) [Mass/Vol] 12.0 g/dL Critically low 14.0-18.0 [facility] Comment on above: Performed By: #### C BC #### [facility] [address] [place] [address] Dr. Nicole Lam IG # 0.01 10e3/ul Normal 0.00-0.03 [facility] Comment on above: Performed By: #### C BC #### [facility] [address] [place] [address] Dr. Nicole Lam IG % 0.2 % Normal 0.0-0.5 [facility] Comment on above: Performed By: #### C BC #### [facility] [address] [place] [address] Dr. Nicole Lam LYMPH # 1.2 103/ul Normal 1.2-3.8 [facility] Comment on above: Performed By: #### C BC #### [facility] [address] [place] [address] Dr. Nicole Lam Lymphocytes/100 WBC (Bld) 30.0 % Normal 20.5-60.0 [facility] Comment on above: Performed By: #### C BC #### [facility] [address] [place] [address] Dr. Nicole Lam MANUAL DIFF REQ NO Normal [facility] Comment on above: Performed By: #### C BC #### [facility] [address] [place] [address] Dr. Nicole Lam MCH (RBC) [Entitic mass] 30.0 pg Normal 25.9-34.0 [facility] Comment on above: Performed By: #### C BC #### [facility] [address] [place] [address] Dr. Nicole Lam MCHC (RBC) [Mass/Vol] 32.3 g/dL Normal 29.9-35.2 [facility] Comment on above: Performed By: #### C BC #### [facility] [address] [place] [address] Dr. Nicole Lam MCV (RBC) [Entitic vol] 93.0 fL Normal 80.0-94.0 [facility] Comment on above: Performed By: #### C BC #### [facility] [address] [place] [address] Dr. Nicole Lam MONO # 0.4 103/ul Normal 0.3-0.8 [facility] Comment on above: Performed By: #### C BC #### [facility] [address] [place] [address] Dr. Nicole Lam Monocytes/100 WBC (Bld) 8.9 % Normal 1.7-12.0 [facility] Comment on above: Performed By: #### C BC #### [facility] [address] [place] [address] Dr. Nicole Lam NEUT # 2.3 103/ul Normal 1.4-6.5 [facility] Comment on above: Performed By: #### C BC #### [facility] [address] [place] [address] Dr. Nicole Lam Neutrophils/100 WBC (Bld) 57.0 % Normal 43.0-75.0 [facility] Comment on above: Performed By: #### C BC #### [facility] [address] [place] [address] Dr. Nicole Lam Platelet mean volume (Bld) [Entitic vol] 9.2 fL Critically low 9.5-13.5 [facility] Comment on above: Performed By: #### C BC #### [facility] [address] [place] [address] Dr. Nicole Lam PLT 300 103/ul Normal 150-450 [facility] Comment on above: Performed By: #### C BC #### [facility] [address] [place] [address] Dr. Nicole Lam RBC 4.00 106/ul Critically low 4.70-6.10 [facility] Comment on above: Performed By: #### C BC #### [facility] [address] [place] [address] Dr. Nicole Lam WBC 4.0 103/ul Normal 4.0-11.0 [facility] Comment on above: Performed By: #### C BC #### [facility] [address] [place] [address] Dr. Nicole Lam DIRECT LDLon 03-05-2022 Cholesterol in LDL [Mass/Vol] 152 mg/dL Normal [facility] Comment on above: Performed By: #### A LT, DLDL #### [facility] [address] [place] [address] Dr. Nicole Lam DLDL NORMAL SEE BELOW Normal [facility] Comment on above: Result Comment: <100 mg/dl OPTIMAL 100 - 129 mg/dl NEAR OR ABOVE OPTIMAL 130 - 159 mg/dl BORDERLINE HIGH 160 - 189 mg/dl HIGH >190 mg/dl VERY HIGH Performed By: #### A LT, DLDL #### [facility] [address] [place] [address] Dr. Nicole Lam FERRITINon 03-05-2022 Ferritin [Mass/Vol] 272.0 ng/mL Normal 26.0-388.0 [facility] Comment on above: Performed By: #### F ERR, B12FOL, FETIBC #### [facility] [address] [place] [address] Dr. Nicole Lam IRON AND TIBCon 03-05-2022 % SATURATION 24.4 % Normal [facility] Comment on above: Performed By: #### F ERR, B12FOL, FETIBC #### [facility] [address] [place] [address] Dr. Nicole Lam Iron [Mass/Vol] 73.0 ug/dL Normal 65.0-175.0 [facility] Comment on above: Performed By: #### F ERR, B12FOL, FETIBC #### [facility] [address] [place] [address] Dr. Nicole Lam TIBC DIRECT 299.0 ug/dL Normal 250.0-450.0 [facility] Comment on above: Performed By: #### F ERR, B12FOL, FETIBC #### [facility] [address] [address] [address] Nicole Lam SGPTon 03-05-2022 ALT [Catalytic activity/Vol] 27 U/L Normal 16-63 [facility] Comment on above: Performed By: #### F ERR, B12FOL, FETIBC #### [facility] [address] [address] [address] Nicole Lam VIT B12 AND FOLATEon 022 Cobalamin (Vitamin B12) [Mass/Vol] 551.0 pg/mL Normal 193.0-986.0 [facility] Comment on above: Performed By: #### F ERR, B12FOL, FETIBC #### [facility] [address] [address] [address] Nicole Lam FOLATE 21.40 ng/mL Normal 8.60-58.90 [facility] Comment on above: Performed By: #### F ERR, B12FOL, FETIBC #### [facility] [address] [address] [address] Nicole Lam [facility]17 SARS-CoV-2 (COVID-19) RNA DIANA+probe Ql (Unsp spec) Detected Critically abnormal NOT DETECTED [facility] Comment on above: Result Comment: This test is not yet approved or cleared by the [place] FDA. When there are no FDA-approved or cleared tests available, and other criteria are met, FDA can make tests available under an emergency access mechanism called an Emergency Use Authorization (EUA). The EUA for this test is supported by the Compliance Mgr of Health and Human Service's declaration that [...] By: #### F ERR, B12FOL, FETIBC #### [facility] [address] [place] [address] Dr. Nicole Lam GROUP A STREP CULTUREon 01-17 S. pyogenes Ag Ql (Unsp spec) Culture Observations: NEGATIVE FOR GROUP A STREPTOCOCCUS. Normal [facility] Comment on above: Performed By: #### G RASTCX, SSCRN #### [facility] [address] [place] [address] Dr. Nicole Lam STREPT SCREENon 01-31-2022 STREP SCREEN A Negative Normal NEGATIVE [facility] Comment on above: Performed By: #### G RASTCX, SSCRN #### [facility] [address] [place] [address] Dr. Nicole Lam TESTOSTERONE, TOTALon 2021 Testosterone [Mass/Vol] 510 ng/dL Normal 264-916 [facility] Comment on above: Result Comment: Adul t male reference interval is based on a population of healthy nonobese males (BMI <30) between 19 and 39 years old. Marina et.al. JCEM 2017,102;4646-5489. PMID: [id number]. Performed By: #### F ERR, B12FOL, FETIBC #### [facility] [address] [place] [address] Dr. Nicole Lam CBC AUTO DIFFon 2022 BASO # 0.0 103/ul Normal 0.0-0.1 [facility] Comment on above: Performed By: #### F ERR, B12FOL, FETIBC #### [facility] [address] [place] [address] Dr. Nicole Lam Basophils/100 WBC (Bld) 0.5 % Normal 0.2-2.0 [facility] Comment on above: Performed By: #### F ERR, B12FOL, FETIBC #### [facility] [address] [place] [address] Dr. Nicole Lam EO # 0.2 103/ul Normal 0.0-0.7 [facility] Comment on above: Performed By: #### F ERR, B12FOL, FETIBC #### [facility] [address] [place] [address] Dr. Nicole Lam Eosinophils/100 WBC (Bld) 2.9 % Normal 0.9-7.0 [facility] Comment on above: Performed By: #### F ERR, B12FOL, FETIBC #### [facility] [address] [place] [address] Dr. Nicole Lam Erythrocyte distribution width (RBC) [Ratio] 13.6 % Normal 11.0-15.0 [facility] Comment on above: Performed By: #### F ERR, B12FOL, FETIBC #### [facility] [address] [place] [address] Dr. Nicole Lam Hematocrit (Bld) [Volume fraction] 38.6 % Critically low 42.0-54.0 [facility] Comment on above: Performed By: #### F ERR, B12FOL, FETIBC #### [facility] [address] [place] [address] Dr. Nicole Lam Hemoglobin (Bld) [Mass/Vol] 13.0 g/dL Critically low 14.0-18.0 [facility] Comment on above: Performed By: #### F ERR, B12FOL, FETIBC #### [facility] [address] [place] [address] Dr. Nicole Lam IG # 0.01 10e3/ul Normal 0.00-0.03 [facility] Comment on above: Performed By: #### F ERR, B12FOL, FETIBC #### [facility] [address] [place] [address] Dr. Nicole Lam IG % 0.2 % Normal 0.0-0.5 [facility] Comment on above: Performed By: #### F ERR, B12FOL, FETIBC #### [facility] [address] [place] [address] Dr. Nicole Lam LYMPH # 1.1 103/ul Critically low 1.2-3.[address] [facility] Comment on above: Performed By: #### F ERR, B12FOL, FETIBC #### [facility] [address] [place] [address] Dr. Nicole Lam Lymphocytes/100 WBC (Bld) 19.8 % Critically low 20.5-60.0 [facility] Comment on above: Performed By: #### F ERR, B12FOL, FETIBC #### [facility] [address] [place] [address] Dr. Nicole Lam MANUAL DIFF REQ NO Normal [facility] Comment on above: Performed By: #### F ERR, B12FOL, FETIBC #### [facility] [address] [place] [address] Dr. Nicole Lam MCH (RBC) [Entitic mass] 31.1 pg Normal 25.9-34.0 [facility] Comment on above: Performed By: #### F ERR, B12FOL, FETIBC #### [facility] [address] [place] [address] Dr. Nicole Lam MCHC (RBC) [Mass/Vol] 33.7 g/dL Normal 29.9-35.2 [facility] Comment on above: Performed By: #### F ERR, B12FOL, FETIBC #### [facility] [address] [place] [address] Dr. Nicole Lam MCV (RBC) [Entitic vol] 92.3 fL Normal 80.0-94.0 [facility] Comment on above: Performed By: #### F ERR, B12FOL, FETIBC #### [facility] [address] [place] [address] Dr. Nicole Lam MONO # 0.5 103/ul Normal 0.3-0.8 [facility] Comment on above: Performed By: #### F ERR, B12FOL, FETIBC #### [facility] [address] [place] [address] Dr. Nicole Lam Monocytes/100 WBC (Bld) 8.2 % Normal 1.7-12.0 [facility] Comment on above: Performed By: #### F ERR, B12FOL, FETIBC #### [facility] [address] [address] [address] Nicole Lam NEUT # 3.8 103/ul Normal 1.4-6.5 [facility] Comment on above: Performed By: #### F ERR, B12FOL, FETIBC #### [facility] [address] [address] [address] Nicole Lam Neutrophils/100 WBC (Bld) 68.4 % Normal 43.0-75.0 [facility] Comment on above: Performed By: #### F ERR, B12FOL, FETIBC #### [facility] [address] [address] [address] Nicole Lam Platelet mean volume (Bld) [Entitic vol] 8.9 fL Critically low 9.5-13.5 [facility] Comment on above: Performed By: #### F ERR, B12FOL, FETIBC #### [facility] [address] [address] [address] Nicole Lam PLT 295 103/ul Normal 150-450 [facility] Comment on above: Performed By: #### F ERR, B12FOL, FETIBC #### [facility] [address] [address] [address] Nicole Lam RBC 4.18 106/ul Critically low 4.70-6.10 [facility] Comment on above: Performed By: #### F ERR, B12FOL, FETIBC #### [facility] [address] [place] [address] Dr. Nicole Lam WBC 5.6 103/ul Normal 4.0-11.0 [facility] Comment on above: Performed By: #### F ERR, B12FOL, FETIBC #### [facility] [address] [place] [address] Dr. Nicole Lam GLYCOHEMOGLOBIN A1Con 2021 ADA RECOMMENDATION SEE BELOW Normal [place] Comment on above: Result Comment: ADA RECOMMENDED LIMIT 4.0 - 6.0 ADA THERAPEUTIC TARGET < 7.0 ACTION SUGGESTED > 7.0 Performed By: #### F ERR, B12FOL, FETIBC #### [facility] [address] [address] [address] Nicole Lam Glucose [Mass/Vol] 120 mg/dL Normal [place] Comment on above: Performed By: #### F ERR, B12FOL, FETIBC #### [facility] [address] [address] [address] Nicole Lam HbA1c (Bld) [Mass fraction] 5.8 % Normal 4.5-6.2 [facility] Comment on above: Performed By: #### F ERR, B12FOL, FETIBC #### [facility] [address] [address] [address] Nicole Lam LIPID PROFILEon 2022 CHOL-HDL RATIO NORM SEE BELOW Normal [facility] Comment on above: Result Comment: 3.3 - 4.4 LOW RISK 4.4 - 7.1 AVERAGE RISK 7.1 - 11.0 MODERATE RISK >11.0 HIGH RISK Performed By: #### L IPID, BMP #### [facility] [address] [place] [address] Dr. Nicole Lam Cholesterol [Mass/Vol] 251 mg/dL Critically high <=200 [facility] Comment on above: Performed By: #### L IPID, BMP #### [facility] [address] [place] [address] Dr. Nicole Lam Cholesterol in HDL [Mass/Vol] 63 mg/dL Critically high 40-60 [facility] Comment on above: Performed By: #### L IPID, BMP #### [facility] [address] [place] [address] Dr. Nicole Lam Cholesterol in LDL [Mass/Vol] 151.6 mg/dL Normal [facility] Comment on above: Performed By: #### L IPID, BMP #### [facility] [address] [address] [address] Nicole Lam Cholesterol.total/Cho lesterol in HDL [Mass ratio] 4.0 {ratio} Normal [facility] Comment on above: Performed By: #### L IPID, BMP #### [facility] [address] [address] [address] Nicole Lam HDL NORMAL > or = 60 mg/dl - LOW CARDIOVASCULAR RISK <40 mg/dl - HIGH CARDIOVASCULAR RISK Normal [facility] Comment on above: Performed By: #### L IPID, BMP #### [facility] [address] [address] [address] Nicole Lam LDL CALC NORMAL SEE BELOW Normal [facility] Comment on above: Result Comment: <100 mg/dl OPTIMAL 100 - 129 mg/dl NEAR OR ABOVE OPTIMAL 130 - 159 mg/dl BORDERLINE HIGH 160 - 189 mg/dl HIGH >190 mg/dl VERY HIGH Performed By: #### L IPID, BMP #### [facility] [address] [address] [address] Nicole Lam Triglyceride [Mass/Vol] 182 mg/dL Critically high <=150 [facility] Comment on above: Performed By: #### L IPID, BMP #### [facility] [address] [address] [address] Nicole Lam VLDL CALC 36.4 mg/dL Normal [facility] Comment on above: Performed By: #### L IPID, BMP #### [facility] [address] [address] [address] Nicole Lam PROF CHEM 8 (BAS METB)on Anion gap [Moles/Vol] 10.5 mmol/L Normal [facility] Comment on above: Performed By: #### L IPID, BMP #### [facility] [address] [address] [address] Nicole Lam Calcium [Mass/Vol] 9.4 mg/dL Normal 8.5-10.1 [place] Comment on above: Performed By: #### L IPID, BMP #### [facility] [address] [address] [address] Nicole Lam Chloride [Moles/Vol] 104 mmol/L Normal 98-107 [facility] Comment on above: Performed By: #### L IPID, BMP #### [facility] [address] [address] [address] Nicole Lam CO2 [Moles/Vol] 29.9 mmol/L Normal 21.0-32.0 [facility] Comment on above: Performed By: #### L IPID, BMP #### [facility] [address] [place] [address] Dr. Nicole Lam Creatinine [Mass/Vol] 1.16 mg/dL Normal 0.70-1.30 [facility] Comment on above: Performed By: #### L IPID, BMP #### [facility] [address] [address] [address] Nicole Lam EGFR-AF [place]ER >60 Normal >=60 [facility] Comment on above: Performed By: #### L IPID, BMP #### [facility] [address] [place] [address] Dr. Nicole Lam EGFR-NON AF [place] >60 Normal >=60 [facility] Comment on above: Performed By: #### L IPID, BMP #### [facility] [address] [place] [address] Dr. Nicole Lam Glucose [Mass/Vol] 104 mg/dL Normal 74-106 [place] Comment on above: Performed By: #### L IPID, BMP #### [facility] [address] [place] [address] Dr. Nicole Lam Potassium [Moles/Vol] 4.4 mmol/L Normal 3.5-5.1 [facility] Comment on above: Performed By: #### L IPID, BMP #### [facility] [address] [place] [address] Dr. Nicole Lam Sodium [Moles/Vol] 140 mmol/L Normal 136-145 [place] Comment on above: Performed By: #### L IPID, BMP #### [facility] [address] [place] [address] Dr. Nicole Lam Urea nitrogen [Mass/Vol] 18.0 mg/dL Normal 7.0-18.0 [facility] Comment on above: Performed By: #### L IPID, BMP #### [facility] [address] [place] [address] Dr. Nicole Lam Urea nitrogen/Creatinine [Mass ratio] 15.5 mg/mg Normal [facility] Comment on above: Performed By: #### L IPID, BMP #### [facility] [address] [place], [place] [address] Dr. Nicole Lam HIP RIGHT 1 OR 2 VWS WITH PE LVISon 12-10-2021 HIP RIGHT 1 OR 2 VWS WITH PELVIS [facility] Department of Radiology [address] [place] [address] Patient Name: EMILY CALDWELL : [...] above Electronically signed: Laura Burns. Transcribed by: [email or web address], User Resident: Electronically Signed by: LAURA BURNS @ 12/11/2021 12:11 PM Normal [facility] Comment on above: Order Comment: No: D o not add to previous draw LUMBAR SPINE 2 OR 3 VWSon LUMBAR SPINE 2 OR 3 S [facility] Department of Radiology [address] [place] [id number] Patient Name: EMILY CALDWELL : 1950 [...] pain Exam: LUMBAR SPINE 2 OR 3 VWS LUMBAR SPINE 2 OR 3 VWS 12/10/2021 2:48 PM CLINICAL INDICATIONS: M48.061 Spinal [...] above Electronically signed: Laura Burns. Transcribed by: [email or web address], User Resident: Electronically Signed by: LAURA BURNS @ 12/11/2021 12:49 PM Normal [facility] Comment on above: Order Comment: No: D o not add to previous draw LUMBAR SPINE 4 OR 5 [facility] LUMBAR SPINE 4 OR 5 [facility] Department of Radiology [address] [place] [id number] Patient Name: EMILY CALDWELL : 1950 Sex: M Age: Race: White Pt. 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 Electronically signed: Adria Craig. Transcribed by: [email or web address], User Resident: Electronically Signed by: ADRIA CRAIG @ 11/24/2021 01:58 AM Normal [facility] Comment on above: Order Comment: No: D o not add to previous draw Operative Reporton 2 Operative Report MR#: [id number] I [facility] Pt. Name: Emily Caldwell Room #: [id number] Discharge 10/15/2021 Date: Birthdate: 1950 OPERATIVE REPORT [...] screws, placed with the aid of the Evgen robot and with image guidance. 5. Posterior [...] difficulty. This was then docked to the Evgen robot. The O-arm was brought to the field after draping the field sterilely and then the spin was completed. The registration was good and the O-arm was removed. With the O-arm registration good and confirmation of the levels to be operated, the site for the pedicle screws were selected on the Edtripsor robot. The trajectories were selected and then [...] cag (more content not included)... Normal [facility] BASIC METABOLIC PANELon 03-2 Calcium [Mass/Vol] 8.8 mg/dL Normal 8.6-10.3 [facility] Comment on above: Order Comment: No: D o not add to previous draw Performed By: #### [id number] #### [facility] [address] [place] [address], [place] Chloride [Moles/Vol] 97 mmol/L Low 98-107 [facility] Comment on above: Order Comment: No: D o not add to previous draw Performed By: #### 5 [id number] #### [facility] [address] [place] [address], [place] CO2 [Moles/Vol] 27 mmol/L Normal 21-31 [facility] Comment on above: Order Comment: No: D o not add to previous draw Performed By: #### 5 [id number] #### [facility] [address] [place] [address], [place] Creatinine [Mass/Vol] 0.99 mg/dL Normal 0.70-1.30 [facility] Comment on above: Order Comment: No: D o not add to previous draw Performed By: #### 5 [id number] #### [facility] [address] [place] [address], [facility] GFR/1.73 sq M.predicted among blacks MDRD (S/P/Bld) [Vol rate/Area] mL/min/{1.73_m2} Normal >60 [facility] Comment on above: Order Comment: No: D o not add to previous draw Result Comment: Calc ulation may not be valid for patients over 70 years Performed By: #### 5 [id number] #### [facility] [address] [place] [address], [facility] GFR/1.73 sq M.predicted among non-blacks MDRD (S/P/Bld) [Vol rate/Area] mL/min/{1.73_m2} Normal >60 [facility] Comment on above: Order Comment: No: D o not add to previous draw Result Comment: Calc ulation may not be valid for patients over 70 years Performed By: #### 5 [id number] #### [facility] [address] [place] [address], [facility] Glucose [Mass/Vol] 107 mg/dL High 70-100 [facility] Comment on above: Order Comment: No: D o not add to previous draw Performed By: #### 5 [id number] #### [facility] [address] [place] [address], [facility] Potassium [Moles/Vol] 3.8 mmol/L Normal 3.5-5.1 [facility] Comment on above: Order Comment: No: D o not add to previous draw Performed By: #### 5 [id number] #### [facility] [address] [place] [address], [place] Sodium [Moles/Vol] 132 mmol/L Low 136-145 The [facility] Comment on above: Order Comment: No: D o not add to previous draw Performed By: #### 5 0608 #### [facility] [address] [place] [address], [facility] Urea nitrogen [Mass/Vol] 18 mg/dL Normal 7-25 [facility] Comment on above: Order Comment: No: D o not add to previous draw Performed By: #### 5 0608 #### [facility] [address] [place] [address], [facility] CBC COMPLETE BLOOD COUNTon 0 - Erythrocyte distribution width (RBC) [Ratio] 12.6 % Normal 11.5-15.0 [facility] Comment on above: Order Comment: No: D o not add to previous draw Performed By: #### 1 0070, 74613, 68407 #### [facility] [address] [place] [address], [facility] Hematocrit (Bld) [Volume fraction] 30.5 % Low 39.0-50.0 [facility] Comment on above: Order Comment: No: D o not add to previous draw Performed By: #### 1 0070, 17935, 37173 #### [facility] [address] [place] [address], [facility] Hemoglobin (Bld) [Mass/Vol] 10.6 g/dL Low 13.0-17.0 [facility] Comment on above: Order Comment: No: D o not add to previous draw Performed By: #### 1 0, 21758, 28562 #### [facility] [address] [place] [address], [facility] MCH (RBC) [Entitic mass] 32.0 pg Normal 27.0-33.0 [facility] Comment on above: Order Comment: No: D o not add to previous draw Performed By: #### 1 0070, 75065, 95640 #### [facility] [address] [place] [address], [facility] MCHC (RBC) [Mass/Vol] 34.8 g/dL Normal 32.0-35.0 [facility] Comment on above: Order Comment: No: D o not add to previous draw Performed By: #### 1 0070, 14374, 30263 #### [facility] [address] [address], [facility] MCV (RBC) [Entitic vol] 92.1 fL Normal 82.0-98.0 [facility] Comment on above: Order Comment: No: D o not add to previous draw Performed By: #### 1 0070, 59776, 63272 #### [facility] [address] [place] [address], [facility] Nucleated RBC/100 WBC (Bld) [Ratio] 0 % Normal 0-0 [facility] Comment on above: Order Comment: No: D o not add to previous draw Performed By: #### 1 0070, 65190, 15908 #### [facility] [address] [place] [id number], [place] PLAT CNT 277 10*3/uL Normal 150-400 [facility] Comment on above: Order Comment: No: D o not add to previous draw Performed By: #### 1 0070, 35427, 61175 #### [facility] [address] [place] [id number], [facility] RBC (Bld) [#/Vol] 3.31 10*6/uL Low 4.20-5.70 [facility] Comment on above: Order Comment: No: D o not add to previous draw Performed By: #### 1 0070, 67459, 44327 #### [facility] [address] [place] [id number], [facility] WBC (Bld) [#/Vol] 8.91 10*3/uL Normal 4.00-10.60 [facility] Comment on above: Order Comment: No: D o not add to previous draw Performed By: #### 1 0070, 39066, 61691 #### [facility] [address] BASIC METABOLIC PANELon 03-2 -2021 Calcium [Mass/Vol] 8.9 mg/dL Normal 8.6-10.3 [facility] Comment on above: Order Comment: No: D o not add to previous draw Performed By: #### 1 0, 24725, 76143 #### [facility] [address] [place] [id number], [facility] Chloride [Moles/Vol] 98 mmol/L Normal 98-107 [facility] Comment on above: Order Comment: No: D o not add to previous draw Performed By: #### 1 0070, 34374, 13673 #### [facility] [address] [place] [address], [place] CO2 [Moles/Vol] 28 mmol/L Normal 21-31 [facility] Comment on above: Order Comment: No: D o not add to previous draw Performed By: #### 1 0, 20468, 98639 #### [facility] [address] [place] [address], [place] Creatinine [Mass/Vol] 1.10 mg/dL Normal 0.70-1.30 [facility] Comment on above: Order Comment: No: D o not add to previous draw Performed By: #### 1 0070, 66084, 59828 #### [facility] [address] [place] [address], [place] GFR/1.73 sq M.predicted among blacks MDRD (S/P/Bld) [Vol rate/Area] mL/min/{1.73_m2} Normal >60 [facility] Comment on above: Order Comment: No: D o not add to previous draw Result Comment: Calc ulation may not be valid for patients over 70 years Performed By: #### 1 0070, 67029, 92932 #### [facility] [address] [place] [address], [place] GFR/1.73 sq M.predicted among non-blacks MDRD (S/P/Bld) [Vol rate/Area] mL/min/{1.73_m2} Normal >60 [facility] Comment on above: Order Comment: No: D o not add to previous draw Result Comment: Calc ulation may not be valid for patients over 70 years Performed By: #### 1 0070, 56520, 03888 #### [facility] [address] [place] [address], [place] Glucose [Mass/Vol] 105 mg/dL High 70-100 [facility] Comment on above: Order Comment: No: D o not add to previous draw Performed By: #### 1 0070, 40046, 15204 #### [facility] [address] [place] [address], [place] Potassium [Moles/Vol] 4.0 mmol/L Normal 3.5-5.1 [facility] Comment on above: Order Comment: No: D o not add to previous draw Performed By: #### 1 0070, 10651, 52161 #### [facility] [address] [place] [id number], [facility] Sodium [Moles/Vol] 133 mmol/L Low 136-145 [facility] Comment on above: Order Comment: No: D o not add to previous draw Performed By: #### 1 0070, 09968, 44919 #### [facility] [address] [place] [address], [facility] Urea nitrogen [Mass/Vol] 18 mg/dL Normal 7-25 [facility] Comment on above: Order Comment: No: D o not add to previous draw Performed By: #### 1 0, 58335, 35782 #### [facility] [address] CBC COMPLETE BLOOD COUNTon 0 - Erythrocyte distribution width (RBC) [Ratio] 13.2 % Normal 11.5-15.0 [facility] Comment on above: Order Comment: No: D o not add to previous draw Performed By: #### 5 0608 #### [facility] [address] [place] [address], [facility] Hematocrit (Bld) [Volume fraction] 30.8 % Low 39.0-50.0 [facility] Comment on above: Order Comment: No: D o not add to previous draw Performed By: #### 5 0608 #### [facility] [address] [place] [id number], [facility] Hemoglobin (Bld) [Mass/Vol] 10.7 g/dL Low 13.0-17.0 [facility] Comment on above: Order Comment: No: D o not add to previous draw Performed By: #### 5 0608 #### [facility] [address] [place] [id number], [facility] MCH (RBC) [Entitic mass] 31.6 pg Normal 27.0-33.0 [facility] Comment on above: Order Comment: No: D o not add to previous draw Performed By: #### 5 0608 #### [facility] [address] [place] [address], [facility] MCHC (RBC) [Mass/Vol] 34.7 g/dL Normal 32.0-35.0 [facility] Comment on above: Order Comment: No: D o not add to previous draw Performed By: #### 5 0608 #### [facility] [address] [place] [address], [facility] MCV (RBC) [Entitic vol] 90.9 fL Normal 82.0-98.0 [facility] Comment on above: Order Comment: No: D o not add to previous draw Performed By: #### 5 0608 #### [facility] [address] [facility] [place] [address], [facility] Nucleated RBC/100 WBC (Bld) [Ratio] 0 % Normal 0-0 [facility] Comment on above: Order Comment: No: D o not add to previous draw Performed By: #### 5 0608 #### [facility] [address] [facility] [place] [address], [facility] PLAT CNT 222 10*3/uL Normal 150-400 [facility] Comment on above: Order Comment: No: D o not add to previous draw Performed By: #### 5 0608 #### [facility] [address] [facility] [place] [address], [facility] RBC (Bld) [#/Vol] 3.39 10*6/uL Low 4.20-5.70 [facility] Comment on above: Order Comment: No: D o not add to previous draw Performed By: #### 5 0608 #### [facility] [address] [place] [address], [facility] WBC (Bld) [#/Vol] 9.97 10*3/uL Normal 4.00-10.60 [facility] Comment on above: Order Comment: No: D o not add to previous draw Performed By: #### 5 0608 #### [facility] [address] [place] [address], [facility] MAGNESIUM BLOODon 10-14-2021 Magnesium [Mass/Vol] 1.9 mg/dL Normal 1.9-2.7 [facility] Comment on above: Order Comment: No: D o not add to previous draw Performed By: #### 1 0070, 77204, 21948 #### [facility] [address] [place] [address], [place] PHOSPHORUS BLOODon Phosphate [Mass/Vol] 2.6 mg/dL Normal 2.5-5.0 [facility] Comment on above: Order Comment: No: D o not add to previous draw Performed By: #### 1 0070, 48156, 03349 #### [facility] [address] [place] [address], [facility] BASIC METABOLIC PANELon 09-18 Calcium [Mass/Vol] 8.7 mg/dL Normal 8.6-10.3 [facility] Comment on above: Order Comment: No: D o not add to previous draw Performed By: #### 1 0070, 44840, 00497 #### [facility] [address] [place] [address], [place] Chloride [Moles/Vol] 98 mmol/L Normal 98-107 [facility] Comment on above: Order Comment: No: D o not add to previous draw Performed By: #### 1 0070, 47154, 41931 #### [facility] [address] [place] [address], [place] CO2 [Moles/Vol] 24 mmol/L Normal 21-31 [facility] Comment on above: Order Comment: No: D o not add to previous draw Performed By: #### 1 0070, 36440, 10207 #### [facility] [address] [place] [address], [facility] Creatinine [Mass/Vol] 1.16 mg/dL Normal 0.70-1.30 [facility] Comment on above: Order Comment: No: D o not add to previous draw Performed By: #### 1 0, 95415, 02849 #### [facility] [address] [place] [address], [place] GFR/1.73 sq M.predicted among blacks MDRD (S/P/Bld) [Vol rate/Area] mL/min/{1.73_m2} Normal >60 [facility] Comment on above: Order Comment: No: D o not add to previous draw Result Comment: Calc ulation may not be valid for patients over 70 years Performed By: #### 1 0, 65410, 26516 #### [facility] [address] [place] [address], [facility] GFR/1.73 sq M.predicted among non-blacks MDRD (S/P/Bld) [Vol rate/Area] mL/min/{1.73_m2} Normal >60 [facility] Comment on above: Order Comment: No: D o not add to previous draw Result Comment: Calc ulation may not be valid for patients over 70 years Performed By: #### 1 0, 86644, 00543 #### [facility] [address] [place] [address], [place] Glucose [Mass/Vol] 157 mg/dL High 70-100 [facility] Comment on above: Order Comment: No: D o not add to previous draw Performed By: #### 1 0070, 85217, 81219 #### [facility] [address] [place] [address], [place] Potassium [Moles/Vol] 3.3 mmol/L Low 3.5-5.1 [facility] Comment on above: Order Comment: No: D o not add to previous draw Performed By: #### 1 0, 25033, 80526 #### [facility] [address] [place] [address], [facility] Sodium [Moles/Vol] 132 mmol/L Low 136-145 [facility] Comment on above: Order Comment: No: D o not add to previous draw Performed By: #### 1 0070, 72308, 39092 #### [facility] [address] [place] [address], [facility] Urea nitrogen [Mass/Vol] 18 mg/dL Normal 7-25 [facility] Comment on above: Order Comment: No: D o not add to previous draw Performed By: #### 1 0070, 42654, 33923 #### [facility] [address] [place] [id number], [facility] MAGNESIUM BLOODon 10-13-2021 Magnesium [Mass/Vol] 1.6 mg/dL Low 1.9-2.7 [facility] Comment on above: Order Comment: No: D o not add to previous draw Performed By: #### 1 0, 49575, 94818 #### [facility] [address] [place] [address], [facility] PHOSPHORUS BLOODon Phosphate [Mass/Vol] 2.9 mg/dL Normal 2.5-5.0 [facility] Comment on above: Order Comment: No: D o not add to previous draw Performed By: #### 1 0, 86160, 13522 #### [facility] [address] [place] [address], [place] BASIC METABOLIC PANELon - Calcium [Mass/Vol] 8.9 mg/dL Normal 8.6-10.3 [facility] Comment on above: Order Comment: No: D o not add to previous draw Performed By: #### 0 0071 #### [facility] [address] [place] [address], [place] Chloride [Moles/Vol] 104 mmol/L Normal 98-107 [facility] Comment on above: Order Comment: No: D o not add to previous draw Performed By: #### 0 0071 #### [facility] [address] [place] [address], [place] CO2 [Moles/Vol] 22 mmol/L Normal 21-31 [facility] Comment on above: Order Comment: No: D o not add to previous draw Performed By: #### 0 0071 #### [facility] [address] [place] [address], [facility] Creatinine [Mass/Vol] 0.98 mg/dL Normal 0.70-1.30 [facility] Comment on above: Order Comment: No: D o not add to previous draw Performed By: #### 0 0071 #### [facility] [address] [place] [address], [facility] GFR/1.73 sq M.predicted among blacks MDRD (S/P/Bld) [Vol rate/Area] mL/min/{1.73_m2} Normal >60 [facility] Comment on above: Order Comment: No: D o not add to previous draw Result Comment: Calc ulation may not be valid for patients over 70 years Performed By: #### 0 0071 #### [facility] [address] [place] [address], [facility] GFR/1.73 sq M.predicted among non-blacks MDRD (S/P/Bld) [Vol rate/Area] mL/min/{1.73_m2} Normal >60 [facility] Comment on above: Order Comment: No: D o not add to previous draw Result Comment: Calc ulation may not be valid for patients over 70 years Performed By: #### 0 0071 #### [facility] [address] [place] [address], [place] Glucose [Mass/Vol] 115 mg/dL High 70-100 [facility] Comment on above: Order Comment: No: D o not add to previous draw Performed By: #### 0 0071 #### [facility] [address] [place] [address], [facility] Potassium [Moles/Vol] 3.9 mmol/L Normal 3.5-5.1 [facility] Comment on above: Order Comment: No: D o not add to previous draw Performed By: #### 0 0071 #### [facility] [address] [place] [address], [facility] Sodium [Moles/Vol] 135 mmol/L Low 136-145 [facility] Comment on above: Order Comment: No: D o not add to previous draw Performed By: #### 0 0071 #### [facility] [address] [place] [id number], [facility] Urea nitrogen [Mass/Vol] 20 mg/dL Normal 7-25 [facility] Comment on above: Order Comment: No: D o not add to previous draw Performed By: #### 0 0071 #### [facility] [address] [place] [address], [facility] CBC COMPLETE BLOOD COUNTon 0 - Erythrocyte distribution width (RBC) [Ratio] 13.2 % Normal 11.5-15.0 [facility] Comment on above: Order Comment: No: D o not add to previous draw Performed By: #### 5 0608 #### [facility] [address] [place] [id number], [facility] Hematocrit (Bld) [Volume fraction] 30.8 % Low 39.0-50.0 [facility] Comment on above: Order Comment: No: D o not add to previous draw Performed By: #### 5 0608 #### [facility] [address] [place] [id number], [facility] Hemoglobin (Bld) [Mass/Vol] 10.6 g/dL Low 13.0-17.0 [facility] Comment on above: Order Comment: No: D o not add to previous draw Performed By: #### 5 0608 #### [facility] [address] [place] [address], [facility] MCH (RBC) [Entitic mass] 31.9 pg Normal 27.0-33.0 [facility] Comment on above: Order Comment: No: D o not add to previous draw Performed By: #### 5 0608 #### [facility] [address] [place] [address], [facility] MCHC (RBC) [Mass/Vol] 34.4 g/dL Normal 32.0-35.0 [facility] Comment on above: Order Comment: No: D o not add to previous draw Performed By: #### 5 0608 #### [facility] [address] [place] [address], [facility] MCV (RBC) [Entitic vol] 92.8 fL Normal 82.0-98.0 [facility] Comment on above: Order Comment: No: D o not add to previous draw Performed By: #### 5 0608 #### [facility] [address] [place] [address], [facility] Nucleated RBC/100 WBC (Bld) [Ratio] 0 % Normal 0-0 [facility] Comment on above: Order Comment: No: D o not add to previous draw Performed By: #### 5 0608 #### [facility] [address] [place] [address], [facility] PLAT CNT 253 10*3/uL Normal 150-400 [facility] Comment on above: Order Comment: No: D o not add to previous draw Performed By: #### 5 0608 #### [facility] [address] [place] [address], [facility] RBC (Bld) [#/Vol] 3.32 10*6/uL Low 4.20-5.70 [facility] Comment on above: Order Comment: No: D o not add to previous draw Performed By: #### 5 0608 #### [address] WBC (Bld) [#/Vol] 13.88 10*3/uL High 4.00-10.60 [facility] Comment on above: Order Comment: No: D o not add to previous draw Performed By: #### 5 0608 #### [address] LUMBAR SPINE 2 OR 3 Son LUMBAR SPINE 2 OR 3 VWS [facility] Department of Radiology [address] [place] [address] [phone] Patient Name: EMILY CALDWELL : 1950 Sex: M Age: Race: White Pt. Location: OUTP Patient Status: I Ordered Date: 10/12/2021 10:00:00 AM Completed Date: 10/12/2021 10:05 AM Requesting Provider: DENA SPENCER Attending Provider: ENRIQUE SINGER Report Copy To: Signs & Symptoms: Post OP History: See Comments Comments: Hardware Evaluation Exam: LUMBAR SPINE 2 OR 3 VWS LUMBAR SPINE 2 OR 3 VWS HISTORY: Postop surgery. COMPARISON: 10/11/2021. IMPRESSION: 1. Postoperative changes from L5-S1 posterior and interbody fusion. Minimal grade 1 anterolisthesis L5-S1. Postoperative changes from L3, likely L5 posterior decompression. 2. No acute modality. No compression deformity. Unchanged degenerative changes from MRI dated 07/29/2021. Slight broad-based levoconvex curvature spanning the lumbar spine. Electronically signed: Vish Ayon. Transcribed by: [email or web address], User Resident: Electronically Signed by: VISH AYON @ 10/13/2021 06:48 PM Normal [facility] Comment on above: Order Comment: No: D o not add to previous draw LUMBAR SPINE 2 OR 3 Son LUMBAR SPINE 2 OR 3 [facility] Department of Radiology [address] [place] [phone] Patient Name: EMILY CALDWELL : 1950 [...] FUSION Exam: LUMBAR SPINE 2 OR 3 S LUMBAR SPINE 2 OR 3 VWS 10/11/2021 [...] above Electronically signed: Darin Garcia. Transcribed by: [email or web address], User Resident: DARIN GARCIA Electronically Signed by: DARIN GARCIA @ 10/13/2021 09:07 AM I personally read this/these film(s) with this resident Normal [facility] Comment on above: Order Comment: No: D o not add to previous draw POC GLUCOSE LABon 10-11-2021 Glucose [Mass/Vol] 107 mg/dL High 70-100 [facility] Comment on above: Performed By: #### 5 0608 #### [facility] [address] *MRSA/MSSA DNA NASALon 09-17 *MRSA/MSSA DNA NASAL Clinical Report: (D ) Specimen: NASAL SWAB Collected: 09/17/2021 15:02 Status: Final Last Updated: 09/17/2021 19:17 MSSA DNA (Final) Negative MRSA DNA (Final) Methicillin Resistant Staphylococcus aureus DNA Detected Normal [facility] Comment on above: Performed By: #### 5 0608 #### [facility] [address] [place] [address], [facility] APTTon 09-17-2021 aPTT Coag (Bld) [Time] 29.2 s Normal 25.0-35.0 [facility] Comment on above: Result Comment: ALL [...] PURPOSE. Performed By: #### 5 0608 #### [facility] [address] [place] [address], [place] BASIC METABOLIC PANELon 03-0 Calcium [Mass/Vol] 9.1 mg/dL Normal 8.6-10.3 [facility] Comment on above: Performed By: #### 0 0071 #### [facility] [address] [place] [address], [place] Chloride [Moles/Vol] 103 mmol/L Normal 98-107 [facility] Comment on above: Performed By: #### 0 0071 #### [facility] [address] [place] [address], [place] CO2 [Moles/Vol] 28 mmol/L Normal 21-31 [facility] Comment on above: Performed By: #### 0 0071 #### [facility] [address] [place] [address], [place] Creatinine [Mass/Vol] 1.31 mg/dL High 0.70-1.30 [facility] Comment on above: Performed By: #### 0 0071 #### [facility] [address] [place] [address], [place] eGFR- non- 54 ml/min/1.73sq m Abnormal >60 [facility] Comment on above: Result Comment: Calc ulation may not be valid for patients over 70 years Performed By: #### 0 0071 #### [facility] [address] [place] [address], [place] GFR/1.73 sq M.predicted among blacks MDRD (S/P/Bld) [Vol rate/Area] mL/min/{1.73_m2} Normal >60 [facility] Comment on above: Result Comment: Calc ulation may not be valid for patients over 70 years Performed By: #### 0 0071 #### [facility] [address] [place] [address], [place] Glucose [Mass/Vol] 82 mg/dL Normal 70-100 [facility] Comment on above: Performed By: #### 0 0071 #### [facility] [address] [place] [address], [facility] Potassium [Moles/Vol] 4.1 mmol/L Normal 3.5-5.1 [facility] Comment on above: Performed By: #### 0 0071 #### [facility] [address] [facility] [facility] [place] [address], [facility] Sodium [Moles/Vol] 138 mmol/L Normal 136-145 [facility] Comment on above: Performed By: #### 0 0071 #### [facility] [address] [facility] [facility] [place] [address], [facility] Urea nitrogen [Mass/Vol] 28 mg/dL High 7-25 The [facility] Comment on above: Performed By: #### [id number] #### [facility] [address] [facility] [place] [address], [facility] CBC W/DIFFon 09-17-2021 ABS IMM GRANS 0.0 10*3/uL Normal 0.0-0.2 The [facility] Comment on above: Performed By: #### [id number] #### [facility] [address] [facility] [place] [place] [address], [facility] ABS NEUTROPHILS 3.6 10*3/uL Normal 1.6-7.6 The [facility] Comment on above: Performed By: #### [id number] #### [facility] [address] [facility] [place] [address], [facility] Basophils (Bld) [#/Vol] 0.0 10*3/uL Normal 0.0-0.2 The [facility] Comment on above: Performed By: #### [id number] #### [facility] [address] [facility] [place] [place] [address], [place] Basophils/100 WBC (Bld) 0.7 % Normal 0.0-1.0 The [facility] Comment on above: Performed By: #### [id number] #### [facility] [address] [place] [address], [facility] Eosinophils (Bld) [#/Vol] 0.1 10*3/uL Normal 0.0-0.5 The [facility] Comment on above: Performed By: #### [id number] #### [facility] [address] [place] [address], [facility] Eosinophils/100 WBC (Bld) 2.4 % Normal 0.0-6.0 The [facility] Comment on above: Performed By: #### [id number] #### [facility] [address] Erythrocyte distribution width (RBC) [Ratio] 14.5 % Normal 11.5-15.0 [facility] Comment on above: Performed By: #### [id number] #### [facility] [address] [facility] [place] [address], [facility] Hematocrit (Bld) [Volume fraction] 34.9 % Low 39.0-50.0 [facility] Comment on above: Performed By: #### [id number] #### [facility] [address] [place] [address], [facility] Hemoglobin (Bld) [Mass/Vol] 12.1 g/dL Low 13.0-17.0 [facility] Comment on above: Performed By: #### [id number] #### [facility] [address] [facility] [facility] [place] [address], [facility] IMMATURE GRANS 0.5 % Normal 0.0-1.0 The [facility] Comment on above: Performed By: #### [id number] #### [facility] [address] [place] [address], [facility] Lymphocytes (Bld) [#/Vol] 1.3 10*3/uL Normal 1.2-4.0 [facility] Comment on above: Performed By: #### [id number] #### [facility] [address] [facility] [place] [address], [facility] Lymphocytes/100 WBC (Bld) 22.8 % Normal 20.0-45.0 [facility] Comment on above: Performed By: #### [id number] #### [facility] [address] [facility] [place] [address], [facility] MCH (RBC) [Entitic mass] 31.8 pg Normal 27.0-33.0 [facility] Comment on above: Performed By: #### [id number] #### [facility] [address] [facility] [address], [facility] MCHC (RBC) [Mass/Vol] 34.7 g/dL Normal 32.0-35.0 [facility] Comment on above: Performed By: #### [id number] #### [facility] [address] [facility] [place] [address], [facility] MCV (RBC) [Entitic vol] 91.8 fL Normal 82.0-98.0 [facility] Comment on above: Performed By: #### [id number] #### [facility] [address] [facility] [place] [address], [facility] Monocytes (Bld) [#/Vol] 0.6 10*3/uL Normal 0.1-1.0 [facility] Comment on above: Performed By: #### [id number] #### [facility] [address] [facility] [place] [address], [facility] MONOS 11.0 % Normal 5.0-12.0 [facility] Comment on above: Performed By: #### [id number] #### [facility] [address] [place] [address], [facility] Neutrophils/100 WBC (Bld) 62.6 % Normal 40.0-72.0 [facility] Comment on above: Performed By: #### [id number] #### [address] Nucleated RBC/100 WBC (Bld) [Ratio] 0 % Normal 0-0 [facility] Comment on above: Performed By: #### [id number] #### [place] [address], [facility] PLAT CNT 256 10*3/uL Normal 150-400 The [facility] Comment on above: Performed By: #### [id number] #### [address] RBC (Bld) [#/Vol] 3.80 10*6/uL Low 4.20-5.70 The [facility] Comment on above: Performed By: #### [id number] #### [address] WBC (Bld) [#/Vol] 5.80 10*3/uL Normal 4.00-10.60 [facility] Comment on above: Performed By: #### [id number] #### [address] CHEST AND LATERALon 09-18-19 CHEST AND LATERAL [facility] Department of Radiology [address] [place] [id number] Patient Name: EMILY CALDWELL : 1950 Sex: M Age: Race: White Pt. Location: Patient Status: D Ordered Date: 09/17/2021 3:20:00 [...] report. Electronically signed: Khalida Salas. Transcribed by: [email or web address], User Resident: HILDA BAPTISTE Electronically Signed by: KHALIDA SALAS @ 09/18/2021 09:54 AM I personally read this/these film(s) with this resident Normal [facility] Comment on above: Order Comment: No: D o not add to previous draw PROTHROMBIN TIMEon INR Coag (PPP) [Relative time] 0.96 {INR} Normal 0.91-1.16 [facility] Comment on above: Result Comment: ACCC [...] 1995;[id number]. Performed By: #### [id number] #### [facility] [address] PT Coag (PPP) [Time] 12.8 s Normal 12.3-14.8 [facility] Comment on above: Result Comment: ALL RESULTS MUST BE INTERPRETED WITH RESPECT TO BLOOD DRAWING ARTIFACT OR DILUTION ERROR OF ANTICOAGULANT AT THE TIME OF SAMPLING. Performed By: #### [id number] #### [facility] [address] [employer] TYPE AND SCREENon 09-17-2021 ABO INTERPRETATION O Normal [facility] Comment on above: Performed By: #### [id number] #### [facility] [address] [place] [address], [facility] RH INTERPRETATION Positive Normal The [facility] Comment on above: Performed By: #### [id number] #### [facility] [address] [place] [address], [facility] Vital Signs Date Time Vital Sign Value Performing Clinician Facility 08-18-2024 09:22-0500 Body height 170.18 cm [facility] 08-18-2024 09:22-0500 Body mass index (BMI) [Ratio] 26.5 kg/m2 [facility] 08-18-2024 09:22-0500 Body weight 76.82 kg [facility] 08-18-2024 09:22-0500 Diastolic blood pressure 80 mm[Hg] [facility] 08-18-2024 09:22-0500 Heart rate 64 /min [facility] 08-18-2024 09:22-0500 Respiratory rate 12 /min [facility] 08-18-2024 09:22-0500 Systolic blood pressure 127 mm[Hg] [facility] 01-19-2024 10:49-0400 Body height 170.2 cm Rubin Lopez MD Work Phone: [facility] 01-19-2024 10:49-0400 Body mass index (BMI) [Ratio] 27.93 kg/m2 Rubin Lopez MD Work Phone: [facility] 01-19-2024 10:49-0400 Body weight 80.9 kg Rubin Lopez MD Work Phone: [facility] 01-19-2024 10:49-0400 Diastolic blood pressure 84 mm[Hg] Rubin Lopez MD Work Phone: [facility] 01-19-2024 10:49-0400 Heart rate 63 /min Rubin Lopez MD Work Phone: [facility] 01-19-2024 10:49-0400 Respiratory rate 18 /min Rubin Lopez MD Work Phone: [facility] 01-19-2024 10:49-0400 Systolic blood pressure 155 mm[Hg] Rubin Lopez MD Work Phone: [facility] 01-04-2024 11:40-0400 Body height 170.18 cm [facility] 01-04-2024 11:40-0400 Body mass index (BMI) [Ratio] 28 kg/m2 [facility] 01-04-2024 11:40-0400 Body weight 81.19 kg [facility] 01-04-2024 11:40-0400 Diastolic blood pressure 84 mm[Hg] [facility] 01-04-2024 11:40-0400 Heart rate 70 /min [facility] 01-04-2024 11:40-0400 Respiratory rate 12 /min [facility] 01-04-2024 11:40-0400 Systolic blood pressure 133 mm[Hg] [facility] 10-29-2023 11:46-0400 Body height 170.18 cm [facility] 10-29-2023 11:46-0400 Body mass index (BMI) [Ratio] 27.6 kg/m2 [facility] 10-29-2023 11:46-0400 Body weight 79.88 kg [facility] 10-29-2023 11:46-0400 Diastolic blood pressure 81 mm[Hg] [facility] 10-29-2023 11:46-0400 Heart rate 66 /min [facility] 10-29-2023 11:46-0400 Respiratory rate 12 /min [facility] 10-29-2023 11:46-0400 Systolic blood pressure 133 mm[Hg] [facility] 09-16-2023 15:14-0500 Body height 170.18 cm [facility] 09-16-2023 15:14-0500 Body mass index (BMI) [Ratio] 27.6 kg/m2 [facility] 09-16-2023 15:14-0500 Body weight 79.83 kg [facility] 09-16-2023 15:14-0500 Diastolic blood pressure 81 mm[Hg] [facility] 09-16-2023 15:14-0500 Heart rate 75 /min [facility] 09-16-2023 15:14-0500 Respiratory rate 12 /min [facility] 09-16-2023 15:14-0500 Systolic blood pressure 153 mm[Hg] [facility] 09-11-2023 17:13-0500 Body height 170.18 cm [facility] 09-11-2023 17:13-0500 Body mass index (BMI) [Ratio] 27.3 kg/m2 [facility] 09-11-2023 17:13-0500 Body temperature 101 [degF] [facility] 09-11-2023 17:13-0500 Body weight 79.37 kg [facility] 09-11-2023 17:13-0500 Diastolic blood pressure 70 mm[Hg] [facility] 09-11-2023 17:13-0500 Heart rate 79 /min [facility] 09-11-2023 17:13-0500 Respiratory rate 18 /min [facility] 09-11-2023 17:13-0500 SaO2% (BldA) [Mass fraction] 96 % [facility] 09-11-2023 17:13-0500 Systolic blood pressure 121 mm[Hg] [facility] 06-29-2023 11:30-0500 Body height 170.18 cm Hector Ball Other [facility] 06-29-2023 11:30-0500 Body mass index (BMI) [Ratio] 28.47 kg/m2 Hector Ball Other [facility] [employer] Other 06-29-2023 11:30-0500 Body weight 82.46 kg Hector Ball Other [facility] 06-29-2023 11:30-0500 Diastolic blood pressure 80 mm[Hg] Hector Ball Other [facility] 06-29-2023 11:30-0500 Respiratory rate 12 /min Hector Ball Other [facility] [employer] Other 06-29-2023 11:30-0500 Systolic blood pressure 135 mm[Hg] Hector Ball Other [facility] 2023 09:30-0400 Body height 170.18 cm Hector Ball Other [facility] [employer] Other 2023 09:30-0400 Body mass index (BMI) [Ratio] 28.88 kg/m2 Hector Ball Other [employer] Other 2023 09:30-0400 Body weight 83.64 kg Hector Ball Other [employer] Other 2023 09:30-0400 Diastolic blood pressure 72 mm[Hg] Hector Ball Other [employer] Other 2023 09:30-0400 Respiratory rate 12 /min Hector Ball Other [employer] Other 2023 09:30-0400 Systolic blood pressure 134 mm[Hg] Hector Ball Other [employer] Other 11-20-2022 10:45-0400 Body height 170.18 cm Hector Ball Other [employer] Other 11-20-2022 10:45-0400 Body mass index (BMI) [Ratio] 28.88 kg/m2 Hector Ball Other [employer] Other 11-20-2022 10:45-0400 Body weight 83.64 kg Hector Ball Other [employer] Other 11-20-2022 10:45-0400 Diastolic blood pressure 73 mm[Hg] Hector Ball Other [employer] Other 11-20-2022 10:45-0400 Systolic blood pressure 143 mm[Hg] Hector Ball Other [employer] Other 10-31-2022 14:29-0400 Body height 170.2 cm Rubin Lopez MD Work Phone: [facility] 10-31-2022 14:29-0400 Body weight 83.46 kg Rubin Lopez MD Work Phone: [facility] 10-31-2022 14:29-0400 Diastolic blood pressure 69 mm[Hg] Rubin Lopez MD Work Phone: [facility] 10-31-2022 14:29-0400 Heart rate 79 /min Rubin Lopez MD Work Phone: [facility] 10-31-2022 14:29-0400 Respiratory rate 16 /min Rubin Lopez MD Work Phone: [facility] 10-31-2022 14:29-0400 SaO2% (BldA) [Mass fraction] 94 % Rubin Lopez MD Work Phone: [facility] 10-31-2022 14:29-0400 Systolic blood pressure 114 mm[Hg] Rubin Lopez MD Work Phone: [facility] 10-31-2022 10:21-0400 Body height 170.2 cm Pacc 7 Work Phone: [facility] 10-31-2022 10:21-0400 Body temperature 97.3 [degF] Pacc 7 Work Phone: [facility] 10-31-2022 10:21-0400 Body weight 83.46 kg Pacc 7 Work Phone: [facility] 10-31-2022 10:21-0400 Diastolic blood pressure 71 mm[Hg] Pacc 7 Work Phone: [facility] 10-31-2022 10:21-0400 Heart rate 70 /min Pacc 7 Work Phone: [facility] 10-31-2022 10:21-0400 SaO2% (BldA) [Mass fraction] 97 % Pacc 7 Work Phone: [facility] 10-31-2022 10:21-0400 Systolic blood pressure 133 mm[Hg] Pacc 7 Work Phone: [facility] 10-10-2022 15:45-0400 Body height 170.2 cm Rubin Lopez MD Work Phone: [facility] 10-10-2022 15:45-0400 Body weight 80.29 kg Rubin Lopez MD Work Phone: [facility] 10-10-2022 15:45-0400 Diastolic blood pressure 74 mm[Hg] Rubin Lopez MD Work Phone: [facility] 10-10-2022 15:45-0400 Heart rate 92 /min Rubin Lopez MD Work Phone: [facility] 10-10-2022 15:45-0400 Respiratory rate 16 /min Rubin Lopez MD Work Phone: [facility] 10-10-2022 15:45-0400 SaO2% (BldA) [Mass fraction] 98 % Rubingrayson Lopez MD Work Phone: [facility] 10-10-2022 15:45-0400 Systolic blood pressure 143 mm[Hg] Rubin Lopez MD Work Phone: [facility] 10-01-2022 11:00-0400 Body height 170.18 cm Hector Ball Other [employer] Other 10-01-2022 11:00-0400 Body mass index (BMI) [Ratio] 28.38 kg/m2 Hector Ball Other [employer] Other 10-01-2022 11:00-0400 Body weight 82.19 kg Hector Ball Other [employer] Other 10-01-2022 11:00-0400 Diastolic blood pressure 88 mm[Hg] Hector Ball Other [employer] Other 10-01-2022 11:00-0400 Respiratory rate 12 /min Hector Ball Other [employer] Other 10-01-2022 11:00-0400 Systolic blood pressure 154 mm[Hg] Hector Ball Other [employer] Other 08-26-2022 10:45-0500 Body height 170.18 cm Hector Ball Other [employer] Other 08-26-2022 10:45-0500 Body mass index (BMI) [Ratio] 28.53 kg/m2 Hector Ball Other [employer] Other 08-26-2022 10:45-0500 Body weight 82.65 kg Hector Ball Other [employer] Other 08-26-2022 10:45-0500 Diastolic blood pressure 76 mm[Hg] Hector Ball Other [employer] Other 08-26-2022 10:45-0500 Respiratory rate 12 /min Hector Ball Other [employer] Other 08-26-2022 10:45-0500 Systolic blood pressure 122 mm[Hg] Hector Ball Other [employer] Other 03-06-2022 09:30-0400 Body height 170.18 cm Dipesh Cárdenas Other [employer] Other 03-06-2022 09:30-0400 Body mass index (BMI) [Ratio] 27.26 kg/m2 Dipesh Cárdenas Other [employer] Other 03-06-2022 09:30-0400 Body weight 78.97 kg Dipesh Cárdenas Other [employer] Other 03-06-2022 09:30-0400 Diastolic blood pressure 90 mm[Hg] Dipesh Cárdenas Other [employer] Other 03-06-2022 09:30-0400 Respiratory rate 18 /min Dipesh Camargomer Other [employer] Other 03-06-2022 09:30-0400 SaO2% (BldA) [Mass fraction] 98 % Dipesh Camargomer Other [employer] Other 03-06-2022 09:30-0400 Systolic blood pressure 138 mm[Hg] Dipesh Melia Other [employer] Other 02-20-2022 14:00-0400 Body height 170.18 cm Dipesh Camargomer Other [employer] Other 02-20-2022 14:00-0400 Body mass index (BMI) [Ratio] 27.26 kg/m2 Dipesh Camargomer Other [employer] Other 02-20-2022 14:00-0400 Body weight 78.97 kg Dipesh Cárdenas Other [employer] Other 02-20-2022 14:00-0400 Diastolic blood pressure 82 mm[Hg] Dipesh Melia Other [employer] Other 02-20-2022 14:00-0400 Respiratory rate 18 /min Dipesh Camargomer Other [employer] Other 02-20-2022 14:00-0400 SaO2% (BldA) [Mass fraction] 96 % Dipesh Melia Other [employer] Other 02-20-2022 14:00-0400 Systolic blood pressure 134 mm[Hg] Dipesh Cárdenas Other [facility] [employer] Other Encounters Encounter Date Encounter Type Care Provider Facility Start: 08-18-2024 End: 08-18-2024 ambulatory [facility] Work Phone: Start: 08-18-2024 End: 08-18-2024 Patient encounter procedure [facility] Work Phone: Start: 08-17-2024 Patient encounter procedure [facility] Start: 07-22-2024 End: 07-22-2024 ambulatory Sasha Lacey PT Work Phone: [facility] Comment on above: Radiculopathy, lumba r region (Primary Dx); S/P lumbar laminectomy; Cervical paraspinal muscle spasm; Radiculopathy, unspecified spinal region Start: 07-22-2024 End: 07-22-2024 Bamboo flowsheet Sasha Lacey PT Work Phone: [facility] Start: 07-22-2024 End: 07-22-2024 Bamboo flowsheet Sasha Lacey PT Work Phone: [facility] Start: 07-04-2024 End: 07-04-2024 Telephone encounter Rubin Lopez MD Work Phone: Neurology Comment on above: Orders Start: 01-19-2024 End: 01-19-2024 ambulatory RUBIN LOPEZ Facility:[facility] Start: 01-19-2024 End: 01-19-2024 Patient encounter procedure Rubin Lopez MD Work Phone: [facility] Comment on above: S/P lumbar fusion (P rimary Dx); S/P laminectomy; Chronic bilateral low back pain without sciatica; Left foot drop Start: 01-15-2024 End: 01-15-2024 ambulatory ALEKSANDER URENA Not Available Start: 01-13-2024 End: 01-13-2024 ambulatory ALEKSANDER URENA Not Available Start: 01-07-2024 Telephone encounter Rubin naylor MD Work Phone: Neurology Comment on above: Patient Update; Harleen ent Question Start: 2024 End: 01-07-2024 ambulatory ALEKSANDER URENA Not Available Start: 01-04-2024 Telephone encounter Hector Fraga [facility] Start: 01-04-2024 Patient encounter status [facility] Start: 01-04-2024 End: 01-04-2024 ambulatory [facility] Work Phone: Start: 01-04-2024 End: 01-04-2024 Patient encounter procedure [facility] Physician [facility] Work Phone: Start: 10-29-2023 End: 10-29-2023 ambulatory [facility] Work Phone: Start: 10-29-2023 End: 10-29-2023 Patient encounter procedure [facility] Physician [facility] Work Phone: Start: 10-29-2023 Non-patient / Non-visit [facility] Physician [facility] [employer] Work Phone: Start: 09-16-2023 End: 09-16-2023 Patient encounter procedure [facility] Physician [facility] Work Phone: Start: 09-11-2023 End: 09-11-2023 ambulatory [facility] Work Phone: Start: 09-11-2023 End: 09-11-2023 Patient encounter procedure [facility] Physician [facility] Александр Work Phone: Start: 06-29-2023 End: 06-29-2023 ambulatory Hector Flakito Other [employer] Other Start: 06-29-2023 Office outpatient vi sit 15 minutes Hector Fraga [facility] Start: 06-29-2023 End: 06-29-2023 Patient encounter procedure [facility] Physician [facility] Work Phone: Start: 06-19-2023 End: 06-19-2023 ambulatory Hector Fraga Other [employer] Other Start: 06-19-2023 Telephone encounter Hector Fraga [facility] Start: 06-18-2023 End: 06-18-2023 ambulatory Hector Fraga Other [employer] Other Start: 06-18-2023 Telephone encounter Hector Fraga [facility] Start: 06-15-2023 End: 06-15-2023 ambulatory Hector Fraga Other [employer] Other Start: 06-15-2023 Telephone encounter Hector Fraga [facility] Start: 06-08-2023 End: 06-08-2023 ambulatory Hector Fraga Other [employer] Other Start: 06-08-2023 Telephone encounter Hector Fraga [facility] Start: 03-10-2023 End: 03-10-2023 ambulatory Hector Fraga Other [employer] Other Start: 03-10-2023 Telephone encounter Hector Fraga [facility] Start: 02-11-2023 End: 02-11-2023 ambulatory Hector Fraga Other [employer] Other Start: 02-11-2023 Telephone encounter Hector Fraga [facility] Start: 01-13-2023 End: 01-13-2023 ambulatory Hector Fraga Other [employer] Other Start: 01-13-2023 Telephone encounter Hector Ball FP [facility] Start: 01-08-2023 End: 01-08-2023 ambulatory Rubin Lopez MD Work Phone: [facility] Comment on above: S/P laminectomy (Jennifer mercedez Dx) Start: 01-08-2023 End: 01-08-2023 Telemedicine consultation with patient Rubin Lopez MD Work Phone: [facility] Start: 2023 End: 2023 ambulatory Hector Fraga Other [employer] Other Start: 2023 Patient encounter procedure Hector Fraga [facility] Start: 11-20-2022 End: 11-20-2022 ambulatory Hector Fraga Other [employer] Other Start: 11-20-2022 Office outpatient vi sit 10 minutes Hector Fraga [facility] Start: 11-12-2022 End: 11-12-2022 ambulatory Hector Fraga Other [employer] Other Start: 11-12-2022 Telephone encounter Hector Fraga FP [facility] Start: 10-31-2022 End: 10-31-2022 Patient encounter procedure Rubin Lopez MD Work Phone: [facility] Comment on above: 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); S/P spinal fusion; Spinal stenosis of lumbar region with neurogenic claudication Start: 10-31-2022 End: 10-31-2022 Admission to establishment [facility] Work Phone: [facility] Start: 10-31-2022 End: 10-31-2022 ambulatory [facility] 7 Work Phone: Pre Anesthesia Comment on above: Preop testing (Prima ry Dx); Essential (primary) hypertension; Gastroesophageal reflux disease with esophagitis without hemorrhage; Anemia, unspecified type; Resting tremor Start: 10-31-2022 End: 10-31-2022 Patient encounter status [facility] 7 Work Phone: Pre Anesthesia Start: 10-27-2022 End: 10-27-2022 ambulatory Nurse [facility] Work Phone: [facility] Comment on above: Pre-Op Teaching Start: 10-22-2022 ambulatory Rubin Lopez MD Work Phone: [facility] Start: 10-22-2022 Patient encounter status Rubin Lopez MD Work Phone: [facility] Start: 10-22-2022 Telephone encounter Rubin naylor MD Work Phone: [facility] Comment on above: Follow Up Start: 10-17-2022 ambulatory Rubin Lopez MD Work Phone: [facility] Comment on above: MRI Start: 10-14-2022 End: 10-14-2022 ambulatory Hector Fraga Other [employer] Other Start: 10-14-2022 Telephone encounter Hector BUSTILLO G [facility] Comment on above: External Imaging Start: 10-10-2022 End: 10-10-2022 Subsequent hospital visit by physician Dank Main J1-4 Work Phone: Radiology Comment on above: S/P lumbar fusion [Z 98.1] Start: 10-10-2022 End: 10-10-2022 Patient encounter procedure Rubin Lopez MD Work Phone: [facility] Comment on above: S/P lumbar fusion (P rimary Dx); Neural foraminal stenosis of lumbar spine Start: 10-01-2022 End: 10-01-2022 ambulatory HECTOR FRAGA Facility:[facility] Start: 10-01-2022 Office outpatient vi sit 15 minutes Hector Fraga [facility] Start: 09-29-2022 Telephone encounter Hector BUSTILLO [facility] Start: 09-29-2022 End: 09-30-[address] HECTOR FRAGA Facility: Start: 09-23-2022 End: 09-23-2022 ambulatory Hector Fraga Other [employer] Other Start: 09-23-2022 Telephone encounter Hector BUSTILLO [facility] Start: 09-16-2022 ambulatory HECTOR FRAGA Facility: [facility] Start: 08-26-2022 End: 08-26-2022 ambulatory Hector Fraga Other [employer] Other Start: 08-26-2022 Office outpatient vi sit 25 minutes Hector Fraga [facility] Start: 08-25-2022 ambulatory HECTOR FRAGA Facility: [facility] Start: 08-18-2022 End: 08-18-2022 ambulatory Hector Fraga Other [employer] Other Start: 08-18-2022 Telephone encounter Hector Isaac [facility] Start: 06-17-2022 End: 06-18-[address] HECTOR FRAGA Facility:[facility] Start: 03-06-2022 End: 03-06-2022 ambulatory Dipesh Camargomer Other [employer] Other Start: 03-06-2022 Office outpatient vi sit 15 minutes Dipesh Cárdenas [facility] Start: 03-06-2022 Telephone encounter Emily BUSTILLO [facility] Start: 03-05-2022 End: 03-06-[address] HECTOR FRAGA Facility:[facility] Start: 02-20-2022 End: 02-20-2022 ambulatory Dipesh Cárdenas Other [employer] Other Start: 02-20-2022 Office outpatient vi sit 15 minutes Dipesh Cárdenas [facility] Start: 01-31-2022 End: 01-31-[address] HECTOR FRAGA Facility:[facility] Start: 2022 End: 01-07-[address] HECTOR FRAGA Facility:[facility] Start: 10-11-2021 End: 10-15-2021 Evaluation and management of inpatient ENRIQUE SINGER Facility:[facility] Procedures Date Procedure Procedure Detail Performing Clinician Start: 09-11-2023 COVID/Influenza Anti gen (POC) Start: 10-31-2022 Antibody screen Pacc 7 Work Phone: Start: 10-10-2022 Radex spine lumbosac ral 2/3 views Rubin Lopez MD Work Phone: Start: [address] GRADY [place] Comment on above: Performed By: #### F ERR, [id number], [id number] #### [facility] [address] [place] [address] Dr. Nicole Lam Start: 09-17-2021 Antibody screen ENRIQUE CHOU Comment on above: Performed By: #### [id number] #### [facility] [address] [place] [address], [facility] Start: 09-29-2018 Screening for malign ant neoplasm of prostate Hector Fraga Other Plan of Treatment Date Care Activity Detail Author Start: 10-31-2025 [facility]ABET[facility] Start: 10-31-2025 Diabetes Screening Diabetes Screenin g [facility] Start: 2025 RSV Vaccine (1 - 1-d ose 75+ series) RSV Vaccine (1 - 1-dose 75+ series) [facility] Start: 07-22-2024 End: 07-22-2024 ambulatory 07/22/2024 4:00 PM EST Evaluation [facility] [address] [place] [address] Sasha Lacey, PT [address] [place] [address] Radiculopathy, lumbar region (Primary Dx); S/P lumbar laminectomy [facility] Comment on above: Radiculopathy, lumba r region (Primary Dx); S/P lumbar laminectomy Start: 03-20-2024 Covid-19 Vaccine ( season) Covid-19 Vaccine ( season) [facility] Start: 03-20-2024 Influenza vaccination [facility] Start: 01-19-2024 End: 01-19-2024 Patient encounter procedure 01/19/2024 10:45 AM EDT Office Visit [facility] [address] [id number] Rubin Lopez MD [address] [place] [address] add on per MT [facility] Comment on above: add on per MT Start: 11-01-2023 BP CONTROLLED (<130/80) BP CONTROLLE D (<130/80) [facility] Start: 07-20-2023 Advance Directive Discussion Advance Directive Discussion [facility] Start: 07-20-2023 Behavioral Health Screening Behavioral Health Screening [facility] Start: 03-20-2023 Covid-19 Vaccine ( season) Covid-19 Vaccine ( season) [facility] Start: 03-20-2023 Influenza vaccination INFLUENZ A (Season Ended) [facility] Start: 10-22-2022 End: 04-20-2023 [facility] PCR [facility] PCR Lab Routine S/P spinal fusion Spinal stenosis of lumbar region with neurogenic claudication Pre-op testing Expected: 10/22/2022, Expires: 04/20/2023 [facility] Work Phone: Comment on above: Expected: 10/22/2022 , Expires: 04/20/2023 Start: 07-20-2022 ADVANCE DIRECTIVE DISCUSSION ADVANCE DIRECTIVE DISCUSSION [facility] Start: 07-20-2022 DEPRESSION ASSESSMENT DEPRESSION ASS ESSMENT [facility] Start: 03-20-2022 Influenza vaccination INFLUENZA (#1) [facility] Start: 10-19-2021 Screening for malign ant neoplasm of colon [facility] Start: 12-31-2019 Pneumococcal Vaccine : 50+ (2 of 2 - PPSV23) Pneumococcal Vaccine: 50+ (2 of 2 - PPSV23) [facility] Start: 12-31-2019 Pneumococcal Vaccine : 65+ (2 of 2 - PPSV23 or PCV20) Pneumococcal Vaccine: 65+ (2 of 2 - PPSV23 or PCV20) [facility] Start: 01-27-2019 DIABETES SCREEN DIABETES SCREEN [facility] Start: 2015 PNEUMOCOCCAL: 65+ (1 - PCV) PNEUMOCOCCAL: 65+ (1 - PCV) [facility] Start: 2010 RSV Vaccine (1 - 1-d ose 60+ series) RSV Vaccine (1 - 1-dose 60+ series) [facility] Start: 01-07-2000 SHINGRIX VACCINE (1 of 2) SHINGRIX VACCINE (1 of 2) [facility] Start: 1995 COLOGUARD (FIT-DNA) COLOGUARD (FIT-D NA) [facility] Start: 1995 Colonoscopy COLONOSCOPY [facility] Start: 1995 COLORECTAL CANCER SCREENING COLORECTAL CANCER SCREENING [facility] Start: [address] COLONOGRAPHY [facility] Start: 1995 FECAL OCCULT BLOOD FECAL OCCULT BLOO D [facility] Start: 1995 Screening for malign ant neoplasm of colon [facility] Start: 1995 SIGMOIDOSCOPY [facility]OSCOPY [facility] Start: 1985 Lipid panel Lipid Screening [facility] Start: 1985 LIPID SCREEN LIPID SCREEN [facility] Start: 1969 Urine microalbumin profile [facility] Start: 01-07-1968 ANNUAL PCP TEAM POND SCALER ERICA DISEASE VISIT ANNUAL PCP TEAM CHRONIC DISEASE VISIT [facility] Start: 01-07-1968 Anxiety Screening Anxiety Screening [facility] Start: 01-07-1968 BP Controlled (<130/80) BP Controlle d (<130/80) [facility] Start: 01-07-1968 Depression Screening Depression Scre ening [facility] Start: 01-07-1968 HEPATITIS C SCREENING HEPATITIS C SC [facility] Start: 01-07-1968 Hepatitis C screening Hepatitis C [facility] Start: 1950 COVID-19 VACCINE (#1) COVID-19 VACCI NE (#1) [facility] Comprehensive metabo lic 2000 panel - Serum or Plasma [facility] ECG COMPLETE ECG COMPLETE ECG Routine Preop testing 10/31/2022 12:14 PM EDT [facility] Work Phone: [employer] Proc edures Routine S/P spinal fusion Spinal stenosis of lumbar region with neurogenic claudication Pre-op testing Ordered: 10/22/2022 [facility] Work Phone: Comment on above: Ordered: 10/22/2022 REFER FOR ADMIT INTERVIEW REFER FOR ADMIT INTERVIEW Procedures Routine S/P spinal fusion Spinal stenosis of lumbar region with neurogenic claudication Pre-op testing Ordered: 10/22/2022 [facility] Work Phone: Comment on above: Ordered: 10/22/[address] [facility] Immunizations Immunization Date Immunization Notes Care Provider Fa mary 04-23-2020 influenza virus vaccine, split virus (incl. purified surface antigen) Hector Fraga Other [employer] Other 04-23-2020 influenza virus vaccine, unspecified formulation [facility] 12-30-2018 pneumococcal conjuga te vaccine, 13 valent Hector Fraga Other [facility] Payers Date Payer Category Payer Private Health Insurance [employer] [id number] [facility] [employer] [facility] MEDICARE SUPPLEMENT [id number] 2016-Present [phone] [address] [place] [address] Indemnity [id number] 2014 Medicare [id number] 1959 Medicare [id number] 1959 Private Health Insurance [id number] 1950 Unknown [id number] 2.16.840.1.085726.3.579. 2.647 1950 Unknown [id number] 2.16.840.1.304265.3.579. 2.593 1950 Unknown [id number] 2.16.840.1.327478.3.579. 2.593 1950 Unknown [id number] 2.16.840.1.887534.3.579. 2.593 1950 Unknown [id number] 2.16.840.1.030086.3.579. 2.593 1950 Unknown [id number] 2.16.840.1.901786.3.579. 2.593 1950 Unknown [id number] 2.16.840.1.028400.3.579. 2.594 1950 Unknown [id number] 2.16.840.1.501245.3.579. 2.594 1950 Unknown [id number] 2.16.840.1.677179.3.579. 2.594 1950 Unknown [id number] 2.16.840.1.147306.3.579. 2.1259 1950 Unknown [id number] 2.16.840.1.506787.3.579. 2.1259 1950 Unknown [id number] 2.16.840.1.996546.3.579. 2.1259 1950 Unknown [id number] 2.16.840.1.675574.3.579. 2.1259 Unknown Regular Insurance [id number] Social History Date Type Detail Facility Start: 10-31-2022 End: 03-26-2023 Sex Assigned At [facility] [email or web address] Other Start: 10-31-2022 End: 09-11-2023 Tobacco smoking status DCIS Never smoked tobacco [facility] Start: 10-10-2022 Alcohol intake Current non-dr edge worker of alcohol (finding) [facility] Start: 1950 Sex Assigned At Not on file [facility] Start: 10-31-2022 Tobacco use and exposure Former smokeless tobacco user [facility] History of tobacco use Chews Tobacco [facility] Start: 10-31-2022 End: 01-19-2024 Alcohol intake Current drinker of alcohol (finding) [facility] Start: 10-31-2022 Alcohol Comment 2 times a week per pt 10/31/2022 [facility] Start: 1950 Sex Assigned At Male F [facility] Start: 10-31-2022 End: 03-26-2023 History of Social function [facility] National Score (1-100), lower number is lower risk 65 [facility] Start: 03-26-2023 Tobacco use and exposure Smokeless tobacco non-user [facility] Start: 03-26-2023 Alcoholic beverage intake Lifetime non-drinker (finding) [facility] Start: 03-26-2023 Alcohol Comment caffeine 1-2 c ups per day [facility] Start: 08-18-2024 Sex Male (finding) [facility] Clinical Notes 10-16-2021 to 07-22-2024 Sasha Lacey, PT - 07/22/2024 4:00 PM ESTTelephone Encounter - Naomi Raya RN - 07/04/2024 1:51 PM ESTTelephone Encounter - Naomi Ryaa RN - 07/04/2024 1:51 PM EST Note Date & Type Note Facility 07-22-2024 History of Presen t illness Narrative Physical Therapy Physical Therapy Evaluation Visit Patient Name: Emily Caldwell Today's Date: 07/22/2024 Encounter Diagnoses Name Primary? Radiculopathy, lumbar region Yes S/P lumbar laminectomy Cervical paraspinal muscle spasm Radiculopathy, unspecified spinal region Time In: 4:20 pm Time out: 4:50 pm Supervised Time: 30 Min Total Time: 30 Min Evaluation Time: 20 Minutes Visit Number: 1 (Medicare-Visits Based on medical necessity) Chief Complaint: Chronic and progressive cervical, thoracic, and lumbar pain with exacerbation in symptoms over the past several weeks PRECAUTIONS: Subjective History: 74 yo male presents per Fabiana Ricci MD with reports of lumbar laminectomy surgery secondary to chronic bilateral LE radiculopathy on 11/07/22 with Rubin Lopez MD with the [facility]. Participated in outpatient PT in 2022 under my supervision at [facility]. Did well to manage symptoms until recent 2-3 months when pain became more limiting. Pain is across lower lumbar spine with chronic profound left foot drop with utilization of bracing. New onset mid to lower cervical pain with radiation of symptoms into the mid thoracic and left greater than right elbow to digit 4/5 distribution consistent with C7-T1 radiculopathy (07/22/24DBO) Pain: Reports pain up to 5-6/10 intensity in mid to lower cervical spine and bilateral left greater then right elbow to digits 4-5. Additionally chronic lumbar pain with newer progression of LE cramping primarily in the anterior thighs (quadriceps) Objective: Examination performed on 07/22/24DBO Lumbar Spine: The patient presents with subacute/chronic lumbar pain with exacerbation of cramping primarily in the anterior mid thighs (quadriceps). Reports pain is consistently present during static and prolonged standing and is reduced with sitting or laying. Patient's LE mechanical assessment demonstrates mild hip/lumbar spine flexion with gait. Lumbar flexion 50 degrees, lumbar extension 10 degrees, side-bending 15 degrees. Hip extension was 10 degrees. 90/90 HS length test demonstrated moderate trunk and LE flexibility deficit at -25 degrees from full knee extension. There was moderate increased paraspinal tone through the thoracolumbar and lumbosacral spine. Positive PA testing with reproduction of familiar lumbar spine pain. Negative SLUMP/SLR examination with normal dermatome and myotome testing. The patient had increased pain with extended static standing and walking with minimal pain with sitting and lying consistent with lumbar stenosis condition. The patient's Back Index scored 46 indicative of moderate functional impairment consistent with PT examination findings. Cervical Spine: Mild to moderate forward head. Denies surgical history. Negative vertebral artery and cranial nerve screen. Positive PA testing worse at C7-T1 consistent with complaints of lower cervical radiculopathy in forearm and digits 4-5 worse on the left. Positive response to distraction with noxious response to compression. Cervical ROM moderate restriction in capsular pattern with rotation 65 degrees, side-bending 30 degrees, and extension reduced by 25-50%. Therapy Diagnosis: The patient's primary functional limitation is associated with changing and maintaining body position with regard to the cervical/lumbar spine with moderate impairment via Neck and Back Indexes consistent with examination (07/22/24DBO) Functional Limitations: Moderate Neck and back pain, spasm, and radiculopathy. 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 [employer] INTERVENTIONS PT Initial Evaluation: Low complexity including education on this condition including ergonomic, postural considerations, and expectations of PT treatment progression (20 Min) Manual: Grade I/II cervical and lumbar PA, mobilization, STM for improvement of tissue tone and pain (10 Min) Therapeutic Exercise: Per Exercise Grid found in patient documents including cervical and lumbar flexion-based flexibility, core strength, ergonomic, and postural program to assist adjunct faculty for medical terminology management (PRN) Therapeutic Activity: Exercises to improve dynamic activities, functional tasks, functional mobility to return to prior activity level (PRN) Neuromuscular Re-education: Neuromuscular reeducation including muscle facilitation, ergonomic and postural training, core strengthening (PRN-May including supine and side-lying MET 10 second hold and relax program 3-5 repetitions in standard cervical/lumbar spinal distribution) Modalities: Electrical Stimulation/Ice prone over 2-3 pillows post session IFC High/Low Sweep for inflammation and pain control (PRNf); UltraSound-1 MHz 1.5 w/cm2 at L4-S1 disc interspaces (PRN); Mechanical lumbar traction for decompression (PRN) Goals: Short Term Goals: To be met by 10/01/24 The patient to demonstrate 50% reduction in pain to at worst 4/10 intensity with good reduction in sciatica symptoms in 1-2 weeks and no sciatica in 2-4 weeks The patient to achieve 90/90 HS length testing of <15 degrees from full knee extension as demonstration of improvement in trunk and LE flexibility with core and LE strength improvements to 4+/5 in 4-8 weeks Patient to achieve functional cervical mobility with rotation 70 degrees in 4-12 weeks The patient to score <20% residual functional impairment via Neck/Back Index f/u difficulty questionnaire in 4-6 weeks The patient to demonstrate good compliance to ergonomic and postural recommendations and have prophylactic management plan in place including routine home management via flexibility and strength exercises to reduce risk of future exacerbations to be met by conclusion of PT expected in 4-8 weeks Rehab Potential: Good PT Assessment: The patient has participated in 1 outpatient PT sessions since start of care on 07/22/24 for cervical and lumbar pain/radiculopathy with paraspinal spasm and intermittent UE/LE radiculopathy that is consistent with stenosis exacerbation. Patient is agreeable with PT POC and is motivated to participate. Successfully implemented initial PT HEP and demonstrated good initial response to intervention. Plan: Recommend outpatient PT 1-3 times/week for up to 12 weeks per above PT POC pending patient progress and medical necessity standards (07/22/24-DBO) I hereby deem this POC medically necessary. Please sign below and fax back to the number below. Physician Signature: Date: documented in this encounter [facility] 07-04-2024 Telephone encounter Note Neuro SPINE CARE COORDINATION QUICK NOTE WALKER 724- for HX L3-4 decompression in 2022 PT recommended - pt would like to continue and is requesting updated script. Routed to BRANDY for review. [facility] Work Phone: 07-04-2024 Miscellaneous Notes Neuro SPINE CARE COORDINATION QUICK NOTE WALKER 24- for HX L3-4 decompression in 2022 PT recommended - pt would like to continue and is requesting updated script. Routed to BRANDY for review. Call received for Rubin Lopez MD regarding Emily Caldwell. Caller: self Patient Identified by Name and : Emily Caldwell 1950 Reason for Call: Pt called an stated he is requesting a new PT Order. Last PT order was in January. Is there any additional information the provider should know? No Last Office Visit: 01/19/2024 Next scheduled appointment: Visit date not found Best number to reach caller: [phone] Best time to reach caller: Any Is it OK to leave a detailed voice message? Yes Luis Manuel Goodwin documented in this encounter [facility] 07-04-2024 Telephone encounter Note Call received for Rubin Lopez MD regarding Emily Caldwell. Caller: self Patient Identified by Name and : Emily Caldwell 1950 Reason for Call: Pt called an stated he is requesting a new PT Order. Last PT order was in January. Is there any additional information the provider should know? No Last Office Visit: 01/19/2024 Next scheduled appointment: Visit date not found Best number to reach caller: [phone] Best time to reach caller: Any Is it OK to leave a detailed voice message? Yes Luis Manuel Goodwin [facility] 01-19-2024 Note HNO ID: [id number] Author: RUBIN LOPEZ MD Service: ? Author Type: Physician Type: Progress Notes Filed: 01/19/2024 11:57 Note Text: Return Patient Visit 11/07/2022: L3-4 decompression CC: Persistent back pain 74 year old prior history of L3/4 decompression on 11/07/22 and prior L5/S1 TLIF. Presents today in clinic regarding persistent low back pain as well as worsening left foot drop. Overall he denies any new numbness, tingling or changes in bowel or bladder function. He did do some PT that seems to help this. The back pain is relatively constant and does not have a particular position that improve his pain. No radiating pain. He also complains of some hand numbness but this is not new or worsening. CMT: PT Tylenol Aleve PE: BUE and BLE 5/5 left EHL and DF 2/5. No numbness in the bilateral lowers. Reflexes 1+ throughout. No hoffmans or babinski. Imaging: No recent imaging I had a discussion with the patient and his regarding his longstanding left foot drop. I told him that I did not feel that there was a high degree of probability that surgical decompression would give him any reasonable chance for improvement. Will start PT for electrical stimulation Start trial of Robaxin. Rubin Lopez MD [facility] 01-19-2024 History of Presen t illness Narrative Return Patient Visit 11/07/2022: L3-4 decompression CC: Persistent back pain 74 year old prior history of L3/4 decompression on 11/07/22 and prior L5/S1 TLIF. Presents today in clinic regarding persistent low back pain as well as worsening left foot drop. Overall he denies any new numbness, tingling or changes in bowel or bladder function. He did do some PT that seems to help this. The back pain is relatively constant and does not have a particular position that improve his pain. No radiating pain. He also complains of some hand numbness but this is not new or worsening. CMT: PT Tylenol Aleve PE: BUE and BLE 5/5 left EHL and DF 2/5. No numbness in the bilateral lowers. Reflexes 1+ throughout. No hoffmans or babinski. Imaging: No recent imaging I had a discussion with the patient and his regarding his longstanding left foot drop. I told him that I did not feel that there was a high degree of probability that surgical decompression would give him any reasonable chance for improvement. Will start PT for electrical stimulation Start trial of Robaxin. Rubin Lopez MD documented in this encounter [facility] 01-07-2024 Telephone encounter Note Neuro SPINE CARE COORDINATION QUICK NOTE Call to the pt. And DW . CC- increased LBP and worsening of left foot drop- he continues with AFO No updated imaging done locally Pt and agree on follow up apt to discuss They accept apt with Dr. Lopez on 01-19-24 @ 10 45 am ( in person ) [facility] Work Phone: 01-07-2024 Miscellaneous Notes Neuro SPINE CARE COORDINATION QUICK NOTE Call to the pt. And DW . CC- increased LBP and worsening of left foot drop- he continues with AFO No updated imaging done locally Pt and agree on follow up apt to discuss They accept apt with Dr. Lopez on 01-19-24 @ 10 45 am ( in person ) Neuro SPINE CARE COORDINATION QUICK NOTE Call to the pt and LM Call back number provided Call received for Rubin Lopez MD regarding Emily Caldwell. Caller: Self Patient Identified by Name and : Yes Reason for Call: General Question Patient is calling said his drop foot is getting worse and he is not sure what to do next. He said to call his phone he is hard to get hold of. Is there any additional information the provider should know? No Last Office Visit: 03/02/2023 Next scheduled appointment: Visit date not found Best number to reach caller: [phone] Best time to reach caller: anytime Is it OK to leave a detailed voice message? Yes Leola Mtz documented in this encounter [facility] 01-07-2024 Telephone encounter Note Neuro SPINE CARE COORDINATION QUICK NOTE Call to the pt and LM Call back number provided [facility] 01-07-2024 Telephone encounter Note Call received for Rubin Lopez MD regarding Emily Mehran Caldwell. Caller: Self Patient Identified by Name and : Yes Reason for Call: General Question Patient is calling said his drop foot is getting worse and he is not sure what to do next. He said to call his phone he is hard to get hold of. Is there any additional information the provider should know? No Last Office Visit: 03/02/2023 Next scheduled appointment: Visit date not found Best number to reach caller: [phone] Best time to reach caller: anytime Is it OK to leave a detailed voice message? Yes Leola Mtz [facility] 06-29-2023 Evaluation note Encounter Date Diagnosis Assessment [...] habits or weight. Denies melena or hematochezia [employer] Other 11-27-2023 Evaluation note* Encounter Date Diagnosis Assessment Notes Treatment Notes Treatment Clinical Notes May, Fatigue (ICD-10 - R53.83) [employer] Other 11-20-2023 Evaluation note* Encounter Date Diagnosis Assessment Notes Treatment Notes Treatment Clinical Notes May, LUQ abdominal pain (ICD-10 - R10.12) May, Fatigue, unspecified type (ICD-10 - R53.83) [employer] Other 07-26-2023 Evaluation note* Encounter Date Diagnosis Assessment Notes Treatment Notes Treatment Clinical Notes Jan, Anemia, unspecified type (ICD-10 - D64.9) Jan, Primary hypertension (ICD-10 - I10) Jan, MARU (obstructive sleep apnea) (ICD-10 - G47.33) AHI 46 [employer] Other 06-22-2023 History of Present illness Narrative* Rubin Lopez MD - 01/08/2023 11:30 AM EDT Phone call, postop visit, 15 minutes I have communicated my name and active licensure. The patient's identity and physical location wereverified at the time of this visit. Either the patient or their legal inside account representative has been informed of the risks and [...] needed. Rubin Lopez MD documented in this encounterTr[facility] System06-[facility] Evaluation note* Encounter Date Diagnosis Assessment Notes [...] Colon cancer screeni ng (ICD-10 - Z12.11) [employer] Other 05-04-2023 Evaluation note* Encounter Date Diagnosis [...] postop w/o pain. Increase activity as tolerated [employer] Other 04-14-2023 History of Present illness Narrative* Rubin Lopez MD - 10/31/2022 2:33 PM EDT Complains of back pain and bilateral buttock and leg pain. Pain occurs primarily with activity and ambulation. It limits his activities plan: L3-4 decompression Risks, benefits, alternatives and personnel of surgery discussed with patient. He agrees to proceed. Rubin Lopez MD documented in this encounterTr[facility] System04-14-2023 History and physical note * Yousuf Killian MD - 10/31/2022 10:40 AM EDT HISTORY AND PHYSICAL EXAMINATION Attending Note I evaluated the patient and personally participated in the meyer components. I agree with the resident's findings and plan as documented and have discussed the case and management of the patient's carewith the resident. Signature: Kaylin Latif MD, PhD Date: 10/31/2022 Time: 12:28 PM [...] fevers. Neuro: No history of TIA's, stroke, STERNMAN tumor, impaired sensorium, hemiplegia, paraplegia or quadraplegia. Respiratory: No history of current cough or dyspnea, or pneumonia in the past 6 weeks. No history of respiratory/pulmonary symptoms or problems. Cardiovascular: +HTN, No history of CHF or RI GI: +GERD : No history of dysuria, [...] or any previous visit (from the past 45329 hour(s)). Assessment/Plan Essential (primary) hypertension On benazepril [...] 2022 TIME: 9:01 AM documented in this encounterTrinity Health System04-14-2023 Instructions* Patient Instructions* Yousuf Killian MD - 10/31/2022 9:02 AM EDT PATIENT PREOPERATIVE INSTRUCTIONS Rubin Lopez MD has scheduled you for your procedure at this surgery center: [facility] Scheduling Office: [phone] --[address] [place] [address]. Please read below carefully for your personalized [...] Procedures: - YOU MUST HAVE A RESPONSIBLE TOURIST CAMP ATTENDANT TAKE YOU HOME. A SUBSTANCE ABUSE THERAPIST OR DISTRICT MANAGER MAJOR ACCOUNTS SALES CANNOT BE MADE A RESPONSIBLE TOURIST CAMP ATTENDANT. - We recommend that a responsible person [...] call the Thursday before. Your surgeon s gathering machine feeder will tell you what time to call the office. - If you have not reached the departmental gathering machine feeder by 5 P.M., call [phone] after 5 P.M. the day before your surgery. Please be aware that emergency situations arise, which may delay or change your surgical time. If this happens, we will notify you as soon as possible and regret any inconvenience. If you already have an Advance Directive, please fax a copy to [phone] or email to for it to be [...] day. Yousuf Killian MD documented in this encounterTrinity Health System04-10-2023 History of Present illness Narrative* Mikaela Upton LPN - 10/27/2022 10:47 AM EDT Neuro SPINE CARE COORDINATION [facility] PRE-OP VISIT Met with patient via [facility]SEA for pre op education. Given both written and verbal instructions re : Skin prep, wound care, pain management and post op restrictions. Provided to patient: [facility] Surgery Guide, Spine Surgery Pre/post op education. Yes Reviewed with patient to report to desk JAbyz for surgery ? Yes. Reviewed with the patient to call [phone] the day before to get surgery report [...] answered. Mikaela Upton LPN documented in this encounterTrinity Health System04-05-2023 Miscellaneous Notes* Telephone Encounter - Naomi Raya RN - 10/22/2022 2:13 PM EDT Neuro SPINE CARE COORDINATION QUICK NOTE As per Dr. Lopez- MRI review L3 foraminal stenosis - L3-4 decompression recommended with no fusion Call to the pt and LM on identified VM requesting a call back - call back number has been provided. documented in this encounterTrinity Health System03-31-2023 Miscellaneous Notes* [place] [facility] [place]17/2022 12:36 PM EDT withoutReceived outside imaging/report: Transmitted Yes - MRI images Report Yes Type of study MRI Lumbar spine w/wo contrast 03/21/22 Xray lumbar limited 10/10/22 Forwarded to team for review. [facility] [place] Electronically signed by [facility] [place] 10/17/2022 12:46 PM EDT documented in this encounterTrinity Health System03-29-2023 Miscellaneous Notes* Telephone Encounter - Naomi Raya RN - 10/15/2022 2:51 PM EDT Neuro SPINE CARE COORDINATION QUICK NOTE Pending review with Dr. oLpez * [facility]09 PM EDT Pt's called; she was advised that images have been received. Please advise once reviewed; ph: [phone] * [facility] - [facility] 10[facility]15[facility] 2:07 PM EDT Images received via PACS and are available in Get Images. * Telephone Encounter - [facility] - 10/14/2022 9:20 AM EDT Pt's called checking for receipt of the following image being sent from [facility]: 03/21/22: MRI Lumbar Spine W & WO Contrast (report scanned) Images have not yet arrived; she will call back tomorrow to check again. FYI: Dr. Lopez requested this at 10/10/22 OV. documented in this encounterTrinity Health System03-28-2023 Evaluation note* Encounter Date Diagnosis Assessment Notes Treatment Notes Treatment Clinical Notes Sep, Primary hypertension (ICD-10 - I10) [place] [employer] Other 03-24-2023 History of Present illness Narrative* RT Magnus(R) [...] 10, 2022 4:26 PM documented in this encounterTrinity Health System03-24-2023 History of Present illness Narrative* Rubin Lopez [...] TIME: 3:56 PM PAGER: documented in this encounterTrinity Health System03-15-2023 Evaluation note* Encounter Date Diagnosis Assessment Notes [...] for EGD and colonoscopy later this year [employer] Other 03-07-2023 Evaluation note* Encounter Date Diagnosis Assessment Notes Treatment Notes Treatment Clinical Notes Sep, Anemia, unspecified type (ICD-10 - D64.9) [employer] Other 02-07-2023 Evaluation note* Encounter Date Diagnosis [...] normal. Due for CRC screening, consider colonoscopy [employer] Other 08-18-2022 Evaluation note* Encounter Date Diagnosis [...] of both lower extremities (ICD-10 - M62.9) [employer] Other 08-18-2022 Evaluation note* Encounter Date Diagnosis Assessment Notes Treatment Notes Treatment Clinical Notes Feb, Strain of gluteus medius of left lower extremity, initial encounter (ICD-10 - S76.012A) [employer] Other 08-04-2022 Evaluation note* Encounter Date Diagnosis [...] is not improving as he would like. [employer] Other 04-01-2022 History general Narrative - Reported* Type Description Date Medical History hypertension Surgical History sinus surgery 1997 Surgical History back fusion 10/2021 Hospitalization History leg injury 2005 [employer] Other 03-30-2022 NoteMR#: [id number] I [facility] Pt. Name: Emily Caldwell Admitted: 10/11/2021 [...] CNP Date Trans: 10/16/2021 05:14 Klaudia/jose a [id number] [facility] noteNo [place] [employer] Other Evaluation note* Diagnosis S/P lumbar fusion- Primary Arthrodesis status Neural foraminal stenosis of lumbar spine Spinal stenosis, lumbar region, without neurogenic claudication [facility]* Diagnosis S/P lumbar fusion Arthrodesis status documented in this encounter [facility]* Diagnosis S/P spinal fusion- Primary Arthrodesis status Spinal stenosis of lumbar region with neurogenic claudication Spinal stenosis, lumbar region, with neurogenic claudication Pre-op testing Preoperative examination, unspecified documented in this encounter [facility]* Diagnosis Preop testing- Primary Preoperative examination, unspecified Essential (primary) hypertension Unspecified essential hypertension Gastroesophageal reflux disease with esophagitis without hemorrhage Anemia, unspecified type Resting tremor Abnormal involuntary movements S/P spinal fusion Arthrodesis status Spinal stenosis of lumbar region with neurogenic claudication Spinal stenosis, lumbar region, with neurogenic claudication Pre-op testing Preoperative examination, unspecified documented in this encounter [facility]* Diagnosis Neural foraminal stenosis of lumbar [...] Preoperative examination, unspecified documented [facility] this encounter [facility]* Diagnosis S/P laminectomy- Primary Other postprocedural status documented [facility] this encounter [facility]* Diagnosis Onset Date Resolution Status Contact with and (suspected) exposure to covid-19 noneactive [facility] Work Phone: Evaluation note* Diagnosis Onset Date Resolution Status Contact with and (suspected) exposure to covid-19 noneactive Flu-like symptoms noneactive Acute bronchitis due to other specified organisms acute Primary hypertension acute Elevated cholesterol acute IFG (impaired fasting glucose) acute MARU (obstructive sleep apnea) acute Primary hypertension acute [facility] Work Phone: Evaluation note* Diagnosis Onset Date Resolution Status Chest pain acute Elevated cholesterol acute IFG (impaired fasting glucose) acute MARU (obstructive sleep apnea) acute Primary hypertension acute Cervical spondylosis acute Lumbar spondylosis with myelopathy acute [facility] Work Phone: Evaluation note* Diagnosis S/P lumbar fusion- Primary Arthrodesis status S/P laminectomy Other postprocedural status Chronic bilateral low back pain without sciatica Left foot drop Other acquired deformity of ankle and foot documented in this encounter [facility]* Diagnosis Preop testing- Primary Preoperative examination, unspecified Essential (primary) hypertension Unspecified essential hypertension Gastroesophageal reflux disease with esophagitis without hemorrhage Anemia, unspecified type Resting tremor Abnormal involuntary movements S/P lumbar laminectomy- Primary Other postprocedural status Radiculopathy, lumbar region Thoracic or lumbosacral neuritis or radiculitis, unspecified [facility]* Diagnosis Radiculopathy, lumbar region- Primary Thoracic or lumbosacral neuritis or radiculitis, unspecified S/P lumbar laminectomy Cervical paraspinal muscle spasm Spasm of muscle Radiculopathy, unspecified spinal region [facility]* Diagnosis Onset Date Resolution Status Admit Date Cervical spondylosis acute Keith mckeony 2024 9:16am Chronic kidney disease acute Declan mansfield 2024 9:16am Gastroesophageal reflux dise ase with esophagitis without hemorrhage acute August 18 9:16am IFG (impaired fasting glucose) acute August 18, 2024 9:16am Lumbar spondylosis with myelopathy acute August 18 9:16am Medicare annual wellness vis it, subsequent acute August 18 9:16am Memory deficit acute August 182024 9:16am MARU (obstructive sleep apnea) acute August 18, 2024 9:16am Primary hypertension acute Keith 2024 9:16am Resting tremor acute August 182024 9:16am Screening for colon cancer acute August 18, 2024 9:16am Screening PSA (prostate spec ific antigen) acute August 18 9:16am [facility] Work Phone: Hisdnai general Narrative - Reported* Type Description Date [...] injury 2005 Hospitalization History see surgical hx [employer] Other Histzmf general Narrative - Reported* Type Description Date [...] leg injury 2005 Hospitalization History see surgical [employer] Other History general Narrative - Reported* Type [...] injury 2005 Hospitalization History see surgical hx [employer] Other Reason for referral (narrative)* Diagnostic Procedure Only (Routine) - Pending Review Specialty Diagnoses / Procedures Referred By Jonasac t Referred To Contact XR IMAGING Diagnoses S/P lumbar fusion Procedures XR LUMBAR LIMITED 2V FLEX/EXT RADEX SPINE LUMBOSACRAL 2/3 VIEWS Rubin Lopez MD [address] [place] [address] Xr Imaging Referral ID Status Reason Start Date Expiration Date Visits Requested Visits Authorized [id number] Pending Review Auto-Generat ed Referral 10/10/2022 11/09/2023 1 1 [facility] for referral (narrative)* Diagnostic Procedure Only (Routine) - Pending Review Specialty Diagnoses / Procedures Referred By Bia t Referred To Contact XR IMAGING Diagnoses S/P lumbar fusion Procedures XR LUMBAR LIMITED 2V FLEX/EXT RADEX SPINE LUMBOSACRAL 2/3 VIEWS Rubin Lopez MD [address] [place] [address] Xr Imaging Referral ID Status Reason Start Date Expiration Date Visits Requested Visits Authorized [id number] Pending Review Auto-Generat ed Referral 10/10/2022 11/09/2023 1 1 [facility] for referral (narrative)* Outpatient Procedure (Routine) - Closed Specialty Diagnoses / Procedures Referred By Contac t Referred To Contact [facility] Diagnoses Preop testing Procedures ECG COMPLETE ECG ROUTINE ECG W/LEAST 12 LDS W/I&R Kaylin Latif MD, PhD [address] [place] [address] [facility] [place] [id number] Referral ID Status Reason Start Date Expiration Date V isits Requested Visits Authorized [id number] Closed Auto-Generate d Referral 10/31/2022 10/31/2023 1 1 [facility] for visit Narrative* Rehabilitation - Outpatient (Routine) - Authorized Specialty Diagnoses / Procedures Referred By Contac t Referred To Contact Physical Therapy Diagnoses Other specified postprocedural states Radiculopathy, lumbar region S/P lumbar laminectomy Procedures [place] PHYS THERAPY EVALUATION Fabiana Ricci MD [address] [facility] [place] [address] Phone: tel: fax: Sasha Lacey, PT [address] [place] [address] Phone: tel: fax: Referral ID Status Reason Start Date Expiration Date Visits Requested Visits Authorized [id number] Authorized Consult and Treat 07/04/2024 12/31/2024 18 18 [facility] Summary Purpose Family History Relationship Condition Age at Onset Recorded Date/T elton father Unknown Myocardial infarction Unknown Not Specified Diabetes mellitus Unknown Unknown Relationship Condition Age at Onset Recorded Date/T elton father Unknown Myocardial infarction Unknown mother Diabetes mellitus Unknown Unknown Advance Directives Advance Directive Response Recorded Date/ Time Advance Directives No August 4:59pm Advance Directive Response Recorded Date/ Time Advance Directives No August 5:59pm Reason for Referral Specialty Diagnoses / Procedures Referred By Contac t Referred To Contact [facility] Diagnoses S/P lumbar fusion S/P laminectomy Chronic bilateral low back pain without sciatica Left foot drop Procedures CONSULT TO PHYSICAL THERAPY PHYSICAL THERAPY EVALUATION HIGH COMPLEX 45 MINS Rubin Lopez MD [address] [place] [address] [facility] [place] [id number] Referral ID Status Reason Start Date Expiration Date Visits Requested Visits Authorized [id number] Authorized PCP Requested Referral Auto-Generate d Referral 01/19/2024 01/18/2025 99 99 Specialty Diagnoses / Procedures Referred By Contac t Referred To Contact Diagnoses S/P spinal fusion Spinal stenosis of lumbar region with neurogenic claudication Pre-op testing Procedures REFER TO PACC - PRE ANESTHESIA CONSULTATION CLINIC OFFICE/OUTPATIENT [facility] 60-74 MINUTES Linda Blevins PA-C [address] [place] [address] Referral ID Status Reason Start Date Expiration Date Visits Requested Visits Authorized [id number] Authorized PCP Requested Referral 10/22/2022 10/22/2023 1 1 Specialty Diagnoses / Procedures Referred By Contac t Referred To Contact [facility] [place] Diagnoses S/P spinal fusion Spinal stenosis of lumbar region with neurogenic claudication Pre-op testing Procedures CONSULT TO [facility] OFFICE/OUTPATIENT [facility] 60-74 MINUTES Linda Blevins PA-C [address] [place] [address] Referral ID Status Reason Start Date Expiration Date Visits Requested Visits Authorized [id number] Authorized PCP Requested Referral 10/22/2022 10/22/2023 1 1 Chief Complaint and Reason for Visit Chief Complaint Follow Up Cough, congestion Reason for Visit Contact with and (cano spected) exposure to covid-19 Chief Complaint Cough, congestion cough Exhaustion, Tiredness Reason for Visit Contact with and (cano spected) exposure to covid-19 Flu-like symptoms Acute bronchitis due to other specified organisms Primary hypertension Elevated cholesterol IFG (impaired fasting glucose) MARU (obstructive sleep apnea) Primary hypertension Chief Complaint Exhaustion, Tirednes s back/neck pain Reason for Visit Chest pain Elevated cholesterol IFG (impaired fasting glucose) MARU (obstructive sleep apnea) Primary hypertension Cervical spondylosis Lumbar spondylosis with myelopathy Chief Complaint Admit Date wellness August 18, 2024 9 :16am Reason for Visit Admit Date Cervical spondylosis August 18, 2024 9:16am Chronic kidney disease August 18 9:16am Gastroesophageal reflux dise ase with esophagitis without hemorrhage August 18, 2024 9:16am IFG (impaired fasting glucose) July 222024 9:16am Lumbar spondylosis with myelopathy Janua 2024 9:16am Medicare annual wellness visit, subseque nt August 18, 2024 9:16am Memory deficit August 18, 2024 9 :16am MARU (obstructive sleep apnea) August 182024 9:16am Primary hypertension August 18, 2024 9:16am Resting tremor August 18, 2024 9 :16am Screening for colon cancer August 18, 2024 9:16am Screening PSA (prostate specific antigen ) August 18, 2024 9:16am Additional Source Comments REASON FOR VISIT (unrecogniz ed section and content) Reason Comments New Patient Reason Comments Radio Main J1 Specialty Diagnoses / Procedures Referred By Contac t Referred To Contact XR IMAGING Diagnoses S/P lumbar fusion Procedures XR LUMBAR LIMITED 2V FLEX/EXT RADEX SPINE LUMBOSACRAL 2/3 VIEWS Rubin Lopez MD [address] [place] [address] Xr Imaging Referral ID Status Reason Start Date Expiration Date Visits Requested Visits Authorized [id number] Pending Review Auto-Generat ed Referral 10/10/2022 11/09/2023 1 1 Reason Comments External Imaging Reason Comments Follow Up Reason Onset Date Comments Pre-Op Teaching 10/27/2022 Reason Comments Pre-Op Exam Reason Comments Post Op Reason Comments Patient Update Patient Question Reason Comments Established Patient Reason Comments Orders (unrecognized sect ion and content) No Status Records FoundNo Status Records FoundNo Status Records FoundNo Status Records FoundNo Status Records Found INFORMATION SOURCE (unrecogn ized section and content) DATE CREATED AUTHOR 03/29/2022 [facility] DATE CREATED AUTHOR AUTHOR'S ORGANIZ ATION 09/30/2022 [facility] DATE CREATED AUTHOR AUTHOR'S ORGANIZ ATION 10/07/2022 [facility] DATE CREATED AUTHOR AUTHOR'S ORGANIZ ATION 07/06/2024 [facility] DATE CREATED AUTHOR AUTHOR'S ORGANIZ ATION 07/30/2024 [facility] EPIC Source Comments (unrecognize d section and content) In the event this informatio n is protected by the Federal Confidentiality of Alcohol and Drug Abuse Patient Records regulations: The Federal rules restrict any use of the information to criminally investigate or prosecute any alcohol or drug abuse patient.[facility] SystemIn the event this information is protected by the Federal Confidentiality of Alcohol and Drug Abuse Patient Records regulations: The Federal rules restrict any use of the information to criminally investigate or prosecute any alcohol or drug abuse patient.[facility] SystemIn the event this information is protected by the Federal Confidentiality of Alcohol and Drug Abuse Patient Records regulations: The Federal rules restrict any use of the information to criminally investigate or prosecute any alcohol or drug abuse patient.[facility] SystemIn the event this information is protected by the Federal Confidentiality of Alcohol and Drug Abuse Patient Records regulations: The Federal rules restrict any use of the information to criminally investigate or prosecute any alcohol or drug abuse patient.[facility] SystemIn the event this information is protected by the Federal Confidentiality of Alcohol and Drug Abuse Patient Records regulations: The Federal rules restrict any use of the information to criminally investigate or prosecute any alcohol or drug abuse patient.[facility] SystemIn the event this information is protected by the Federal Confidentiality of Alcohol and Drug Abuse Patient Records regulations: The Federal rules restrict any use of the information to criminally investigate or prosecute any alcohol or drug abuse patient.[facility] SystemIn the event this information is protected by the Federal Confidentiality of Alcohol and Drug Abuse Patient Records regulations: The Federal rules restrict any use of the information to criminally investigate or prosecute any alcohol or drug abuse patient.[facility] SystemIn the event this information is protected by the Federal Confidentiality of Alcohol and Drug Abuse Patient Records regulations: The Federal rules restrict any use of the information to criminally investigate or prosecute any alcohol or drug abuse patient.[facility] SystemIn the event this information is protected by the Federal Confidentiality of Alcohol and Drug Abuse Patient Records regulations: The Federal rules restrict any use of the information to criminally investigate or prosecute any alcohol or drug abuse patient.[facility] SystemIn the event this information is protected by the Federal Confidentiality of Alcohol and Drug Abuse Patient Records regulations: The Federal rules restrict any use of the information to criminally investigate or prosecute any alcohol or drug abuse patient.[facility] SystemIn the event this information is protected by the Federal Confidentiality of Alcohol and Drug Abuse Patient Records regulations: The Federal rules restrict any use of the information to criminally investigate or prosecute any alcohol or drug abuse patient.[facility] SystemIn the event this information is protected by the Federal Confidentiality of Alcohol and Drug Abuse Patient Records regulations: The Federal rules restrict any use of the information to criminally investigate or prosecute any alcohol or drug abuse patient.[facility] System[facility] the event this information is protected by the Federal Confidentiality of Alcohol and Drug Abuse Patient Records regulations: The Federal rules restrict any use of the information to criminally investigate or prosecute any alcohol or drug abuse patient.[facility] Care Teams (unrecognized sec tion and content) Team Status: Active Member Role Status Dates Hector Fraga , Primary Care Provider Active Team Status: Inactive Member Role Status Dates Hector Fraga , DO Primary Care Provide r, Attending Provider Active Start: August 18, 2024 End: August 18, 2024 Team Status: Active Member Role Status Dates Hector Fraga , Primary Care Provider Active Team Status: Active Member Role Status Dates Hector Fraga , DO Primary Care Provide r, Attending Provider Active Start: October 29, 2023 Team Status: Inactive Member Role Status Dates Hector Fraga , DO Primary Care Provide r, Attending Provider Active Start: October 29, 2023 End: October 29, 2023 Team Status: Inactive Member Role Status Dates Hector Fraga , DO Primary Care Provide r, Attending Provider Active Start: January 04, 2024 End: January 04, 2024 Paving Bed Maker Relationship Specialty Start Date End Date Héctor Jean Baptistew PCP - General Family Medicine 01/28/16 Paving Bed Maker Relationship Specialty Start Date End Date Héctor Jean Baptistew PCP - General Family Medicine 01/28/16 Paving Bed Maker Relationship Specialty Start Date End Date Héctor Jean Baptiste Shreyas PCP - General Family Medicine 01/28/16 Paving Bed Maker Relationship Specialty Start Date End Date Markel Héctor Pritchett PCP - General Family Medicine 01/28/16 Paving Bed Maker Relationship Specialty Start Date End Date Markel Héctor Shreyas PCP - General Family Medicine 01/28/16 Paving Bed Maker Relationship Specialty Start Date End Date Héctor Jean Baptiste Shreyas PCP - General Family Medicine 01/28/16 Paving Bed Maker Relationship Specialty Start Date End Date Hector Fraga, DO [address] [facility] [place] [address] PCP - General Internal Medicine 10/27/22 Paving Bed Maker Relationship Specialty Start Date End Date Hector Fraga, DO [address] [facility] [place] [address] PCP - General Internal Medicine 10/27/22 Paving Bed Maker Relationship Specialty Start Date End Date Hector Fraga, DO [address] [facility] [place] [address] PCP - General Internal Medicine 10/27/22 Paving Bed Maker Relationship Specialty Start Date End Date Hector Fraga, DO [address] [facility] [place] [address] PCP - General Internal Medicine 10/27/22 Team Status: Inactive Member Role Status Dates Hector Fraga DO Attending Provider Active Sta rt: June 29, 2023 End: June 29, 2023 Team Status: Inactive Member Role Status Dates Hector Fraga DO Primary Care Provider Active Start: September 11, 2023 End: September 11, 2023 Freda Oneill APRN Attending Provider Active Start: September 11, 2023 End: September 11, 2023 Team Status: Inactive Member Role Status Dates Hector Fraga DO Primary Care Provide r, Attending Provider Active Start: September 16, 2023 End: September 16, 2023 Paving Bed Maker Relationship Specialty Start Date End Date Hector Fraga DO [address] [id number] PCP - General Internal Medicine 10/27/22 Paving Bed Maker Relationship Specialty Start Date End Date Hector Fraga DO [address] [place] [address] PCP - General Internal Medicine 10/27/22 Paving Bed Maker Relationship Specialty Start Date End Date Hector Fraga DO [address] [place] [address] PCP - General Internal Medicine 10/27/22 Team Status: Inactive Member Role Status Dates Hector Fraga DO Primary Care Provide r, Attending Provider Active Start: August 18, 2024 End: August 18, 2024 Goals (unrecognized section and content) Goals may [...] BE BASED ON THE PRIMARY CLINICAL RECORDS. [facility] [employer] [facility]. provides no warranty or guarantee of the accuracy or completeness of information in this document.
[2024-08-24 07:56] LABS: Basophils Percent Auto 0.8 % (0.2-2.0); Eosinophils Absolute Auto 0.1 10^3/uL (0.0-0.7); Eosinophils Percent Auto 2.1 % (0.9-7.0); Hematocrit 43.8 % (42.0-54.0); Hemoglobin 14.7 g/dL (14.0-18.0); Immature Granulocytes Abs Auto 0.01 10^3/uL (0.00-0.03); Immature Granulocytes Pct Auto 0.2 % (0.0-0.5); Lymphocytes Absolute Auto 1.5 10^3/uL (1.2-3.8); Mean Corpuscular HGB Conc 33.6 g/dL (29.9-35.2); Mean Corpuscular Hemoglobin 31.3 pg (25.9-34.0); Mean Corpuscular Volume 93.2 fL (80.0-94.0); Mean Platelet Volume 9.1 fL (9.5-13.5); Monocytes Absolute Auto 0.6 10^3/uL (0.3-0.8); Monocytes Percent Auto 11.6 % (1.7-12.0); Neutrophils Absolute Auto 2.7 10^3/uL (1.4-6.5); Neutrophils Percent Auto 55.3 % (43.0-75.0); Platelet Count 313 10^3/uL (150-450); White Blood Count 4.8 10^3/uL (4.0-11.0)
[2024-08-24 08:34] LABS: Percent Iron Saturation 34.6 %
[2024-08-24 08:42] LABS: Alanine Aminotransferase 24 U/L (16-63); Albumin Globulin Ratio 1.2; Albumin Level 4.2 g/dL (3.4-5.0); Alkaline Phosphatase 72 U/L (46-116); Anion Gap 11.6; Aspartate Amino Transferase 23 U/L (15-37); BUN Creatinine Ratio 18.4; Bilirubin Total 0.5 mg/dL (0.2-1.0); Calcium 9.7 mg/dL (8.5-10.1); Carbon Dioxide 32.5 mmol/L (21.0-32.0); Chloride 102 mmol/L (98-107); Chol HDL Ratio 3.4; Cholesterol 180 mg/dL (<=200); Estimated GFR (African America >60 (>=60 mL/min/1.73m^2); Estimated GFR (Non-African Ame 56 (>=60 mL/min/1.73m^2); Globulin 3.6 g/dL; Glucose 102 mg/dL (74-106); HDL Cholesterol 53 mg/dL (40-60); Potassium 5.1 mmol/L (3.5-5.1); Sodium 141 mmol/L (136-145); Thyroid Stimulating Hormone 1.312 uIU/mL (0.358-3.740); Total Protein 7.8 g/dL (6.4-8.2); Triglycerides 155 mg/dL (<=150)
[2024-08-24 08:43] LABS: Prostate Specific Antigen Scrn 2.67 ng/mL (<=4.00)
[2024-08-24 08:46] LABS: Estimated Average Glucose 117 mg/dL; Glycohemoglobin A1C 5.7 % (4.5-6.2)
[2024-08-25 07:09] LABS: Vitamin B12 613 pg/mL (232-1245)
== END 2024-08-24 07:31 | disposition home or self-care (01) ==
LOC: LAB 07:34
PROVIDERS: PCP Internal Medicine; Visit Provider Internal Medicine
DX: D64.9 Anemia, unspecified (principal); I10 Essential (primary) hypertension; E78.00 Pure hypercholesterolemia, unspecified; R73.01 Impaired fasting glucose
CPT/HCPCS: 36415; 80053; 80061; 82607; 82728; 82746; 83036; 83540; 83550; 84443; 85025; G0103

== ENCOUNTER 2025-01-03 08:34 | Outpatient (OUT) | payer MEDICARE, OTHER, SELFPAY ==
--- OUTSIDE RECORDS SUMMARY | 2023-09-16 09:45 | XMS_ITS ---
Author Organization The [facility] in [place] Address [address] [place] [address] Care Team Providers Care Program Support Assistant Name Role Phone Hector Eagle DO Primary Care Provider Fritz Felix [facility] [phone] Allergies No Known Allergies Results Component Value Reference Range Notes XR Foot LT (3 views) * Reviewed date:09/23/2023 08:45:51 AM Interpretation: Performing Lab: Notes/Report: REASON FOR VISIT surgical discussion Medications Medication SIG (Take, Route, Frequency, Duration) Notes Start Date End Date Status Tylenol 325 MG 1 tablet as needed O rally every 4 hrs Active Escitalopram Oxalate 10 MG TAKE 1 TABLET BY MOUTH AT BEDTIME Oral for 30 Days Active Benazepril-hydroCHLOROthiaz annita 20-25 MG TAKE 1 TABLET BY MOUTH DAILY Oral for 90 Days Active Tammie Active Social History Tobacco Use: Social History Observation Description Date Details (start date - stop date) Never Smoker NA - NA Tobacco Use/Smoking Question Answer Notes Patient is a nonsmoker Vital Signs Weight 170 lbs 09/16/2023 Height 67 in 09/16/2023 Temperature 97 degrees Fahrenheit 09/16/2023 Heart Rate 70 /min 09/16/2023 BMI 26.62 kg/m2 09/16/2023 Encounters Encounter Location Date Provider Diagnosis [facility] (PODIATRY) [address] [place] [address] [place] [address] 09/16/2023 Fritz Lackey Hallux valgus (acquired), left foot M20.12 ; Other hammer toe(s) (acquired), left foot M20.42 ; Other specified joint disorders, left ankle and foot M25.872 and Left foot pain M79.672 Assessments Encounter Date Diagnosis (ICD Code) Assessment Notes Treatment Notes Treatment Clinical Notes Section Notes 09/16/2023 Hallux valgus (acquired), left foot (ICD-10 - M20.12) Patient was seen and evaluated. Patient education was provided and all questions were answered to satisfaction. patient presents for follow-up primarily regarding his left bunion and contracture of 2nd toe. he recently went on vacation and when walking in beach his left foot became much more painful which limited his activities. Since returning his pain has improved. He presents today with his wife1. Imaging reviewed with the patient which is consistent with arthritic bunion, 2nd hammertoe with previous dislocation syndrome2. I discussed potential need for surgical intervention which would include 1st MPJ fusion, Bud osteotomy 2nd metatarsal, hammertoe correction, and bone graft 3. I discussed postoperative course which would include one week in a splint at which time he is to be nonambulatory followed by 5-6 weeks of weightbearing as tolerated in a cam boot4. patient will consider his options and call to preserve her surgical date if he would like to proceed Follow-up:as needed 09/16/2023 Other hammer toe(s) (acquired), left foot (ICD-10 - M20.42) 09/16/2023 Other specified joint disorders, left ankle and foot (ICD-10 - M25.872) 09/16/2023 Left foot pain (ICD-10 - M79.672) 09/16/2023 Other He is happy wit h nonoperative treatment and bracing for left foot drop which currently does not affect his activities daily living a recreation. He also has right bunion and toe contracture which is not nearly as painful. Plan Of Treatment Treatment Notes Assessment Notes Hallux valgus (acquired), left foot Patient was seen and evaluated. Patient education was provided and all questions were answered to satisfaction. patient presents for follow-up primarily regarding his left bunion and contracture of 2nd toe. he recently went on vacation and when walking in beach his left foot became much more painful which limited his activities. Since returning his pain has improved. He presents today with his wife1. Imaging reviewed with the patient which is consistent with arthritic bunion, 2nd hammertoe with previous dislocation syndrome2. I discussed potential need for surgical intervention which would include 1st MPJ fusion, Bud osteotomy 2nd metatarsal, hammertoe correction, and bone graft 3. I discussed postoperative course which would include one week in a splint at which time he is to be nonambulatory followed by 5-6 weeks of weightbearing as tolerated in a cam boot4. patient will consider his options and call to preserve her surgical date if he would like to proceed Follow-up:as needed Other He is happy with non operative treatment and bracing for left foot drop which currently does not affect his activities daily living a recreation. He also has right bunion and toe contracture which is not nearly as painful. Progress Notes * Lon CALDWELLDOB:[birth year] (73 yo M)Acc No.[id number]:09/16/2023 Follow Up Patient: Lon Coulter Provider: Dorian Lackey DPM MS :1950 A ge:73 Y S ex:Male Date:09/16/2023 Address:[address] [place], [place] [id number] Pcp:Hector Eagle, DO Check In:01:44 PM ESTCheck O ut:02:25 PM EST Subjective: * Chief Complaints: * S urgical discussion * HPI: G eneral: Patient states he has worsening hammertoes. Also reports he went on vacation and struggled. He knew his options of braceing or surgery and he is not wanting either but is leaning to the surgery . He is truggling with tthe pain daily. leroy westbrook relates thatHe has a similar issue on both his feet but his left is more symptomatic than his right. He allso has a foot drop for which she wears a brace and iis currently satisfied with nonoperative treatment for that issue. * ROS: G eneral/Constitutional: Chills d enies. F ever d enies. W eight gain?denies. W eight loss d enies. S kin: Skin Ulcers d enies. S kin lesion(s) d enies. ? C ardiovascular: Difficulty breathing on exertion d enies. L eg cramps?denies. E sudhakar d enies. C hest pain d enies. R espiratory: Difficulty breathing d enies. D yspnea d enies.?Cough d enies. G astrointestinal: Diarrhea d enies. N ausea d enies. V omiting?denies. M usculoskeletal: Bone/Joint Symptoms d enies. C angel Pain d enies.?Leg cramps d enies. N eurologic: Numbness d enies. T ingling d enies . G ait abnormality d enies. ? H ematology: Anemia D enies. E asy bruising d enies. ? A ll Other Systems: Review of Systems (ROS) S ee HPI for details,All others negative except those mentioned in HPI. * Active Problem List M20.12 Hallux valgus (acqui red), left foot Modified On:09/16/2023/U Status:confirmed M20.11 Hallux valgus (acqui red), right foot Modified On:02/17/2023U Status:confirmed M25.872 Other specified join t disorders, left ankle and foot Modified On:09/16/2023/U Status:confirmed M20.42 Other hammer toe(s) (acquired), left foot Modified On:09/16/2023/U Status:confirmed M20.41 Other hammer toe(s) (acquired), right foot Modified On:02/17/2023/U Status:confirmed M79.672 Left foot pain Modified On:09/16/2023 Status:confirmed * Medical History: * Surgical History: m ultiple back surgeries * Hospitalization/Major Diagno stic Procedure: D enies Past Hospitalization * Family History: F ather: diagnosed with Heart Disease. * Social History: T obacco Use: T obacco Use/Smoking P atient is a n onsmoker * Medications: T akingAllegra Benazepril-hydroCHLOROthiazide 20-25 MG Tablet TAKE 1 TABLET BY MOUTH DAILY Oral Escitalopram Oxalate 10 MG Tablet TAKE 1 TABLET BY MOUTH AT BEDTIME Oral Tylenol(Acetaminophen) 325 MG Tablet 1 tablet as needed Orally every 4 hrsMedication List reviewed and reconciled with the patientTaking Tammie Taking Benazepril-hydroCHLOROthiazide 20-25 MG Tablet TAKE 1 TABLET BY MOUTH DAILY Oral Taking Escitalopram Oxalate 10 MG Tablet TAKE 1 TABLET BY MOUTH AT BEDTIME Oral Taking Tylenol(Acetaminophen) 325 MG Tablet 1 tablet as needed Orally every 4 hrsMedication List reviewed and reconciled with the patient * Allergies: N .K.D.A.no[Allergies Verified] Objective: * Vitals: W t:170 lbs, Ht: 67 in, Temp:97 F, HR:70 /min, BMI:26.62 Index, Pain scale:2 1-10, Ht-cm: 170.18 cm, Wt-k.11 kg. * Examination: P odiatry Examination: SKIN: s kin intact, n o sign of infection. MUSCULOSKELETAL: l eft foot: POP overthe medial eminence of the 1st metatarsal head; hallux is in avalgus position which is rigid with overlapping 2nd toe. Range of motion of the great toe elicits pain and crepitus and is limited to ten degrees of dorsiflexion and ten degrees of plantarflexion. 2nd toe is dorsally dislocated and overlapping the great toe.. NEUROLOGICAL: l ight touch sensation intact, n egative tinel's sign. VASCULAR: P edal pulses palpable, C apillary refill is brisk to toe, D igital hair intact. X rays: xrays were obtained and reviewed in my office today of the left foot. No fracture is noted. Increased 1-2 intermetarsal angle is noted. Hallux is in a valgus position 1 st MPJ joint space is asymmetrically narrowed with cystic formation of 1st met head. 2nd toe is dorsally contracted. Assessment: * Assessment: 1. H allux valgus (acquired), left foot - M20.12 2 . O ther hammer toe(s) (acquired), left foot - M20.42 3 . O ther specified joint disorders, left ankle and foot - M25.872 4 . L eft foot pain - M79.672 Plan: * Treatment: 2. L eft foot pain I maging: XR Foot LT (3 views) * 3. O thers Notes: He is happy with nonoperative treatment and bracing for left foot drop which currently does not affect his activities daily living a recreation. He also has right bunion and toe contracture which is not nearly as painful. * Procedure Codes: * * Sign off status: Completed Visit Status: C HK (Check Out) true * Provider: Dorian Lackey DPM, MS Date: 0 09/16/2023 Generated for Taylor morton/Ashkan/Kattyitting on: 0 01/03/2025 08:41 AM EDT History and Physical Notes * HPI (History of Present Illness) Category Sub-Category Detail Notes Category Not es General Patient states he has worsening hammertoes. Also reports he went on vacation and struggled. He knew his options of braceing or surgery and he is not wanting either but is leaning to the surgery . He is truggling with tthe pain daily. he relates thatHe has a similar issue on both his feet but his left is more symptomatic than his right. He allso has a foot drop for which she wears a brace and iis currently satisfied with nonoperative treatment for that issue. Examination Category Sub-Category Detail Notes Category Not es Podiatry Examination SKIN: skin intact, no sign of infection Xrays: xrays were obtained and reviewed in my office today of the left foot. No fracture is noted. Increased 1-2 intermetarsal angle is noted. Hallux is in a valgus position 1st MPJ joint space is asymmetrically narrowed with cystic formation of 1st met head. 2nd toe is dorsally contracted MUSCULOSKELETAL: left foot: POP over the medial eminence of the 1st metatarsal head; hallux is in a valgus position which is rigid with overlapping 2nd toe. Range of motion of the great toe elicits pain and crepitus and is limited to ten degrees of dorsiflexion and ten degrees of plantarflexion. 2nd toe is dorsally dislocated and overlapping the great toe. NEUROLOGICAL: light touch sensatio n intact, negative tinel's sign VASCULAR: Pedal pulses palpabl e, Capillary refill is brisk to toe, Digital hair intact
--- OUTSIDE RECORDS SUMMARY | 2025-01-03 08:40 | XMS_ITS | Clinical Summary ---
[facility] Organization [facility] Address [id number] [address] [place] [address] Care Team Providers Care Supervisor Bonding Name Role Phone Unavailable Primary Care Provider Unavailabl e Social History Tobacco Use Types Packs/Day Years Used Date Smoking Tobacco: Never Assessed Childcare Answer Date Recorded Childcare Unknown 12/29/2018 Employment Answer Date Recorded Employment Unknown 12/29/2018 Sex and Gender Information Value Date Recorded Sex Assigned at Not on file Legal Sex Male 11:30 AM EDT Gender Identity Not on file Sexual Orientation Not on file Plan of Treatment Health Maintenance Due Date Last Done Comments Depression Screening 1962 Tobacco Screening 1962 Adult BMI Screening 01/07/1968 DTaP,Tdap and Td Vaccines (1 - Tdap) 1969 Zoster (Shingles) Vaccine (1 of 2) 01/07/2000 Fall Risk Screening 2015 Influenza Vaccine 03/20/2025 Medical Devices Not on file Insurance [address] [place] [address] MEDICARE [facility]
--- OUTSIDE RECORDS SUMMARY | 2025-01-03 08:40 | XMS_ITS | Clinical Summary ---
Author Organization [facility] Address [address] [place] [address] Care Team Providers Care Child And Family Services Specialist Name Role Phone Hector Eagle DO Primary Care Provider [phone] Social History Tobacco Use Types Packs/Day Years Used Date Smoking Tobacco: Never Assessed Sex and Gender Information Value Date Recorded Sex Assigned at Not on file Legal Sex Male 8:19 PM EST Gender Identity Not on file Sexual Orientation Not on file Plan of Treatment Health Maintenance Due Date Last Done Comments HEPATITIS C VIRUS SCREENING 1950 TETANUS 1950 TDAP (ADULT) 1969 LIPID SCREENING 1990 PNEUMOCOCCAL VACCINE SERIES (1 of 1 - PCV) 01/07/2000 ZOSTER (SHINGLES) VACCINE (1 of 2) 01/07/2000 ABDOMINAL AORTIC ANEURYSM HI GH RISK SCREEN 2015 COLORECTAL CANCER SCREENING DISCUSSION 10/20/2019 10/19/2018 COVID-19 VACCINE ( - 2023-2 5 season) 2024 RSV VACCINE (1 - 1-dose 75+ series) 2025 INFLUENZA VACCINE (Season Ended) 2025 HEP B VACCINE Aged Out No longer elig ible based on patient's age to complete this topic Insurance MEDICARE A AND B Care Teams Child And Family Services Specialist Relationship Specialty Start Date End Date Hector Eagle DO PCP - General Internal Medicine 08/27/22
--- OUTSIDE RECORDS SUMMARY | 2025-01-03 08:40 | XMS_ITS | Clinical Summary ---
Author Organization [facility] Address [address] [place] [address] Care Team Providers Care Crowning Inspector Name Role Phone Hector Eagle DO Primary Care Provider Allergies No known active allergies Medications pantoprazole DR (PROTONIX) 40 mg tabletIndication s:Confusion,Mixe d migraine and muscle contraction headache,Cervica l spondylosis without myelopathy,Essen tial tremor,Disturbed concentration,Ti nnitus, bilateral,Bradyc ardia,Vitamin D deficiency Take 40 mg by mouth once daily as needed. Active acetaminophen (TYLENOL) 325 mg tablet Take by mouth q 6 HR. Active benazepril (LOTENSIN) 20 mg tablet Take by mouth q 24 HR. Active methocarbamol (ROBAXIN) 750 mg tablet Take 1 tablet by mouth every 6 hours as needed. 40 tablet 11/08/2022 Active gabapentin (NEURONTIN) 300 mg capsuleIndicatio ns:Low back pain with sciatica, sciatica laterality unspecified, unspecified back pain laterality, unspecified chronicity Take one 2-3 times per day 90 capsule 12/10/2022 Active Active Problems Problem Noted Date Diagnosed Date Lumbar stenosis with neurogenic claudication Gastroesophageal reflux disease with esophagitis 10/31/2022 Assessment & Plan (10/31/2022 10:35 AM EDT): Stable on pantoprazole Low back pain with sciatica 10/31/2022 Resting tremor 10/31/2022 Assessment & Plan (10/31/2022 10:36 AM EDT): Has had for 2 years. Not been worked up. Anemia, unspecified 03/06/2022 Assessment & Plan (10/31/2022 10:35 AM EDT): No clear reason. Scheduled for colonoscopy. Essential (primary) hypertension 02/04/2022 Assessment & Plan (10/31/2022 10:35 AM EDT): On benazepril 20 mg Family History Medical History Relation Comments HTN Father Heart Attack Father Heart Failure Father Diabetes Mother Relation Status Comments Father Mother Social History Tobacco Use Types Packs/Day Years Used Date Smoking Tobacco: Never Smokeless Tobacco: Former Chew Tobacco Cessation:Counseling Given: Not Answered Alcohol Use Standard Drinks/Week Comments Yes 0 (1 standard drink = 0.6 oz pure alcohol) 2 times a week per pt 10/31/2022 Area Deprivation Index Answer Date Chandana rded National Score (1-100), lower number is lower ri sk 65 01/08/2023 State Score (1-10), lower number is lower risk 5 01/08/2023 Data from: https://www.neighborhoodatlas.medicine.[facility].edu/. Last address used for calculation [address] 01/08/2023 Sex and Gender Information Value Date Recorded Sex Assigned at Not on file Legal Sex Male 9:11 AM EST Gender Identity Not on file Sexual Orientation Not on file Last Filed Vital Signs Vital Sign Reading Time Taken Comments Blood Pressure 155/84 01/19/2024 10:49 AM EDT Pulse 63 01/19/2024 10:49 AM EDT Temperature 36.8 C (98.2 F) 11/08/2022 9:19 AM EDT Respiratory Rate 18 01/19/2024 10:49 AM EDT Oxygen Saturation 95% 11/08/2022 9:19 AM EDT Inhaled Oxygen Concentration - - Weight 80.9 kg (178 lb 5.6 oz) 01/19/2024 10:49 AM EDT Height 170.2 cm (5' 7 ) 01/19/2024 10:49 AM EDT Body Mass Index 27.93 01/19/2024 10:49 AM EDT Plan of Treatment Health Maintenance Due Date Last Done Comments Annual PCP Team Chronic Disease Visit 01/07/1968 Anxiety Screening 01/07/1968 Depression Screening 01/07/1968 Hepatitis C Screening 01/07/1968 DTaP,Tdap,Td Vaccine (1 - Tdap) [address] Colonography 1995 Colonoscopy 1995 Fecal Occult Blood 1995 Sigmoidoscopy 1995 Shingrix Vaccine (1 of 2) 01/07/2000 Medicare Annual Wellness Visit 12/18/2014 Pneumococcal Vaccine: 50+ (2 of 2 - PPSV23) 12/31/2019 12/30/2018 Cologuard (FIT-DNA) 10/19/2021 10/19/2018 Colorectal Cancer Screening 10/19/2021 Covid-19 Vaccine ( season) 2024 Advance Directive Discussion 07/20/2024 RSV Vaccine (1 - 1-dose 75+ series) 2025 Influenza Vaccine (Season Ended) 2025 04/23/20 Diabetes Screening 10/31/2025 10/31/2022, 01/28/2016 Procedures Procedure Name Priority Date/Time Associated Diagnosis Comments BASIC METABOLIC PANEL Routine 10/31/2022 11:26 AM EDT Preop testing from Last 3 Months or Most Recently Relevant to Health Maintenance Results * (ABNORMAL) BASIC METABOLIC PNL (10/31/2022 11:26 AM EDT) [facility] Glucose 90 74 - 99 mg/dL 10/31/2022 4:37 PM EDT [facility] Comment: The [place] Diabetes Association (ADA) provides guidance for cutoff [...] Standards of Medical Care in Diabetes 2016, [place] Diabetes Association. Diabetes Care. 2016.39(Suppl 1). BUN 20 9 - 24 mg/dL 10/31/2022 4:37 PM EDT [facility] Creatinine 1.23(H) 0.73 - 1.22 mg/dL 10/31/2022 4:37 PM EDT [facility] Sodium 138 136 - 144 mmol/L 10/31/2022 4:37 PM EDT [facility] Potassium 4.1 3.7 - 5.1 mmol/L 10/31/2022 4:37 PM EDT [facility] Chloride 101 97 - 105 mmol/L 10/31/2022 4:37 PM EDT [facility] CO2 25 22 - 30 mmol/L 10/31/2022 4:37 PM EDT [facility] Anion Gap 12 9 - 18 mmol/L 10/31/2022 4:37 PM EDT [facility] Calcium, Total 9.6 8.5 - 10.2 mg/dL 10/31/2022 4:37 PM EDT [facility] Estimated Glomerular Filtration Rate 62 >=60 mL/min/1. 73m 10/31/2022 4:37 PM EDT [facility] Comment:Estimated Glomerular Filtration Rate (eGFR) is calculated using the 2020 CKD-EPI creatinine equation. This equation utilizes serum creatinine, sex, and age as parameters. The creatinine assay has traceable calibration to isotope dilution- mass spectrometry. Refer to KDIGO guidelines for clinical interpretation. In patients with unstable renal function, e.g. those with acute kidney injury, the eGFR may not accurately reflect actual GFR. Blood BLOOD SPECIMEN / Unknown Venipuncture / Unknown 10/31/2022 11:26 AM EDT 10/31/2022 11:26 AM EDT us Kaylin Latif MD, PhD LABORATORY Final Result [facility] [id number] [id number], from Last 3 Months or Most Recently Relevant to Health Maintenance Insurance [address] [place] [address] [facility] MEDICARE Care Teams Crowning Inspector Relationship Specialty Start Date End Date Hector Eagle DO [address] [place] [address] PCP - General Internal Medicine 10/27/22
--- OUTSIDE RECORDS SUMMARY | 2025-01-03 08:40 | XMS_ITS | Clinical Summary ---
Author Organization [facility] Address [address] [place] [address] Care Team Providers Care Sign Writer Hand Name Role Phone Unallocated, Noms Provider Primary Care Provi suraj Active Problems Problem Noted Date Diagnosed Date Lumbar radiculopathy, chronic 03/06/2023 Lumbar paraspinal muscle spasm 03/06/2023 S/P lumbar laminectomy 03/06/2023 Left foot drop 03/06/2023 Family History Relation Name Status Comments Father Mother Social History Tobacco Use Types Packs/Day Years Used Date Smoking Tobacco: Never Smokeless Tobacco: Never Tobacco Cessation:Counseling Given: Not Answered Alcohol Use Standard Drinks/Week Comments Never 0 (1 standard drink = 0.6 oz pur e alcohol) caffeine 1-2 cups per day Sex and Gender Information Value Date Recorded Sex Assigned at Not on file Legal Sex Male 8:23 PM EDT Gender Identity Not on file Sexual Orientation Not on file Last Filed Vital Signs Vital Sign Reading Time Taken Comments Blood Pressure 166/93 06/28/2018 12:00 PM EST Pulse - - Temperature - - Respiratory Rate - - Oxygen Saturation - - Inhaled Oxygen Concentration - - Weight 78.9 kg (174 lb) 01/30/2020 12:00 PM EDT Height 170.2 cm (5' 7 ) 01/30/2020 12:00 PM EDT Body Mass Index 27.25 01/30/2020 12:00 PM EDT Plan of Treatment Health Maintenance Due Date Last Done Comments CT Colonography 1950 Colonoscopy 1950 FIT 1950 FOBT 1950 Medicare Annual Wellness (AWV) 1950 Sigmoidoscopy 1950 Pneumococcal Vaccine: 65+ Years (2 of 2 - PPSV23) 12/1812/30/2018 Colorectal Cancer Screening 10/19/2021 FIT-DNA 10/19/2021 10/19/2018 Influenza Vaccine (Season Ended) 2025 04/01/20 19 Insurance MEDICARE [facility] Care Teams Sign Writer Hand Relationship Specialty Start Date End Date Unallocated, Noms Provider, [address] [place], [place] [id number] PCP - General Family Medicine 07/25/24
--- OUTSIDE RECORDS SUMMARY | 2025-01-03 08:40 | XMS_ITS | Encounter Summary ---
Author Organization [facility] Address [address] [place] [address] Care Team Providers Care Washing Machine Striper Name Role Phone Hector Eagle DO Primary Care Provider [phone] Source Comments In the event this information is protected by the Federal Confidentiality of Alcohol and Drug AbusePatient Records regulations: The Federal rules restrict any use of the information to criminally investigate or prosecute any alcohol or drug abuse patient.[facility] Encounter Details Date Type Department Care Team (Late st Contact Info) Description 11/06/2022 Patient Msg Spine [place] [address] [id number] Provider, [facility] ACTION REQUIRED: Skin Preparation before your surgery Social History Tobacco Use Types Packs/Day Years Used Date Smoking Tobacco: Never Smokeless Tobacco: Former Chew Alcohol Use Standard Drinks/Week Comments Yes 0 (1 standard drink = 0.6 oz pure alcohol) 2 times a week per pt 10/31/2022 Area Deprivation Index Answer Date Chandana rded National Score (1-100), lower number is lower ri sk 53 10/31/2022 State Score (1-10), lower number is lower risk N ot on file 10/31/2022 Data from: https://www.neighborhoodatlas.medicine.[facility].edu/. Last address used for calculation [address] [place] [address] [address] 10/31/2022 Sex and Gender Information Value Date Recorded Sex Assigned at Not on file Legal Sex Male 9:11 AM EST Gender Identity Not on file Sexual Orientation Not on file documented as of this encounter Plan of Treatment Not on file documented as of this encounter Visit Diagnoses Not on filedocumented in this encounter Care Teams Washing Machine Striper Relationship Specialty Start Date End Date Hector Eagle DO [address] [place] [address] PCP - General Internal Medicine 10/27/22 documented as of this encounter
--- OUTSIDE RECORDS SUMMARY | 2025-01-03 08:41 | XMS_ITS | Encounter Summary ---
Author Organization [facility] Address [address] [place] [address] Care Team Providers Care Supervisor Lending Activities Name Role Phone Héctor Jean Baptiste DO Primary Care Provider Hector Eagle DO Primary Care Provider [phone] Source Comments In the event this information is protected by the Federal Confidentiality of Alcohol and Drug AbusePatient Records regulations: The Federal rules restrict any use of the information to criminally investigate or prosecute any alcohol or drug abuse patient.[facility] Encounter Details Date Type Department Care Team (Late st Contact Info) Description 04/30/2022 Abstract Neurology [address] [id number] Lon Paredes MD [address] [facility] [address] [place] [address] Social History Tobacco Use Types Packs/Day Years Used Date Smoking Tobacco: Never Alcohol Use Standard Drinks/Week Comments No 0 (1 standard drink = 0.6 oz pur e alcohol) Sex and Gender Information Value Date Recorded Sex Assigned at Not on file Legal Sex Male 9:11 AM EST Gender Identity Not on file Sexual Orientation Not on file documented as of this encounter Plan of Treatment Not on file documented as of this encounter Visit Diagnoses Not on filedocumented in this encounter Care Teams Supervisor Lending Activities Relationship Specialty Start Date End Date Héctor Jean Baptiste DO PCP - General Family Medicine 01/28/16 10/26/22 Hector Eagle DO [address] [place] [address] PCP - General Internal Medicine 10/27/22 documented as of this encounter
--- OUTSIDE RECORDS SUMMARY | 2025-01-03 08:41 | XMS_ITS | Encounter Summary ---
Author Organization [facility] Address [address] [place] [address] Care Team Providers Care Endoscope Technician Name Role Phone Unallocated, Luzmaria Provider Primary Care Provi suraj Encounter Details Date Type Department Care Team (Late st Contact Info) Description 03/06/2023 Abstract [facility] PT [address] [place] [address] Craig Lacey, PT [address] [place] [phone] Social History Tobacco Use Types Packs/Day Years [...] on filedocumented in this encounter Care Teams Endoscope Technician Relationship Specialty Start Date End Date Unallocated, Luzmaria Provider, [address] [place] [address] PCP - General Family Medicine 07/25/24 documented as of this encounter
--- OUTSIDE RECORDS SUMMARY | 2025-01-03 08:41 | XMS_ITS | Patient Health Record ---
Author Organization [facility] [place] Address [address] [place] [address] Care Team Providers Care Trim Sawyer Name Role Phone Hector Eagle DO Primary Care Provider Fritz Felix Unavailable [phone] Allergies No Known Allergies Reason For Referral No Information Medications Medication SIG (Take, Route, Frequency, Duration) [...] Question Answer Notes Patient is a nonsmoker Problems Problem Type SNOMED Code ICD Code Onset Dates Problem Status W/U Status Risk Notes Problem [id number] Hallux valgus (acquired), right foot (M20.11) Active confirmed Problem [id number] Hallux valgus (acquired), left foot (M20.12) Active confirmed Problem [id number] Other hammer toe(s) (acquired), right foot (M20.41) Active confirmed Problem 887359917 Other hammer toe(s) (acquired), left foot (M20.42) Active confirmed Problem 779084658 Other specified joint disorders, left ankle and foot (M25.872) Active confirmed Problem Pain in right foot ([id number]) Right foot pain (M79.671) Active confirmed Problem Left foot pain (M79.672) Active confirmed Vital Signs Heart Rate 58 /min 07/27/2024 Temperature 98.1 degrees Fahrenheit 07/27/2024 Respiratory Rate 16 /min 07/27/2024 Oximetry 98 % 07/27/2024 Height 67 in 07/27/2024 Weight 170 lbs 07/27/2024 BMI 26.62 kg/m2 07/27/2024 Encounters Encounter Location Date Provider Diagnosis [facility] (PODIATRY) [address] [place] [address] [place] [address] 07/27/2024 Fritz Lackey Other hammer toe(s) (acquired), left foot M20.42 and Hallux valgus (acquired), left foot M20.12 Assessments Encounter Date Diagnosis (ICD Code) Assessment Notes Treatment Notes Treatment Clinical Notes Section Notes 07/27/2024 Hallux valgus (acquired), left foot (ICD-10 - M20.12) 07/27/2024 Other hammer toe(s) (acquired), left foot [...] offer to refer him to Dr. Harding. Plan Of Treatment No Information Insurance Providers Payer Name Payer Address Payer Phone Subscriber Number Group Number Insured Name Patient Relationship to Insured Coverage Start Date Coverage End Date MEDICARE [place] [address] [place] [address] [id number] Lon Caldwell Self - patient is the insured [facility] MEDICARE SUPP CLAIM DEPT [address] [place] [address] [id number] Lon Caldwell Self - patient is the insured Medical (General) History Medical History History ICD Code Hypertension I10 Right foot pain M79.671 Left foot pain M79.672 Surgical History Surgery Date(Month/Year) multiple back surgeries
--- OUTSIDE RECORDS SUMMARY | 2025-01-03 08:41 | XMS_ITS | Clinical Summary ---
Author Organization [facility] Address [address] [place] [address] Care Team Providers Care Philosophy Specialist Name Role Phone Fco Hector Primary Care Provider [phone] Social History Tobacco Use Types Packs/Day Years Used Date Smoking Tobacco: Never Assessed [place] Safety & Environment Answer Date Rec orded Fear of Current or Ex-Partner Not on file Emotionally Abused Not on file 09/10/2023 Physically Abused Not on file 09/10/2023 Sexually Abused Not on file 09/10/2023 Physically or Sexually Abused Not on file Sex and Gender Information Value Date Recorded Sex Assigned at Not on file Legal Sex Male 9:54 PM EDT Gender Identity Not on file Sexual Orientation Not on file Last Filed Vital Signs Vital Sign Reading Time Taken Comments Blood Pressure 147/89 12/10/2021 1:49 PM EDT Pulse 81 12/10/2021 1:49 PM EDT Temperature 36.6 C (97.9 F) 12/10/2021 1:49 PM EDT Respiratory Rate - - Oxygen Saturation - - Inhaled Oxygen Concentration - - Weight 75.7 kg (167 lb) 12/10/2021 1:46 PM EDT Height 170.2 cm (5' 7 ) 01/29/2022 3:41 PM EDT Body Mass Index 26.16 12/10/2021 1:46 PM EDT Plan of Treatment Health Maintenance Due Date Last Done Comments CT Colonography 1950 Colonoscopy 1950 Colorectal Cancer Screening 1950 FIT-DNA 1950 FIT 1950 FOBT 1950 Medicare Annual Wellness (AWV) 1950 Sigmoidoscopy 1950 Depression Screening 1962 Adult Tetanus 01/07/1972 Pneumococcal Vaccine: 50+ Ye ars (1 of 1 - PCV) 01/07/2000 Zoster Vaccines (1 of 2) 01/07/2000 Fall Risk Screening 2015 COVID-19 Vaccine (1 - 2023-2 5 season) 2024 Influenza Vaccine (Season Ended) 2025 HIB Vaccines Aged Out No longer eligi ble based on patient's age to complete this topic HPV Vaccines Aged Out No longer eligi ble based on patient's age to complete this topic IPV Vaccines Aged Out No longer eligi ble based on patient's age to complete this topic Meningococcal B Vaccine Aged Out No l onger eligible based on patient's age to complete this topic Meningococcal Vaccine Aged Out No shannon manoj eligible based on patient's age to complete this topic Rotavirus Vaccines Aged Out No longer eligible based on patient's age to complete this topic Insurance MEDICARE Member Subscriber Plan / Payer (Ef fective 2016-Present) Name:Lon Caldwell Member ID:[id number] Relation to Subscriber:Self Name:Paulette Lon Subscriber ID:[id number] Payer ID:[id number] Group ID:Not on file Type:Medicare Address: [facility] [address] [place] Care Teams Philosophy Specialist Relationship Specialty Start Date End Date Hector Eagle DO [address] [place] [address] [facility] - General 03/21/22
--- OUTSIDE RECORDS SUMMARY | 2025-01-03 08:41 | XMS_ITS | Referral Summary ---
Author Organization [facility] Address [address] [place] [address] Care Team Providers Care Environmental Compliance Inspector Name Role Phone FcoHector Primary Care Provider [phone] Social History Tobacco Use Types Packs/Day Years [...] 12/10/2021 1:46 PM EDT Plan of Treatment Not on file [place] [id number] Care Teams Environmental Compliance Inspector Relationship Specialty Start Date End Date Hector Eagle DO [address] [facility] [place] [address] PCP - General 03/21/22
--- OUTSIDE RECORDS SUMMARY | 2025-01-03 08:42 | XMS_ITS | Encounter Summary ---
Author Organization [facility] Address [address] [place] [address] Care Team Providers Care Licensed Retail Supervisor Name Role Phone Héctor Jean Baptiste DO Primary Care Provider [phone] Hector Eagle DO Primary Care Provider [phone] Source Comments In the event this information is protected by the Federal Confidentiality of Alcohol and Drug AbusePatient Records regulations: The Federal rules restrict any use of the information to criminally investigate or prosecute any alcohol or drug abuse patient.[facility] Encounter Details Date Type Department Care Team (Late st Contact Info) Description 10/23/2022 Patient Msg Spine [place] [address] [place] [id number] Provider, Ccangela education class 10/27/22 Social History Tobacco Use Types Packs/Day Years [...] on filedocumented in this encounter Care Teams Licensed Retail Supervisor Relationship Specialty Start Date End Date Héctor Jean Baptiste DO PCP - General Family Medicine 01/28/16 10/26/22 [place] [address] [place] [address] PCP - General Internal Medicine 10/27/22 documented as of this encounter
--- OUTSIDE RECORDS SUMMARY | 2025-01-03 08:42 | XMS_ITS | Encounter Summary ---
Author Organization [facility] Address [address] [place] [address] Care Team Providers Care Science Writer Name Role Phone Héctor Jean Baptiste DO Primary Care Provider Hector Eagle DO Primary Care Provider [phone] Source Comments In the event this information is protected by the Federal Confidentiality of Alcohol and Drug AbusePatient Records regulations: The Federal rules restrict any use of the information to criminally investigate or prosecute any alcohol or drug abuse patient.[facility] Encounter Details Date Type Department Care Team (Late st Contact Info) Description 10/24/2022 Patient Msg Spine [place] [address] [phone] Provider, Ccf Important Reminder for Preparing Your Skin for Surgery Social History Tobacco Use Types Packs/Day Years [...] on filedocumented in this encounter Care Teams Science Writer Relationship Specialty Start Date End Date Héctor Jean Baptiste DO PCP - General Family Medicine 01/28/16 10/26/22 [place] [address] [place] [address] PCP - General Internal Medicine 10/27/22 documented as of this encounter
[2025-01-03 09:05] LABS: Basophils Percent Auto 0.8 % (0.2-2.0); Eosinophils Absolute Auto 0.1 10^3/uL (0.0-0.7); Eosinophils Percent Auto 2.7 % (0.9-7.0); Hematocrit 39.7 % (42.0-54.0); Hemoglobin 13.8 g/dL (14.0-18.0); Lymphocytes Absolute Auto 1.5 10^3/uL (1.2-3.8); Mean Corpuscular HGB Conc 34.8 g/dL (29.9-35.2); Mean Corpuscular Hemoglobin 31.8 pg (25.9-34.0); Mean Corpuscular Volume 91.5 fL (80.0-94.0); Mean Platelet Volume 9.2 fL (9.5-13.5); Monocytes Absolute Auto 0.5 10^3/uL (0.3-0.8); Monocytes Percent Auto 9.2 % (1.7-12.0); Neutrophils Percent Auto 58.3 % (43.0-75.0); Platelet Count 251 10^3/uL (150-450); Red Blood Count 4.34 10^6/uL (4.70-6.10); Red Cell Distribution Width 13.2 % (11.0-15.0); White Blood Count 5.1 10^3/uL (4.0-11.0)
[2025-01-03 10:02] LABS: Estimated Average Glucose 123 mg/dL; Glycohemoglobin A1C 5.9 % (4.5-6.2)
[2025-01-03 10:04] LABS: Alanine Aminotransferase 27 U/L (16-63); Albumin Globulin Ratio 1.1; Albumin Level 3.7 g/dL (3.4-5.0); Alkaline Phosphatase 65 U/L (46-116); Anion Gap 14.1; Aspartate Amino Transferase 24 U/L (15-37); BUN Creatinine Ratio 19.3; Bilirubin Total 0.3 mg/dL (0.2-1.0); Calcium 9.2 mg/dL (8.5-10.1); Carbon Dioxide 27.1 mmol/L (21.0-32.0); Chloride 102 mmol/L (98-107); Estimated GFR (African America >60 (>=60 mL/min/1.73m^2); Estimated GFR (Non-African Ame 52 (>=60 mL/min/1.73m^2); Globulin 3.4 g/dL; Glucose 103 mg/dL (74-106); Potassium 4.2 mmol/L (3.5-5.1); Sodium 139 mmol/L (136-145); Thyroid Stimulating Hormone 1.069 uIU/mL (0.358-3.740); Total Protein 7.1 g/dL (6.4-8.2)
== END 2025-01-03 08:35 | disposition home or self-care (01) ==
PROVIDERS: PCP Internal Medicine; Visit Provider Internal Medicine
DX: R25.2 Cramp and spasm (principal); L29.9 Pruritus, unspecified; R73.01 Impaired fasting glucose; N18.31 Chronic kidney disease, stage 3a; R53.83 Other fatigue; I12.9 Hypertensive chronic kidney disease with stage 1 through stage 4 chronic kidney disease, or unspecified chronic kidney disease
CPT/HCPCS: 36415; 80053; 83036; 83735; 84443

== ENCOUNTER 2025-02-16 08:35 | Outpatient (OUT) | payer MEDICARE, OTHER, SELFPAY ==
--- OUTSIDE RECORDS SUMMARY | 2023-09-16 09:45 | XMS_ITS ---
Author Organization The [facility] in [place] Address [address] [place] [address] Care Team Providers Care Body And Fender Mechanic Name Role Phone Hector Eagle DO Primary Care Provider Fritz Felix [facility] [phone] Allergies No Known Allergies Results Component Value [...] Notes Patient is a nonsmoker Vital Signs Temperature 97 degrees Fahrenheit 09/16/2023 Heart Rate 70 /min 09/16/2023 Height 67 in 09/16/2023 Weight 170 lbs 09/16/2023 BMI 26.62 kg/m2 09/16/2023 Encounters Encounter Location Date Provider Diagnosis [facility] (PODIATRY) [address] [place] [address] [place] [address] 09/16/2023 Fritz Lackey Hallux valgus (acquired), left [...] * Lon CALDWELLDOB:[birth year] (73 yo M)Acc No.[id number]:09/16/2023 Follow Up Patient: Lon Coulter Provider: Dorian Lackey DPM MS :1950 A ge:73 Y S ex:Male Date:09/16/2023 Address:[address] [place], [place] [id number] Pcp:Hector Eagle, DO Check In:01:44 PM ESTCheck [...] 09/16/2023 Generated for Taylor morton/Ashkan/Kattyitting on: 0 02/16/2025 08:39 AM EDT History and Physical Notes * [...]
--- OUTSIDE RECORDS SUMMARY | 2024-07-27 05:00 | XMS_ITS ---
Author Organization [facility] [place] Address [address] [place] [address] Care Team Providers Care Tax Staff Accountant Name Role Phone Hector Eagle DO Primary Care Provider Fritz Felix [phone] Allergies No Known Allergies REASON FOR VISIT Bilateral Feet Hammer Toes Medications Medication SIG (Take, Route, Frequency, Duration) [...] Patient is a nonsmoker Vital Signs Temperature 98.1 degrees Fahrenheit 07/27/19 25 Heart Rate 58 /min 07/27/2024 Respiratory Rate 16 /min 07/27/2024 Height 67 in 07/27/2024 Weight 170 lbs 07/27/2024 BMI 26.62 kg/m2 07/27/2024 Oximetry 98 % 07/27/2024 Encounters Encounter Location Date Provider Diagnosis [facility] (PODIATRY) [address] [place] [address] [place] [address] 07/27/2024 Fritz Lackey Other hammer toe(s) (acquired), left foot M20.42 and Hallux valgus (acquired), left foot M20.12 Assessments Encounter Date Diagnosis (ICD Code) Assessment Notes Treatment Notes Treatment Clinical Notes Section Notes 07/27/2024 Other hammer toe(s) (acquired), left foot (ICD-10 - M20.42) Patient was seen and evaluated. Patient education provided and all questions were answered to his satisfaction. I saw the patient last year and had a similar conversation with him regarding the pros and cons of first MPJ fusion with lesser toe correction versus second toe amputation. I specifically outlined that second toe amputation may lead to worsening bunion deformity however currently he relates that his big toe does not limit him in any way. He does have a vacation planned in September and will follow-up with me after that however if he would like to have the procedure done before that time due to my schedule I did offer to refer him to Dr. Harding. 07/27/2024 Hallux valgus (acquired), left foot (ICD-10 - M20.12) Plan Of Treatment Treatment Notes Assessment Notes Other hammer toe(s) (acquired), left alistair t Patient was seen and evaluated. Patient education provided and all questions were answered to his satisfaction. I saw the patient last year and had a similar conversation with him regarding the pros and cons of first MPJ fusion with lesser toe correction versus second toe amputation. I specifically outlined that second toe amputation may lead to worsening bunion deformity however currently he relates that his big toe does not limit him in any way. He does have a vacation planned in September and will follow-up with me after that however if he would like to have the procedure done before that time due to my schedule I did offer to refer him to Dr. Harding. Progress Notes * TANVIRLonDOB:[birth year] (74 yo M)Acc No.[id number]:07/27/2024 Follow Up Patient: Lon ROWLEY Provider: Dorian Lackey DPM, MS :1950 A ge:74 Y S ex:Male Date:07/27/2024 Address:[address] Pcp:Hector Eagle, DO Check In:08:48 AM ESTCheck O ut:09:35 AM EST Subjective: * Chief Complaints: * B ilateral Feet Hammer Toes * HPI: G eneral: Pt here today with continued concerns with bilateral feet hammer toes States left 2nd toe painful and would now like surgery. He said he talked in the past with Dr Lackey about possible amputation of this toe. States pain is 10/10 @ times . States tapes toe at times and also uses voltaren gel for pain. * ROS: G eneral/Constitutional: Chills d enies. [...] M usculoskeletal: Bone/Joint Symptoms d enies. C nursing home Pain d enies.?Leg cramps d enies. N [...] Hallux valgus (acqui red), left foot Modified On:09/16/2023U Status:confirmed M20.11 Hallux valgus (acqui red), right foot Modified On:02/17/2023 Status:confirmed M25.872 Other specified join t disorders, left ankle and foot Modified On:09/16/2023U Status:confirmed M20.42 Other hammer toe(s) (acquired), left foot Modified On:09/16/2023U Status:confirmed M20.41 Other hammer toe(s) (acquired), right foot Modified On:02/17/2023 Status:confirmed M79.672 Left foot pain Modified On:09/16/2023U Status:confirmed M79.671 Right foot pain Modified On:07/26/2024 Status:confirmed * Medical History: * Surgical History: m ultiple back surgeries * Hospitalization/Major Diagno stic Procedure: N o Hospitalization History. * Family History: F ather: diagnosed with Unspecified heart disease. * Social History: T obacco Use: T obacco Use/Smoking P atient is a n onsmoker * Medications: T akingAllegra Benazepril-hydroCHLOROthiazide 20-25 MG Tablet TAKE 1 TABLET BY MOUTH DAILY Oral Escitalopram Oxalate 10 MG Tablet TAKE 1 TABLET BY MOUTH AT BEDTIME Oral Tylenol(Acetaminophen) 325 MG Tablet 1 tablet as needed Orally every 4 hrs Medication List reviewed and reconciled with the patientTaking Tammie Taking Benazepril-hydroCHLOROthiazide 20-25 MG Tablet TAKE 1 TABLET BY MOUTH DAILY Oral Taking Escitalopram Oxalate 10 MG Tablet TAKE 1 TABLET BY MOUTH AT BEDTIME Oral Taking Tylenol(Acetaminophen) 325 MG Tablet 1 tablet as needed Orally every 4 hrs Medication List reviewed and reconciled with the patient * Allergies: N .K.D.A.no[Allergies Verified] Objective: * Vitals: W t:170lbs, Ht: 67 in, Temp:98.1F, HR:58/min, RR:16/min, BMI:26.62Index, Pain scale:101-10, Oxygen sat %:98%, Ht-cm: 170.18 cm, Wt-k.11 kg. * Examination: P odiatry Examination: SKIN: s kin intact, n o sign of infection. MUSCULOSKELETAL: D orsally dislocated second toe bilaterally with the left being more painful than the right. Reducible hallux valgus deformity which is not painful on palpation. NEUROLOGICAL: l ight touch sensation intact, n egative tinel's sign. VASCULAR: P edal pulses palpable, C apillary refill is brisk to toe, D igital hair intact. Assessment: * Assessment: 1. O ther hammer toe(s) (acquired), left foot - M20.42 (Primary) 2 . H allux valgus (acquired), left foot - M20.12 Plan: * Treatment: * Procedure Codes: * * Sign off status: Completed Visit Status: C HK (Check Out) true * Provider: Dorian Lackey DPM, MS Date: 0 07/27/2024 Generated for Taylor morton/Ashkan/Ildasmitting on: 0 02/16/2025 08:37 AM EDT History and Physical Notes * HPI (History of Present Illness) Category Sub-Category Detail Notes Category Not es General Pt here today w ith continued concerns with bilateral feet hammer toes States left 2nd toe painful and would now like surgery. He said he talked in the past with Dr Lackey about possible amputation of this toe. States pain is 10/10 @ times . States tapes toe at times and also uses voltaren gel for pain. Examination Category Sub-Category Detail Notes Category Not es Podiatry Examination SKIN: skin intact, no sign of infection MUSCULOSKELETAL: Dorsally dislocated second toe bilaterally with the left being more painful than the right. Reducible hallux valgus deformity which is not painful on palpation NEUROLOGICAL: light touch sensatio n intact, negative tinel's sign VASCULAR: Pedal pulses palpabl e, Capillary refill is brisk to toe, Digital hair intact
--- NOTE | 2025-02-16 | XR_ITS ---
The [address] [address] Patient Name: EMILY RAMEY MRN: [id number] date: 1950 Sex: M Assigned Patient Location: MRI Current Patient Location: MRI Accession/Order Number: [id number] Exam Date: 02/16/2025 09:06 Report Date: 02/16/2025 09:07 At the request of: ELICIA FRAGA DO Procedure: XR foreign body eye COLBY XR foreign body eye COLBY 02/16/2025 8:58 AM SIGNS AND SYMPTOMS: ^PRE MRI PROTOCOL: Frontal and lateral radiograph of the orbits COMPARISON: 07/29/2021 FINDINGS: No abnormal radiopaque foreign body is noted along the orbits. Hearing aids appear to be present bilaterally. The bony structures are intact. The visualized paranasal sinuses are relatively well aerated. XR/XR foreign body eye COLBY IMPRESSION: No abnormal radiopaque foreign body is noted along the orbits. Impression dictated by: Speedy Castellon M.D. 02/16/2025 9:07 AM Dictation Location: [place] [address] Electronically authenticated by: [id number] Y Date: 02/16/2025 09:07
--- NOTE | 2025-02-16 08:37 | MR_ITS ---
[address] [address] Patient Name: EMILY RAMEY MRN: [id number] date: 1950 Sex: M Assigned Patient Location: MRI Current Patient Location: MRI Accession/Order Number: [id number] Exam Date: 02/16/2025 15:54 Report Date: 02/16/2025 16:10 At the request of: ELICIA FRAGA DO Procedure: MR cervical spine wo con EXAMINATION: MRI OF THE CERVICAL SPINE WITHOUT CONTRAST CLINICAL DATA: Abnormal electromyography. Cervical myelopathy COMPARISON: NONE TECHNIQUE: Multiecho imaging was performed in the sagittal and axial plane without contrast administration. FINDINGS: Craniocervical junction is maintained. Mild reversal of the normal cervical lordosis. Moderate severe and diffuse asymmetric acidosis 4 through C7. Endplate marrow changes notably C4-C7. Multilevel facet arthropathy. Prevertebral and posterior paraspinal soft tissues grossly unremarkable. Intracranially, there is ventriculomegaly and volume loss with patchy T2 signal involving the ranjith. Slight diminished caliber of the cord notably C5 to multilevel canal narrowing. No cord edema or cord compression identified. Incidental note of a 8mm thin-walled cystic lesion right parotid gland superficial lobe. C2-C3: Broad-based disc osteophyte with multilevel endplate spurring greatest left. Bilateral facet arthropathy greatest left. Right foramen is patent. Moderate left neural from narrowing identified. Canal is grossly patent. C3-C4: Broad-based disc osteophyte complex with bilateral uncovertebral spurring greatest left. Moderate to severe left-sided facet arthropathy. There is ihjl-[id number] right-sided and moderate severe left-sided neural foraminal narrowing. Moderate canal narrowing. C4-C5: Circumferential disc osteophyte complex formation with predominantly right-sided uncovertebral and facet arthropathy causing severe right and moderate left-sided neural from narrowing. There is moderate to severe central canal stenosis C5-6: Broad-based disc osteophyte complex with uncovertebral spurring and facet arthropathy. There is moderate canal and moderate severe right and left neural foraminal narrowing. C6-7: Circumferential disc osteophyte complex formation with bilateral uncovertebral spurring. Severe bilateral neural from narrowing. Moderate severe central canal stenosis. C7-T1: Minimal broad-based disc osteophyte complex. Bilateral uncovertebral spurring. Moderate facet arthropathy. Moderate bilateral neural from narrowing. Mild canal narrowing.. MR/MR cervical spine wo con IMPRESSION: MULTILEVEL MODERATE SEVERE DEGENERATIVE CHANGES WITH SEVERE CANAL NARROWING AT C4-C5 MULTILEVEL NEURAL FORAMINAL ENCROACHMENT IDENTIFIED GREATEST IN THE RIGHT AT C4-C5. Impression dictated by: Tha Jean Baptiste M.D. 02/16/2025 4:10 PM Dictation Location: [place] [address] Electronically authenticated by: [id number] Y Date: 02/16/2025 16:10
--- OUTSIDE RECORDS SUMMARY | 2025-02-16 08:37 | XMS_ITS | Encounter Summary ---
Author Organization [facility] Address [address] [place] [address] Care Team Providers Care Ticket Taker Name Role Phone Hector Eagle DO Primary Care Provider [phone] Source Comments In the event this information is protected by the Federal Confidentiality of Alcohol and Drug AbusePatient Records regulations: The Federal rules restrict any use of the information to criminally investigate or prosecute any alcohol or drug abuse patient.[facility] Encounter Details Date Type Department Care Team (Late st Contact Info) Description 11/06/2022 Patient Msg Spine [place] [address], [place] [phone] Provider, Ccf ACTION REQUIRED: Skin Preparation before [...] N ot on file 10/31/2022 Data from: https://www.neighborhoodatlas.medicine.[facility].edu/. Last address used for calculation [address] [place] [address] [address] 10/31/2022 Sex and Gender Information Value Date Recorded Sex Assigned at Not on file Legal Sex Male 9:11 AM EST Gender Identity Not on file Sexual Orientation Not on file documented as of this encounter Plan of Treatment Not on file documented as of this encounter Visit Diagnoses Not on filedocumented in this encounter Care Teams Ticket Taker Relationship Specialty Start Date End Date Hector Eagle DO [address] [place] [address] PCP - General Internal Medicine 10/27/22 documented as of this encounter
--- OUTSIDE RECORDS SUMMARY | 2025-02-16 08:38 | XMS_ITS | Clinical Summary ---
Author Organization [facility] Address [address] [place] [address] Care Team Providers Care Framing Machine Tender Name Role Phone Hector Eagle DO Primary Care Provider [phone] Social History Tobacco Use Types Packs/Day Years [...] - 1-dose 75+ series) 2025 INFLUENZA VACCINE (#1) 2025 HEP B VACCINE Aged Out No longer elig ible based on patient's age to complete this topic Insurance MEDICARE A AND B Care Teams Framing Machine Tender Relationship Specialty Start Date End Date Hector Eagle DO PCP - General Internal Medicine 08/27/22
--- OUTSIDE RECORDS SUMMARY | 2025-02-16 08:38 | XMS_ITS | Clinical Summary ---
Author Organization [facility] Address [address] [place] [address] Care Team Providers Care Field Placement Director Name Role Phone Hector Eagle DO Primary Care Provider [phone] Allergies No known active allergies Medications pantoprazole [...] is lower risk 5 01/08/2023 Data from: https://www.neighborhoodatlas.medicine.[facility].edu/. Last address used for calculation [address] 01/08/2023 Sex and Gender Information [...] (FIT-DNA) 10/19/2021 10/19/2018 Colorectal Cancer Screening 10/19/2021 Advance Directive Discussion 07/20/2024 RSV Vaccine (1 - 1-dose 75+ series) 2025 Influenza Vaccine (#1) 2025 04/23/2020 Diabetes Screening 10/31/2025 10/31/2022, 01/28/2016 Procedures Procedure Name Priority Date/Time Associated Diagnosis Comments BASIC METABOLIC PANEL Routine 10/31/2022 11:26 AM EDT Preop testing from Last 3 Months or Most Recently Relevant to Health Maintenance Results * (ABNORMAL) BASIC METABOLIC PNL (10/31/2022 11:26 AM EDT) [facility] Glucose 90 74 - 99 mg/dL 10/31/2022 4:37 PM EDT [facility] Comment: The [place] Diabetes Association (ADA) provides guidance for cutoff [...] Standards of Medical Care in Diabetes 2016, [place] Diabetes Association. Diabetes Care. 2016.39(Suppl 1). BUN 20 9 - 24 mg/dL 10/31/2022 4:37 PM EDT [facility] Creatinine 1.23(H) 0.73 - 1.22 mg/dL 10/31/2022 4:37 PM EDT [facility] Sodium 138 136 - 144 mmol/L 10/31/2022 4:37 PM EDT [facility] Potassium 4.1 3.7 - 5.1 mmol/L 10/31/2022 4:37 PM EDT [facility] Chloride 101 97 - 105 mmol/L 10/31/2022 4:37 PM EDT [facility] CO2 25 22 - 30 mmol/L 10/31/2022 4:37 PM EDT [facility] Anion Gap 12 9 - 18 mmol/L 10/31/2022 4:37 PM EDT [facility] Calcium, Total 9.6 8.5 - 10.2 mg/dL 10/31/2022 4:37 PM EDT [facility] Estimated Glomerular Filtration Rate 62 >=60 mL/min/1. 73m 10/31/2022 4:37 PM EDT [facility] Comment:Estimated Glomerular Filtration Rate (eGFR) is [...] Kaylin Latif MD, PhD LABORATORY Final Result [facility] [address] [place] [address], from Last 3 Months or Most Recently Relevant to Health Maintenance Insurance [facility] MEDICARE Care Teams Field Placement Director Relationship Specialty Start Date End Date Hector Eagle DO [address] [place] [address] PCP - General Internal Medicine 10/27/22
--- OUTSIDE RECORDS SUMMARY | 2025-02-16 08:38 | XMS_ITS | Clinical Summary ---
Author Organization [facility] Address [address] [place] [address] Care Team Providers Care Threshing Machine Operator Name Role Phone Unallocated, Noms Provider Primary [...] Screening 10/19/2021 FIT-DNA 10/19/2021 10/19/2018 Influenza Vaccine (#1) 2025 04/01/2019 Insurance MEDICARE [facility] Care Teams Threshing Machine Operator Relationship Specialty Start Date End Date Unallocated, Noms Provider, [address] [place], [place] [id number] PCP - General Family Medicine 07/25/24
--- OUTSIDE RECORDS SUMMARY | 2025-02-16 08:38 | XMS_ITS | Encounter Summary ---
Author Organization [facility] Address [address] [place] [address] Care Team Providers Care Blocker Hand Name Role Phone Unallocated, Luzmaria Provider Primary Care Provi suraj Encounter Details Date Type Department Care Team (Late st Contact Info) Description 03/06/2023 Abstract [facility] [address] [place] [address] Craig Lacey, PT [address] [place] [id number] Social History Tobacco Use Types Packs/Day Years [...] on filedocumented in this encounter Care Teams Blocker Hand Relationship Specialty Start Date End Date Unallocated, Luzmaria Howard MD [address] [place] [address] PCP - General Family Medicine 07/25/24 documented as of this encounter
--- OUTSIDE RECORDS SUMMARY | 2025-02-16 08:38 | XMS_ITS | Clinical Summary ---
[id number] [address] [place] [address] Care Team Providers Care Tube Machine Operator Name Role Phone Unavailable Primary Care Provider [...] Comments Depression Screening 1962 Tobacco Screening 1962 DTaP,Tdap and Td Vaccines (1 - Tdap) 1969 Zoster (Shingles) Vaccine (1 of 2) 01/07/2000 Fall Risk Screening 2015 Influenza Vaccine 03/20/2025 Medical Devices Not on file Insurance MEDICARE [employer]
--- OUTSIDE RECORDS SUMMARY | 2025-02-16 08:38 | XMS_ITS | Patient Health Record ---
Author Organization [facility] [place] Address [address] [place] [address] Care Team Providers Care Video Surveillance Technician Name Role Phone Hector Eagle DO Primary Care Provider Fritz Felix Unavailable [phone] Allergies No Known Allergies Reason For Referral [...] Problem Status W/U Status Risk Notes Problem [id number] Hallux valgus (acquired), right foot (M20.11) Active confirmed Problem [id number] Hallux valgus (acquired), left foot (M20.12) Active confirmed Problem 212038792 Other hammer toe(s) (acquired), right foot (M20.41) Active confirmed Problem 596691151 Other hammer toe(s) (acquired), left foot (M20.42) Active confirmed Problem 702905142 Other specified joint disorders, left ankle and foot (M25.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) Active confirmed Problem Pain in right foot (603554282096614) Right foot pain (M79.671) Active confirmed Problem Pain in left foot (359476164325296) Left foot pain (M79.672) Active confirmed Vital Signs Heart Rate 58 /min 07/27/2024 Temperature 98.1 degrees Fahrenheit 07/27/2024 Respiratory Rate 16 /min 07/27/2024 Oximetry 98 % 07/27/2024 Height 67 in 07/27/2024 Weight 170 lbs 07/27/2024 BMI 26.62 kg/m2 07/27/2024 Encounters Encounter Location Date Provider Diagnosis [facility] ([facility]) [address] [place] [address] [place] [address] 07/27/2024 Fritz Lackey Other hammer toe(s) (acquired), [...] foot (ICD-10 - M20.12) Plan Of Treatment No Information Insurance Providers Payer Name Payer Address Payer Phone Subscriber Number Group Number Insured Name Patient Relationship to Insured Coverage Start Date Coverage End Date [place] [address] [place] [address] [id number] Lon Caldwell Self - patient is the insured [facility] [address] 8 MEDICARE SUPP CLAIM DEPT [address] [place] [address] [id number] Lon Caldwell Self - patient is the insured Medical (General) History Medical History History ICD Code Hypertension I10 Right foot pain M79.671 Left foot pain M79.672 Surgical History Surgery Date(Month/Year) multiple back surgeries
--- OUTSIDE RECORDS SUMMARY | 2025-02-16 08:39 | XMS_ITS | Encounter Summary ---
Author Organization [facility] Address [address] [place] [address] Care Team Providers Care Client Support Associate Name Role Phone Héctor Jean Baptiste DO Primary Care Provider [phone] Hector Eagle DO Primary Care Provider [phone] Source Comments In the event this information is protected by the Federal Confidentiality of Alcohol and Drug AbusePatient Records regulations: The Federal rules restrict any use of the information to criminally investigate or prosecute any alcohol or drug abuse patient.[facility] Encounter Details Date Type Department Care Team (Late st Contact Info) Description 10/24/2022 Patient Msg Spine [place] [address] [phone] Provider, Ccf Important Reminder for Preparing Your [...] on filedocumented in this encounter Care Teams Client Support Associate Relationship Specialty Start Date End Date Héctor Jean Baptiste DO PCP - General Family Medicine 01/28/16 10/26/22 [place] [address] [place] [address] PCP - General Internal Medicine 10/27/22 documented as of this encounter
--- OUTSIDE RECORDS SUMMARY | 2025-02-16 08:39 | XMS_ITS | Encounter Summary ---
Author Organization [facility] Address [address] [place] [address] Care Team Providers Care Intensive Care Anaesthetist Name Role Phone Héctor Jean Baptiste DO Primary Care Provider Hector Eagle DO Primary Care Provider [phone] Source Comments In the event this information is protected by the Federal Confidentiality of Alcohol and Drug AbusePatient Records regulations: The Federal rules restrict any use of the information to criminally investigate or prosecute any alcohol or drug abuse patient.[facility] Encounter Details Date Type Department Care Team (Late st Contact Info) Description 10/23/2022 Patient Msg Spine [place] [address] [place] [phone] Provider, Ccangela education class 10/27/22 Social History [...] on filedocumented in this encounter Care Teams Intensive Care Anaesthetist Relationship Specialty Start Date End Date Héctor Jean Baptiste DO PCP - General Family Medicine 01/28/16 10/26/22 [place] [address] [place] [address] PCP - General Internal Medicine 10/27/22 documented as of this encounter
--- OUTSIDE RECORDS SUMMARY | 2025-02-16 08:39 | XMS_ITS | Encounter Summary ---
Author Organization [facility] Address [address] [place] [address] Care Team Providers Care Industrial Roof Plumber Name Role Phone Héctor Jean Baptiste DO Primary Care Provider [phone] Hector Eagle DO Primary Care Provider [phone] Source Comments In the event this information is protected by the Federal Confidentiality of Alcohol and Drug AbusePatient Records regulations: The Federal rules restrict any use of the information to criminally investigate or prosecute any alcohol or drug abuse patient.[facility] Encounter Details Date Type Department Care Team (Late st Contact Info) Description 04/30/2022 Abstract Neurology [address] [place] [phone] Lon Paredes MD [address] [facility] [address] [place] [address] Social History Tobacco Use Types Packs/Day Years [...] on filedocumented in this encounter Care Teams Industrial Roof Plumber Relationship Specialty Start Date End Date Héctor Jean Baptiste DO PCP - General Family Medicine 01/28/16 10/26/22 Hector Eagle DO [address] [place] [address] PCP - General Internal Medicine 10/27/22 documented as of this encounter
--- OUTSIDE RECORDS SUMMARY | 2025-02-16 08:39 | XMS_ITS | Clinical Summary ---
Author Organization [facility] Address [address] [place] [address] Care Team Providers Care Seed Production Field Supervisor Name Role Phone Fco Hector Primary Care Provider [phone] Social History Tobacco Use Types Packs/Day Years [...] - 2023-2 5 season) 2024 Influenza Vaccine (#1) 2025 HIB Vaccines Aged Out No longer [...] Payer (Ef fective 2016-Present) Name:Lon Caldwell Member ID:[id number] Relation to Subscriber:Self Name:Lon Caldwell Subscriber ID:[id number] Payer ID:[id number] Group ID:Not on file Type:Medicare Address: [facility] [address] [place] Care Teams Seed Production Field Supervisor Relationship Specialty Start Date End Date Hector Eagle DO [address] [place] [address] [facility] - General 03/21/22
--- OUTSIDE RECORDS SUMMARY | 2025-02-16 08:55 | XMS_ITS | CCD ---
Author Organization [facility] Care Team Providers Care Weaving Professor Name Role Phone Dipesh Cárdenas Unavailable Emily [...] Unavailable Héctor Jean Baptiste Primary Care Provider [phone] Hector Fraga DO Primary Care Provider Hector Fraga DO Primary Care Provider RUBIN LOPEZ Attending Unavailable HECTOR FRAGA Primary Care Unavailable Unavailable Primary Care Provider UnavailALEKSANDER Conde Attending Unavailable HECTOR FRAGA Referring Unavailable ALEKSANDER URENA Attending Unavailable HECTOR FRAGA Referring Unavailable ALEKSANDER URENA Attending Unavailable HECTOR FRAGA Referring Unavailable SASHA LACEY Attending Unavailable FABIANA RICCI Referring Unavailable Spencer Turcios Admitting Unavailable Hector Fraga Primary Care Unavailable Spencer Turcios Attending Unavailable Spencer Turcios Admitting Unavailable Hector Fraga Primary Care Unavailable Spencer Turcios Attending Unavailable Spencer Turcios Attending Unavailable Spencer Turcios Admitting Unavailable Hector Fraga Primary Care Unavailable Flakito FISHER Hector Primary Care Provider Flakito Hector Attending Provider FlakitoHector Attending Unavailable FlakitoHector Primary Care Unavailable Hector Fraga Admitting Unavailable Allergies Allergy Classification Reported Allergen(s) Allergy Type Date of Onset Reaction(s) Facility (6 sources) patient allergy list reviewed by nurse or physicia Propensity to adverse reactions 9 Comment:Done [employer] Other Medications Current Medications Medication Drug Class(es) Dates Sig (Normalized) Sig (Original) benazepril hydrochloride 20 mg / hydroCHLOROthiazide 25 mg oral tablet (20 sources) Thiazide Diuretic, Angiotensin Converting Enzyme Inhibitor Start: 11-22-2024 take 1 tablet by mouth once daily Start: 11-09-2023 End: 11-22-2024 take 1 tablet by mouth once daily Benazepril-Hydrochlorothiazide 20-25 mg tablet Discontinued 0 .ROUTE .COMPLEX 90 November 09, 2023 1:24pm November 22, 2024 9:41am TAKE 1 TABLET BY MOUTH DAILY Start: 09-16-2023 End: 11-09-2023 take 1 tablet by mouth once daily Benazepril-Hydrochlorothiazide 20-25 mg tablet Discontinued 1 TAB PO Daily September 16, 2023 1:00am November 09, 2023 1:24pm take 1 tablet by eddie th once [...] eddie th every 6 hours as needed. pantoprazole 40 mg delayed release oral tablet [...] tablet (20 sources) Phosphodiesterase 5 Inhibitor Start: 023 take 1 tablet by mouth once daily as needed triamcinolone acetonide 0.001 mg/mg topical ointment (20 sources) Corticosteroid Start: 024 zolpidem tartrate 5 mg oral tablet (14 [...] tablet Discontinued MG PO September 11, 2023 1:00am September 16, 2023 3:25pm [employer] tablet as needed Orally qid; Note: [...] 20 MG PO Daily September 16, 2023 1:00am January 04, 2024 11:41am benazepril (LOTE NSIN) 20 mg tablet Take by mouth q 24 HR. Active Comment on above: Take by mouth q 24 H R. celecoxib 200 mg oral capsule (20 sources) Nonsteroidal Anti-inflammatory Drug Start: End: take 1 capsule by mouth once daily as needed for pain Celecoxib 200 mg capsule Discontinued 200 MG PO Daily as needed for pain January 04, 2024 12:00am August 18, 2024 10:54am take 1 capsule by [facility] every twelve hours CeleBREX 100 MG 1 capsule with food Oral ly bid Active Dexamethasone (20 sources) Corticosteroid Start: 02-20-2022 DEXAMETHASONE Feb, 4 mg dextromethorphan hydrobromide 1.5 mg/ml / pyrilamine maleate 1.5 mg/ml oral solution (4 sources) Uncompetitive A-pegovk-L-aspartat e Receptor Antagonist, Sigma-1 Agonist Start: 09-11-2023 End: 09-16-2023 take 1 mL by mouth every eight hours Pyrilamine-Dextrom ethorphan ([place] Dm) 7.5-7.5 mg/5 mL liquid Discontinued 10 ML PO Every 8 hours 150 5 September 11, 2023 1:00am September 16, 2023 3:25pm doxepin hydrochloride 10 mg oral capsule (8 sources) Tricyclic Antidepressant Start: 06-18-2023 End: 08-18-2024 take 1 capsule by mouth once daily at bedtime Doxepin 10 mg capsule Discontinued 10 MG PO Daily at bedtime September 16, 2023 1:00am August 18, 2024 10:54am doxycycline hyclate 100 mg oral capsule (4 sources) Tetracycline-class Drug Start: 09-16-2023 End: 10-28-2023 take 1 capsule by mouth twice daily Doxycycline Hyclate 100 mg capsule Discontinued 100 MG PO Twice daily 10 5 September 16, 2023 1:00am October 28, 2023 6:15pm escitalopram 10 mg oral tablet (20 sources) Serotonin Reuptake Inhibitor Start: 08-18-2022 End: 08-18-2024 take 1 tablet by mouth once daily at bedtime Escitalopram Oxalate 10 mg tablet Discontinued 1 TAB PO Daily at bedtime September 11, 2023 1:00am August 18, 2024 10:54am Free[employer]: TAKE 1 TABLET BY MOUTH AT BEDTIME; Note: Source Status: Taking; Refills: 5; Qty: 30 Tablet; Provider: Flakito Young ( ) eszopiclone 3 mg oral tablet (9 sources) [...] 09-02-2013 Depo-Medrol 80 mg Aug, 80 mg omeprazole 40 mg delayed release oral capsule (20 sources) Proton Pump Inhibitor Start: 08-26-2022 End: 08-18-2024 Omeprazole 40 mg capsule,delayed release(DR/EC) Discontinued 40 MG PO Daily September 16, 2023 1:00am August 18, 2024 10:56am 30 minutes before morning meal oseltamivir 75 mg oral capsule (4 sources) Neuraminidase Inhibitor Start: 09-11-2023 End: 09-16-2023 take 1 capsule by mouth twice daily Oseltamivir (Tamiflu) 75 mg capsule Discontinued 75 MG PO Twice daily 10 September 11, 2023 1:00am September 16, 2023 3:25pm predniSONE 20 mg oral tablet (20 sources) Start: 09-16-2023 End: 10-28-2023 take 1 tablet by mouth three times daily, then take 1 tablet by mouth twice daily, then take 1 tablet by mouth once daily Prednisone 20 mg tablet Discontinued 20 MG PO As Directed 12 September 16, 2023 1:00am October 28, 2023 6:15pm 1 tab tid w/ food x 2 days, then 1 tab bid w/ food x 2 days, then 1 tab qd w/ food x 2 days Start: 09-11-2023 End: 09-16-2023 take 1 tablet by mouth twice daily Prednisone 20 mg tablet Discontinued 20 MG PO Twice daily 10 September 11, 2023 1:00am September 16, 2023 3:25pm Start: 03-06-2022 take 2 tablets by mo uth every twenty-four hours predniSONE 20 MG 2 tablets Orally Once a day for 5 day(s) Feb, Not-Taking/PRN Problems Active Problems Problem Classification Problem Date Documented Da te Episodic/Chronic Abdominal pain (2 sources) Left upper quadrant pain Episodic Acute bronchitis (5 sources) Acute infective bronchitis; Translations: [Acute bronchitis due to other specified organisms] 09-16-2023 Episodic Allergic reactions (1 source) Allergic contact dermatitis due to adhesives Episodic Anxiety disorders (13 sources) Generalized anxiety disorder; Translations: [Generalized anxiety disorder] 09-11-2023 Chronic Blindness and vision defects (10 sources) Other subjective visual disturbances; Translations: [Distorted vision] Episodic Chronic kidney disease (6 sources) Chronic kidney disease; Translations: [Chronic kidney disease, unspecified] 10-28-2023 Chronic Chronic kidney disease (1 source) Chronic kidney disease; Translations: [CHRONIC KIDNEY DISEASE STAGE 3A] Onset: 01-08-2022 Deficiency and other anemia (11 sources) Anemia, unspecified; Translations: [ANEMIA UNSPECIFIED] Onset: 03-06-2022 Episodic Deficiency and other anemia (12 sources) Anemia; Translations: [Anemia, unspecified] Onset: 03-06-2022 [...] hypertension] Onset: 02-04-2022 Chronic Headache; including migraine (13 sources) Chronic tension-type headache; Translations: [Chronic tension-type [...] [Primary insomnia] 09-11-2023 Chronic Nonspecific chest pain (4 sources) Chest pain; Translations: [Chest pain, unspecified] 10-29-2023 Episodic Other aftercare (3 sources) Surgical follow-up; Translations: [Encounter for removal of sutures] Episodic Other aftercare (1 source) Encounter for removal of sutures Episodic Other connective tissue disease (19 sources) History of lumbar fusion; Translations: [Arthrodesis status] Episodic Comment on above: 2021, decompression laminotomy 10/2022 Other connective tissue disease (2 sources) History of spinal fusion; Translations: [Arthrodesis status] Episodic Other connective tissue disease (1 source) Arthrodesis status Episodic Other connective tissue disease (1 source) Other symptoms and signs involving the nervous system Episodic Other connective tissue disease (1 source) Spasm of cervical paraspinous muscle; Translations: [Other muscle spasm] 07-22-2024 Episodic Other connective tissue disease (2 sources) Cramp; Translations: [Cramp and spasm] 01-02-2025 Episodic Other gastrointestinal disorders (1 source) Abdominal distension (gaseous) Episodic Other hereditary and degenerative nervous system conditions (20 sources) Resting tremor; Translations: [Other specified forms of tremor] Onset: 10-31-2022 Chronic Other hereditary and degenerative nervous system conditions (2 sources) Other specified forms of tremor; Translations: [Abnormal involuntary movements] Chronic Other inflammatory condition of skin (2 sources) Pruritus, unspecified; Translations: [Pruritus] 01-02-2025 Episodic Other lower respiratory disease (1 source) Wheezing; Translations: [Wheeze] Episodic Other lower respiratory disease (12 sources) Solitary nodule of lung; Translations: [Solitary pulmonary nodule] 09-11-2023 Episodic Other lower respiratory disease (1 source) Solitary pulmonary nodule; Translations: [Solitary pulmonary nodule] Episodic Other male genital disorders (18 sources) Impotence of organic origin; 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] Chronic Other male genital disorders (5 sources) Erectile dysfunction co-occurrent and due to arterial insufficiency; 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] 09-11-2023 Chronic Other nervous system disorders (1 source) Lesion of sciatic nerve, left lower limb Onset: 02-20-2022 Resolved: 02-20-2022 Chronic Other nervous system disorders (18 sources) Inflammatory and toxic neuropathy; Translations: [Polyneuropathy, unspecified] Chronic Other nervous system disorders (17 sources) Polyneuropathy; Translations: [Polyneuropathy, unspecified] 09-11-2023 Chronic Other nervous system disorders (1 source) Polyneuropathy, unspecified; Translations: [Polyneuropathy, unspecified] Chronic Other nervous system disorders (3 sources) Lesion of ulnar nerve, left upper limb; Translations: [Ulnar neuropathy at elbow of left upper extremity] Onset: 01-25-2025 01-02-2025 Chronic Other nervous system disorders (20 sources) Impaired cognition; Translations: [Other symptoms and signs involving cognitive functions and awareness] 09-11-2023 Episodic Other nervous system disorders (10 sources) Abnormal gait; Translations: [Unsteadiness on feet] Episodic Other nervous system disorders (15 sources) Paresthesia; Translations: [Paresthesia of skin] 09-11-2023 Episodic Other nervous system disorders (1 source) Other symptoms and signs involving cognitive functions and awareness; Translations: [Cognitive impairment] Episodic Other nutritional; endocrine; and metabolic disorders (13 sources) Overweight; Translations: [Overweight] 09-11-2023 Episodic Other screening for suspected conditions (not mental disorders or infectious disease) (11 sources) Encounter for screening for malignant neoplasm of prostate; Translations: [Encounter for screening for malignant neoplasm of colon] Onset: 01-08-2022 Episodic Comment on above: PSA: 2.05 - 12/2023, 2.67 - 08/2024 Other skin disorders (18 sources) Vesicular eczema of hands and/or feet; Translations: [Dyshidrosis [pompholyx]] Episodic Other skin disorders (5 sources) Vesicular eczema; Translations: [Dyshidrosis [pompholyx]] 09-11-2023 Episodic Other upper respiratory disease (12 sources) Vasomotor rhinitis; Translations: [Vasomotor rhinitis] 09-11-2023 Chronic Other upper respiratory disease (1 source) Vasomotor rhinitis; Translations: [Vasomotor rhinitis] Chronic Parkinson`s disease (20 sources) Parkinson's disease; Translations: [Parkinson's disease] 09-11-2023 Chronic Residual codes; unclassified (17 sources) Obstructive sleep apnea syndrome; Translations: [Obstructive [...] Onset: 03-06-2023 07-04-2024 Episodic Residual codes; unclassified (2 sources) Memory impairment; Translations: [Other amnesia] 08-18-2024 Episodic Residual codes; unclassified (1 source) Other amnesia; Translations: [Memory loss] 08-18-2024 Episodic Spondylosis; intervertebral disc disorders; other back problems (20 sources) Lumbar spondylosis with myelopathy; Translations: [Other spondylosis with myelopathy, lumbar region] Onset: 08-25-2022 Chronic Spondylosis; intervertebral disc disorders; other back problems (20 sources) Lumbago with sciatica; Translations: [Lumbago with sciatica, unspecified side] Onset: 08-25-2022 Episodic Unclassified (2 sources) Ulnar neuropathy at elbow of left upper extremity; Translations: [G56.22 - Lesion of ulnar nerve, left upper limb] Viral infection (1 source) COVID-19; Translations: [COVID-19] [...] 01-31-2022 Episodic Other aftercare (1 source) Other intermediate frame tender (current) drug therapy; Translations: [OTH GROUP HOME CURRENT DRUG THERAPY] Onset: 02-04-2022 Episodic Other [...] Test Name Value Interpretation Reference Range Facility Basophils Auto (Bld) [#/Vol] Ordered By: Hector Fraga on 01-03-2025 Basophils (Bld) [#/Vol] 0.0 10 3/uL 0.0-0.1 [facility] Basophils/100 WBC Auto (Bld) Ordered By: Hector Fraga on 01-03-2025 Basophils/100 WBC (Bld) 0.8 % 0.2-2.0 [facility] Eosinophils/100 WBC Auto (Bl d)Ordered By: Hector Fraga on 01-03-2025 Eosinophils/100 WBC (Bld) 2.7 % 0.9-7.0 [facility] Erythrocyte distribution wid th Auto (RBC) [Ratio]Ordered By: Hector Fraga on 01-03-2025 Erythrocyte distribution width (RBC) [Ratio] 13.2 % 11.0-15.0 [facility] Estimated glomerular filtrat ion rate (GFR) non- AmericanOrdered By: Hector Fraga on 01-03-2025 GFR/1.73 sq M.predicted among non-blacks MDRD (S/P/Bld) [Vol rate/Area] 52 mL/min/{1.73_m2} Low >=60 mL/min/1.73 m 2 [facility] Globulin Calc (S) [Mass/Vol] Ordered By: Hector Fraga on 01-03-2025 Globulin (S) [Mass/Vol] 3.4 g/dL [facility] Glucose mean value [Mass/vol ume] in Blood Estimated from glycated hemoglobinOrdered By: Hector Fraga on 01-03-2025 Average glucose Estimated from glycated hemoglobin (Bld) [Mass/Vol] 123 mg/dL [facility] Hematocrit Auto (Bld) [Volum e fraction]Ordered By: Hector Fraga on 01-03-2025 Hematocrit (Bld) [Volume fraction] 39.7 % Low 42.0-54.0 [facility] Hemoglobin A1c percentageOrd ered By: Hector Fraga on 01-03-2025 HbA1c (Bld) [Mass fraction] 5.9 % 4.5-6.2 [facility] Comment on above: ADA RECOMMENDED LIMI T 4.0 - 6.0ADA THERAPEUTIC TARGET < 7.0ACTION SUGGESTED> 7.0 Hemoglobin [Mass/volume] in BloodOrdered By: Hector Fraga on 01-03-2025 Hemoglobin (Bld) [Mass/Vol] 13.8 g/dL Low 14.0-18.0 [facility] Laboratory - Chemistry and C hemistry - challengeOrdered By: Hector Fraga on 01-03-2025 Albumin [Mass/Vol] 3.7 g/dL 3.4-5.0 [facility] ALP [Catalytic activity/Vol] 65 U/L 46-116 [facility] ALT [Catalytic activity/Vol] 27 U/L 16-63 [facility] AST [Catalytic activity/Vol] 24 U/L 15-37 [facility] Bilirubin [Mass/Vol] 0.3 mg/dL 0.2-1.0 [facility] Calcium [Mass/Vol] 9.2 mg/dL 8.5-10.1 [facility] Chloride [Moles/Vol] 102 mmol/L 98-107 [facility] CO2 [Moles/Vol] 27.1 mmol/L 21.0-32.0 [facility] Creatinine [Mass/Vol] 1.35 mg/dL High 0.70-1.30 [facility] GFR/1.73 sq M.predicted MDRD (S/P/Bld) [Vol rate/Area] mL/min/{1.73_m2} >=60 mL/min/1.73 m 2 [facility] Glucose [Mass/Vol] 103 mg/dL 74-106 [facility] Magnesium [Mass/Vol] 2.0 mg/dL 1.8-2.4 [facility] Potassium [Moles/Vol] 4.2 mmol/L 3.5-5.1 [facility] Protein [Mass/Vol] 7.1 g/dL 6.4-8.2 [facility] Sodium [Moles/Vol] 139 mmol/L 136-145 [facility] TSH Qn 1.069 m[IU]/L 0.358-3.740 [facility] Urea nitrogen [Mass/Vol] 26.0 mg/dL High 7.0-18.0 [facility] Urea nitrogen/Creatinine [Mass ratio] 19.3 mg/mg [facility] Laboratory - Hematology and Cell countsOrdered By: Hector Fraga on 01-03-2025 Immature granulocytes/100 WBC (Bld) 0.0 % 0.0-0.5 [facility] Leukocytes [#/volume] correc ten for nucleated erythrocytes in Blood by Automated counOrdered By: Hector Fraga on 01-03-2025 WBC corrected for nucl RBC Auto (Bld) [#/Vol] 5.1 10 3/uL 4.0-11.0 [facility] Lymphocytes Auto (Bld) [#/Vo l]Ordered By: Hector Fraga on 01-03-2025 Lymphocytes (Bld) [#/Vol] 1.5 10 3/uL 1.2-3.8 [facility] Lymphocytes/100 WBC Auto (Bl d)Ordered By: Hector Fraga on 01-03-2025 Lymphocytes/100 WBC (Bld) 29.0 % 20.5-60.0 [facility] MCH Auto (RBC) [Entitic mass ]Ordered By: Hector Fraga on 01-03-2025 MCH (RBC) [Entitic mass] 31.8 pg 25.9-34.0 [facility] MCHC Auto (RBC) [Mass/Vol]Or dered By: Hector Fraga on 01-03-2025 MCHC (RBC) [Mass/Vol] 34.8 g/dL 29.9-35.2 [facility] MCV Auto (RBC) [Entitic vol] Ordered By: Hector Fraga on 01-03-2025 MCV (RBC) [Entitic vol] 91.5 fL 80.0-94.0 [facility] Monocytes Auto (Bld) [#/Vol] Ordered By: Hector Fraga on 01-03-2025 Monocytes (Bld) [#/Vol] 0.5 10 3/uL 0.3-0.8 [facility] Monocytes/100 WBC Auto (Bld) Ordered By: Hector Fraga on 01-03-2025 Monocytes/100 WBC (Bld) 9.2 % 1.7-12.0 [facility] Neutrophils Auto (Bld) [#/Vo l]Ordered By: Hector Fraga on 01-03-2025 Neutrophils (Bld) [#/Vol] 3.0 10 3/uL 1.4-6.5 [facility] Neutrophils/100 WBC Auto (Bl d)Ordered By: Hector Fraga on 01-03-2025 Neutrophils/100 WBC (Bld) 58.3 % 43.0-75.0 [facility] No Panel InformationOrdered By: Hector Fraga on 01-03-2025 Eosinophils # (Auto) 0.1 10 3/uL 0.0-0.7 [facility] Immature Granulocyte # (Auto) 0.00 10 3/uL 0.00-0.03 [facility] Platelet mean volume Auto (B ld) [Entitic vol]Ordered By: Hector Fraga on 01-03-2025 Platelet mean volume (Bld) [Entitic vol] 9.2 fL Low 9.5-13.5 [facility] Platelets Auto (Bld) [#/Vol] Ordered By: Hector Fraga on 01-03-2025 Platelets (Bld) [#/Vol] 251 10 3/uL 150-450 [facility] RBC Auto (Bld) [#/Vol]Ordere d By: Hector Fraga on 01-03-2025 RBC (Bld) [#/Vol] 4.34 10 6/uL Low 4.70-6.10 [facility] Serum or plasma albumin/glob ulin mass ratioOrdered By: Hector Fraga on 01-03-2025 Albumin/Globulin [Mass ratio] 1.1 {ratio} [facility] Serum or plasma anion gap de terminationOrdered By: Hector Fraga on 01-03-2025 Anion gap [Moles/Vol] 14.1 mmol/L [facility] Coding Summaryon 10-18-2024 Coding Summary HTMLBase 64 BivnrmnzIVz6tSi+PGhl YWQ+FY4HKHEsL56fcIYp uL4yZ9QBPNoJToexLPTN FMfKFnIfkpDnRL6vkAGm ZXJu IC8+IH9aVOQtLyfrtRPv f6X6lHP2X94pyg4yNUlc xAW8OAXhRjEsrycit7vk gXb1ORikZdmjZbDf BEKqsB96ZMW8xX03Hz66 oOPccPZdm9xefKv4MpQn NCVoUBX7aMmpREfht7Xj QGPsG75dsHSuz8K5 IGNvbGxhcHNlOyBlbXB0 rG7cSXaidxhan9inifsr Ysc6md89eFBsa0O4fWM2 V7GypcD2JNZmoPVd HqgccSBJpQ6vyfezd0tl yrxpEoLiDMWaLEn0QCn9 KOKtvQamJpCpWX61KQP7 KMOlsvWfF9LhFTTk wBshNgT8e6X9Ra1DI1IC JmcvN4ATQZENGOjjzCH+ OQ94cc46H1JySloeQqa7 MNYlAPR4hIR7pE7u JMRfHNkoy7H7bQJ3M7Ea vgHyka5mz2uuRTYxVIat X93liJSpo9U3SRYihDQ3 LTYmwKefIyKxaT39 Oyc+STEjgBgzz9RyBynp v3gbm4zziTj8KjfkWOVk uzNquVviDXZ1p7BcSl7f XOFawLW2nRH5pM3b AlCpOsB1TXwoX110WcSs sSBxMfoeA88dV7GmcTG+ BFJpAhb2SMOyzHzuWH3z W5FaJLNbtbuhlYGh nBkmWB9nESTipevbPGQz jE5pNMWdD8w5HpFzFeN6 AWqgK4WtLTVahirfPx88 wG3qQrDsHfP8JWib R8QnouV7NAMciQWrJGha IPW9D88as6O9ESDgYQXx AQU4uVU2cS3lkKyetqhw bGVmdDsgdmVydGlj DUaaTUlrC877DPAthTvv PkNvZGluZyBEYXRlOiAg MDQvMDEvMjAyNTwvdGQ+ VNQkFHT9nRdbYBYz jFWoQKibRr4qkXqbnDdd NN3iLEOgawbvYAJuwO9k QYWajDYmrWeiKE7zBWRx jmeqq788PsQkJDY0 TDVrtRCbZ2DvnS5pMcSj WTXcRDDdW6KahJFyBBat O647ALmzZjU3KNYxywPt H1SgKACrvNfaHfL5 f3Q5Qu9Bk2OvxnpsV6Qw tEOmLbPdPxscFVi9O7Ij PjwvdHI+EQ21SKCuWA76 TKb2QLW0sHinDKlz UXSzD7YpkU0qJjWcDEYv ZGRkOyc+PHRhYmxlIHdp ZHRoPScxMDAlJyBzdHls RK0cUa3mFTTwLHKj pFnhcCZdRiBok4zyCEUn UUvmMH5peAgjO3IaqYM2 VMFvh2l3Oa58F74cJ9Op dXA+DNUnqEE9eKZ2 qR6pQbSfSkB1QLqtB481 PsEpgNHaVscro7fqw5vd pXi9JcT6CHZdqbEzvReq KFZ5f2IcXc43E71f IHdpZHRoPSIxNSUiIHZh bWsvkl1vdF5pUg5+PGNv aOH1yEV7hJ9gZsWlTxH2 TFswV997WjVmkJLz Yshjq8uwe3sspJu9EtCd ZHYkwoZgdTdhACV4j6Bj Hm15X4VweXvhq0ShBkh6 zm79nEGxd5O2eGN1 L9CuOPEpoefndRNdlWrx MI8dIHEfsnakVZDkuI7f SVJjP9p9VoSsJuD6GRrp J7KvikK7ESIupGMy OVGkrGGQwS0jtvtlc9lo spqfJaNqDUSnKLw5QUu4 PXYxmUvaPdZyDTU8IoJ9 VMH2pJUujE2rnBes adavnV0nWma+AXZ5bEPe rDLKHN4fIcguqMR+PHRk FVV5zUgfFKdiTSOzaD5c YVSvT8a3PyTfFjG6 FFpoD2MmmlP9XLXlkJDx JTAlyIOVoX4gugiqd8bv jcmjRpAoTJZuVCj1RBp7 LWFsaWduOiBsZWZ0 HvA4YJD1aZIhgN0hlWof ayvqeE7oWoi+QmlydGgg CLZ1UAu0B1UsNhv2JRMz xHauRS6wnZXgYJuy An7uaXdzoGtwKZ9lZWJb tbbgk139UnHtb8jiRAPz eEVnRKbdIQV6F33hw0X0 XVFkTFPeFKP7nDI3 lR1vwBvtvklwsICcoQyi mmEzhAcyBMbcMSmnL054 ZKVzrZbxMxYwLBn7C6Th Feu7MJEvlIaoKW4f rWWnDGreBh4ndLykdVte UF3yFXHxirnhn492YnAc g5kjWSUbkFXfKAniCXK8 B41kh3C7VQUtBFCl AGR4aVP5dC2bcAhepjxx bGVmdDsgdmVydGljYWwt ISkqI648EGXvwOmgWtRr nVu9H7EdLzj2WYCt vNhxGZ3rxCYeXHdhGb9x qIcbqPltME2bFYTkxnzl e736CsJcm8jhBVJwxMOj UHdgKEE1Z94cp6M3 EZYzDCEdOFB6gAW4lC6q bGlnbjogbGVmdDsgdmVy nMdhWShcEWgyK595HFJa cDsnPlBhdGllbnQg KMtyISe1K8TmQceydOC+ FP66LILfNW30yUNzrYLy t5kdzLy3IxTbWDLzMOA5 mAwaWPoku8DsIBFq K41baGXby7A5DDZlwNth lQIzZzMrwUI4uL3nWMvr tltly2ctxjqsTbppl9at xe98lI01C69kDNjb ZHRoPSIzMCUiIHZhbGln ow2ttG5sNz2+PGNvbCB3 aEC6gU5vCLDfTyI9QGlo I071QeJxlGVeWdtx s6add0yyxCw4VzI0FHBy xiDwdCzoWPS0m7DzVf22 W53uFDilHPBxBKUgJHUi TPQjvVwaxx8qhO1m Ii8+GLVmlHI4zJZ0hP5x HyCcXfG5WXccC515QjVy gZJgPcvdY66rJ1BhnRE+ KJHtTws5DTRnzRzv DE3ohAAlKFerJo6bGWW8 OrUuBkZdEDvlT5NhQIUl esywrcluaSL3LMSiZHKr bJ68Tb9arEruXQMs uULKuO5tgojhb1kfpkid OwGhPEYkNCf1FLu1AVDi iJkbZcGsAIQ0HcF5TAQ9 yZIlcF0fcUtuwjmm bW7sA7ZvWBNbspayWg03 zJ6xHnFcNcL0IIacKyd+ HBaFL76ZUuidMfcBMNJX NZHOUL60VN40rGMg p2V1cLY8J2CnYTJpzsyz pkkmxMP6JWDdRQTsjE42 aHUpFPelZa7kt9W1j367 ABSyGCTnuD08Xs2i wUguNPZncNODoG1waeka r4wcfxfwUmSoJUKiEYk9 QIc2KPRqtXzvNwYwCTI5 TpI1DOC7fIVwpE8r qXxbcazlkY8jAbn+MDYv DwGiLMs8NBpnwSK+PHRk NMQ1yNicBYslUMBevT2t AOZxD8w0RrPzQsV0 WEknO3NgPUUckslvWn23 xO3tLgZlFsI8ZMtzG2Vi aoK8YFLjdINyQPyoRFT4 Y63sa0L5CWKtZNEf FLF5tCM1oF4sbZnvkqcj bGVmdDsgdmVydGljYWwt OKkdJ382JTMjwZafVuw9 DTudWNJuCQ66PG31 pRBhg3A5yYI7V5HcHMBq pxpqgqumeGZ3TBBqQEAy jP81yXTcUUbgKm1vc9E1 k826ISIbVEVplB86 Um6fpXwnQBWwyWTVdH8f ocnzs2svhbxeWaZbKJSb JJa3WMu3SHSzvVxrSaAz RAD8XkV9TSP7sWFh yJ2oxUgialvffU2wAnc+ TUFMRTwvdGQ+PHRkIHN0 zBmzWTkkKYPtfY7pXUUi I7h2IzIgMpI8WOna F6ZmGGTmkgwuVm14nN8k BkDzSzY5ZSvlG9RsfyV3 JVXljBCjWVgmSZR8P21v r3Z6XYKvDSYvJCJ1 wQX2lT1guHmhevunwPAo dDsgdmVydGljYWwtYWxp V287SIDetVplMnNqkVAQ aHVxYVT9MT93YO51 T8GsBldlqHPbuUH+PHRh YmxlIHdpZHRoPScxMDAl ZuIsiAcaYL6oIo9cIHDt LWNvbGxhcHNlOiBj t6dtTCEsGGiqLT2qbRqy V3XnhTJ2XHQdn3l6Og66 N60bO5SmdPG+PGNvbCB3 hHI3rX8nLfVdLyO6 MUplL770PfKjiKSsLrrq l4men0fmbBe4ThWdXVWn deHkpLqxGHH7l6IaGx67 D32uKZyrKJEwQALp MXFrJEEigMxeqi3emF7w Ii8+UOMnzHR9hEU3xQ2z OqSfNfD8JDpnU561YrYe wNFcNzwxK86xB0Eb dXA+EWWzVmy1AGQjpGck TG9rmTZlCIgwMq8uUNL4 TwBuGtOwCZuaA7LvOWEe pavtsavzxGU0LONl MEDosF37Qb5rhHsmVg1h PMFyPNI4YNYwtAEmO4Yd tQ1cRwBdPGNnTWNnG5Ee cWBxMIckK901XBjq QoT7SIKijkQgA1MtTUSp gAuyEnD7s9F6Rs9NeQie fDQdGZ9oTjZsJMw1A6Ap Kzc6JBWwcRcnYI6q hSAoCAdqQh9tvTezvZat NU0gYTPpksuxr322DaSv q6tsQKLhmJNlSCijUFA6 W03if2O5KXPoURDg DHM1xRA8kC1qqBggsabb bGVmdDsgdmVydGljYWwt GPruZ286OKKvxUdmTvYR Hwx1P0MfAfi2TZRt hQptBB0zhJWiEYnxQe2x nYkytWmrVS4eQUUffsua h311TlCwe1eiPPNvhLQf VMzpCVF4S99ct9A6 MYHsYPMcJKW6dPF4hY2s bGlnbjogbGVmdDsgdmVy uKzqCZdmIMjtG980XUGz wXwvCy1OOxw4A1Eg Cxu9DDQztAcdZI7zjRZt BMjwMz4vnOchyRksXU0u PLJsyetsc927TyGpe9uk IDEwcHQgVGltZXM7 Q19yn4P3AYZjBMYlBZX6 eZQ1iD9ftVfxlsilaTHh dDsgdmVydGljYWwtYWxp B352GKRyjDcgEvBj [id number] b2x (more content not included)... Normal [facility] C Anaerobicon 10-17-2024 C Anaerobic No anaerobic growth at 7 Days [facility] Comment on above: Performed By: #### [id number] ####[facility] (DEFAULT)[address] [place] [address] MAGR Intraoperative Recordon 10-17-2024 MAGR Intraoperative Record MAGR Intra-Op Record Summary Primary Physician: Spencer Turcios DPM Finalized Date/Time: 10/17/24 11:00:26 Pt. Name: EMILY CALDWELL/Sex: 1950 MALE Med Rec #: [id number] Physician: Spencer Turcios DPM Financial #: [id number] Pt. Type: D Room/Bed: / Admit/Disch: 10/04/24 05:54:48 - 10/04/24 09:30:00 Institution: Case Times MAGR Entry 1 Patient In Room Time 10/04/24 07:21:00 Out Room Time 10/04/24 08:32:00 Anesthesia Start Time 10/04/24 07:21:00 Stop Time 10/04/24 08:35:00 Surgery Start Time 10/04/24 07:35:00 Stop Time 10/04/24 08:31:00 Last Modified By: Maria Esther PADILLA, Heather 10/04/24 08:37:59 Case Attendance MAGR Entry 1 Entry 2 Entry 3 Case Attendee Spencer Turcios DPM, Robert M MD Gump RN, Heather Role Performed Surgeon - Primary Anesthesiologist of Tube Coater Record Time In 10/04/24 07:21:00 10/04/24 07:21:00 10/04/24 07:21:00 Time Out 10/04/24 08:32:00 10/04/24 08:32:00 10/04/24 08:32:00 Procedure Bunionectomy(Left), Bunionectomy(Left), Bunionectomy(Left), Hammertoe Repair Hammertoe Repair Hammertoe Repair Last Modified By: Maria Esther RN, Heather Mayo RN, Heather Mayo RN, Heather 10/04/24 08:37:54 10/04/24 08:37:54 10/04/24 08:37:54 Entry 4 Entry 5 Entry 6 Case Attendee Cass Marmolejo RN, Brittany E CSFA Parker, Hunter ST CASH VAN SALESPERSON Role Performed Tube Coater Concrete Pipe Plant Supervisor Scrub Personnel Time In 10/04/24 07:21:00 10/04/24 07:21:00 10/04/24 07:21:00 Time Out 10/04/24 08:32:00 10/04/24 08:32:00 10/04/24 08:32:00 Procedure Bunionectomy(Left), Bunionectomy(Left), Bunionectomy(Left), Hammertoe Repair Hammertoe Repair Hammertoe Repair Last Modified By: Maria Esther RN, Heather Mayo RN, Heather Mayo RN, Heather 10/04/24 08:37:54 10/04/24 08:37:54 10/04/24 08:37:54 Entry 7 Case Attendee Bianka Maritnez CASH VAN SALESPERSON Role Performed Scrub Personnel Time In 10/04/24 07:21:00 Time Out 10/04/24 08:32:00 Procedure Bunionectomy(Left), Hammertoe Repair Last Modified By: Maria Esther PADILLA, Heather 10/04/24 08:37:54 General Comments: teena jasso-nimco Surgical Procedures MAGR Pre-Care Text: A.20 Verifies operative procedure, surgical site, and laterality Im.150 Develops individualized plan of care Entry 1 Entry 2 Procedure Bunionectomy Hammertoe Repair Primary Procedure Yes No Primary Surgeon Spencer Turcios DPM, Kevin L DPM Modifiers Left Surgeon Comment LEFT BUNIONECTOMY AND LEFT 2ND TOE HAMMER TOE CORRECTION Start 10/04/24 07:35:00 10/04/24 07:35:00 Stop 10/04/24 08:31:00 10/04/24 08:31:00 Anesthesia Type MAC MAC Surgical Service Podiatry Podiatry Wound Class Clean Clean Technique Details Closure Technique Primary Primary Entire procedure No No was performed via laparoscope or robotic assistance Last Modified By: Heather Mayo RN, RN, Leandra 10/04/24 08:37:56 10/04/24 08:37:56 Post-Care Text: O.730 The patient's care is consistent with the individualized perioperative plan of care General Case Data MAGR Pre-Care Text: A.350.1 Classifies surgical wound Entry 1 Case Information OR MAGR OR 02 Case Level Level 3 Wound Class Clean Specialty Podiatry ASA Class 2 Diagnosis Preop Diagnosis LEFT BUNION AND LEFT Postop Same As Preop Yes HAMMER TOE Postop Diagnosis LEFT BUNION AND LEFT HAMMER TOE Blunt or No Is the procedure No penetrating injury considered occured prior to Emergent/Urgent? the start of the procedure: Last Modified By: Heather Mayo RN 10/04/24 08:03:28 Post-Care Text: O.760 Patient receives consistent and comparable care regardless of the setting Time Out MAGR Entry 1 Procedure(s) Bunionectomy(Left), Hammertoe Repair Time Out Checklist Verifications Team Introductions Yes Confirmed Identity, Yes Completed Procedure, Incision Site, and Consent(s) Presence of Yes Site Verification, Yes Necessary Site Marking, Site Procedural Marking Equipment, Devices, Alternative, and/or and Implants Site Marking Verified Exception in Accordance with Facility Policy Anesthesia Review Antibiotic Received n/a All Anesthesia Yes Within an Concerns Addressed Appropriate Time Interval Prior to Surgical Incision Surgeon Review Anticipated Blood Yes Expected Case Yes Loss Risk Addressed Duration Addressed Critical and Yes Non-Routine Steps to be Performed Addressed Nurse Review Equipment Yes Fire Risk Yes Checks/Concerns Assessment Addressed Completed and Interventions Performed Diagnostic and Yes Sterilization Yes Radiological Test Concerns Addressed Results Displayed are Appropriate and Labeled Other Concerns Yes Addressed Time Out Spencer Turcios DPM, Time Out Time 10/04/24 07:34:00 Participants Eugenio Perez MD, Maria Esther PADILLA, Jaleel Romero Erica RN, Raquel Oh CASH VAN SALESPERSON, Alfredo Odom, Bianka Martinez CASH VAN SALESPERSON Last Modified By: Maria Esther PADILLA, Heather 10/04/24 07:46:48 General Comments: teena walsh (more content not included)... [facility] Coding Summaryon 10-13-2024 Coding Summary HTMLBase 64 TuitzqmrKLh7eAw+PGhl YWQ+YP6UQIRfX25qsKKg jG7kU5CVRLuOGvfhCVJL OZzPUgGavvQvPL0gnBNe ZXJu IC8+FH4iSKKuFtpunPVc t4U0xJB1T12jcr0zNUme vTY7SOHdUnHepvitj4im bGp8TRljFfidFjEe JTVfaG54GBP7wZ76Pk66 lIEdwCSak7nvqWa0ToDv GWKgSJL8vZtaOQajo6Tt NKBeW30vhUByd4S7 IGNvbGxhcHNlOyBlbXB0 wK8dAMrjtzkiw5erkvqw Wot2uf81eIBki8N6pQI4 E9HlqbW9AXJagESs LbdbcGDLnF4jyanpb3sw pfsoRxTmYHNcVNp9KOl7 BCEpoCwhPbDnIX90IRE3 XRRyvjXjV2WrSOZz vJbwCnI1f9O4Zc7XT6OW NcyrT0KEJRIBXQbbcSG+ EC41um11C7MuWvmbYhe6 JVJhWTG7rWQ1gE5q JHNdPCfts3H7eXC5N5Cz beKfpc2tn1ppNECvTIem D12hfCSkq8B5LUTmxBV3 WKNxzBxbIgRqlZ02 Oyc+QWQjzRmii0PoNvqv d8xlr6oxlHn9EujyVJNm mmBpyLcvTQT8y6JbZg7l PRTduDU3oIA9wK4t EdBeRaE0BFnpL850DuZs yXElXayrN47kI3JkoZM+ VSUrOdg7HAVjpUhjBU1b K1BuKPDoggegjGZn oJwaQF6zMKIwlmxcBESh cD7jRGXsB2h6InTeXnV6 YVkpH2UoCBLmbcioVp00 gW0dGqIhAjC6ALst G9AgscR4EMYhhUAvZRbw DGL4C34gr8P2AWFpDCPj RSQ2fBR9hB3ceZunqili bGVmdDsgdmVydGlj BZdmDMxpR841QJLncVvq PkNvZGluZyBEYXRlOiAg MDMvMjcvMjAyNTwvdGQ+ PUFkWBZ7wDzfGNOe gKZgJEfdZc2dvGjvzVew JI1zWYPxsgqdCBMsyM5l RIIzkIHmvLpmAS6sMBXq ezfmw344QaAcAMR2 ZYAlbDNgO8IrjO1lUwIs NGObJLTtG9AifTOnSPsy X564RIhtBxY3DALnntWt I3FpZISspNvhDbQ7 a2K7Jf0Mg1ZjokztF5Le qEByZjZrQxrsMUw0F5Kh PjwvdHI+GD27XPSePU50 WNn9BFH2dLyvNAow VPCrA6MheA9mJeTiYHAi ZGRkOyc+PHRhYmxlIHdp ZHRoPScxMDAlJyBzdHls KM1qWe2gDFDyDFLx kVxpgQCsDlDds3daSZXd DBglOQ9moXqgI1SgnDQ8 SFLzk5p8Xd77R76vV3Yl dXA+ETJnwWS0zWA7 hZ2vCfQoGaQ1ZQsqJ706 ZuCerVHvTabim1cyo4wc fAx3XhF8ZJWereKdmYrq DYX9n4YgZg34H88w IHdpZHRoPSIxNSUiIHZh iTucwg0zcK4rSe8+PGNv mYC5eSX5iZ6vRhMkAyI9 RAwhF609LeWsjCEe Zqqoj9aqr8twxHg1IcWf YUHyxeYmhBboQRS0t9Dq Lw24B3XkeLvza0TwQsx3 vw39sJAft2P3yJC3 B2UqMQDftezhyBDvyIex QW1rMULfnuqeVPXlcP0r TQDfR1s2OwQgUlQ4NKbd R2YcyeR2IRPwcSFu UBXmdBUJaK8reyahr3ta fnleSzLkWFTjIOl4HYd0 VHIedRtgJzNuWHB6WhO1 FUE4fAZpnR7hxOge zcujxK8vCrj+KAZ7wRBd pUNVLJ1aAdrliQZ+PHRk MXF2oPrcEFzkOWHvaT3b ZBXfK2y1IqJvOoO2 OWjcK9RleaX9YNRfpXSb ZAIycMCVrG9mtmnfm9ox ieiaDvVzVZDoQHp2YRh2 LWFsaWduOiBsZWZ0 RtA1IJA4oHRkcX4mpDuv gothdV3pSnl+QmlydGgg FLN3BGk8T7CoEns4JPIr lWrrEH2cgFWdNOir Uv6zrGywuEhvIJ2sNPEp uxktj019VaEhc6ckGADc bHEiJIbjYSI7Q60cn0H9 ABHpYRYgVMY9sXC5 eX9hrLhbapdubJZogSuk hnOehShtISgcLZpdY986 TVIaxQaqYaOyWMr1E3Qg Xuc4ECTlnOotSR9s pRSyPJzxUh1mqTuyhVtl GK0gRZXlbyuif165ClRs r9psYWWlqFXePVcaZYT6 C89aj9K5LZQpWETf CHJ0nVF7uM8cqVijhjxg bGVmdDsgdmVydGljYWwt PDcmY012CBSsjYeuNtIt xMr3Y9NgCdb3XSUx aDafIB1zxIGlFXbnGj7v qSmyfOnfIP6aDZFrbgpj m420GrHfa5qpNLYcqISi KYovZKV0Q45ex3K2 UGBbCSAhUGI3yND4sY7y bGlnbjogbGVmdDsgdmVy oEknGEozNBsfR986BYUs cDsnPlBhdGllbnQg FXgzCIl4T1QkObomoGD+ TP68SFNrUQ81aPIbbVOy m5muiSe4FiDxJGTbILJ3 wNjfCIauu8ZiGGLs W01fsQQiy4X0LLKnnAuy fTWqRiLroGD0mE9xTUpn wapfi1uzixvmDukvh5ui oi87yJ24P93aQMdi ZHRoPSIzMCUiIHZhbGln se9fwC8tHg5+PGNvbCB3 lAS1tG7mQDNcHpD1VBkn N944RxKgqABtNrdo z7nha7zxjHu9ZkT3BKZe xeLfaAxyWBX1b4EuXc73 F27cNLvnTBTgVBIvZYEs ULRdjWqwah0cnV3o Ii8+XGOvxLX1sVE4eU9l PlDiObG2ODmzR104XgYi wKGsSuckP11gA8WbeXO+ NSYfHyd6UNSmoIxi AN5eyUBeSAquXx4qXMX0 PoWsBoGxKZjzO8WaLLKp uatcrqewhCC8IJDbSEXh vY67Nw1mvWbdESSn uMBGwA1blriit7oljyjp RmYyNZVqAOj1CMy7JMFj kBybShRbNMU3AeD7DXJ4 eYJfpY2lrKrbjucm rB7tU6IlSVIldospHo10 pD5jMkMqQxO3RDqzGzy+ RJaAD57ENxvnPomQMBIH GBLAKK79ZZ32bIJs m1I4iKM4K7XfGSCawuse blkbjJL2ASOmFQEwbA50 vUCjQNlmSd6nk3F9z877 YARuDRGjjC85Qy8s uOwcBJBzkDNKaR5zgnwr x8tdwxtmWtZoLWCySXk8 YTf5YHFihSerPiSqNOH4 QdA5AJY8tXWnpF9q qMyfouhhuB7pOgr+MDYv FaDjOEd9NHckhSL+PHRk ADQ5qByxAQxgYWFvjT2l QABqJ3n8ZrNhBwK7 WJraK7XlTTUrdencEx90 tS5jRmMnTyJ0HRppO0Ma rpM8VFNzyGGrKFsgDWQ4 G85sh4P3AMCpDVDz YIE1jQJ9tU3wjBifvykv bGVmdDsgdmVydGljYWwt XTapV677KLLazEgzOqs0 MOryEPCoMJ12UA44 dXYkt9H0vPC9B1JdFHGs gcnbhwpfoQE8KXEsROTq qV55yJYlKSipHk0kg4N4 t167CWJqRGWbxM54 Fp8yzOzxPLWlrLGOcX6z jrycg0zlstenGaWvDXOc DYj0ZJl2UFWayBpoNaMw MHX0FtK6BLD3kGPk sU9tlCglzdgneH0eJpm+ TUFMRTwvdGQ+PHRkIHN0 zYkxSLqkDHQycX5sMOWl X2v6DeDjKeE7CLvb U5LyRPZqvrvlEx48uU4s ZjYrNtJ3KFfxF2AwzhP3 CKAfrSDsUEogEUI8G04q i5R4OWEnXJTxQNK5 oLJ8zX3sqSqtbzziuZYo dDsgdmVydGljYWwtYWxp Z475PKFckOrtJg2GNI90 QX94H7CzWcgjcNMd bGU+PHRhYmxlIHdpZHRo FKiiRYYaCxYdzWvvRO1r Bq9xHERrXIPraQffjEVi AlTvi6jeXKDzVVxh EQ7owTbvT9DsfUP5ZLXp j2b9It08T77wP9XiiKL+ KQYjyKJ7zKI7vA3uKdIu EdI2DMayH461FuBl xRNnGsyos7fpz3wqyXd8 IjMwJSIgdmFsaWduPSJ0 k3VnFs90M56nCPsdWPWf PSIyMCUiIHZhbGln cv5owE9dDu7+PGNvbCB3 aUK6wA1eOxBfOrZ2RXfx J727DqZnaCFaZkumD05x R8UpgYA+PHRyPjx0 DZAixNtkXI2dgURqIQjd Wn5yFRI6JlVgIvWfQFzj B1UuSEFlltapofwkfIW2 YGZrHNPisH91Lr0x iUtnFp1oWXHgSST6YUQs xHVtD2YuqH9hWxOeBPBn AQMdA7EqkWDlBRlwP259 UGpaEyB3QODyfaRb C4VdYGHasMtxVsR9p0A9 Rg8RnLbqdJRpJQ1aSuBk KHh1N0DjLpk8TQOwrZdt QW7ebBJdCWwuUl9k kEppkBteBC9zIZYxqljc w043ReXot1gsCIKhrZVs DJltMXB4F51iq7Q8UJDn AIZvKUM6wBB2qE2p bGlnbjogbGVmdDsgdmVy xSvzECkhESndR683FRTr uQjbZuBLRfm4O7GrDpr0 HRGppPkjDA9gcLWy PCbfPx4flLlvmVmxUN1w JSPyrenvu783DsJrr8yb UFCejQSdMHwxWJL6G31u m1T5YDJzDCRxPHP6 aDF7tG6xcWwyepclwNEv dDsgdmVydGljYWwtYWxp V505IVXueGhvIy9HVmf3 S6ZdYqa2UDFhyTeu MX4wkXPlSHylQm8drBei kFnvER1eFYGlrdgev391 SjXww6shKSRfoXQnXTyt IZA9K10br6Q7NTUf PCPsJDB3hJF8hC4moMnq bjogbGVmdDsgdmVydGlj TPjlFZjtY683QBIfjHcd PlBheWVyOjwvdGQ+ CL41hp79H6RaDzfsAfa5 TCDgQMH4sTP6jM2eDPUl GMqvc5J8yNY6X7WuesZg ah1yx0xjLJGdUXuh Y29 (more content not included)... [facility] Wound Cultureon 10-13-2024 Wound Culture Moderate growth of Staphylococcus aureus No organisms seen. ORGANISM SA ----- SUSCEPTIBILITY ---- ORGANISM ID: 1 ANTIBIOTIC INTERPRETATION FELICIANO STATUS ORGANISM SASA Amox/Cla S <=4/2 Verified Amp N/R Verified Amp/Sul S <=8/4 Verified Azith S <=2 Verified Cefaz S <=8 Verified Cipro S <=1 Verified Clinda S <=0.25 Verified Eryth S <=0.5 Verified Gent S <=4 Verified Levo S <=1 Verified Linez S <=2 Verified Nitro <=32 Verified Ox S <=0.25 Verified Pen S <=0.03 Verified Rif S <=1 Verified Tetra I 8 Verified Tri/Sulf S <=0.5/9.5 Verified Vanc S 1 Verified [facility] Comment on above: Performed By: #### [id number] ####[facility] (DEFAULT)[address] [place] [address] Provider [place] 10-10-2024 Provider Orders [id number] 1#1.00OTGTIFF [facility] Consent Formson 10-05-2024 Consent Forms [id number]# [place] 10-05-2024 Provider Orders [id number] #[place] Anesthesia Noteon 10-04-2024 Anesthesia Note Patient: EMILY CALDWELL Age: 74 years Sex: MALE : 1950 Associated Diagnoses: None Author: Eugenio Perez MD Postoperative Information Post Operative Note: Operative Day. Anesthetic utilized: Monitored anesthesia care. Health Status Allergies: Allergic Reactions (All) No known allergies Problem list: All Problems HTN (hypertension) / SNOMED CT 4600036266 / Confirmed Physical Examination Vital Signs (last 24 hrs) Last Charted Temp Temporal 36.4 DegC (OCT 04 06:05) Heart Rate Monitored 74 bpm (OCT 04 08:30) Resp Rate 16 br/min (OCT 04 06:05) SBP 126 mmHg (OCT 04 08:27) DBP 70 mmHg (OCT 04 08:) Review / Management Condition: Stable. Assessment Anesthetic outcome No anesthetic complications noted. Adequate pain relief. awake, alert, VSS adequate hydration. No Complaint of nausea and vomiting. Plan Transfer/ Discharge: Patient can be discharged from PACU when criteria met. Condition good. [Electronically Signed on: 10/04/2024 08:36 EDT] Eugenio Perez MD [Verified on: 10/04/2024 08:36 EDT] Eugenio Perez MD [facility] Anesthesia Note Patient: EMILY CALDWELL Age: 74 years Sex: MALE : 1950 Associated Diagnoses: None Author: Eugenio Perez MD Preoperative Information Anesthesia history: Patient history: No difficult intubation, No malignant hyperthermia. Family history: No malignant hyperthermia. Review of Systems Constitutional: Negative. Respiratory: Negative, No shortness of breath. Cardiovascular: No chest pain. Neurologic: Alert and oriented X4. Health Status Allergies: Allergic Reactions (All) No known allergies Current medications: Home Medications (4) Active acetaminophen-hydroc odone 325 mg-5 mg oral tablet benazepril 10 mg oral tablet 10 mg = 1 tab(s), Oral, Daily omeprazole 20 mg oral delayed release capsule 20 mg = 1 cap(s), Oral, Daily Tylenol PM 1 tab(s), Oral, HS Problem list: All Problems HTN (hypertension) / SNOMED CT 0595701333 / Confirmed Histories Family History: Heart attack Father Hypertension Father Mother Procedure history: Bunionectomy ([id number]) on 10/04/2024 at 74 Years. Comments: 10/04/2024 7:26 EDT - Linda Vo RN Left with 2nd hammertoe correction Lumbar spinal fusion ([id number]). Colonoscopy ([id number]). Social History Electronic Cigarette/Vaping Assessment Electronic Cigarette Use: Never. Alcohol Assessment Use: Current. Beer, 1-2 times per week Tobacco Assessment Never tobacco user Tobacco Use:. Substance Abuse Assessment Substance use: Never. . Social & Psychosocial Habits Alcohol 09/21/2024 Alcohol Use: Current Type: Beer Frequency: 1-2 times per week Substance Use 09/21/2024 Substance use: Never Tobacco 09/21/2024 Smoking tobacco use: Never tobacco user Electronic Cigarette/Vaping 09/21/2024 Electronic Cigarette Use: Never . Physical Examination Vital Signs (last 24 hrs) Last Charted Temp Temporal 36.4 DegC (OCT 04 06:05) Heart Rate Peripheral 61 bpm (OCT 04 06:05) Resp Rate 16 br/min (OCT 04 06:05) SBP 117 mmHg (OCT 04 06:05) DBP 72 mmHg (OCT 04 06:05) Airway: Mallampati classification: II (soft palate, fauces, uvula visible). Temporomandibular joint mobility: Good. Mouth: Adequate opening, Teeth ( WNL ). Neck: Supple, Non-tender, Full range of motion. Respiratory: Lungs are clear to auscultation, Respirations are non-labored, Breath sounds are equal. Cardiovascular: Normal rate, Regular rhythm, No murmur. Neurologic: Alert, Oriented. Review / Management Laboratory Results Plan [place] [employer] Anesthesi[employer] (ASA) physical status classification: Class II. Anesthetic Preoperative Plan Anesthesia: Monitored anesthesia care. Anesthetic plan, risks, benefits, and alternatives discussed with the patient and/or family. Patient verbalized understanding. Informed consent was given. Consent was signed by the patient. [Electronically Signed on: 10/04/2024 07:36 EDT] Eugenio Perez MD [Verified on: 10/04/2024 07:36 EDT] Eugenio Perez MD Normal [facility] Inpatient Patient Summaryon 10-04-2024 Inpatient [place] [address] Patient Discharge Instructions Name: EMILY CALDWELL : 1950 Patient Address: [address] [place] [address] Primary Care Provider: Name: Hector Fraga After you are discharged if you find you have any questions, please, call [phone] ext [phone] to speak to a nurse. Discharge Diagnosis: Acquired hallux valgus of left foot; Deformity of toe Prescription Information: If you have been given a prescription for narcotics, seek immediate medical attention if you have any difficulty breathing or any sudden status changes such as confusion and sleepiness. If you or anyone you know is experiencing suicidal thoughts, mental health, alcohol and/or drug addiction problems; contact the [facility] 09/02 Crisis Hotline -Text 4HPPN to 948536. If you received any narcotics, sedation, or any other medication that causes drowsiness for the next 24 hours, unless otherwise directed: ? Do not drive a car. ? Do not operate machinery such as power tools, lawn mowers, drills, sewing machines, or stoves ? Avoid alcoholic beverages and drugs for allergies, nerves, or sleep ? Do not make important personal or business decisions or sign any legal documents [facility] would like to thank you for allowing us to assist you with your healthcare needs. The following includes patient education materials and information regarding your injury/illness. EMILY CALDWELL has been given the following list of follow-up instructions, prescriptions, and patient education materials: Follow-up Instructions With: Address: When: Spencer Turcios [address] [place] [address] Business (1) 10/07/2024 10:00 AM With: Address: When: Hector Fraga [address] [place] [id number] Business (1) Medications During the course of your visit, your medication list was updated with the most current information. The details of those changes are reflected below: Medications to Continue That Have Not Changed Other Medications acetaminophen-diphen hydramine (Tylenol PM) 1 tab(s) Oral (given by mouth) At bedtime. acetaminophen-hydroc odone (acetaminophen-hydro codone 325 mg-5 mg oral tablet) TAKE 1 TABLET BY MOUTH EVERY 4 TO 6 HOURS NEEDED FOR PAIN. benazepril (benazepril 10 mg oral tablet) 1 tab(s) Oral (given by mouth) every day. omeprazole (omeprazole 20 mg oral delayed release capsule) 1 cap(s) Oral (given by mouth) every day. It is important to always keep an active list of medications available so that you can share with other providers and manage your medications appropriately. As an additional courtesy, we are also providing you with your final active medications list that you can keep with you. acetaminophen-diphen hydramine (Tylenol PM) 1 tab(s) Oral (given by mouth) At bedtime. acetaminophen-hydroc odone (acetaminophen-hydro codone 325 mg-5 mg oral tablet) TAKE 1 TABLET BY MOUTH EVERY 4 TO 6 HOURS NEEDED FOR PAIN. benazepril (benazepril 10 mg oral tablet) 1 tab(s) Oral (given by mouth) every day. omeprazole (omeprazole 20 mg oral delayed release capsule) 1 cap(s) Oral (given by mouth) every day. Take only the medications listed above. Contact your doctor prior to taking any medications not on this list. Diet & Activity Patient Activity Level: Patient Diet: Patient Activity Restrictions: Comment: Patient education materials, if any, will display below Viruses or Bacteria What?s got you sick? Antibiotics only treat bacterial infections. Viral illnesses cannot be treated with antibiotics. When an antibiotic is not prescribed, ask your healthcare professional for tips on how to relieve symptoms and feel better. Usual Cause Illness Viruses Bacteria Antibiotic Needed Cold/Runny Nose NO Bronchitis/Chest Cold (in otherwise healthy children and adults) NO Whooping Cough Yes Flu NO Strep Throat Yes Sore Throat (except strep) NO Fluid in the middle ear (otitis media with effusion) NO Urinary Tract Infection Yes Antibiotics Aren?t Always the Answer www.cdc.gov/getsmart GET SMART Know When Antibiotics Work U.S[place] Department of Health and Human Services Centers for Disease Control and Prevention [facility] Postoperative Record [facility] Phase II Record Summary Primary Physician: Spencer Turcios DPM Finalized Date/Time: 10/04/24 09:44:03 Pt. Name: PAULETTEEMILY /Sex: 1950 MALE Med Rec #: [id number] Physician: Spencer Turcios DPM Financial #: [id number] Pt. Type: D Room/Bed: / Admit/Disch: 10/04/24 05:54:48 - Institution: Phase II Case Times [facility] Pre-Care Text: Patient is free from s/s of injury. Patient remains free from compromised physical state related to surgery or anesthesia. Patient comfort maintained. Patient/family verbalize understanding of discharge instructions. Entry 1 In PACU II 10/04/24 08:34:00 Discharge from PACU 10/04/24 09:30:00 II Last Modified By: Linda Vo RN 10/04/24 09:44:01 Post-Care Text: The patient remains free from s/s of injury. Patient's vital signs stable, circulation maintained, return to preop mental and physical status, opsite/dressing intact, minimal or absent nausea and vomiting, tolerates po intake. Patient verbalizes adequate pain control. Patient/family express understanding of discharge instructions. Finalized By: Linda Vo RN Document Signatures Signed By: Linda Vo RN 10/04/24 09:44 [facility] MAGR Preoperative Recordon 0 10-04-2024 MAGR Preoperative Record MAGR Pre-Op Record Summary Primary Physician: Spencer Turcios DPM Finalized Date/Time: 10/04/24 09:43:52 Pt. Name: EMILY CALDWELL Mehran /Sex: 1950 MALE Med Rec #: [id number] Physician: Spencer Turcios DPM Financial #: [id number] Pt. Type: D Room/Bed: / Admit/Disch: 10/04/24 05:54:48 - Institution: Pre-Op Case Times MAGR Pre-Care Text: Patient will be optimally prepared for surgery. Patient is free from s/s of injury. Provide information to patient/family related to plan of care. Verify patient allergies. Confirm identity and verify consent before the operative or invasive procedure. Entry 1 Patient Arrival Time 10/04/24 06:00:00 Preop Departure 10/04/24 07:20:00 Last Modified By: Linda Vo RN 10/04/24 09:43:50 Post-Care Text: Patient is prepared mentally and physically and is ready for surgery. The patient remains free from s/s of injury. Patient/family express understanding of plan of care and participate in decisions affecting his or her perioperrative plan of care. Allergies documented appropriately. Patient identifiers and consent correct. General Comments: Pt arrives to [facility] ambulatory. PT denies cp, sob, cough or flu like symptoms. Pt denies pacemaker/defibillat or, pt has sleep apnea and does not a machine. Finalized By: Linda Vo RN Document Signatures Signed By: Linda Vo RN 10/04/24 09:43 [facility] Patient Handouton 10-04-2024 Patient Handout [facility] Coding Summaryon 10-03-2024 Coding Summary HTMLBase 64 LqxzhybvILy6tTh+PGhl YWQ+EV3RLLGmJ83zbGIb lS1oV3HCCNqDAjyhUIVW ZUtHNcAxqrIjHT5ckJNb ZXJu IC8+LD8gRQZvNznepZDu x8H1nNR7O32hzb1rHDvx pCM8BOHuQwZjlcnvb8nc gUl2POkzBlveTxAy TRRjqL79RND8aJ76Mo07 aRLtdYJjf6bvxKh7PaQt IRFsTTY0qBagGPcgz0Cq WCLlZ32goBYdi7S9 IGNvbGxhcHNlOyBlbXB0 oU9cQUhzotwgq7nyfnvi Nap9hs72gJQnd1R8eCB9 K6MgmuI7OAVxpEXk AjtcyDTGaO8jpcyew8al rcolJgLfXXOfGLj3PCp9 ITMfjHrmUhFsPP52BOA0 PJLmdeZyR1QmXQJe vLjpUfC5o1A1Cn1ZY1OK NslcT5HSYQPPPAkneUP+ TJ71wx59Y7JhWarsVei7 CPGqNNE8rXK1gH0r RERiHVdbg7Q7eWC8B1Wn wdXncf1jh0hdQGMzMMya G71skUKan0H1KINwaUE9 XHJjvUxeTiPlwG32 Oyc+KWJmsQoda9VgUtbn s2tsv8ckqKf9JdepJXRg npQteCsfTEL3a1WiRb5e BAObpNC3qUJ2iH6h SjPfUdK7DXliD333TiYo zKWmEbqqB41pY5CmtSO+ NCXdKjd0FEGrmQydKL6b A3QxYFPzcqounRGu aMlcBU3gKVOujqcxSYZs hB1gNOCuM9q4DdUhUsO5 CZrqH6IaQEBmpirzQf99 nD6yDhSrBsF6CZfr N6TucaQ7LSTbyPDnKCtu GKZ7N70kd9P1TYUgKBNb CKT6jLP9gZ9yxRlxqphd bGVmdDsgdmVydGlj SHjnHXxxV034XBBvhQie PkNvZGluZyBEYXRlOiAg MDMvMTcvMjAyNTwvdGQ+ GSGvCSN0dYlgXLKs cNFkIPfkLn5fdZfyhYnh TF5oBNRxcrruXRNkcJ9k SKKvrAKduTkmRH4vTCUo adkgx609IrHkSKW7 EEDlkNReE6TrcO9fCbYj GCAeUAXtA8AvdPGaDSxn K379DJdtWeX1NOWwhgRg B3GyEKTftEmpLmO9 o1C7Ay4Bg6NrqndpG8Qp mPDlFlVyOzinOCw1W3Pt PjwvdHI+WY83FCKsUS07 DRj4LIL1dTmlYZtw CEXmZ3CwdJ1jUcKnFOVi ZGRkOyc+PHRhYmxlIHdp ZHRoPScxMDAlJyBzdHls VQ8mUq4gGYNpBATg cSauoZFeNzCcu0ibLPCh CVoqNS9zsPhqW2MwkIG9 EBTfm9v9He67M94oZ6Mw dXA+RBGghDI4rHS9 qA6iNnXlZhZ4EUwoH978 FuQsjLAsMaswg6qcc9qw kSt3CsK2FZDmpgJvqBpy FFE6c9OaYf76U83c IHdpZHRoPSIxNSUiIHZh nFnygy4hlF6aGf9+PGNv zQE5rVE5wV3bPbDkDqY7 MHdlM868VbKrmKUh Ovgcf2bae0nzkYc8VbTc OZVcakTmcLrfQEM0o1Li Lh61M4UhoHxfm5LwBsw4 xh86vXZus8W0eIQ4 N7HpLYUnadntjYSksWtg HB4nARTghhijVWKmaD1n FXAkK3o1RmEfOiT3SCsk L8KpmhE9LKJuiHPb CCEcgYGHrG0iogrgv9jx ixjnYyTlFOAnFGx9XHw3 JIRecWsfQcOiXJR6CwT6 TJX9jOMfnH6rfLto egwnfF1bXnu+QUY3qRXt kJLXPQ9wOaenpOG+PHRk VOY6mVgwPCtyCGJvqM4o YZDgN5f0RzBzMuB8 MDizV7JsztX7SKQwiNLh ZANxsNIEiU5scvkwt7kk elkqDfJaHZEpJXo6GPd1 LWFsaWduOiBsZWZ0 LkC0WQB1qDJxfH6giEpw makexU2zPty+QmlydGgg NTS0UKq3T9ZoSex0EQEj zErnZD0pnWEmNSji Nq7egBwdqQdxDW9nJEYh mjosp689SeBhx6jkQIOu rVZcRErhFBB9J87rc6J3 TMXrIJRhNEO6eLX4 wS2doFpsnwybaYPcfQre xrKxaGlwLWiuEFwcC488 WVXcvUdfFvTgILo6V1Wo Www9LHUhlZiePT2o bFZvNDzrEx2hxKuwoNhh JO7uKNTosqhyn417IiSw n8vbLZZsmNXwQIeoOUU5 D69jj5N8XVCaYAJx ATC1xHY2fM3jaOqfdgqa bGVmdDsgdmVydGljYWwt DLcxX250WIAxdHhxPjYj pVq0N4JxHfs7NJVv hZpqFJ1xkHJnEVqfVq1l eNbolWamRE3wIDRqdqwh c639YbUvr7yxEMRyaAIv TAgvHJM0R83az5I6 DIViYXOeKVP1nOO2iY8t bGlnbjogbGVmdDsgdmVy xZhvYRtpUNbjJ790KHOv cDsnPlBhdGllbnQg SGdfLGe9F5TeKollqHZ+ ZR81UPPgQN45eWQkgTCg y4ymkUx5RbTjNVDiTZH9 eHguDQtwf7SaBHHl F38pcKOlr3B0SZBlnRwk nHPpEeEcfEB5wH0rNMxr qxkjm2zddaryDnhkz7ej jy66tP02I29zKTag ZHRoPSIzMCUiIHZhbGln tb0loN2lEm2+PGNvbCB3 zCH1rF2bRXQjAcE3CXzv M515ElMhzUVpCuta m1lea6gkeKt7QhY2LBAt ogWtvFbbJWK8y0OkWn66 B45kMZhtBHEwWJSmHZXj GIAibNwzgd0xpL2m Ii8+HWLxbYL6mHP0cI3b KdPnTqX5ISrrC984WkDa mTZyElrcG29cC0HvjRF+ NLPaEde8HUManSuy UT8fsUCuIOojDr7lYET0 IdZcOdVuKAgdZ2IhZBDm ordwknncgVM0ZLJaPPUw hK97Bh6xyJzgXENo pNAFlY0mhjlem3oogqyu RtVcLFKuHYf8NUh6SNHz fZkgPtXlNKE6CzO0WVO6 oQCthK7vwYyhppab iB9vR8XeBYYihhcvPd29 eN0vBvNsFrO3VWtkNjz+ RYzOR55BWbbkWooAJCEJ HPIFSJ37FH38tVLn p7X6eVH0C3VpWYSzlydx vlscyYY8SWRtVXLmsG51 mIBfNXuhSs4sq3L4y216 ENTmFTDznN18Nz1x fRjuRNQveGTQoU6yicrx t4cjsoujXxCqEJWhVJp0 YIc0HAPueDwuJzUcCKQ0 VeO5UOP0mIUzhG0y hFwmcreqsJ4oPtr+MDYv ZnLfVAk0CRambMC+PHRk VTF6aIjeFYfwLRUzsU7p TKCeF3i7RxJhDcY6 OEnqX0VcNWKfarxvQj53 fZ4cIvMyOrG6UXweB7Aq qlL5EACtnIZoSMgoAHH2 N68fa7Q1BXNwJPRp CAL8vAW4cL9wgNjrxuwk bGVmdDsgdmVydGljYWwt BDtuZ643VTBslExzJpl7 QIxlIVOlQO21WX90 eILfa6H1kJL4D5DuLKQu wrkikscosHH7NTWvNHSz kC29jBVxVDcyVn1hh6P9 i194RTXtOMVlxW94 Ax6ofUvfBKLocBFExP7l jxruk8ibcedeAxVeJMHh XSy0MIv8IQCbaQbuLgXl IUX3VwG3WDU4kMQc iI9ygSwmebphtK5ePfw+ TUFMRTwvdGQ+PHRkIHN0 pVvbPIfzYISsxN7pOMNi Z1o5HbSbPyY4PUow P6MzCNKtruqbEa51lP0k JjOmTiZ7MRfrV9QxnrX5 MFTmkIOlUKfrPAW9L05c p1C4OVOkYUJhYJF6 vIW4cS6gqEholphxfSNi dDsgdmVydGljYWwtYWxp J503OUGbfUhbYu2ESU89 WS80C6SoDuvvaJJb bGU+PHRhYmxlIHdpZHRo PIfxPQToEiOwpBqhEN4o Tc6lFTLqNDTtnGnjdDRr NfKma1uvPBSlIAgs RL7utHqkU8UotHE7VYIq s7f4Cd17W21fZ2GooVS+ HGPweWY8cNE3eT5qCuVi QmB5HAjfC151CxLp lQBtXgxqo0ivk9nbuRe2 IjMwJSIgdmFsaWduPSJ0 e5XcGa17O31rCMucJPEx PSIyMCUiIHZhbGln tw7goM4nWr9+PGNvbCB3 uQK8rD6fGcNhJwH9XYvy N567RhQqgHXjCtegN38r W6NiyKJ+PHRyPjx0 XOAusDleRW3qwRNyLUrp Ua1dTUF6QbHsDtMnYNyl V9NgATDavmxwmcilyQY8 MQFrWVFqaU52Qx5e tMtoIz6jQYJpDRC6ZIJq hPWjN8HffM3aQrAuZRZy JOMfO2LzqLYvEUexV431 LTyyGdO8LXMcrhCk V9ShPFRpeQdxWoE8u8N8 Dp6GfSqjbDXgUR9fTjKo OTi2B1PdRqn9SYZsgVqw XA5ztCPkRXmhNw8l lBcnkHdwBU3oYINpvdhi w967QoZpr3keTFMsaBLc ZIcaUAT4X97ii1B1EJKa HSKbDEX0xWH9aN8n bGlnbjogbGVmdDsgdmVy eImgFHahLLrcA392RCXa xZciRfKKRgz7L3ZoJkz7 PSYtjDicRC6owRCl XIruUf6nrDgiePpgYN9j TQGpvhhjx035JoTke4sg AVJngHXfUJglAXC5J92t j8N5OMQuGYKqIEJ9 tUD4yZ1nfUrrlzthsAHo dDsgdmVydGljYWwtYWxp P377FWMlnCmqUo3HAkd7 M3NxZmc5LKMznGdt RZ7cfCTkZXlgMo0xgTvw kIioXI1sPKAplnzkg926 SxWah1tuXIVsoBOwIGoa PAU7A04kg8T7NFMm BDElASB2lMB9iA1amYta bjogbGVmdDsgdmVydGlj LJqcLCztO899YFIyyBrd PlBheWVyOjwvdGQ+ GV07is85L1QwIggcGbd4 ONZeRVG4pXW0sF0lEQKx ZUnyu4Z1qDO4G7ItdkXg ue9it6swCLSlYGyv Y29 (more content not included)... [facility] Progress Note - Nurseon 09-17 Progress Note - Nurse pre op phone call complete. Spoke with Jessica, confirmed time of arrival for 0600 on 10/04/24 [Electronically Signed on: 10/03/2024 09:10 EDT] Stefanie Huynh RN [Verified on: 10/03/2024 09:10 EDT] Stefanie Huynh RN [facility] Progress Note - Nurseon Progress Note - Nurse PAT reviewed by Dr Kenton Gómez. No new orders received. [Electronically Signed on: 09/23/2024 16:03 EST] Sheela Beatty RN [Verified on: 09/23/2024 16:03 EST] Sheela Beatty RN [facility] .Auto Diff 1on 09-21-2024 Auto [place] % 7 % Normal 1-12 [facility] Comment on above: Performed By: #### 1 [id number], [id number] ####[facility] (DEFAULT)[address] [place] [address] 43128 Baso Abs# 0.0 x10 Normal 0.0-0.2 [facility] Comment on above: Performed By: #### 1 [id number], [id number], [id number] ####[facility] (DEFAULT)[address] [place] [address] 40053 Basophils/100 WBC (Bld) 0.4 % Normal 0.2-2.0 [facility] Comment on above: Performed By: #### 1 [id number], [id number], [id number] ####[facility] (DEFAULT)[address] [place] [address] 89826 Eos Abs# 0.1 x10 Normal 0.0-0.4 [facility] Comment on above: Performed By: #### 1 [id number], [id number], [id number] ####[facility] (DEFAULT)[address] [place] [address] 87774 Eosinophils/100 WBC (Bld) 1.5 % Normal 0.9-4.0 [facility] Comment on above: Performed By: #### 1 [id number], [id number], [id number] ####[facility] (DEFAULT)[address] [place] [address] 96989 Lymph Abs# 1.6 x10 Normal 1.3-2.9 [facility] Comment on above: Performed By: #### 1 [id number], [id number], [id number] ####[facility] (DEFAULT)[address] [place] [address] 60397 Lymphocytes/100 WBC (Bld) 20 % Normal 14-48 [facility] Comment on above: Performed By: #### 1 [id number], [id number], [id number] ####[facility] (DEFAULT)[address] [place] [address] 68294 [place] Abs# 0.6 x10 Normal 0.0-0.8 [facility] Comment on above: Performed By: #### 1 [id number], [id number], [id number] ####[facility] (DEFAULT)[address] [place] [address] 75382 Neut Abs# 5.7 x10 Normal 1.5-9.2 [facility] Comment on above: Performed By: #### 1 [id number], [id number], [id number] ####[facility] (DEFAULT)[address] [place] [address] 90082 Neutrophils/100 WBC (Bld) 71 % Normal 44-88 [facility] Comment on above: Performed By: #### 1 [id number], [id number], [id number] ####[facility] (DEFAULT)[address] [place] [address] 26672 BMP Standardon 09-21-2024 eGFR Non AA 58 mL/min/1.73m2 Invalid Interpretation Code [facility] Comment on above: Performed By: #### 1 [id number], [id number], [id number] ####[facility] (DEFAULT)[address] [place] [address] 69528 eGFR AA >60 Invalid Interpretation Code [facility] Comment on above: Performed By: #### 1 [id number], [id number], [id number] ####[facility] (DEFAULT)[address] [place] [address] 29934 Calcium [Mass/Vol] 9.5 mg/dL Normal 8.9-10.3 [facility] Comment on above: Performed By: #### 1 [id number], [id number], [id number] ####[facility] (DEFAULT)[address] [place] [address] 40725 Chloride [Moles/Vol] 100 mmol/L Low 101-111 [facility] Comment on above: Performed By: #### 1 [id number], [id number], [id number] ####[facility] (DEFAULT)[address] [place] [address] 48415 CO2 [Moles/Vol] 28 mmol/L Normal 21-32 [facility] Comment on above: Performed By: #### 1 [id number], [id number], [id number] ####[facility] (DEFAULT)[address] [place] [address] 04906 Creatinine [Mass/Vol] 1.23 mg/dL Normal 0.90-1.30 [facility] Comment on above: Performed By: #### 1 [id number], [id number], [id number] ####[facility] (DEFAULT)[address] [place] [address] 55689 Glucose [Mass/Vol] 92.0 mg/dL Normal 74.0-118.0 [facility] Comment on above: Performed By: #### 1 [id number], 4706627, [id number] ####[facility] (DEFAULT)[address] [place] [address] 91316 Potassium [Moles/Vol] 4.0 mmol/L Normal 3.6-5.1 [facility] Comment on above: Performed By: #### 1 0601059, 7118239, [id number] ####[facility] (DEFAULT)[address] [place] [address] 94529 Sodium [Moles/Vol] 139.0 mmol/L Normal 136.0-144.0 [facility] Comment on above: Performed By: #### 1 [id number], 2608151, [id number] ####[facility] (DEFAULT)[address] [place] [address] 35058 Urea nitrogen [Mass/Vol] 25 mg/dL Normal 8-26 [facility] Comment on above: Performed By: #### 1 [id number], 0001087, [id number] ####[facility] (DEFAULT)[address] [place] [address] 45589 Anion gap [Moles/Vol] 15.0 mmol/L Normal 5.0-19.0 [facility] Comment on above: Performed By: #### 1 [id number], 8702377, [id number] ####[facility] (DEFAULT)[address] [place] [address] 75170 Osmolality 282 mOsm/L Invalid Interpretation Code [facility] Comment on above: Performed By: #### 1 [id number], 0165521, [id number] ####[facility] (DEFAULT)[address] [place] [address] 12235 Urea nitrogen/Creatinine [Mass ratio] 20.3 mg/mg High 4.6-16.2 [facility] Comment on above: Performed By: #### 1 [id number], 4584833, [id number] ####[facility] (DEFAULT)[address] [place] [address] 55118 CBC w/ Auto Diffon 5 Erythrocyte distribution width (RBC) [Ratio] 14.1 % Normal 11.5-15.0 [facility] Comment on above: Performed By: #### 1 [id number], 3510903, [id number] ####[facility] (DEFAULT)[address] [place] [address] Hematocrit (Bld) [Volume fraction] 41.1 % Normal 34.8-51.9 [facility] Comment on above: Performed By: #### 1 [id number], 2141959, [id number] ####[facility] (DEFAULT)[address] [place] [address] Hemoglobin (Bld) [Mass/Vol] 13.9 g/dL Normal 11.8-17.7 [facility] Comment on above: Performed By: #### 1 [id number], 4247989, [id number] ####[facility] (DEFAULT)[address] [place] [address] Man Diff? Auto Invalid Interpretation Code [facility] Comment on above: Performed By: #### 1 [id number], 2776536, [id number] ####[facility] (DEFAULT)[address] [place] [address] 11960 MCH (RBC) [Entitic mass] 31 pg Normal 24-34 [facility] Comment on above: Performed By: #### 1 [id number], 5688433, [id number] ####[facility] (DEFAULT)[address] [place] [address] 04033 MCHC (RBC) [Mass/Vol] 34 g/dL Normal 26-37 [facility] Comment on above: Performed By: #### 1 [id number], 0909138, [id number] ####[facility] (DEFAULT)[address] [place] [address] 12772 MCV (RBC) [Entitic vol] 93 fL Normal 81-100 [facility] Comment on above: Performed By: #### 1 [id number], 2273497, [id number] ####[facility] (DEFAULT)[address] [place] [address] 25434 Platelet 301 x10 Normal 138-427 [facility] Comment on above: Performed By: #### 1 [id number], 3277729, [id number] ####[facility] (DEFAULT)[address] [place] [address] Platelet mean volume (Bld) [Entitic vol] 7.3 fL Normal 6.3-10.2 [facility] Comment on above: Performed By: #### 1 [id number], 8199208, [id number] ####[facility] (DEFAULT)[address] [place] [address] 11884 RBC 4.43 x10 Normal 3.70-5.30 [facility] Comment on above: Performed By: #### 1 [id number], 9839992, [id number] ####[facility] (DEFAULT)[address] [place] [address] 74880 WBC 8.1 x10 Normal 3.5-10.5 [facility] Comment on above: Performed By: #### 1 [id number], 5988311, [id number] ####[facility] (DEFAULT)[address] [place] [address] 16707 Catarino 07-04-2024 [facility] Telephone (NIQ) EMILY CALDWELL ([id number]) 1950 M Date Time Provider Department 07/04/24 [...] not found Best number to reach caller: [phone] Best time to reach caller: Any Is it OK to leave a detailed voice message? Yes Naomi Agosto RN 07/04/2024 1:54 PM Signed Neuro SPINE CARE COORDINATION QUICK NOTE WALKER 7-24- for HX L3-4 decompression in 2022 PT [...] lumbar region [M54.16] Order(s):CONSULT TO PHYSICAL THERAPY [9006] Order #: [id number]: 1 FUTURE Prescriptions as of 07/04/2024 - [...] Encounter Status:Closed by FABIANA RICCI on 07/04/24 Normal [facility] CNOVon 01-19-2024 CNOV Office Visit (SPNSMN) EMILY CALDWELL ([id number]) 1950 M Date Time Provider Department 01/19/24 [...] foot drop [M21.372] Order(s):CONSULT TO PHYSICAL THERAPY [9002] Order #: [id number]: [id number] FUTURE methocarbamol (ROBAXIN) 750 mg tabletTake [...] Encounter Status:Closed by RUBIN LOPEZ on 01/19/24 [facility] 01-07-2024 [facility] Telephone (NIQ) EMILY CALDWELL ([id number]) 1950 M Date Time Provider Department 01/07/24 RUBIN LOPEZ During your visit today, we [...] not found Best number to reach caller: [phone] Best time to reach caller: anytime Is it OK to leave a detailed voice message? Yes Naomi Adorno RN 01/07/2024 2:20 PM Addendum Neuro SPINE CARE COORDINATION QUICK NOTE Call to the pt and LM Call back number provided Naomi Raya RN 01/07/2024 2:25 PM Signed Neuro SPINE [...] for Visit: Patient Update [1234] Patient Question [2497] Prescriptions as of 01/07/2024 - gabapentin (NEURONTIN) [...] Status:Closed by NAOMI RAYA on 01/07/24 Normal [facility] Basophils Auto (Bld) [#/Vol] on 10-29-2023 Basophils (Bld) [#/Vol] 0.1 10 3/uL 0.0-0.1 [facility] Basophils/100 WBC Auto (Bld) on 10-29-2023 Basophils/100 WBC (Bld) 0.9 % 0.2-2.0 [facility] Eosinophils/100 WBC Auto (Bl d)on 10-29-2023 Eosinophils/100 WBC (Bld) 3.4 % 0.9-7.0 [facility] Erythrocyte distribution wid th Auto (RBC) [Ratio]on 10-29-2023 Erythrocyte distribution width (RBC) [Ratio] 13.5 % 11.0-15.0 [facility] Estimated glomerular filtrat ion rate (GFR) non- Americanon 10-29-2023 GFR/1.73 sq M.predicted among non-blacks MDRD (S/P/Bld) [Vol rate/Area] 51 mL/min/{1.73_m2} >=60 [facility] Globulin Calc (S) [Mass/Vol] on 10-29-2023 Globulin (S) [Mass/Vol] 3.9 g/dL [facility] Glucose mean value [Mass/vol ume] in Blood Estimated from glycated hemoglobinon 10-29-2023 Average glucose Estimated from glycated hemoglobin (Bld) [Mass/Vol] 126 mg/dL [facility] Hematocrit Auto (Bld) [Volum e fraction]on 10-29-2023 Hematocrit (Bld) [Volume fraction] 41.9 % 42.0-54.0 [facility] Hemoglobin [Mass/volume] in Bloodon 10-29-2023 Hemoglobin (Bld) [Mass/Vol] 13.9 g/dL 14.0-18.0 [facility] Laboratory - Chemistry and C hemistry - challengeon 10-29-2023 Albumin [Mass/Vol] 3.9 g/dL 3.4-5.0 [facility] ALP [Catalytic activity/Vol] 66 U/L 46-116 [facility] ALT [Catalytic activity/Vol] 31 U/L 16-63 [facility] AST [Catalytic activity/Vol] 27 U/L 15-37 [facility] Bilirubin [Mass/Vol] 0.4 mg/dL 0.2-1.0 [facility] Calcium [Mass/Vol] 9.8 mg/dL 8.5-10.1 [facility] Chloride [Moles/Vol] 102 mmol/L 98-107 [facility] CO2 [Moles/Vol] 28.2 mmol/L 21.0-32.0 [facility] Creatinine [Mass/Vol] 1.36 mg/dL 0.70-1.30 [facility] GFR/1.73 sq M.predicted MDRD (S/P/Bld) [Vol rate/Area] mL/min/{1.73_m2} >=60 [facility] Glucose [Mass/Vol] 94 mg/dL 74-106 [facility] Potassium [Moles/Vol] 4.3 mmol/L 3.5-5.1 [facility] Protein [Mass/Vol] 7.8 g/dL 6.4-8.2 [facility] Sodium [Moles/Vol] 141 mmol/L 136-145 [facility] TSH Qn 1.842 m[IU]/L 0.358-3.740 [facility] Urea nitrogen [Mass/Vol] 25.0 mg/dL 7.0-18.0 [facility] Urea nitrogen/Creatinine [Mass ratio] 18.4 mg/mg [facility] Laboratory - Hematology and Cell countson 10-29-2023 HbA1c (Bld) [Mass fraction] 6.0 % 4.5-6.2 [facility] Comment on above: ADA RECOMMENDED LIMI T 4.0 - 6.0ADA THERAPEUTIC TARGET < 7.0ACTION SUGGESTED> 7.0 Immature granulocytes/100 WBC (Bld) 0.2 % 0.0-0.5 [facility] Leukocytes [#/volume] correc ten for nucleated erythrocytes in Blood by Automated counon 10-29-2023 WBC corrected for nucl RBC Auto (Bld) [#/Vol] 6.4 10 3/uL 4.0-11.0 [facility] Lymphocytes Auto (Bld) [#/Vo l]on 10-29-2023 Lymphocytes (Bld) [#/Vol] 1.6 10 3/uL 1.2-3.8 [facility] Lymphocytes/100 WBC Auto (Bl d)on 10-29-2023 Lymphocytes/100 WBC (Bld) 24.8 % 20.5-60.0 [facility] MCH Auto (RBC) [Entitic mass ]on 10-29-2023 MCH (RBC) [Entitic mass] 31.1 pg 25.9-34.0 [facility] MCHC Auto (RBC) [Mass/Vol]on 10-29-2023 MCHC (RBC) [Mass/Vol] 33.2 g/dL 29.9-35.2 [facility] MCV Auto (RBC) [Entitic vol] on 10-29-2023 MCV (RBC) [Entitic vol] 93.7 fL 80.0-94.0 [facility] Monocytes Auto (Bld) [#/Vol] on 10-29-2023 Monocytes (Bld) [#/Vol] 0.7 10 3/uL 0.3-0.8 [facility] Monocytes/100 WBC Auto (Bld) on 10-29-2023 Monocytes/100 WBC (Bld) 10.6 % 1.7-12.0 [facility] Neutrophils Auto (Bld) [#/Vo l]on 10-29-2023 Neutrophils (Bld) [#/Vol] 3.9 10 3/uL 1.4-6.5 [facility] Neutrophils/100 WBC Auto (Bl d)on 10-29-2023 Neutrophils/100 WBC (Bld) 60.1 % 43.0-75.0 [facility] No Panel Informationon 10-28 Eosinophils # (Auto) 0.2 10 3/uL 0.0-0.7 [facility] Immature Granulocyte # (Auto) 0.01 10 3/uL 0.00-0.03 [facility] Platelet mean volume Auto (B ld) [Entitic vol]on 10-29-2023 Platelet mean volume (Bld) [Entitic vol] 9.5 fL 9.5-13.5 [facility] Platelets Auto (Bld) [#/Vol] on 10-29-2023 Platelets (Bld) [#/Vol] 287 10 3/uL 150-450 [facility] RBC Auto (Bld) [#/Vol]on RBC (Bld) [#/Vol] 4.47 10 6/uL 4.70-6.10 [facility] Serum or plasma albumin/glob ulin mass ratioon 10-29-2023 Albumin/Globulin [Mass ratio] 1.0 {ratio} [facility] Serum or plasma anion gap de terminationon 10-29-2023 Anion gap [Moles/Vol] 15.1 mmol/L [facility] No Panel InformationOrdered By: Freda Oneill on 09-11-2023 COVID/Influenza Antigen (POC) [facility] COVID/Influenza Antigen (POC) [facility] Basic metabolic 2000 panelon 10-31-2022 Anion gap [Moles/Vol] 12 mmol/L 9 - 18 mmol/L [facility] Calcium [Mass/Vol] 9.6 mg/dL 8.5 - 10. 2 mg/dL [facility] Chloride [Moles/Vol] 101 mmol/L 97 - 10 5 mmol/L [facility] CO2 [Moles/Vol] 25 mmol/L 22 - 30 mmol/L [facility] Creatinine [Mass/Vol] 1.23 mg/dL High 0.73 - 1.22 mg/dL [facility] Estimated Glomerular Filtration Rate 62 mL/min/1.73m >=60 mL/min/1.73 m [facility] Glucose [Mass/Vol] 90 mg/dL 74 - 99 mg/dL [facility] Potassium [Moles/Vol] 4.1 mmol/L 3.7 - 5.1 mmol/L [facility] Sodium [Moles/Vol] 138 mmol/L 136 - 144 mmol/L [facility] Urea nitrogen [Mass/Vol] 20 mg/dL 9 - 24 mg/dL [facility] CBC panel Auto (Bld)on 10-31 Erythrocyte distribution width (RBC) [Ratio] 13.8 % 11.5 - 15.0 % [facility] Hematocrit (Bld) [Volume fraction] 35.6 % Low 39.0 - 51.0 % [facility] Hemoglobin (Bld) [Mass/Vol] 12.0 g/dL Low 13.0 - 17.0 g/dL [facility] MCH (RBC) [Entitic mass] 31.7 pg 26.0 - 34.0 pg [facility] MCHC (RBC) [Mass/Vol] 33.7 g/dL 30.5 - 36.0 g/dL [facility] MCV (RBC) [Entitic vol] 94.2 fL 80.0 - 100.0 fL [facility] Nucleated RBC (Bld) [#/Vol] <0.01 k/uL [facility] Platelet mean volume (Bld) [Entitic vol] 9.7 fL 9.0 - 12.7 fL [facility] Platelets (Bld) [#/Vol] 269 10*3/uL 150 - 400 k/uL [facility] RBC (Bld) [#/Vol] 3.78 10*6/uL Low 4.20 - 6.0 0 m/uL [facility] WBC (Bld) [#/Vol] 5.19 10*3/uL 3.70 - 11.00 k/uL [facility] CONFIRM BLOOD TYPEon 023 ABO O [facility] Rh Nom (Bld) Positive [facility] TYPE AND SCREEN,30 DAYon ABO O [facility] HIstorical Ab Scr Status Negative [facility] Rh Nom (Bld) Positive [facility] No Panel Informationon 10-10 [facility] CBC AUTO DIFFon 09-29-2022 BASO # 0.0 103/ul Normal 0.0-0.1 [facility] Comment on above: Performed By: #### F ERR, B12FOL, FETIBC #### [facility] [address] [address] [address] Nicole Lam Basophils/100 WBC (Bld) 0.8 % Normal 0.2-2.0 [facility] Comment on above: Performed By: #### F ERR, B12FOL, FETIBC #### [facility] [address] [place] [address] Dr. Nicole Lam EO # 0.1 103/ul Normal 0.0-0.7 [facility] Comment on above: Performed By: #### F ERR, B12FOL, FETIBC #### [facility] [address] [place] [address] Dr. Nicole Lam Eosinophils/100 WBC (Bld) 3.0 % Normal 0.9-7.0 [facility] Comment on above: Performed By: #### F ERR, B12FOL, FETIBC #### [facility] [address] [place] [address] Dr. Nicole Lam Erythrocyte distribution width (RBC) [Ratio] 13.8 % Normal 11.0-15.0 [facility] Comment on above: Performed By: #### F ERR, B12FOL, FETIBC #### [facility] [address] [place] [address] Dr. Nicole Lam Hematocrit (Bld) [Volume fraction] 38.9 % Critically low 42.0-54.0 [facility] Comment on above: Performed By: #### F ERR, B12FOL, FETIBC #### [facility] [address] [place] [address] Dr. Nicole Lam Hemoglobin (Bld) [Mass/Vol] 13.2 g/dL Critically low 14.0-18.0 [facility] Comment on above: Performed By: #### F ERR, B12FOL, FETIBC #### [facility] [address] [place] [address] Dr. Nicole Lam IG # 0.01 10e3/ul Normal 0.00-0.03 [facility] Comment on above: Performed By: #### F ERR, B12FOL, FETIBC #### [facility] [address] [place] [address] Dr. Nicole Lam IG % 0.3 % Normal 0.0-0.5 [facility] Comment on above: Performed By: #### F ERR, B12FOL, FETIBC #### [facility] [address] [place] [address] Dr. Nicole Lam LYMPH # 1.1 103/ul Critically low 1.2-3.8 [facility] Comment on above: Performed By: #### F ERR, B12FOL, FETIBC #### [facility] [address] [place] [address] Dr. Nicole Lam Lymphocytes/100 WBC (Bld) 26.4 % Normal 20.5-60.0 [facility] Comment on above: Performed By: #### F ERR, B12FOL, FETIBC #### [facility] [address] [place] [address] Dr. Nicole Lam MANUAL DIFF REQ NO Normal [facility] Comment on above: Performed By: #### F ERR, B12FOL, FETIBC #### [facility] [address] [place] [address] Dr. Nicole Lam [facility] (RBC) [Entitic mass] 31.9 pg Normal 25.9-34.0 [facility] Comment on above: Performed By: #### F ERR, B12FOL, FETIBC #### [facility] [address] [place] [address] Dr. Nicole Lam MCHC (RBC) [Mass/Vol] 33.9 g/dL Normal 29.9-35.2 [facility] Comment on above: Performed By: #### F ERR, B12FOL, FETIBC #### [facility] [address] [place] [address] Dr. Nicole Lam MCV (RBC) [Entitic vol] 94.0 fL Normal 80.0-94.0 [facility] Comment on above: Performed By: #### F ERR, B12FOL, FETIBC #### [facility] [address] [place] [address] Dr. Nicole Lam MONO # 0.5 103/ul Normal 0.3-0.8 [facility] Comment on above: Performed By: #### F ERR, B12FOL, FETIBC #### [facility] [address] [place] [address] Dr. Nicole Lam Monocytes/100 WBC (Bld) 11.6 % Normal 1.7-12.0 [facility] Comment on above: Performed By: #### F ERR, B12FOL, FETIBC #### [facility] [address] [address] [address] Nicole Lam NEUT # 2.3 103/ul Normal 1.4-6.5 [facility] Comment on above: Performed By: #### F ERR, B12FOL, FETIBC #### [facility] [address] [place] [address] Dr. Nicole Lam Neutrophils/100 WBC (Bld) 57.9 % Normal 43.0-75.0 [facility] Comment on above: Performed By: #### F ERR, B12FOL, FETIBC #### [facility] [address] [place] [address] Dr. Nicole Lam Platelet mean volume (Bld) [Entitic vol] 8.7 fL Critically low 9.5-13.5 [facility] Comment on above: Performed By: #### F ERR, B12FOL, FETIBC #### [facility] [address] [place] [address] Dr. Nicole Lam PLT 263 103/ul Normal 150-450 [facility] Comment on above: Performed By: #### F ERR, B12FOL, FETIBC #### [facility] [address] [place] [address] Dr. Nicole Lam RBC 4.14 106/ul Critically low 4.70-6.10 [facility] Comment on above: Performed By: #### F ERR, B12FOL, FETIBC #### [facility] [address] [place] [address] Dr. Nicole Lam WBC 4.0 103/ul Normal 4.0-11.0 [facility] Comment on above: Performed By: #### F ERR, B12FOL, FETIBC #### [facility] [address] [place] [address] Dr. Nicole Lam FERRITINon 09-29-2022 Ferritin [Mass/Vol] 237.8176428 ng/mL 26. 0-388.0 ng/mL [employer] Other Ferritin [Mass/Vol] 202.0 ng/mL Normal 26.0-388.0 [facility] Comment on above: Performed By: #### F ERR, B12FOL, FETIBC #### [facility] [address] [address] [address] Nicole Lam IRON AND TIBCon 09-29-2022 Iron [Mass/Vol] 97.4865157 ug/dL 65.0-175 .0 ug/dL [employer] Other IRON AND TIBC 334.0 ug/dL 250.0-450.0 ug/dL [employer] Other IRON AND TIBC 29.0 % [employer] Other % SATURATION 29.0 % Normal [facility] Comment on above: Performed By: #### F ERR, B12FOL, FETIBC #### [facility] [address] [address] [address] Nicole Lam Iron [Mass/Vol] 97.0 ug/dL Normal 65.0-175.0 [facility] Comment on above: Performed By: #### F ERR, B12FOL, FETIBC #### [facility] [address] [place] [address] Dr. Nicole Lam TIBC DIRECT 334.0 ug/dL Normal 250.0-450.0 [facility] Comment on above: Performed By: #### F ERR, B12FOL, FETIBC #### [facility] [address] [address] [address] Nicole Lam VIT B12 AND FOLATEon 023 Cobalamin (Vitamin B12) [Mass/Vol] 975.9916562 pg/mL 193.0-986.0 pg/mL [employer] Other VIT B12 AND FOLATE 21.20 ng/mL 8.60-58.9 0 ng/mL [employer] Other VIT B12 AND FOLATE see note [employer] Other Cobalamin (Vitamin B12) [Mass/Vol] 611.0 pg/mL Normal 193.0-986.0 [facility] Comment on above: Performed By: #### F ERR, B12FOL, FETIBC #### [facility] [address] [place] [address] Dr. Nicole Lam FOLATE 21.20 ng/mL Normal 8.60-58.90 [facility] Comment on above: Performed By: #### F ERR, B12FOL, FETIBC #### [facility] [address] [place] [address] Dr. Nicole Lam CBC AUTO DIFFon 06-17-2022 BASO # 0.1 103/ul Normal 0.0-0.1 [facility] Comment on above: Performed By: #### F ERR, B12FOL, FETIBC #### [facility] [address] [place] [address] Dr. Nicole Lam Basophils/100 WBC (Bld) 1.0 % Normal 0.2-2.0 [facility] Comment on above: Performed By: #### F ERR, B12FOL, FETIBC #### [facility] [address] [place] [address] Dr. Nicole Lam EO # 0.1 103/ul Normal 0.0-0.7 [facility] Comment on above: Performed By: #### F ERR, B12FOL, FETIBC #### [facility] [address] [place] [address] Dr. Nicole Lam Eosinophils/100 WBC (Bld) 2.5 % Normal 0.9-7.0 [facility] Comment on above: Performed By: #### F ERR, B12FOL, FETIBC #### [facility] [address] [place] [address] Dr. Nicole Lam Erythrocyte distribution width (RBC) [Ratio] 12.5 % Normal 11.0-15.0 [facility] Comment on above: Performed By: #### F ERR, B12FOL, FETIBC #### [facility] [address] [place], [place] [id number] Dr. Nicole Lam Hematocrit (Bld) [Volume fraction] 37.5 % Critically low 42.0-54.0 [facility] Comment on above: Performed By: #### F ERR, B12FOL, FETIBC #### [facility] [address] [place] [address] Dr. Nicole Lam Hemoglobin (Bld) [Mass/Vol] 12.9 g/dL Critically low 14.0-18.0 [facility] Comment on above: Performed By: #### F ERR, B12FOL, FETIBC #### [facility] [address] [place] [address] Dr. Nicole Lam IG # 0.01 10e3/ul Normal 0.00-0.03 [facility] Comment on above: Performed By: #### F ERR, B12FOL, FETIBC #### [facility] [address] [place] [address] Dr. Nicole Lam IG % 0.2 % Normal 0.0-0.5 [facility] Comment on above: Performed By: #### F ERR, B12FOL, FETIBC #### [facility] [address] [place] [address] Dr. Nicole Lam LYMPH # 1.4 103/ul Normal 1.2-3.8 [facility] Comment on above: Performed By: #### F ERR, B12FOL, FETIBC #### [facility] [address] [place] [address] Dr. Nicole Lam Lymphocytes/100 WBC (Bld) 28.0 % Normal 20.5-60.0 [facility] Comment on above: Performed By: #### F ERR, B12FOL, FETIBC #### [facility] [address] [place] [address] Dr. Nicole Lam MANUAL DIFF REQ NO Normal [facility] Comment on above: Performed By: #### F ERR, B12FOL, FETIBC #### [facility] [address] [place] [address] Dr. Nicole Lam MCH (RBC) [Entitic mass] 32.3 pg Normal 25.9-34.0 [facility] Comment on above: Performed By: #### F ERR, B12FOL, FETIBC #### [facility] [address] [place] [address] Dr. Nicole Lam MCHC (RBC) [Mass/Vol] 34.4 g/dL Normal 29.9-35.2 [facility] Comment on above: Performed By: #### F ERR, B12FOL, FETIBC #### [facility] [address] [place] [address] Dr. Nicole Lam MCV (RBC) [Entitic vol] 94.0 fL Normal 80.0-94.0 [facility] Comment on above: Performed By: #### F ERR, B12FOL, FETIBC #### [facility] [address] [place] [address] Dr. Nicole Lam MONO # 0.4 103/ul Normal 0.3-0.8 [facility] Comment on above: Performed By: #### F ERR, B12FOL, FETIBC #### [facility] [address] [place] [address] Dr. Nicole Lam Monocytes/100 WBC (Bld) 7.8 % Normal 1.7-12.0 [facility] Comment on above: Performed By: #### F ERR, B12FOL, FETIBC #### [facility] [address] [place] [address] Dr. Nicole Lam NEUT # 3.1 103/ul Normal 1.4-6.5 [facility] Comment on above: Performed By: #### F ERR, B12FOL, FETIBC #### [facility] [address] [place] [address] Dr. Nicole Lam Neutrophils/100 WBC (Bld) 60.5 % Normal 43.0-75.0 [facility] Comment on above: Performed By: #### F ERR, B12FOL, FETIBC #### [facility] [address] [place] [address] Dr. Nicole Lam Platelet mean volume (Bld) [Entitic vol] 8.8 fL Critically low 9.5-13.5 [facility] Comment on above: Performed By: #### F ERR, B12FOL, FETIBC #### [facility] [address] [place] [address] Dr. Nicole Lam PLT 294 103/ul Normal 150-450 [facility] Comment on above: Performed By: #### F ERR, B12FOL, FETIBC #### [facility] [address] [place] [address] Dr. Nicole Lam RBC 3.99 106/ul Critically low 4.70-6.10 [facility] Comment on above: Performed By: #### F ERR, B12FOL, FETIBC #### [facility] [address] [place] [address] Dr. Nicole Lam WBC 5.1 103/ul Normal 4.0-11.0 [facility] Comment on above: Performed By: #### F ERR, B12FOL, FETIBC #### [facility] [address] [place] [address] Dr. 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 Electronically signed: Aj Givens. Transcribed by: [email or web address], User Resident: Electronically Signed by: AJ GIVENS @ 03/21/2022 02:37 PM Normal [facility] Comment on above: Order Comment: No: D o not add to previous draw MRI LUMBAR SPINE W WO CONTRA STon 03-21-2022 MRI LUMBAR SPINE W WO CONTRAST [facility] Department of Radiology [address] [place] [id number] Patient Name: EMILY CALDWELL : 1950 [...] S1. Electronically signed: Mili Rolon. Transcribed by: [email or web address], User Resident: Electronically Signed by: MILI ROLON @ 03/25/2022 09:18 AM Normal [facility] Comment on above: Order Comment: No: D o not add to previous draw METHYLMALONIC ACID (MMA)on 0 03-08-2022 Methylmalonic Acid, Serum 225 nmol/L Normal 0-378 [facility] Comment on above: Performed By: #### M MA2 #### [facility] [address] [address] [address] Nicole Lam CBC AUTO DIFFon 03-05-2022 BASO # 0.0 103/ul Normal 0.0-0.1 [facility] Comment on above: Performed By: #### C BC #### [facility] [address] [place], [place] [address] Dr. Nicole Lam Basophils/100 WBC (Bld) 0.7 % Normal 0.2-2.0 [facility] Comment on above: Performed By: #### C BC #### [facility] [address] [place] [address] Dr. Nicole Lam EO # 0.1 103/ul Normal 0.0-0.7 [facility] Comment on above: Performed By: #### C BC #### [facility] [address] [place] [address] Dr. Nicole Lam Eosinophils/100 WBC (Bld) 3.2 % Normal 0.9-7.0 [facility] Comment on above: Performed By: #### C BC #### [facility] [address] [place] [address] Dr. Nicole Lam Erythrocyte distribution width (RBC) [Ratio] 14.5 % Normal 11.0-15.0 [facility] Comment on above: Performed By: #### C BC #### [facility] [address] [place] [address] Dr. Nicole Lam Hematocrit (Bld) [Volume fraction] 37.2 % Critically low 42.0-54.0 [facility] Comment on above: Performed By: #### C BC #### [facility] [address] [place] [address] Dr. Nicole Lam Hemoglobin (Bld) [Mass/Vol] 12.0 g/dL Critically low 14.0-18.0 [facility] Comment on above: Performed By: #### C BC #### [facility] [address] [place] [address] Dr. Nicole Lam IG # 0.01 10e3/ul Normal 0.00-0.03 [facility] Comment on above: Performed By: #### C BC #### [facility] [address] [place] [address] Dr. Nicole Lam IG % 0.2 % Normal 0.0-0.5 [facility] Comment on above: Performed By: #### C BC #### [facility] [address] [place] [address] Dr. Nicole Lam LYMPH # 1.2 103/ul Normal 1.2-3.8 [facility] Comment on above: Performed By: #### C BC #### [facility] [address] [place] [address] Dr. Nicole Lam Lymphocytes/100 WBC (Bld) 30.0 % Normal 20.5-60.0 [facility] Comment on above: Performed By: #### C BC #### [facility] [address] [place] [address] Dr. Nicole Lam MANUAL DIFF REQ NO Normal [facility] Comment on above: Performed By: #### C BC #### [facility] [address] [place] [address] Dr. Nicole Lam MCH (RBC) [Entitic mass] 30.0 pg Normal 25.9-34.0 [facility] Comment on above: Performed By: #### C BC #### [facility] [address] [place] [address] Dr. Nicole Lam MCHC (RBC) [Mass/Vol] 32.3 g/dL Normal 29.9-35.2 [facility] Comment on above: Performed By: #### C BC #### [facility] [address] [place] [address] Dr. Nicole Lam MCV (RBC) [Entitic vol] 93.0 fL Normal 80.0-94.0 [facility] Comment on above: Performed By: #### C BC #### [facility] [address] [place] [address] Dr. Nicole Lam MONO # 0.4 103/ul Normal 0.3-0.8 [facility] Comment on above: Performed By: #### C BC #### [facility] [address] [place] [address] Dr. Nicole Lam Monocytes/100 WBC (Bld) 8.9 % Normal 1.7-12.0 [facility] Comment on above: Performed By: #### C BC #### [facility] [address] [place] [address] Dr. Nicole Lam NEUT # 2.3 103/ul Normal 1.4-6.5 [facility] Comment on above: Performed By: #### C BC #### [facility] [address] [address] [address] Nicole Lam Neutrophils/100 WBC (Bld) 57.0 % Normal 43.0-75.0 [facility] Comment on above: Performed By: #### C BC #### [facility] [address] [address] [address] Nicole Lam Platelet mean volume (Bld) [Entitic vol] 9.2 fL Critically low 9.5-13.5 [facility] Comment on above: Performed By: #### C BC #### [facility] [address] [address] [address] Nicole Lam PLT 300 103/ul Normal 150-450 [facility] Comment on above: Performed By: #### C BC #### [facility] [address] [place] [address] Dr. Nicole Lam RBC 4.00 106/ul Critically low 4.70-6.10 [facility] Comment on above: Performed By: #### C BC #### [facility] [address] [address] [address] Nicole Lam WBC 4.0 103/ul Normal 4.0-11.0 [facility] Comment on above: Performed By: #### C BC #### [facility] [address] [place] [address] Dr. Nicole Lam DIRECT LDLon 03-05-2022 Cholesterol in LDL [Mass/Vol] 152 mg/dL Normal [facility] Comment on above: Performed By: #### A LT, DLDL #### [facility] [address] [place] [address] Dr. Nicole Lam DLDL NORMAL SEE BELOW Normal [facility] Comment on above: Result Comment: <100 mg/dl OPTIMAL 100 - 129 mg/dl NEAR OR ABOVE OPTIMAL 130 - 159 mg/dl BORDERLINE HIGH 160 - 189 mg/dl HIGH >190 mg/dl VERY HIGH Performed By: #### A LT, DLDL #### [facility] [address] [address] [address] Nicole Lam FERRITINon 08-17-2022 Ferritin [Mass/Vol] 272.0 ng/mL Normal 26.0-388.0 [facility] Comment on above: Performed By: #### F ERR, B12FOL, FETIBC #### [facility] [address] [place] [address] Dr. Nicole Lam IRON AND TIBCon 03-05-2022 % SATURATION 24.4 % Normal [facility] Comment on above: Performed By: #### F ERR, B12FOL, FETIBC #### [facility] [address] [place] [address] Dr. Nicole Lam Iron [Mass/Vol] 73.0 ug/dL Normal 65.0-175.0 [facility] Comment on above: Performed By: #### F ERR, B12FOL, FETIBC #### [facility] [address] [place] [address] Dr. Nicole Lam TIBC DIRECT 299.0 ug/dL Normal 250.0-450.0 [facility] Comment on above: Performed By: #### F ERR, B12FOL, FETIBC #### [facility] [address] [place] [address] Dr. Nicole Lam SGPTon 03-05-2022 ALT [Catalytic activity/Vol] 27 U/L Normal 16-63 [facility] Comment on above: Performed By: #### F ERR, B12FOL, FETIBC #### [facility] [address] [place] [address] Dr. Nicole Lam VIT B12 AND FOLATEon 022 Cobalamin (Vitamin B12) [Mass/Vol] 551.0 pg/mL Normal 193.0-986.0 [facility] Comment on above: Performed By: #### F ERR, B12FOL, FETIBC #### [facility] [address] [place] [address] Dr. Nicole Lam FOLATE 21.40 ng/mL Normal 8.60-58.90 [facility] Comment on above: Performed By: #### F ERR, B12FOL, FETIBC #### [facility] [address] [place] [address] Dr. Nicole Lam Covid-19 PCR (CVDTBH)on 01-17 SARS-CoV-2 (COVID-19) RNA DIANA+probe Ql (Unsp spec) Detected Critically abnormal NOT DETECTED [facility] Comment on above: Result Comment: This test is not yet approved or cleared by the [place] FDA. When there are no FDA-approved or cleared tests available, and other criteria are met, FDA can make tests available under an emergency access mechanism called an Emergency Use Authorization (EUA). The EUA for this test is supported by the [employer] of Health and Human Service's declaration that [...] By: #### F ERR, B12FOL, FETIBC #### [facility] [address] [place] [address] Dr. Nicole Lam GROUP A STREP CULTUREon 01-17 S. pyogenes Ag Ql (Unsp spec) Culture Observations: NEGATIVE FOR GROUP A STREPTOCOCCUS. Normal [facility] Comment on above: Performed By: #### G RASTCX, SSCRN #### [facility] [address] [address] [address] Nicole Lam STREPT SCREENon 01-31-2022 STREP SCREEN A Negative Normal NEGATIVE [facility] Comment on above: Performed By: #### G RASTCX, SSCRN #### [facility] [address] [address] [address] Nicole Lam TESTOSTERONE, TOTALon 2021 Testosterone [Mass/Vol] 510 ng/dL Normal 264-916 [facility] Comment on above: Result Comment: Adul t male reference interval is based on a population of healthy nonobese males (BMI <30) between 19 and 39 years old. Marina et.al. JCEM 2017,102;2271-4182. PMID: [id number]. Performed By: #### F ERR, B12FOL, FETIBC #### [facility] [address] [place] [address] Dr. Nicole Lam CBC AUTO DIFFon 2022 BASO # 0.0 103/ul Normal 0.0-0.1 [facility] Comment on above: Performed By: #### F ERR, B12FOL, FETIBC #### [facility] [address] [place] [address] Dr. Nicole Lam Basophils/100 WBC (Bld) 0.5 % Normal 0.2-2.0 [facility] Comment on above: Performed By: #### F ERR, B12FOL, FETIBC #### [facility] [address] [place] [address] Dr. Nicole Lam EO # 0.2 103/ul Normal 0.0-0.7 [facility] Comment on above: Performed By: #### F ERR, B12FOL, FETIBC #### [facility] [address] [place] [address] Dr. Nicole Lam Eosinophils/100 WBC (Bld) 2.9 % Normal 0.9-7.0 [facility] Comment on above: Performed By: #### F ERR, B12FOL, FETIBC #### [facility] [address] [place] [address] Dr. Nicole Lam Erythrocyte distribution width (RBC) [Ratio] 13.6 % Normal 11.0-15.0 [facility] Comment on above: Performed By: #### F ERR, B12FOL, FETIBC #### [facility] [address] [place] [address] Dr. Nicole Lam Hematocrit (Bld) [Volume fraction] 38.6 % Critically low 42.0-54.0 [facility] Comment on above: Performed By: #### F ERR, B12FOL, FETIBC #### [facility] [address] [place] [address] Dr. Nicole Lam Hemoglobin (Bld) [Mass/Vol] 13.0 g/dL Critically low 14.0-18.0 [facility] Comment on above: Performed By: #### F ERR, B12FOL, FETIBC #### [facility] [address] [place] [address] Dr. Nicole Lam IG # 0.01 10e3/ul Normal 0.00-0.03 [facility] Comment on above: Performed By: #### F ERR, B12FOL, FETIBC #### [facility] [address] [place] [address] Dr. Nicole Lam IG % 0.2 % Normal 0.0-0.5 [facility] Comment on above: Performed By: #### F ERR, B12FOL, FETIBC #### [facility] [address] [place] [address] Dr. Nicole Lam LYMPH # 1.1 103/ul Critically low 1.2-3.8 [facility] Comment on above: Performed By: #### F ERR, B12FOL, FETIBC #### [facility] [address] [place] [address] Dr. Nicole Lam Lymphocytes/100 WBC (Bld) 19.8 % Critically low 20.5-60.0 [facility] Comment on above: Performed By: #### F ERR, B12FOL, FETIBC #### [facility] [address] [place] [address] Dr. Nicole Lam MANUAL DIFF REQ NO Normal [facility] Comment on above: Performed By: #### F ERR, B12FOL, FETIBC #### [facility] [address] [place] [address] Dr. Nicole Lam MCH (RBC) [Entitic mass] 31.1 pg Normal 25.9-34.0 [facility] Comment on above: Performed By: #### F ERR, B12FOL, FETIBC #### [facility] [address] [place] [address] Dr. Nicole Lam MCHC (RBC) [Mass/Vol] 33.7 g/dL Normal 29.9-35.2 [facility] Comment on above: Performed By: #### F ERR, B12FOL, FETIBC #### [facility] [address] [place] [address] Dr. Nicole Lam MCV (RBC) [Entitic vol] 92.3 fL Normal 80.0-94.0 [facility] Comment on above: Performed By: #### F ERR, B12FOL, FETIBC #### [facility] [address] [place] [address] Dr. Nicole Lam MONO # 0.5 103/ul Normal 0.3-0.8 [facility] Comment on above: Performed By: #### F ERR, B12FOL, FETIBC #### [facility] [address] [place] [address] Dr. Nicole Lam Monocytes/100 WBC (Bld) 8.2 % Normal 1.7-12.0 [facility] Comment on above: Performed By: #### F ERR, B12FOL, FETIBC #### [facility] [address] [place] [address] Dr. Nicole Lam NEUT # 3.8 103/ul Normal 1.4-6.5 [facility] Comment on above: Performed By: #### F ERR, B12FOL, FETIBC #### [facility] [address] [place] [address] Dr. Nicole Lam Neutrophils/100 WBC (Bld) 68.4 % Normal 43.0-75.0 [facility] Comment on above: Performed By: #### F ERR, B12FOL, FETIBC #### [facility] [address] [place] [address] Dr. Nicole Lam Platelet mean volume (Bld) [Entitic vol] 8.9 fL Critically low 9.5-13.5 [facility] Comment on above: Performed By: #### F ERR, B12FOL, FETIBC #### [facility] [address] [place] [address] Dr. Nicole Lam PLT 295 103/ul Normal 150-450 [facility] Comment on above: Performed By: #### F ERR, B12FOL, FETIBC #### [facility] [address] [place] [address] Dr. Nicole Lam RBC 4.18 106/ul Critically low 4.70-6.10 [facility] Comment on above: Performed By: #### F ERR, B12FOL, FETIBC #### [facility] [address] [address] [address] Nicole Lam WBC 5.6 103/ul Normal 4.0-11.0 [facility] Comment on above: Performed By: #### F ERR, B12FOL, FETIBC #### [facility] [address] [place] [address] Dr. Nicole Lam GLYCOHEMOGLOBIN A1Con 2021 ADA RECOMMENDATION SEE BELOW Normal [facility] Comment on above: Result Comment: ADA RECOMMENDED LIMIT 4.0 - 6.0 ADA THERAPEUTIC TARGET < 7.0 ACTION SUGGESTED > 7.0 Performed By: #### F ERR, B12FOL, FETIBC #### [facility] [address] [place] [address] Dr. Nicole Lam Glucose [Mass/Vol] 120 mg/dL Normal [facility] Comment on above: Performed By: #### F ERR, B12FOL, FETIBC #### [facility] [address] [place] [address] Dr. Nicole Lam HbA1c (Bld) [Mass fraction] 5.8 % Normal 4.5-6.2 [facility] Comment on above: Performed By: #### F ERR, B12FOL, FETIBC #### [facility] [address] [place] [address] Dr. Nicole Lam LIPID PROFILEon 2022 CHOL-HDL RATIO NORM SEE BELOW Normal [facility] Comment on above: Result Comment: 3.3 - 4.4 LOW RISK 4.4 - 7.1 AVERAGE RISK 7.1 - 11.0 MODERATE RISK >11.0 HIGH RISK Performed By: #### L IPID, BMP #### [facility] [address] [place] [address] Dr. Nicole Lam Cholesterol [Mass/Vol] 251 mg/dL Critically high <=200 [facility] Comment on above: Performed By: #### L IPID, BMP #### [facility] [address] [address] [address] Nicole Lam Cholesterol in HDL [Mass/Vol] 63 mg/dL Critically high 40-60 [facility] Comment on above: Performed By: #### L IPID, BMP #### [facility] [address] [address] [address] Nicole Lam Cholesterol in LDL [Mass/Vol] 151.6 mg/dL Normal [facility] Comment on above: Performed By: #### L IPID, BMP #### [facility] [address] [place] [address] Dr. Nicole Lam Cholesterol.total/Felipa sterol in HDL [Mass ratio] 4.0 {ratio} Normal [facility] Comment on above: Performed By: #### L IPID, BMP #### [facility] [address] [place] [address] Dr. Nicole Lam HDL NORMAL > or = 60 mg/dl - LOW CARDIOVASCULAR RISK <40 mg/dl - HIGH CARDIOVASCULAR RISK Normal [facility] Comment on above: Performed By: #### L IPID, BMP #### [facility] [address] [place] [address] Dr. Nicole Lam LDL CALC NORMAL SEE BELOW Normal [facility] Comment on above: Result Comment: <100 mg/dl OPTIMAL 100 - 129 mg/dl NEAR OR ABOVE OPTIMAL 130 - 159 mg/dl BORDERLINE HIGH 160 - 189 mg/dl HIGH >190 mg/dl VERY HIGH Performed By: #### L IPID, BMP #### [facility] [address] [place] [address] Dr. Nicole Lam Triglyceride [Mass/Vol] 182 mg/dL Critically high <=150 [facility] Comment on above: Performed By: #### L IPID, BMP #### [facility] [address] [place] [address] Dr. Nicole Lam VLDL CALC 36.4 mg/dL Normal [facility] Comment on above: Performed By: #### L IPID, BMP #### [facility] [address] [place] [address] Dr. Nicole Lam PROF CHEM 8 (BAS METB)on Anion gap [Moles/Vol] 10.5 mmol/L Normal Th [facility] Comment on above: Performed By: #### L IPID, BMP #### [facility] [address] [place] [address] Dr. Nicole Lam Calcium [Mass/Vol] 9.4 mg/dL Normal 8.5-10.1 [facility] Comment on above: Performed By: #### L IPID, BMP #### [facility] [address] [place] [address] Dr. Nicole Lam Chloride [Moles/Vol] 104 mmol/L Normal 98-107 [facility] Comment on above: Performed By: #### L IPID, BMP #### [facility] [address] [place] [address] Dr. Nicole Lam CO2 [Moles/Vol] 29.9 mmol/L Normal 21.0-32.0 [facility] Comment on above: Performed By: #### L IPID, BMP #### [facility] [address] [place] [address] Dr. Nicole Lam Creatinine [Mass/Vol] 1.16 mg/dL Normal 0.70-1.30 [facility] Comment on above: Performed By: #### L IPID, BMP #### [facility] [address] [place] [address] Dr. Nicole Lam EGFR-AF CITIZEN OF [place] >60 Normal >=60 [facility] Comment on above: Performed By: #### L IPID, BMP #### [facility] [address] [place] [address] Dr. Nicole Lam EGFR-NON AF CITIZEN OF [place] >60 Normal >=60 [facility] Comment on above: Performed By: #### L IPID, BMP #### [facility] [address] [place] [address] Dr. Nicole Lam Glucose [Mass/Vol] 104 mg/dL Normal 74-106 [facility] Comment on above: Performed By: #### L IPID, BMP #### [facility] [address] [address] [address] Nicole Lam Potassium [Moles/Vol] 4.4 mmol/L Normal 3.5-5.1 [facility] Comment on above: Performed By: #### L IPID, BMP #### [facility] [address] [place] [address] Dr. Nicole Lam Sodium [Moles/Vol] 140 mmol/L Normal 136-145 [facility] Comment on above: Performed By: #### L IPID, BMP #### [facility] [address] [place] [address] Dr. Nicole Lam Urea nitrogen [Mass/Vol] 18.0 mg/dL Normal 7.0-18.0 [facility] Comment on above: Performed By: #### L IPID, BMP #### [facility] [address] [place] [address] Dr. Nicole Lam Urea nitrogen/Creatinine [Mass ratio] 15.5 mg/mg Normal [facility] Comment on above: Performed By: #### L IPID, BMP #### [facility] [address] [place] [address] Dr. Nicole Lam HIP RIGHT 1 OR 2 VWS WITH PE LVISon 12-10-2021 HIP RIGHT 1 OR 2 VWS WITH PELVIS [facility] Department of Radiology [address] [place] [id number] Patient Name: EMILY CALDWELL : 1950 [...] above Electronically signed: Laura Burns. Transcribed by: [email or web address], User Resident: Electronically Signed by: LAURA BURNS @ 12/11/2021 12:11 PM Normal [facility] Comment on above: Order Comment: No: D o not add to previous draw LUMBAR SPINE 2 OR 3 [facility] LUMBAR SPINE 2 OR 3 S [facility] Department of Radiology [address] [place] [phone] Patient Name: EMILY CALDWELL : 1950 [...] pain Exam: LUMBAR SPINE 2 OR 3 S LUMBAR SPINE 2 OR 3 S 12/10/2021 2:48 PM CLINICAL INDICATIONS: M48.061 Spinal [...] above Electronically signed: Laura Burns. 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 Electronically signed: Adria Craig. Transcribed by: [email or web address], User Resident: Electronically Signed by: ADRIA CRAIG @ 11/24/2021 01:58 AM Normal [facility] Comment on above: Order Comment: No: D o not add to previous draw Operative Reporton 2 Operative Report MR#: [id number] I [facility] Pt. Name: Emily Caldwell Room #: [id number] Discharge 10/15/2021 Date: Birthdate: 1950 OPERATIVE REPORT [...] cage. 4. Posterior nonsegmental instrumentation L5-S1 using [employer] Solera pedicle screws, placed with the aid of the Parantezor robot and with image guidance. 5. Posterior [...] difficulty. This was then docked to the Parantezor robot. The O-arm was brought to the field after draping the field sterilely and then the spin was completed. The registration was good and the O-arm was removed. With the O-arm registration good and confirmation of the levels to be operated, the site for the pedicle screws were selected on the Parantezor robot. The trajectories were selected and then [...] cag (more content not included)... Normal [facility] BASIC METABOLIC PANELon 03-2 Calcium [Mass/Vol] 8.8 mg/dL Normal 8.6-10.3 [facility] Comment on above: Order Comment: No: D o not add to previous draw Performed By: #### 5 0608 #### [facility] [address] [place] [address], [facility] Chloride [Moles/Vol] 97 mmol/L Low 98-107 [facility] Comment on above: Order Comment: No: D o not add to previous draw Performed By: #### 5 0608 #### [facility] [address] [place] [address], [facility] CO2 [Moles/Vol] 27 mmol/L Normal 21-31 [facility] Comment on above: Order Comment: No: D o not add to previous draw Performed By: #### 5 0608 #### [facility] [address] [place] [address], [facility] Creatinine [Mass/Vol] 0.99 mg/dL Normal 0.70-1.30 [facility] Comment on above: Order Comment: No: D o not add to previous draw Performed By: #### 5 0608 #### [facility] [address] [place] [address], [place] GFR/1.73 sq M.predicted among blacks MDRD (S/P/Bld) [Vol rate/Area] mL/min/{1.73_m2} Normal >60 [facility] Comment on above: Order Comment: No: D o not add to previous draw Result Comment: Calc ulation may not be valid for patients over 70 years Performed By: #### 5 0608 #### [facility] [address] [place] [address], [place] GFR/1.73 sq M.predicted among non-blacks MDRD (S/P/Bld) [Vol rate/Area] mL/min/{1.73_m2} Normal >60 [facility] Comment on above: Order Comment: No: D o not add to previous draw Result Comment: Calc ulation may not be valid for patients over 70 years Performed By: #### 5 0608 #### [facility] [address] [place] [address], [place] Glucose [Mass/Vol] 107 mg/dL High 70-100 [facility] Comment on above: Order Comment: No: D o not add to previous draw Performed By: #### 5 0608 #### [facility] [address] [place] [address], [place] Potassium [Moles/Vol] 3.8 mmol/L Normal 3.5-5.1 [facility] Comment on above: Order Comment: No: D o not add to previous draw Performed By: #### 5 0608 #### [facility] [address] [place] [address], [place] Sodium [Moles/Vol] 132 mmol/L Low 136-145 [facility] Comment on above: Order Comment: No: D o not add to previous draw Performed By: #### 5 0608 #### [facility] [address] [place] [address], [place] Urea nitrogen [Mass/Vol] 18 mg/dL Normal 7-25 [facility] Comment on above: Order Comment: No: D o not add to previous draw Performed By: #### 5 0608 #### [facility] [address] [place] [address], [facility] CBC COMPLETE BLOOD COUNTon 0 10-15-2021 Erythrocyte distribution width (RBC) [Ratio] 12.6 % Normal 11.5-15.0 [facility] Comment on above: Order Comment: No: D o not add to previous draw Performed By: #### 1 0070, 47639, 67267 #### [facility] [address] [place] [address], [facility] Hematocrit (Bld) [Volume fraction] 30.5 % Low 39.0-50.0 [facility] Comment on above: Order Comment: No: D o not add to previous draw Performed By: #### 1 0070, 41359, 58791 #### [facility] [address] [place] [address], [facility] Hemoglobin (Bld) [Mass/Vol] 10.6 g/dL Low 13.0-17.0 [facility] Comment on above: Order Comment: No: D o not add to previous draw Performed By: #### 1 0070, 49113, 70828 #### [facility] [address] [place] [address], [facility] MCH (RBC) [Entitic mass] 32.0 pg Normal 27.0-33.0 [facility] Comment on above: Order Comment: No: D o not add to previous draw Performed By: #### 1 0070, 31370, 23571 #### [facility] [address] [place] [address], [facility] MCHC (RBC) [Mass/Vol] 34.8 g/dL Normal 32.0-35.0 [facility] Comment on above: Order Comment: No: D o not add to previous draw Performed By: #### 1 0070, 48152, 22421 #### [facility] [address] [place] [id number], [facility] MCV (RBC) [Entitic vol] 92.1 fL Normal 82.0-98.0 T [facility] Comment on above: Order Comment: No: D o not add to previous draw Performed By: #### 1 0, 14209, 65336 #### [facility] [address] [place] [address], [facility] Nucleated RBC/100 WBC (Bld) [Ratio] 0 % Normal 0-0 [facility] Comment on above: Order Comment: No: D o not add to previous draw Performed By: #### 1 0, 32651, 29577 #### [facility] [address] [place] [address], [facility] PLAT CNT 277 10*3/uL Normal 150-400 [facility] Comment on above: Order Comment: No: D o not add to previous draw Performed By: #### 1 0070, 37586, 64193 #### [facility] [address] [place] [address], [facility] RBC (Bld) [#/Vol] 3.31 10*6/uL Low 4.20-5.70 [facility] Comment on above: Order Comment: No: D o not add to previous draw Performed By: #### 1 0070, 23800, 98203 #### [facility] [address] [place] [id number], [place] WBC (Bld) [#/Vol] 8.91 10*3/uL Normal 4.00-10.60 [facility] Comment on above: Order Comment: No: D o not add to previous draw Performed By: #### 1 0070, 30095, 79220 #### [facility] [address] [place] [id number], [facility] BASIC METABOLIC PANELon 09-18 Calcium [Mass/Vol] 8.9 mg/dL Normal 8.6-10.3 [facility] Comment on above: Order Comment: No: D o not add to previous draw Performed By: #### 1 0070, 77537, 22833 #### [facility] [address] [place] [address], [place] Chloride [Moles/Vol] 98 mmol/L Normal 98-107 [facility] Comment on above: Order Comment: No: D o not add to previous draw Performed By: #### 1 0070, 70302, 93960 #### [facility] [address] [place] [address], [place] CO2 [Moles/Vol] 28 mmol/L Normal 21-31 [facility] Comment on above: Order Comment: No: D o not add to previous draw Performed By: #### 1 0070, 87572, 19508 #### [facility] [address] [place] [address], [place] Creatinine [Mass/Vol] 1.10 mg/dL Normal 0.70-1.30 [facility] Comment on above: Order Comment: No: D o not add to previous draw Performed By: #### 1 0070, 97354, 24679 #### [facility] [address] [place] [address], [place] GFR/1.73 sq M.predicted among blacks MDRD (S/P/Bld) [Vol rate/Area] mL/min/{1.73_m2} Normal >60 [facility] Comment on above: Order Comment: No: D o not add to previous draw Result Comment: Calc ulation may not be valid for patients over 70 years Performed By: #### 1 0070, 29895, 88016 #### [facility] [address] [place] [address], [place] GFR/1.73 sq M.predicted among non-blacks MDRD (S/P/Bld) [Vol rate/Area] mL/min/{1.73_m2} Normal >60 [facility] Comment on above: Order Comment: No: D o not add to previous draw Result Comment: Calc ulation may not be valid for patients over 70 years Performed By: #### 1 0070, 56562, 82418 #### [facility] [address] [place] [address], [place] Glucose [Mass/Vol] 105 mg/dL High 70-100 [facility] Comment on above: Order Comment: No: D o not add to previous draw Performed By: #### 1 0070, 80803, 97422 #### [facility] [address] [place] [address], [place] Potassium [Moles/Vol] 4.0 mmol/L Normal 3.5-5.1 [facility] Comment on above: Order Comment: No: D o not add to previous draw Performed By: #### 1 0, 58684, 32751 #### [facility] [address] [place] [address], [place] Sodium [Moles/Vol] 133 mmol/L Low 136-145 [facility] Comment on above: Order Comment: No: D o not add to previous draw Performed By: #### 1 0070, 89872, 12982 #### [facility] [address] [place] [address], [place] Urea nitrogen [Mass/Vol] 18 mg/dL Normal 7-25 [facility] Comment on above: Order Comment: No: D o not add to previous draw Performed By: #### 1 0070, 53006, 01880 #### [facility] [address] [place] [address], [place] CBC COMPLETE BLOOD COUNTon 0 - Erythrocyte distribution width (RBC) [Ratio] 13.2 % Normal 11.5-15.0 [facility] Comment on above: Order Comment: No: D o not add to previous draw Performed By: #### 5 0608 #### [facility] [address] [place] [address], [facility] Hematocrit (Bld) [Volume fraction] 30.8 % Low 39.0-50.0 [facility] Comment on above: Order Comment: No: D o not add to previous draw Performed By: #### 5 0608 #### [facility] [address] [place] [address], [facility] Hemoglobin (Bld) [Mass/Vol] 10.7 g/dL Low 13.0-17.0 [facility] Comment on above: Order Comment: No: D o not add to previous draw Performed By: #### 5 0608 #### [facility] [address] [facility] [place] [address], [facility] MCH (RBC) [Entitic mass] 31.6 pg Normal 27.0-33.0 [facility] Comment on above: Order Comment: No: D o not add to previous draw Performed By: #### 5 0608 #### [facility] [address] [facility] [place] [address], [facility] MCHC (RBC) [Mass/Vol] 34.7 g/dL Normal 32.0-35.0 [facility] Comment on above: Order Comment: No: D o not add to previous draw Performed By: #### 5 0608 #### [facility] [address] [facility] [place] [address], [facility] MCV (RBC) [Entitic vol] 90.9 fL Normal 82.0-98.[address] [facility] Comment on above: Order Comment: No: D o not add to previous draw Performed By: #### 5 0608 #### [facility] [address] [facility] [place] [address], [facility] Nucleated RBC/100 WBC (Bld) [Ratio] 0 % Normal 0-0 [facility] Comment on above: Order Comment: No: D o not add to previous draw Performed By: #### 5 0608 #### [facility] [address] [facility] [place] [address], [facility] PLAT CNT 222 10*3/uL Normal 150-400 [facility] Comment on above: Order Comment: No: D o not add to previous draw Performed By: #### 5 0608 #### [facility] [address] [place] [id number], [facility] RBC (Bld) [#/Vol] 3.39 10*6/uL Low 4.20-5.70 [facility] Comment on above: Order Comment: No: D o not add to previous draw Performed By: #### 5 0608 #### [facility] [address] [facility] [place] [address], [facility] WBC (Bld) [#/Vol] 9.97 10*3/uL Normal 4.00-10.60 [facility] Comment on above: Order Comment: No: D o not add to previous draw Performed By: #### 5 0608 #### [facility] [address] [place] [address], [facility] MAGNESIUM BLOODon 10-14-2021 Magnesium [Mass/Vol] 1.9 mg/dL Normal 1.9-2.7 [facility] Comment on above: Order Comment: No: D o not add to previous draw Performed By: #### 1 0070, 70117, 45594 #### [facility] [address] [place] [address], [facility] PHOSPHORUS BLOODon Phosphate [Mass/Vol] 2.6 mg/dL Normal 2.5-5.0 [facility] Comment on above: Order Comment: No: D o not add to previous draw Performed By: #### 1 0070, 26536, 47612 #### [facility] [address] [place] [address], [facility] BASIC METABOLIC PANELon 03- Calcium [Mass/Vol] 8.7 mg/dL Normal 8.6-10.3 [facility] Comment on above: Order Comment: No: D o not add to previous draw Performed By: #### 1 0070, 52835, 31008 #### [facility] [address] [place] [address], [place] Chloride [Moles/Vol] 98 mmol/L Normal 98-107 [facility] Comment on above: Order Comment: No: D o not add to previous draw Performed By: #### 1 0070, 00365, 51338 #### [facility] [address] [place] [address], [place] CO2 [Moles/Vol] 24 mmol/L Normal 21-31 The [facility] Comment on above: Order Comment: No: D o not add to previous draw Performed By: #### 1 0070, 84155, 03768 #### [facility] [address] [place] [address], [place] Creatinine [Mass/Vol] 1.16 mg/dL Normal 0.70-1.30 [facility] Comment on above: Order Comment: No: D o not add to previous draw Performed By: #### 1 0070, 09716, 70525 #### [facility] [address] [place] [address], [place] GFR/1.73 sq M.predicted among blacks MDRD (S/P/Bld) [Vol rate/Area] mL/min/{1.73_m2} Normal >60 [facility] Comment on above: Order Comment: No: D o not add to previous draw Result Comment: Calc ulation may not be valid for patients over 70 years Performed By: #### 1 0070, 74683, 23133 #### [facility] [address] [place] [address], [place] GFR/1.73 sq M.predicted among non-blacks MDRD (S/P/Bld) [Vol rate/Area] mL/min/{1.73_m2} Normal >60 [facility] Comment on above: Order Comment: No: D o not add to previous draw Result Comment: Calc ulation may not be valid for patients over 70 years Performed By: #### 1 0, 51054, 25422 #### [facility] [address] [place] [address], [place] Glucose [Mass/Vol] 157 mg/dL High 70-100 The [facility] Comment on above: Order Comment: No: D o not add to previous draw Performed By: #### 1 0, [id number], [id number] #### [facility] [address] [place] [address], [place] Potassium [Moles/Vol] 3.3 mmol/L Low 3.5-5.1 The [facility] Comment on above: Order Comment: No: D o not add to previous draw Performed By: #### 1 0, 87286, 59312 #### [facility] [address] [place] [address], [place] Sodium [Moles/Vol] 132 mmol/L Low 136-145 The [facility] Comment on above: Order Comment: No: D o not add to previous draw Performed By: #### 1 0, 00746, 90358 #### [facility] [address] [place] [address], [place] Urea nitrogen [Mass/Vol] 18 mg/dL Normal 7-25 [facility] Comment on above: Order Comment: No: D o not add to previous draw Performed By: #### 1 0, 49339, 86063 #### [facility] [address] [place] [address], [place] MAGNESIUM BLOODon 10-13-2021 Magnesium [Mass/Vol] 1.6 mg/dL Low 1.9-2.7 The [facility] Comment on above: Order Comment: No: D o not add to previous draw Performed By: #### 1 0, 07916, 07738 #### [facility] [address] [place] [address], [place] PHOSPHORUS BLOODon Phosphate [Mass/Vol] 2.9 mg/dL Normal 2.5-5.0 The [facility] Comment on above: Order Comment: No: D o not add to previous draw Performed By: #### 1 0070, 17648, 68295 #### [facility] [address] [place] [address], [place] BASIC METABOLIC PANELon 09-18 Calcium [Mass/Vol] 8.9 mg/dL Normal 8.6-10.3 [facility] Comment on above: Order Comment: No: D o not add to previous draw Performed By: #### 0 0071 #### [facility] [address] [place] [address], [place] Chloride [Moles/Vol] 104 mmol/L Normal 98-107 [facility] Comment on above: Order Comment: No: D o not add to previous draw Performed By: #### 0 0071 #### [facility] [address] [place] [address], [place] CO2 [Moles/Vol] 22 mmol/L Normal 21-31 The [facility] Comment on above: Order Comment: No: D o not add to previous draw Performed By: #### 0 0071 #### [facility] [address] [place] [address], [place] Creatinine [Mass/Vol] 0.98 mg/dL Normal 0.70-1.30 The [facility] Comment on above: Order Comment: No: D o not add to previous draw Performed By: #### 0 0071 #### [facility] [address] [place] [address], [place] GFR/1.73 sq M.predicted among blacks MDRD (S/P/Bld) [Vol rate/Area] mL/min/{1.73_m2} Normal >60 The [facility] Comment on above: Order Comment: No: D o not add to previous draw Result Comment: Calc ulation may not be valid for patients over 70 years Performed By: #### 0 0071 #### [facility] [address] [place] [address], [facility] GFR/1.73 sq M.predicted among non-blacks MDRD (S/P/Bld) [Vol rate/Area] mL/min/{1.73_m2} Normal >60 The [facility] Comment on above: Order Comment: No: D o not add to previous draw Result Comment: Calc ulation may not be valid for patients over 70 years Performed By: #### 0 0071 #### [facility] [address] [place] [address], [place] Glucose [Mass/Vol] 115 mg/dL High 70-100 The [facility] Comment on above: Order Comment: No: D o not add to previous draw Performed By: #### 0 0071 #### [facility] [address] [place] [address], [place] Potassium [Moles/Vol] 3.9 mmol/L Normal 3.5-5.1 The [facility] Comment on above: Order Comment: No: D o not add to previous draw Performed By: #### 0 0071 #### [facility] [address] [place] [address], [place] Sodium [Moles/Vol] 135 mmol/L Low 136-145 [facility] Comment on above: Order Comment: No: D o not add to previous draw Performed By: #### 0 0071 #### [facility] [address] [place] [address], [place] Urea nitrogen [Mass/Vol] 20 mg/dL Normal 7-25 The [facility] Comment on above: Order Comment: No: D o not add to previous draw Performed By: #### 0 0071 #### [facility] [address] [place] [address], [place] CBC COMPLETE BLOOD COUNTon 0 10-12-2021 Erythrocyte distribution width (RBC) [Ratio] 13.2 % Normal 11.5-15.0 The [facility] Comment on above: Order Comment: No: D o not add to previous draw Performed By: #### 5 0608 #### [facility] [address] [place] [address], [facility] Hematocrit (Bld) [Volume fraction] 30.8 % Low 39.0-50.0 The [facility] Comment on above: Order Comment: No: D o not add to previous draw Performed By: #### 5 0608 #### [facility] [address] [address], [facility] Hemoglobin (Bld) [Mass/Vol] 10.6 g/dL Low 13.0-17.0 [facility] Comment on above: Order Comment: No: D o not add to previous draw Performed By: #### 5 0608 #### [facility] [address] [facility] [place] [address], [facility] MCH (RBC) [Entitic mass] 31.9 pg Normal 27.0-33.0 The [facility] Comment on above: Order Comment: No: D o not add to previous draw Performed By: #### 5 0608 #### [facility] [address] [address], [facility] MCHC (RBC) [Mass/Vol] 34.4 g/dL Normal 32.0-35.0 The [facility] Comment on above: Order Comment: No: D o not add to previous draw Performed By: #### 5 0608 #### [facility] [address] [place] [id number], [facility] MCV (RBC) [Entitic vol] 92.8 fL Normal 82.0-98.0 T jer[facility] Comment on above: Order Comment: No: D o not add to previous draw Performed By: #### 5 0608 #### [facility] [address] [place] [address], [facility] Nucleated RBC/100 WBC (Bld) [Ratio] 0 % Normal 0-0 The [facility] Comment on above: Order Comment: No: D o not add to previous draw Performed By: #### 5 0608 #### [place] [address], [facility] PLAT CNT 253 10*3/uL Normal 150-400 The [facility] Comment on above: Order Comment: No: D o not add to previous draw Performed By: #### 5 0608 #### [facility] [address] [place] [address], [facility] RBC (Bld) [#/Vol] 3.32 10*6/uL Low 4.20-5.70 The [facility] Comment on above: Order Comment: No: D o not add to previous draw Performed By: #### 5 0608 #### [place] [address], [facility] WBC (Bld) [#/Vol] 13.88 10*3/uL High 4.00-10.60 [facility] Comment on above: Order Comment: No: D o not add to previous draw Performed By: #### 5 0608 #### [address] LUMBAR SPINE 2 OR 3 [facility] LUMBAR SPINE 2 OR 3 [facility] Department of Radiology [address] [place] [id number] Patient Name: EMILY CALDWELL : 1950 Sex: M Age: Race: White Pt. Location: OUTP Patient Status: I Ordered Date: 10/12/2021 10:00:00 AM Completed Date: 10/12/2021 10:05 AM Requesting Provider: DENA SPENCER Attending Provider: ENRIQUE SINGER Report Copy To: Signs & Symptoms: Post OP History: See Comments Comments: Hardware Evaluation Exam: LUMBAR SPINE 2 OR 3 [facility] LUMBAR SPINE 2 OR 3 [facility] HISTORY: Postop surgery. COMPARISON: 10/11/2021. IMPRESSION: 1. Postoperative changes from L5-S1 posterior and interbody fusion. Minimal grade 1 anterolisthesis L5-S1. Postoperative changes from L3, likely L5 posterior decompression. 2. No acute modality. No compression deformity. Unchanged degenerative changes from MRI dated 07/29/2021. Slight broad-based levoconvex curvature spanning the lumbar spine. Electronically signed: Vish Ayon. Transcribed by: [email or web address], User Resident: Electronically Signed by: VISH AYON @ 10/13/2021 06:48 PM Normal The [facility] Comment on above: Order Comment: No: D o not add to previous draw LUMBAR SPINE 2 OR 3 [facility] LUMBAR SPINE 2 OR 3 [facility] Department of Radiology [address] [place] [id number] Patient Name: EMILY CALDWELL : 1950 [...] above Electronically signed: Darin Garcia. Transcribed by: [email or web address], User Resident: DARIN GARCIA Electronically Signed by: DARIN GARCIA @ 10/13/2021 09:07 AM I personally read this/these film(s) with this resident Normal The [facility] Comment on above: Order Comment: No: D o not add to previous draw POC GLUCOSE LABon 10-11-2021 Glucose [Mass/Vol] 107 mg/dL High 70-100 [facility] Comment on above: Performed By: #### 5 0608 #### [place] [address] [place] [address], [facility] *MRSA/MSSA DNA NASALon 09-17 *MRSA/MSSA DNA NASAL Clinical Report: (D ) Specimen: NASAL SWAB Collected: 09/17/2021 15:02 Status: Final Last Updated: 09/17/2021 19:17 MSSA DNA (Final) Negative MRSA DNA (Final) Methicillin Resistant Staphylococcus aureus DNA Detected Normal The [facility] Comment on above: Performed By: #### 5 0608 #### [facility] [address] [facility] APTTon 09-17-2021 aPTT Coag (Bld) [Time] 29.2 s Normal 25.0-35.0 Th e [facility] Comment on above: Result Comment: ALL RESULTS [...] PURPOSE. Performed By: #### 5 0608 #### [facility] [address] BASIC METABOLIC PANELon Calcium [Mass/Vol] 9.1 mg/dL Normal 8.6-10.3 [facility] Comment on above: Performed By: #### 0 0071 #### [facility] [address] [place] [address], [facility] Chloride [Moles/Vol] 103 mmol/L Normal 98-107 The [facility] Comment on above: Performed By: #### 0 0071 #### [facility] [address] [facility]. [place] [id number], [facility] CO2 [Moles/Vol] 28 mmol/L Normal 21-31 The [facility] Comment on above: Performed By: #### 0 0071 #### [facility] [address] [place] [address], [facility] Creatinine [Mass/Vol] 1.31 mg/dL High 0.70-1.30 The [facility] Comment on above: Performed By: #### 0 0071 #### [facility] [address] [place] [address], [facility] eGFR- non- 54 ml/min/1.73sq m Abnormal >60 The [facility] Comment on above: Result Comment: Calc ulation may not be valid for patients over 70 years Performed By: #### 0 0071 #### [facility] [address] [place] [address], [place] GFR/1.73 sq M.predicted among blacks MDRD (S/P/Bld) [Vol rate/Area] mL/min/{1.73_m2} Normal >60 The [facility] Comment on above: Result Comment: Calc ulation may not be valid for patients over 70 years Performed By: #### 0 0071 #### [facility] [address] [place] [address], [place] Glucose [Mass/Vol] 82 mg/dL Normal 70-100 The [facility] Comment on above: Performed By: #### 0 0071 #### [facility] [address] [place] [address], [place] Potassium [Moles/Vol] 4.1 mmol/L Normal 3.5-5.1 The [facility] Comment on above: Performed By: #### 0 0071 #### [facility] [address] [place] [address], [place] Sodium [Moles/Vol] 138 mmol/L Normal 136-145 The [facility] Comment on above: Performed By: #### 0 0071 #### [facility] [address] [place] [address], [place] Urea nitrogen [Mass/Vol] 28 mg/dL High 7-25 The [facility] Comment on above: Performed By: #### 0 0071 #### [facility] [address] [place] [address], [place] CBC W/DIFFon 09-17-2021 ABS IMM GRANS 0.0 10*3/uL Normal 0.0-0.2 The [facility] Comment on above: Performed By: #### 5 0608 #### [facility] [address] [place] [address], [facility] ABS NEUTROPHILS 3.6 10*3/uL Normal 1.6-7.6 The [facility] Comment on above: Performed By: #### 5 0608 #### [facility] [address] [place] [address], [facility] Basophils (Bld) [#/Vol] 0.0 10*3/uL Normal 0.0-0.2 The [facility] Comment on above: Performed By: #### 5 0608 #### [facility] [address] [place] [address], [facility] Basophils/100 WBC (Bld) 0.7 % Normal 0.0-1.[address] [facility] Comment on above: Performed By: #### 5 0608 #### [facility] [address] [place] [address], [facility] Eosinophils (Bld) [#/Vol] 0.1 10*3/uL Normal 0.0-0.5 [facility] Comment on above: Performed By: #### 5 0608 #### [facility] [address] [place] [address], [facility] Eosinophils/100 WBC (Bld) 2.4 % Normal 0.0-6.0 The [facility] Comment on above: Performed By: #### 5 0608 #### [facility] [address] Erythrocyte distribution width (RBC) [Ratio] 14.5 % Normal 11.5-15.0 [facility] Comment on above: Performed By: #### 5 0608 #### [facility] [address] [place] [address], [facility] Hematocrit (Bld) [Volume fraction] 34.9 % Low 39.0-50.0 The [facility] Comment on above: Performed By: #### 5 0608 #### [facility] [address] [place] [address], [facility] Hemoglobin (Bld) [Mass/Vol] 12.1 g/dL Low 13.0-17.0 The [facility] Comment on above: Performed By: #### 5 0608 #### [facility] [address] [place] [address], [facility] IMMATURE GRANS 0.5 % Normal 0.0-1.0 The [facility] Comment on above: Performed By: #### 5 0608 #### [facility] [address] [facility] [place] [address], [facility] Lymphocytes (Bld) [#/Vol] 1.3 10*3/uL Normal 1.2-4.0 The [facility] Comment on above: Performed By: #### 5 0608 #### [facility] [address] [facility] [place] [address], [facility] Lymphocytes/100 WBC (Bld) 22.8 % Normal 20.0-45.0 The [facility] Comment on above: Performed By: #### 5 0608 #### [facility] [address] [facility] [place] [address], [facility] MCH (RBC) [Entitic mass] 31.8 pg Normal 27.0-33.0 The [facility] Comment on above: Performed By: #### 5 0608 #### [facility] [address] [place] [address], [facility] MCHC (RBC) [Mass/Vol] 34.7 g/dL Normal 32.0-35.0 The [facility] Comment on above: Performed By: #### 5 0608 #### [facility] [address] [place] [address], [facility] MCV (RBC) [Entitic vol] 91.8 fL Normal 82.0-98.0 T he [facility] Comment on above: Performed By: #### 5 0608 #### [facility] [address] [facility] [place] [address], [facility] Monocytes (Bld) [#/Vol] 0.6 10*3/uL Normal 0.1-1.0 The [facility] Comment on above: Performed By: #### 5 0608 #### [facility] [address] [place] [address], [facility] MONOS 11.0 % Normal 5.0-12.0 The [facility] Comment on above: Performed By: #### 5 0608 #### [facility] [address] [facility] [place] [address], [facility] Neutrophils/100 WBC (Bld) 62.6 % Normal 40.0-72.0 The [facility] Comment on above: Performed By: #### 5 0608 #### [facility] [address] [place] [address], [facility] Nucleated RBC/100 WBC (Bld) [Ratio] 0 % Normal 0-0 The [facility] Comment on above: Performed By: #### 5 0608 #### [facility] [address] [place] [address], [facility] PLAT CNT 256 10*3/uL Normal 150-400 The [facility] Comment on above: Performed By: #### 5 0608 #### [facility] [address] [address], [facility] RBC (Bld) [#/Vol] 3.80 10*6/uL Low 4.20-5.70 The [facility] Comment on above: Performed By: #### 5 0608 #### [facility] [address] [place] [address], [facility] WBC (Bld) [#/Vol] 5.80 10*3/uL Normal 4.00-10.60 [facility] Comment on above: Performed By: #### 5 0608 #### [address] [address], [facility] CHEST AND LATERALon 09-18-19 CHEST AND LATERAL [facility] Department of Radiology [address] [place] [phone] Patient Name: EMILY CALDWELL : 1950 [...] report. Electronically signed: Khalida Salas. Transcribed by: [email or web address], User Resident: HILDA BAPTISTE Electronically Signed by: KHALIDA SALAS @ 09/18/2021 09:54 AM I personally read this/these film(s) with this resident Normal The [facility] Comment on above: Order Comment: No: D o not add to previous draw PROTHROMBIN TIMEon INR Coag (PPP) [Relative time] 0.96 {INR} Normal 0.91-1.16 The [facility] Comment on above: Result Comment: ACCC P RECOMMENDED INR FOR WARFARIN THERAPY ------- CONDITION INR PROPHYLAXIS OF VENOUS THROMBOSIS 2-3 (HIGH-RISK SURGERY) TREATMENT OF VENOUS THROMBOSIS 2-3 TREATMENT OF PULMONARY EMBOLISM 2-3 PREVENTION OF SYSTEMIC EMBOLISM: 2-3 ACUTE MYOCARDIAL INFARCTION TISSUE HEART VALVES VALVULAR HEART DISEASE ATRIAL FIBRILLATION RECURRENT SYSTEMIC EMBOLISM MECHANICAL HEART VALVE 2.5-3.5 FROM: ORAL ANTICOAGULANTS. MECHANISM OF ACTION, CLINICAL EFFECTIVENESS, AND OPTIMAL THERAPEUTIC RANGE. CHEST 1995;108:231S-246S. Performed By: #### 5 0608 #### [address] PT Coag (PPP) [Time] 12.8 s Normal 12.3-14.8 The [facility] Comment on above: Result Comment: ALL RESULTS MUST BE INTERPRETED WITH RESPECT TO BLOOD DRAWING ARTIFACT OR DILUTION ERROR OF ANTICOAGULANT AT THE TIME OF SAMPLING. Performed By: #### 5 0608 #### [facility] [address] [place] [address], [facility] TYPE AND SCREENon 09-17-2021 ABO INTERPRETATION O Normal [facility] Comment on above: Performed By: #### 5 0608 #### [facility] [address] [place] [address], [place] RH INTERPRETATION Positive Normal The [facility] Comment on above: Performed By: #### 5 0608 #### [facility] [address] [place] [address], [facility] Vital Signs Date Time Vital Sign Value Performing Clinician Facility 01-02-2025 15:07-0400 Body height 170.18 cm Hector Ball DO Work Phone: [facility] 01-02-2025 15:07-0400 Body mass index (BMI) [Ratio] 27.7 kg/m2 Hector Ball DO Work Phone: [facility] 01-02-2025 15:07-0400 Body weight 80.39 kg Hector Ball DO Work Phone: [facility] 01-02-2025 15:07-0400 Diastolic blood pressure 78 mm[Hg] Hector Ball DO Work Phone: [facility] 01-02-2025 15:07-0400 Heart rate 76 /min Hector Ball DO Work Phone: [facility] 01-02-2025 15:07-0400 Respiratory rate 12 /min Hector Ball DO Work Phone: [facility] 01-02-2025 15:07-0400 Systolic blood pressure 136 mm[Hg] Hector Ball DO Work Phone: [facility] 08-18-2024 09:22-0500 Body height 170.18 cm [facility] 08-18-2024 09:22-0500 Body mass index (BMI) [Ratio] 26.5 kg/m2 [facility] 08-18-2024 09:22-0500 Body weight 76.82 kg [facility] 08-18-2024 09:22-0500 Diastolic blood pressure 80 mm[Hg] [facility] 08-18-2024 09:22-0500 Heart rate 64 /min [facility] 08-18-2024 09:22-0500 Respiratory rate 12 /min [facility] 08-18-2024 09:22-0500 Systolic blood pressure 127 mm[Hg] [facility] 01-19-2024 10:49-0400 Body height 170.2 cm Rubin Lopez MD Work Phone: [facility] 01-19-2024 10:49-0400 Body mass index (BMI) [Ratio] 27.93 kg/m2 Rubin Lopez MD Work Phone: [facility] 01-19-2024 10:49-0400 Body weight 80.9 kg Rubin Lopez MD Work Phone: [facility] 01-19-2024 10:49-0400 Diastolic blood pressure 84 mm[Hg] Rubin Lopez MD Work Phone: [facility] 01-19-2024 10:49-0400 Heart rate 63 /min Rubin Lopez MD Work Phone: [facility] 01-19-2024 10:49-0400 Respiratory rate 18 /min Rubin Lopez MD Work Phone: [facility] 01-19-2024 10:49-0400 Systolic blood pressure 155 mm[Hg] Rubin Lopez MD Work Phone: [facility] 01-04-2024 11:40-0400 Body height 170.18 cm [facility] 01-04-2024 11:40-0400 Body mass index (BMI) [Ratio] 28 kg/m2 [facility] 01-04-2024 11:40-0400 Body weight 81.19 kg [facility] 01-04-2024 11:40-0400 Diastolic blood pressure 84 mm[Hg] [facility] 01-04-2024 11:40-0400 Heart rate 70 /min [facility] 01-04-2024 11:40-0400 Respiratory rate 12 /min [facility] 01-04-2024 11:40-0400 Systolic blood pressure 133 mm[Hg] [facility] 10-29-2023 11:46-0400 Body height 170.18 cm [facility] 10-29-2023 11:46-0400 Body mass index (BMI) [Ratio] 27.6 kg/m2 [facility] 10-29-2023 11:46-0400 Body weight 79.88 kg [facility] 10-29-2023 11:46-0400 Diastolic blood pressure 81 mm[Hg] [facility] 10-29-2023 11:46-0400 Heart rate 66 /min [facility] 10-29-2023 11:46-0400 Respiratory rate 12 /min [facility] 10-29-2023 11:46-0400 Systolic blood pressure 133 mm[Hg] [facility] 09-16-2023 15:14-0500 Body height 170.18 cm [facility] 09-16-2023 15:14-0500 Body mass index (BMI) [Ratio] 27.6 kg/m2 [facility] 09-16-2023 15:14-0500 Body weight 79.83 kg [facility] 09-16-2023 15:14-0500 Diastolic blood pressure 81 mm[Hg] [facility] 09-16-2023 15:14-0500 Heart rate 75 /min [facility] 09-16-2023 15:14-0500 Respiratory rate 12 /min [facility] 09-16-2023 15:14-0500 Systolic blood pressure 153 mm[Hg] [facility] 09-11-2023 17:13-0500 Body height 170.18 cm [facility] 09-11-2023 17:13-0500 Body mass index (BMI) [Ratio] 27.3 kg/m2 [facility] 09-11-2023 17:13-0500 Body temperature 101 [degF] [facility] 09-11-2023 17:13-0500 Body weight 79.37 kg [facility] 09-11-2023 17:13-0500 Diastolic blood pressure 70 mm[Hg] [facility] 09-11-2023 17:13-0500 Heart rate 79 /min [facility] 09-11-2023 17:13-0500 Respiratory rate 18 /min [facility] 09-11-2023 17:13-0500 SaO2% (BldA) [Mass fraction] 96 % [facility] 09-11-2023 17:13-0500 Systolic blood pressure 121 mm[Hg] [facility] 06-29-2023 11:30-0500 Body height 170.18 cm Hector Ball Other [facility] 06-29-2023 11:30-0500 Body mass index (BMI) [Ratio] 28.47 kg/m2 Hector Ball Other [facility] [employer] Other 06-29-2023 11:30-0500 Body weight 82.46 kg Hector Ball Other [facility] 06-29-2023 11:30-0500 Diastolic blood pressure 80 mm[Hg] Hector Ball Other [facility] 06-29-2023 11:30-0500 Respiratory rate 12 /min Hector Ball Other [facility] [employer] Other 06-29-2023 11:30-0500 Systolic blood pressure 135 mm[Hg] Hector Ball Other [facility] 2023 09:30-0400 Body height 170.18 cm Hector Ball Other [facility] [employer] Other 2023 09:30-0400 Body mass index (BMI) [Ratio] 28.88 kg/m2 Hector Ball Other [employer] Other 2023 09:30-0400 Body weight 83.64 kg Hector Ball Other [employer] Other 2023 09:30-0400 Diastolic blood pressure 72 mm[Hg] Hector Ball Other [employer] Other 2023 09:30-0400 Respiratory rate 12 /min Hector Ball Other [employer] Other 2023 09:30-0400 Systolic blood pressure 134 mm[Hg] Hector Ball Other [employer] Other 11-20-2022 10:45-0400 Body height 170.18 cm Hector Ball Other [employer] Other 11-20-2022 10:45-0400 Body mass index (BMI) [Ratio] 28.88 kg/m2 Hector Ball Other [employer] Other 11-20-2022 10:45-0400 Body weight 83.64 kg Hector Ball Other [employer] Other 11-20-2022 10:45-0400 Diastolic blood pressure 73 mm[Hg] Hector Ball Other [employer] Other 11-20-2022 10:45-0400 Systolic blood pressure 143 mm[Hg] Hector Ball Other [employer] Other 10-31-2022 14:29-0400 Body height 170.2 cm Rubin Lopez MD Work Phone: [facility] 10-31-2022 14:29-0400 Body weight 83.46 kg Rubin Lopez MD Work Phone: [facility] 10-31-2022 14:29-0400 Diastolic blood pressure 69 mm[Hg] Rubin Lopez MD Work Phone: [facility] 10-31-2022 14:29-0400 Heart rate 79 /min Rubin Lopez MD Work Phone: [facility] 10-31-2022 14:29-0400 Respiratory rate 16 /min Rubin Lopez MD Work Phone: [facility] 10-31-2022 14:29-0400 SaO2% (BldA) [Mass fraction] 94 % Rubin Lopez MD Work Phone: [facility] 10-31-2022 14:29-0400 Systolic blood pressure 114 mm[Hg] Rubin Lopez MD Work Phone: [facility] 10-31-2022 10:21-0400 Body height 170.2 cm Pacc 7 Work Phone: [facility] 10-31-2022 10:21-0400 Body temperature 97.3 [degF] Pacc 7 Work Phone: [facility] 10-31-2022 10:21-0400 Body weight 83.46 kg Pacc 7 Work Phone: [facility] 10-31-2022 10:21-0400 Diastolic blood pressure 71 mm[Hg] Pacc 7 Work Phone: [facility] 10-31-2022 10:21-0400 Heart rate 70 /min Pacc 7 Work Phone: [facility] 10-31-2022 10:21-0400 SaO2% (BldA) [Mass fraction] 97 % Pacc 7 Work Phone: [facility] 10-31-2022 10:21-0400 Systolic blood pressure 133 mm[Hg] Pacc 7 Work Phone: [facility] 10-10-2022 15:45-0400 Body height 170.2 cm Rubin Lopez MD Work Phone: [facility] 10-10-2022 15:45-0400 Body weight 80.29 kg Rubin Lopez MD Work Phone: [facility] 10-10-2022 15:45-0400 Diastolic blood pressure 74 mm[Hg] Rubin Lopez MD Work Phone: [facility] 10-10-2022 15:45-0400 Heart rate 92 /min Rubin Lopez MD Work Phone: [facility] 10-10-2022 15:45-0400 Respiratory rate 16 /min Rubin Lopez MD Work Phone: [facility] 10-10-2022 15:45-0400 SaO2% (BldA) [Mass fraction] 98 % Rubin Lopez MD Work Phone: [facility] 10-10-2022 15:45-0400 Systolic blood pressure 143 mm[Hg] Rubin Lopez MD Work Phone: [facility] 10-01-2022 11:00-0400 Body height 170.18 cm Hector Ball Other [employer] Other 10-01-2022 11:00-0400 Body mass index (BMI) [Ratio] 28.38 kg/m2 Hector Ball Other [employer] Other 10-01-2022 11:00-0400 Body weight 82.19 kg Hector Ball Other [employer] Other 10-01-2022 11:00-0400 Diastolic blood pressure 88 mm[Hg] Hector Ball Other [employer] Other 10-01-2022 11:00-0400 Respiratory rate 12 /min Hector Ball Other [employer] Other 03-15-2023 11:00-0400 Systolic blood pressure 154 mm[Hg] Hector Ball Other [employer] Other 08-26-2022 10:45-0500 Body height 170.18 cm Hector Ball Other [employer] Other 08-26-2022 10:45-0500 Body mass index (BMI) [Ratio] 28.53 kg/m2 Hector Ball Other [employer] Other 08-26-2022 10:45-0500 Body weight 82.65 kg Hector Ball Other [employer] Other 08-26-2022 10:45-0500 Diastolic blood pressure 76 mm[Hg] Hector Ball Other [employer] Other 08-26-2022 10:45-0500 Respiratory rate 12 /min Hector Ball Other [employer] Other 08-26-2022 10:45-0500 Systolic blood pressure 122 mm[Hg] Hector Ball Other [employer] Other 03-06-2022 09:30-0400 Body height 170.18 cm Dipesh Cárdenas Other [employer] Other 03-06-2022 09:30-0400 Body mass index (BMI) [Ratio] 27.26 kg/m2 Dipesh Cárdenas Other [employer] Other 03-06-2022 09:30-0400 Body weight 78.97 kg Dipesh Cárdenas Other [employer] Other 03-06-2022 09:30-0400 Diastolic blood pressure 90 mm[Hg] Dipesh Cárdenas Other [employer] Other 03-06-2022 09:30-0400 Respiratory rate 18 /min Dipesh Melia Other [employer] Other 03-06-2022 09:30-0400 SaO2% (BldA) [Mass fraction] 98 % Dipesh Cárdenas Other [employer] Other 03-06-2022 09:30-0400 Systolic blood pressure 138 mm[Hg] Dipeshvale Cárdenas Other [employer] Other 02-20-2022 14:00-0400 Body height 170.18 cm Dipesh Cárdenas Other [employer] Other 02-20-2022 14:00-0400 Body mass index (BMI) [Ratio] 27.26 kg/m2 Dipesh Cárdenas Other [employer] Other 02-20-2022 14:00-0400 Body weight 78.97 kg Dipesh Melia Other [employer] Other 02-20-2022 14:00-0400 Diastolic blood pressure 82 mm[Hg] Dipesh Cárdenas Other [employer] Other 02-20-2022 14:00-0400 Respiratory rate 18 /min Dipesh Melia Other [employer] Other 02-20-2022 14:00-0400 SaO2% (BldA) [Mass fraction] 96 % Dipesh Cárdenas Other [employer] Other 02-20-2022 14:00-0400 Systolic blood pressure 134 mm[Hg] Dipesh Melia Other [facility] [employer] Other Encounters Encounter Date Encounter Type Care Provider Facility Start: 01-25-2025 End: 01-25-2025 Patient encounter procedure Hector Fraga DO -[facility] Work Phone: Start: 01-25-2025 End: 01-25-2025 ambulatory Hector Fraga DO Work Phone: [facility] Work Phone: Start: 01-03-2025 Non-patient / Non-visit Hector lara DO -[facility] [employer] Work Phone: Start: 01-02-2025 End: 01-02-2025 Patient encounter procedure Hector Fraga DO -[facility] Work Phone: Start: 10-10-2024 End: 10-10-2024 [facility] Start: 10-04-2024 ambulatory Spencer Karolina Facilit y:[facility] Start: 09-21-2024 End: 09-21-2024 ambulatory [facility] Facility:[facility] Start: 09-21-2024 Encounter for other preprocedural examination [facility] Start: 08-18-2024 End: 08-18-2024 ambulatory [facility] Work Phone: Start: 08-18-2024 End: 08-18-2024 Patient encounter procedure [facility] Physician [facility] Work Phone: Start: 08-17-2024 Patient encounter procedure [facility] Start: 07-22-2024 End: 07-22-2024 ambulatory Sasha Lacey [...] Start: 01-19-2024 End: 01-19-2024 ambulatory RUBIN LOPEZ Facility:[facility] Start: 01-19-2024 End: 01-19-2024 Patient encounter procedure Rubin Lopez MD Work Phone: [facility] Comment on above: S/P lumbar fusion (P [...] Available Start: 01-04-2024 Telephone encounter Hector Fraga [facility] Start: 01-04-2024 Patient encounter status [facility] Start: 01-04-2024 End: 01-04-2024 ambulatory [facility] Work Phone: Start: 01-04-2024 End: 01-04-2024 Patient encounter procedure [facility] Work Phone: Start: 10-29-2023 End: 10-29-2023 ambulatory [facility] Work Phone: Start: 10-29-2023 End: 10-29-2023 Patient encounter procedure [facility] Work Phone: Start: 10-29-2023 Non-patient / Non-visit [facility] Physician [facility] Work Phone: Start: 09-16-2023 End: 09-16-2023 Patient encounter procedure [facility] Work Phone: Start: 09-11-2023 End: 09-11-2023 ambulatory [facility] Work Phone: Start: 09-11-2023 End: 09-11-2023 Patient encounter procedure [facility] Group-[facility] Александр Work Phone: Start: 06-29-2023 End: 06-29-2023 ambulatory Hector Ball Other [employer] Other Start: 06-29-2023 Office outpatient vi sit 15 minutes Hector Ball [facility] Start: 06-29-2023 End: 06-29-2023 Patient encounter procedure [facility] Work Phone: Start: 06-19-2023 End: 06-19-2023 ambulatory Hector Ball Other [employer] Other Start: 06-19-2023 Telephone encounter Hector Ball [facility] Start: 06-18-2023 End: 06-18-2023 ambulatory Hector Ball Other [employer] Other Start: 06-18-2023 Telephone encounter Hector Ball [facility] Start: 06-15-2023 End: 06-15-2023 ambulatory Hector Ball Other [employer] Other Start: 06-15-2023 Telephone encounter Hector Ball [facility] Start: 06-08-2023 End: 06-08-2023 ambulatory Hector Ball Other [employer] Other Start: 06-08-2023 Telephone encounter Hector Ball [facility] Start: 03-10-2023 End: 03-10-2023 ambulatory Hector Ball Other [employer] Other Start: 03-10-2023 Telephone encounter [facility] Start: 02-11-2023 End: 02-11-2023 ambulatory Hector Fraga Other [employer] Other Start: 02-11-2023 Telephone encounter [facility] Start: 01-13-2023 End: 01-13-2023 ambulatory Hector Fraga Other [employer] Other Start: 01-13-2023 Telephone encounter [facility] Start: 01-08-2023 End: 01-08-2023 ambulatory Rubin Lopez MD Work Phone: [facility] Comment on above: S/P laminectomy (Jennifer mercedez Dx) Start: 01-08-2023 End: 01-08-2023 Telemedicine consultation with patient Rubin Lopez MD Work Phone: [facility] Start: 2023 End: 2023 ambulatory Hector Fraga Other [employer] Other Start: 2023 Patient encounter procedure [facility] Start: 11-20-2022 End: 11-20-2022 ambulatory Hector Fraga Other [employer] Other Start: 11-20-2022 Office outpatient vi sit 10 minutes [facility] Start: 11-12-2022 End: 11-12-2022 ambulatory Hector Fraga Other [employer] Other Start: 11-12-2022 Telephone encounter [facility] Start: 10-31-2022 End: 10-31-2022 Patient encounter procedure Rubin Lopez MD Work Phone: [facility] Comment on above: 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); S/P spinal fusion; Spinal stenosis of lumbar region with neurogenic claudication Start: 10-31-2022 End: 10-31-2022 Admission to establishment [facility] Work Phone: [facility] Start: 10-31-2022 End: 10-31-2022 ambulatory Pac Main 7 Work Phone: Pre Anesthesia Comment on above: Preop testing (Prima ry Dx); Essential (primary) hypertension; Gastroesophageal reflux disease with esophagitis without hemorrhage; Anemia, unspecified type; Resting tremor Start: 10-31-2022 End: 10-31-2022 Patient encounter status P[facility] 7 Work Phone: Pre Anesthesia Start: 10-27-2022 End: 10-27-2022 ambulatory Nurse [facility] Work Phone: [facility] Comment on above: Pre-Op Teaching Start: 10-22-2022 ambulatory Rubin Lopez MD Work Phone: [facility] Start: 10-22-2022 Patient encounter status Rubin Lopez MD Work Phone: [facility] Start: 10-22-2022 Telephone encounter Rubin naylor MD Work Phone: [facility] Comment on above: Follow Up Start: 10-17-2022 ambulatory Rubin Lopez MD Work Phone: [facility] Comment on above: MRI Start: 10-14-2022 End: 10-14-2022 ambulatory Hector Fraga Other [employer] Other Start: 10-14-2022 Telephone encounter Hector Fraga [facility] Comment on above: External Imaging Start: 10-10-2022 End: 10-10-2022 Subsequent hospital visit by physician Dank Main J1-4 Work Phone: Radiology Comment on above: S/P lumbar fusion [Z 98.1] Start: 10-10-2022 End: 10-10-2022 Patient encounter procedure Rubin Lopez MD Work Phone: [facility] Comment on above: S/P lumbar fusion (P rimary Dx); Neural foraminal stenosis of lumbar spine Start: 10-01-2022 End: 10-01-2022 ambulatory HECTOR FRAGA Facility:[facility] Start: 10-01-2022 Office outpatient vi sit 15 minutes Hector Fraga [facility] Start: 09-29-2022 Telephone encounter Hector Fraga [facility] Start: 09-29-2022 End: 09-30-[address] HECTOR FRAGA Facility:[facility] Start: 09-23-2022 End: 09-23-2022 ambulatory Hector Fraga Other [employer] Other Start: 09-23-2022 Telephone encounter Hector Fraga [facility] Start: 09-16-2022 ambulatory HECTOR FRAGA Facility: [facility] Start: 08-26-2022 End: 08-26-2022 ambulatory Hector Fraga Other [employer] Other Start: 08-26-2022 Office outpatient vi sit 25 minutes Hector Fraga [facility] Start: 08-25-2022 ambulatory HECTOR FRAGA Facility: [facility] Start: 08-18-2022 End: 08-18-2022 ambulatory Hector Fraga Other [employer] Other Start: 08-18-2022 Telephone encounter Hector Fraga [facility] Start: 06-17-2022 End: 06-18-[address] HECTOR FRAGA Facility:[facility] Start: 03-06-2022 End: 03-06-2022 ambulatory Dipesh Cárdenas Other [employer] Other Start: 03-06-2022 Office outpatient vi sit 15 minutes Dipesh Cárdenas [facility] Start: 03-06-2022 Telephone encounter Emily BUSTILLO [facility] Start: 03-05-2022 End: 03-06-[address] HECTOR FRAGA Facility:[facility] Start: 02-20-2022 End: 02-20-2022 ambulatory Dipesh Cárdenas Other [employer] Other Start: 02-20-2022 Office outpatient vi sit 15 minutes Dipesh Cárdenas [facility] Start: 01-31-2022 End: 01-31-[address] HECTOR FRAGA Facility:[facility] Start: 2022 End: 01-07-[address] HECTOR FRAGA Facility:[facility] Start: 10-11-2021 End: 10-15-2021 Evaluation and management of inpatient ENRIQUE SINGER Facility:[facility] Procedures Date Procedure Procedure Detail Performing Clinician Start: 09-11-2023 COVID/Influenza Anti gen (POC) Start: 10-31-2022 Antibody screen Pacc 7 Work Phone: Start: 10-10-2022 Radex spine lumbosac ral 2/3 views Rubin Lopez MD Work Phone: Start: [address] YSABEL FRAGA Comment on above: Performed By: #### F ERR, [id number], [id number] #### [facility] [address] [place] [address] Dr. Nicole Lam Start: 09-17-2021 Antibody screen ENRIQUE S JOSÉ ANTONIO Comment on above: Performed By: #### [id number] #### [facility] [address] [place] [address], [facility] Start: 09-29-2018 Screening for malign ant neoplasm of prostate Hector Fraga Other Plan of Treatment Date Care Activity Detail Author Start: 10-31-2025 DIABETES SCREEN DIABETES SCREEN [facility] Start: 10-31-2025 Diabetes Screening Diabetes Screenin g [facility] Start: 2025 RSV Vaccine (1 - 1-d ose 75+ series) RSV Vaccine (1 - 1-dose 75+ series) [facility] Start: 01-02-2025 Patient referral [facility] Work Phone: Start: 07-22-2024 End: 07-22-2024 ambulatory 07/22/2024 4:00 PM EST Evaluation [facility] [address] [place] [address] Sasha Lacey, PT [address] [place] [address] Radiculopathy, lumbar region (Primary Dx); S/P lumbar laminectomy [facility] Comment on above: Radiculopathy, lumba r region (Primary Dx); S/P lumbar laminectomy Start: 03-20-2024 Covid-19 Vaccine ( season) Covid-19 Vaccine ( season) [facility] Start: 03-20-2024 Influenza vaccination C [facility] Start: 01-19-2024 End: 01-19-2024 Patient encounter procedure 01/19/2024 10:45 AM EDT Office Visit [facility] [address] [place] [address] Rubin Lopez MD [address] [place] [address] add on per [place] [facility] Comment on above: add on per [place] Start: 11-01-2023 BP CONTROLLED (<130/80) BP CONTROLLE D (<130/80) [facility] Start: 07-20-2023 Advance Directive Discussion Advance Directive Discussion [facility] Start: 07-20-2023 Behavioral Health Screening Behavioral Health Screening [facility] Start: 03-20-2023 Covid-19 Vaccine ( season) Covid-19 Vaccine ( season) [facility] Start: 03-20-2023 Influenza vaccination INFLUENZ A (Season Ended) [facility] Start: 10-22-2022 End: 04-20-2023 ST[facility] PCR [facility] PCR Lab Routine S/P spinal fusion Spinal stenosis of lumbar region with neurogenic claudication Pre-op testing Expected: 10/22/2022, Expires: 04/20/2023 [facility] Work Phone: Comment on above: Expected: 10/22/2022 , Expires: 04/20/2023 Start: 07-20-2022 ADVANCE DIRECTIVE DISCUSSION ADVANCE DIRECTIVE DISCUSSION [facility] Start: 07-20-2022 DEPRESSION ASSESSMENT DEPRESSION ASS ESSMENT [facility] Start: 03-20-2022 Influenza vaccination INFLUENZA (#1) [facility] Start: 10-19-2021 Screening for malign ant neoplasm of colon [facility] Start: 12-31-2019 Pneumococcal Vaccine : 50+ (2 of 2 - PPSV23) Pneumococcal Vaccine: 50+ (2 of 2 - PPSV23) [facility] Start: 12-31-2019 Pneumococcal Vaccine : 65+ (2 of 2 - PPSV23 or PCV20) Pneumococcal Vaccine: 65+ (2 of 2 - PPSV23 or PCV20) [facility] Start: 01-27-2019 DIABETES SCREEN DIABETES SCREEN [facility] Start: 2015 PNEUMOCOCCAL: 65+ (1 - PCV) PNEUMOCOCCAL: 65+ (1 - PCV) [facility] Start: 2010 RSV Vaccine (1 - 1-d ose 60+ series) RSV Vaccine (1 - 1-dose 60+ series) [facility] Start: 01-07-2000 SHINGRIX VACCINE (1 of 2) DENNIS GRIX VACCINE (1 of 2) [facility] Start: 1995 COLOGUARD (FIT-DNA) COLOGUARD (FIT-D NA) [facility] Start: 1995 Colonoscopy COLONOSCOPY [facility] Start: 1995 COLORECTAL CANCER SCREENING COLORECTAL CANCER SCREENING [facility] Start: [address] COLONOGRAPHY [facility] Start: 1995 FECAL OCCULT BLOOD FECAL OCCULT BLOO D [facility] Start: 1995 Screening for malign ant neoplasm of colon [facility] Start: 1995 SIGMOIDOSCOPY SIGMOIDOSCOPY [facility] Start: 1985 Lipid panel Lipid Screening [facility] Start: 1985 LIPID SCREEN LIPID SCREEN [facility] Start: 1969 Urine microalbumin profile [facility] Start: 01-07-1968 ANNUAL PCP TEAM DERRICK OPERATOR ERICA DISEASE VISIT ANNUAL PCP TEAM CHRONIC DISEASE VISIT [facility] Start: 01-07-1968 Anxiety Screening Anxiety Screening [facility] Start: 01-07-1968 BP Controlled (<130/80) BP Controlle d (<130/80) [facility] Start: 01-07-1968 Depression Screening Depression Scre ening [facility] Start: 01-07-1968 HEPATITIS C SCREENING HEPATITIS C [facility] Start: 01-07-1968 Hepatitis C screening Hepatitis C [facility] Start: 1950 COVID-19 VACCINE (#1) COVID-19 VACCI NE (#1) [facility] Comprehensive metabo lic 1999 panel - Serum or Plasma [facility] Comprehensive metabo lic 1999 panel - Serum or Plasma [facility] ECG COMPLETE ECG COMPLETE ECG Routine Preop testing 10/31/2022 12:14 PM EDT [facility] Work Phone: Electromyography [facility] [employer] Proc edures Routine S/P spinal fusion Spinal stenosis of lumbar region with neurogenic claudication Pre-op testing Ordered: 10/22/2022 [facility] Work Phone: Comment on above: Ordered: 10/22/2022 Patient referral [facility] Work Phone: REFER FOR ADMIT INTERVIEW REFER FOR ADMIT INTERVIEW Procedures Routine S/P spinal fusion Spinal stenosis of lumbar region with neurogenic claudication Pre-op testing Ordered: 10/22/2022 [facility] Work Phone: Comment on above: Ordered: 10/22/2022 US Heart Transthoracic [facility] Immunizations Immunization Date Immunization Notes Care Provider Fa cility 04-23-2020 influenza virus vaccine, split virus (incl. purified surface antigen) Hector Fraga Other [employer] Other 04-23-2020 influenza virus vaccine, unspecified formulation [facility] 12-30-2018 pneumococcal conjuga te vaccine, 13 valent Hector Fraga Other [facility] Payers Date Payer Category Payer Self-pay 2025 Unknown [id number] 2022 Private [place] [id number] 2016 Unknown [employer] [place] [employer] [place] MEDIC[employer] SUPPLEMENT [id number] 2016-Present [phone] [address] [place] [address] Indemnity [id number] 2014 Medicare [id number] 1959 Medicare [id number] 1959 Private Health Insurance [id number] [id number] 1950 Unknown [id number] 2.16840.1.264379.3.579. 2.647 1950 Unknown [id number] 2.16.840.1.078694.3.579. 2.593 1950 Unknown [id number] 2.16.840.1.685625.3.579. 2.593 1950 Unknown [id number] 2.16840.1.893306.3.579. 2.593 1950 Unknown [id number] 2.16.840.1.639204.3.579. 2.593 1950 Unknown [id number] 2.16.840.1.113414.3.579. 2.593 1950 Unknown [id number] 2.16.840.1.987454.3.579. 2.594 1950 Unknown [id number] 2.16.840.1.083491.3.579. 2.594 1950 Unknown [id number] 2.16.840.1.950553.3.579. 2.594 1950 Unknown [id number] 2.16.840.1.294931.3.579. 2.1259 1950 Unknown [id number] 2.16.840.1.406713.3.579. 2.9 1950 Unknown [id number] 2.16.840.1.298840.3.579. 2.1259 1950 Unknown [id number] 2.16.840.1.512102.3.579. 2.9 1950 Unknown [id number] 2.16.840.1.715758.3.579. 2.718 1950 Unknown [id number] 2.16.840.1.143706.3.579. 2.718 1950 Unknown [id number] 2.16.840.1.714225.3.579. 2.718 Unknown Regular Insurance [id number] Unknown [id number] 2.16.840.1.080592.3.579. 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 (finding) [facility] Start: 1950 Sex Assigned At Not on file [facility] Start: 10-31-2022 Tobacco use and exposure Former smokeless tobacco user [facility] History of tobacco use [facility] [facility] Start: 10-31-2022 End: 01-19-2024 Alcohol intake Current drinker of alcohol (finding) [facility] Start: 04-14-2023 Alcohol Comment 2 times a week per pt 10/31/2022 [facility] Start: 1950 Sex Assigned At Male F [facility] Start: 10-31-2022 End: 03-26-2023 History of Social function [facility] National Score (1-100), lower number is lower risk 65 [facility] Start: 03-26-2023 Tobacco use and exposure Smokeless tobacco non-user [facility] Start: 03-26-2023 Alcoholic beverage intake Lifetime non-drinker (finding) [facility] Start: 03-26-2023 Alcohol Comment caffeine 1-2 c ups per day [facility] Start: 08-18-2024 Sex Male (finding) [facility] Clinical Notes 10-16-2021 to 01-02-2025 Note Date & Type Note Facility 01-02-2025 Evaluation note Diagnosis Onset Date Resolution Chronic kidney disease acute Ju 2024 2:48pm IFG (impaired fasting glucose) acute January 02, 2025 2:48pm Lumbar spondylosis with myelopathy acute January 02, 2025 2:48pm Muscle cramps acute January 02, 2025 2:48pm Primary hypertension acute January 02, 2025 2:48pm Pruritus acute January 02 2:48pm Resting tremor acute January 02, 2025 2:48pm Ulnar neuropathy at elbow of left upper extremity acute January 02, 2025 2:48pm [facility] Work Phone: 1(334) 326-964403-19-2025 NoteDATE OF PROCEDURE: 10-04-24 SURGEON: Spencer Turcios DPM ANESTHESIA: Eugenio Perez MD ([facility]) PREOPERATIVE DIAGNOSES: 1. Hallux abductovalgus deformity of the left foot. 2. Hallux limitus deformity of the left foot. 3. Deformed second toe, left foot. POSTOPERATIVE DIAGNOSES: 1. Hallux abductovalgus deformity of the left foot. 2. Hallux limitus deformity of the left foot. 3. Deformed second toe, left foot. PROCEDURES: 1. Oneill arthroplasty/bunionectomy of the first MTP-joint, left foot. 2. Hammertoe correction of the second toe of the left foot with PIP-joint arthrodesis with a Phlinx implant for arthrodesis. 3. Extensor tenotomy and capsulotomy of the second MTP-joint, left foot. HEMOSTASIS: Left ankle tourniquet was inflated to 250 mmHg for a total of 54 minutes. ESTIMATED BLOOD LOSS: None. INJECTABLES: 1. 10 cc of 1% Lidocaine plain infiltrated as blocks to the first and second toes of the left foot prior to prep. 2. 10 cc of 0.5% Naropin infiltrated at the end of the procedure. 3. Decadron 4 mg infiltrated to the surgical areas at the end of the procedure. PATHOLOGY: None. COMPLICAITONS: None. OPERATION: The patient was taken to the operating room and placed on the table in the supine position where the local anesthetic was infiltrated prior to prep. The patient was put under IV sedation by Dr. Eugenio Perez. The left foot was prepped and draped in the usual sterile fashion and elevated for exsanguination. The tourniquet was infiltrated to 250 mmHg and the extremity was placed flat on the table. Using a #15 blade, a dorsolinear incision was placed over the PIP-joint of the second toe of the left foot and deepened through blunt and sharp dissection down to the extensor tendon. The subcutaneous dissection avoided all neurovascular structures. A transverse tenotomy and capsulotomy were performed at the PIP-joint exposing the head of the proximal phalanx and the base of the middle phalanx. The collateral ligaments were excised. Using an oscillating saw, the articular surface of the head of the proximal phalanx was resected with only 2 mm of thickness. At this time, a K-wire was inserted into the middle phalanx, through the distal part of the toe and retrograded back to expose just the tip of the pin down to the scored area. At this time, using the articular re-per diem nurse to the base of the middle phalanx, the cartilaginous surface was removed and the area of the head of the proximal phalanx and base of the middle phalanges were contoured. The K-wire was then inserted into the medullary canal of the proximal phalanx for proposed implant placement. At this time, the base of the middle phalanx and the head of the proximal phalanx were pre-drilled to the underscored fern. At this time, the implant was inserted into the middle phalanx and retrograded back into the proximal phalanx. The area was tamped making sure that there was good [id number] contact and no soft tissue interposition. The toe was noted to be in the rectus position, however, there was still contracture at the dorsal TMT-joint due to tightness of the EDL tendon. Through a small incision an extensor tenotomy and dorsal capsulotomy were then performed and the toe then came down parallel to the transverse plane with a loaded forefoot. The extensor tendon at the PIP-joint was re-approximated with 4-0 Vicryl as was the subcutaneous tissues. All skin incisions to the second toe were re-approximated with 4-0 Nylon with several simple interrupted sutures. At this time, attention was directed to the first ray and using a #15 blade a dorsolinear incision was placed over the first MTP-joint down to subcutaneous tissue avoiding the extensor tendon laterally and retracting the neurovascular bundle medially. The extensor tendon was then freed for reposed Z-lengthening. At this time, the tendon was cut lengthwise and exited distal laterally and proximal medially and was tagged with 4-0 Vicryl. The tendonous ends were laid off to the side to complete the arthroplasty. An inverted L capsular incision was placed over the first MTP-joint noting hypertrophic bone medially but especially dorsally to the head of the first metatarsal base of the proximal phalanx. The articular surface of both the base of the proximal phalanx and the head of the first metatarsal were extremely warn and yellow with straw colored joint fluid indicating chronic osteoarthritis of the joint. There were several voids within the articular surface also. All of this hypertrophic bone was resected and at this time the base of the proximal phalanx was resected with more bone taken medially than laterally to correct the angular deformity noted on the preoperative x-rays. Attention was taken to make sure that the flexor hallucis brevis tendon was left intact. The base of the proximal phalanx was removed from the surgical wound and the area was contoured (more content not included)... [id number] Note [id number]03-18-2025 [facility] SURGERY Clinical Discharge Summary PERSON INFORMATION Name EMILY CALDWELL Age 74 Years 1950 Sex MALE Language Upper Sorbian PCP Hector Fraga Marital Status [facility] Service Ambulatory Surgery Acct# Arrival 10/04/2024 05:54:48 Visit Reason SURGERY - LEFT BUNIONECTOMY AND LEFT 2ND TOE HAMMER TOE CORRECTION Acuity LOS 038 21:54 Address: [address] [place] [address] Comment: PROVIDER INFORMATION VITALS INFORMATION Vital Sign Triage Latest Temp Oral Temp Temporal Temp Intravascular Temp Axillary Temp Rectal 02 Sat 100 % 98 % Respiratory Rate Peripheral Pulse Rate Apical Heart Rate Blood Pressure / 80 mmHg / 74 mmHg Comment: MEDICAL INFORMATION Allergy Info: No known allergies Prescriptions Given: acetaminophen-diphenhydramine (Tylenol PM) 1 tab(s) Oral (given by mouth) At bedtime. acetaminophen-hydrocodone (acetaminophen-hydrocodone 325 mg-5 mg oral tablet) TAKE 1 TABLET BY MOUTH EVERY 4 TO 6 HOURS NEEDED FOR PAIN. benazepril (benazepril 10 mg oral tablet) 1 tab(s) Oral (given by mouth) every day. omeprazole (omeprazole 20 mg oral delayed release capsule) 1 cap(s) Oral (given by mouth) every day. Medication List: Medications to Continue That Have Not Changed Other Medications acetaminophen-diphenhydramine (Tylenol PM) 1 tab(s) Oral (given by mouth) At bedtime. acetaminophen-hydrocodone (acetaminophen-hydrocodone 325 mg-5 mg oral tablet) TAKE 1 TABLET BY MOUTH EVERY 4 TO 6 HOURS NEEDED FOR PAIN. benazepril (benazepril 10 mg oral tablet) 1 tab(s) Oral (given by mouth) every day. omeprazole (omeprazole 20 mg oral delayed release capsule) 1 cap(s) Oral (given by mouth) every day. Medications to Continue That Have Not Changed Other Medications acetaminophen-diphenhydramine (Tylenol PM) 1 tab(s) Oral (given by mouth) At bedtime. acetaminophen-hydrocodone (acetaminophen-hydrocodone 325 mg-5 mg oral tablet) TAKE 1 TABLET BY MOUTH EVERY 4 TO 6 HOURS NEEDED FOR PAIN. benazepril (benazepril 10 mg oral tablet) 1 tab(s) Oral (given by mouth) every day. omeprazole (omeprazole 20 mg oral delayed release capsule) 1 cap(s) Oral (given by mouth) every day. Medications to Continue That Have Not Changed Other Medications acetaminophen-diphenhydramine (Tylenol PM) 1 tab(s) Oral (given by mouth) At bedtime. acetaminophen-hydrocodone (acetaminophen-hydrocodone 325 mg-5 mg oral tablet) TAKE 1 TABLET BY MOUTH EVERY 4 TO 6 HOURS NEEDED FOR PAIN. benazepril (benazepril 10 mg oral tablet) 1 tab(s) Oral (given by mouth) every day. omeprazole (omeprazole 20 mg oral delayed release capsule) 1 cap(s) Oral (given by mouth) every day. Comment: Lab and Radiology Results Laboratory or Other Results This Visit (last charted value for your 10/04/2024 visit) No Laboratory or Other Results This Visit DIET & ACTIVITY Patient Activity Level: Patient Diet: Patient Activity Restrictions: DISCHARGE INFORMATION Discharge Disposition: [facility]charge [facility] REASON INCOMPLETE INFORMATION PATIENT EDUCATION INFORMATION Instructions: Follow up: With: Address: When: Spencer Turcios [address] [place] [address] [place] [address] Business (1) 10/07/2024 10:00 AM With: Address: When: Hector Fraga [address] [place], [place] [id number] Business (1) DIAGNOSIS Acquired hallux valgus of left foot; Deformity of toe Comment: [facility]03-18-2025 NotePatient: EMILY CALDWELL Age: 74 years Sex: MALE : 1950 Associated Diagnoses: Deformity of toe; Acquired hallux valgus of left foot Author: Spencer Turcios DPM Postoperative Information Date/ Time: 10/04/2024 08:38:00 Preoperative Diagnosis: Deformity of toe (PIQ47-MK M20.60), Acquired hallux valgus of left foot (LLZ87-WK M20.12). Postoperative Diagnosis: Deformity of toe (WPE66-QZ M20.60), Acquired hallux valgus of left foot (JBQ61-SO M20.12). Performed by: Spencer Turcios DPM. Procedure Performed: 1. Oneill bunionectomy left foot 2. Hammertoe correction of the 2nd toe, left foot with Phalinx implant for PIPJ arthrodesis 3. EDL tenotomy with dorsal capsulotomy, 2nd MTPJ left foot. Anesthesia: MAC. Estimated Blood Loss: 0 ml. Complications: None. [Electronically Signed on: 10/04/2024 08:40 EDT] Spencer Turcios DPM [Verified on: 10/04/2024 08:40 EDT] Spencer Turcios [facility]01-03-2025 History of Present illness Narrative* Sasha Lacey, PT - 07/22/2024 4:00 PM EST Physical Therapy Physical Therapy Evaluation Visit Patient [...] 11/07/22 with Rubin Lopez MD with the [facility]. Participated in outpatient PT in 2022 under my supervision at [facility]. Did well to manage symptoms until recent 2-3 months when pain became more limiting. Pain is across lower lumbar spine with chronic profound left foot drop with utilization of bracing.New onset mid to lower cervical pain with radiation of symptoms into the mid thoracic and left greater than right elbow to digit 4/5 distribution consistent with C7-T1 radiculopathy (07/22/24-DBO) Pain: Reports pain up to 5-6/10 intensity in mid to lower cervical spine and bilateral left greaterthen right elbow to digits 4-5. Additionally chronic lumbar pain with newer progression of LE cramping primarily in the anterior thighs (quadriceps) Objective: Examination performed on 07/22/24-DBO Lumbar Spine: The patient presents with subacute/chronic lumbar pain with exacerbation of cramping primarily in the anterior mid thighs (quadriceps). Reports pain is consistently present during static and prolonged standing and is reduced with sitting or laying. Patient's LE mechanical assessment demonstrates mild hip/lumbar spine flexion with gait. Lumbar flexion 50 degrees, lumbar extension 10 degrees, side-bending 15 degrees. Hip extension was 10 degrees.90/90 HS length test demonstrated moderate trunk and [...] with sitting and lying consistent with lumbar stenosiscondition. The patient's Back Index scored 46 indicative of moderate functional impairment consistent with PT examination findings. Cervical Spine: Mild to moderate forward head. Denies surgical history. Negative vertebral artery and cranial nervescreen. Positive PA testing worse at C7-T1 consistent [...] cervical/lumbar spine with moderate impairment via Neck andBack Indexes consistent with examination (07/22/24-DBO) Functional Limitations: Moderate Neck and back pain, spasm, and radiculopathy. 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 Please sign below and fax back to the number below. Physician Signature: Date: documented in this encounterSoutheast Missouri Community Treatment [id number] Telephone encounter Note* Telephone Encounter - Naomi Raya RN - 07/04/2024 1:51 PM EST Neuro SPINE CARE COORDINATION QUICK NOTE WALKER 7-24- for HX L3-4 decompression in 2022 PT recommended - pt would like to continue and is requesting updated script. Routed to BRANDY for review. [facility] Work Phone: 1(567) 851-222912-16-2024 Miscellaneous Notes* Telephone Encounter - Naomi Raya RN - 07/04/2024 1:51 PM EST Neuro SPINE CARE COORDINATION QUICK NOTE WALKER 24- for HX L3-4 decompression in 2022 PT recommended - pt would like to continue and is requesting updated script. Routed to BRANDY for review. * Telephone Encounter - Luis Manuel Goodwin - 07/04/2024 1:09 PM EST Call received for Rubin Lopez MD regarding Emily Lara Paulette. Caller: self Patient Identified by Name and : Emily Mehran Caldwell 1950 Reason for Call: Pt called an stated he is requesting a new PT Order. Last PT order was in January. Is there any additional information the provider should know? No Last Office Visit: 01/19/2024 Next scheduled appointment: Visit date not found Best number to reach caller: [phone] Best time to reach caller: Any Is it OK to leave a detailed voice message? Yes Luis Manuel Goodwin documented in this encounterM[facility]12-16-2024 Telephone encounter Note * Telephone Encounter - Christa Luis Manuel - 07/04/2024 1:09 PM EST Call received for Rubin Lopez MD regarding [...] not found Best number to reach caller: [phone] Best time to reach caller: Any Is it OK to leave a detailed voice message? Yes Luis Manuel Goodwin [facility]07-02-2024 NoteHNO ID: [id number] Author: RUBIN LOPEZ MD Service: ? Author [...] PT for electrical stimulation Start trial of Ezekielaxin. Rubin Lopez, [facility]07-02-2024 History of Present illness Narrative* Rubin Lopez MD - 01/19/2024 10:42 AM EDT Return Patient Visit 11/07/2022: L3-4 decompression CC: Persistent back pain 74 year old prior history of L3/4 decompression on 11/07/22 and prior L5/S1 TLIF. Presents today in clinic regarding persistent low back pain as well as worsening left foot drop. Overall he denies anynew numbness, tingling or changes in bowel or [...] Robaxin. Rubin Lopez MD documented in this encounterMari[facility]06-20-2024 Telephone encounter Note * Telephone Encounter - Naomi Raya RN - 01/07/2024 2:21 PM EDT Neuro SPINE CARE COORDINATION QUICK NOTE Call to the pt. And DW . CC- increased LBP and worsening of left foot drop- he continues with AFO No updated imaging done locally Pt and agree on follow up apt to discuss They accept apt with Dr. Lopez on 01-19-24 @ 10 45 am ( in person ) [facility] Work Phone: 1(142) 663-566206-20-2024 Miscellaneous Notes* Telephone Encounter - Naomi Raya RN - 01/07/2024 2:21 PM EDT Neuro SPINE CARE COORDINATION QUICK NOTE Call to the pt. And DW . CC- increased LBP and worsening of left foot drop- he continues with AFO No updated imaging done locally Pt and agree on follow up apt to discuss They accept apt with Dr. Lopez on 01-19-24 @ 10 45 am ( in person ) * Telephone Encounter - Naomi Raya RN - 01/07/2024 1:28 PM EDT Neuro SPINE CARE COORDINATION QUICK NOTE Call to the pt and LM Call back number provided * Telephone Encounter - Leola Mtz - 01/07/2024 1:21 PM EDT Call received for Rubin Lopez MD regarding [...] not found Best number to reach caller: [phone] Best time to reach caller: anytime Is it OK to leave a detailed voice message? Yes Leola Mtz documented in this encounterMarietta [facility] Clinic06-20-2024 Telephone encounter Note * Telephone Encounter - Naomi Raya RN - 01/07/2024 1:28 PM EDT Neuro SPINE CARE COORDINATION QUICK NOTE Call to the pt and LM Call back number provided [facility]06-20-2024 Telephone encounter Note* Telephone Encounter - Leola Mtz - 01/07/2024 1:21 PM EDT Call received for Rubin Lopez MD regarding [...] not found Best number to reach caller: [phone] Best time to reach caller: anytime Is it OK to leave a detailed voice message? Yes Leola Mtz [facility]12-11-2023 Evaluation note* Encounter Date Diagnosis Assessment Notes Treatment Notes Treatment Clinical Notes Jun, Primary hypertension (ICD-10 - I10) This patient is instructed to consume a healthy, low-fat, low-salt diet. They are also encouraged to continue exercise to achieve/maintain a normal BMI. Patient is instructed on [...] Due for CRC screening Jun, Colon cancer screeni ng (ICD-10 - Z12.11) Recommend colonoscopy due to anemia of unknown etiology. Denies change in appetite, bowel habits or weight. Denies melena or hematochezia [employer] Other 11-27-2023 Evaluation note* Encounter Date Diagnosis Assessment Notes Treatment Notes Treatment Clinical Notes May, Fatigue (ICD-10 - R53.83) [employer] Other 11-20-2023 Evaluation note* Encounter Date Diagnosis Assessment Notes Treatment Notes Treatment Clinical Notes May, LUQ abdominal pain (ICD-10 - R10.12) May, Fatigue, unspecified type (ICD-10 - R53.83) [employer] Other 07-26-2023 Evaluation note* Encounter Date Diagnosis Assessment Notes Treatment Notes Treatment Clinical Notes Jan, Anemia, unspecified type (ICD-10 - D64.9) Jan, Primary hypertension (ICD-10 - I10) Jan, MARU (obstructive sleep apnea) (ICD-10 - G47.33) AHI 46 [employer] Other 06-22-2023 History of Present illness Narrative* Rubin Lopez MD - 01/08/2023 11:30 AM EDT Phone call, postop visit, 15 minutes I have communicated my name and active licensure. The patient's identity and physical location wereverified at the time of this visit. Either the patient or their legal business services sales representative has been informed of the risks [...] needed. Rubin Lopez MD documented in this encounterMarietta [facility] Clinic06-20-2023 Evaluation note* Encounter Date Diagnosis Assessment Notes [...] Colon cancer screeni ng (ICD-10 - Z12.11) [employer] Other 05-04-2023 Evaluation note* Encounter Date Diagnosis [...] postop w/o pain. Increase activity as tolerated [employer] Other 04-14-2023 History of Present illness Narrative* Rubin Lopez MD - 10/31/2022 2:33 PM EDT Complains of back pain and bilateral buttock and leg pain. Pain occurs primarily with activity and ambulation. It limits his activities plan: L3-4 decompression Risks, benefits, alternatives and personnel of surgery discussed with patient. He agrees to proceed. Rubin Lopez MD documented in this encounterMarietta [facility] Clinic04-14-2023 History and physical note * Yousuf Killian [...] fevers. Neuro: No history of TIA's, stroke, RN ONCOLOGY tumor, impaired sensorium, hemiplegia, paraplegia or quadraplegia. [...] or any previous visit (from the past 24880 hour(s)). Assessment/Plan Essential (primary) hypertension On benazepril [...] 2022 TIME: 9:01 AM documented in this encounterMarietta Osteopathic Clinic04-14-2023 Instructions* Patient Instructions* Yousuf Killian MD - 10/31/2022 9:02 AM EDT PATIENT PREOPERATIVE INSTRUCTIONS Rubin Lopez MD has scheduled you for your procedure at this surgery center: [facility] Scheduling Office: [phone] --[address] [place] [address]. Please read below carefully for your personalized [...] Procedures: - YOU MUST HAVE A RESPONSIBLE WOOL SHEARING SUPERVISOR TAKE YOU HOME. A CHIEF TECHNICIAN X RAY OR CLERICAL METHODS ANALYST CANNOT BE MADE A RESPONSIBLE WOOL SHEARING SUPERVISOR. - We recommend that a responsible person [...] call the Thursday before. Your surgeon s project controls scheduler will tell you what time to call the office. - If you have not reached the departmental project controls scheduler by 5 P.M., call [phone] after 5 P.M. the day before your surgery. Please be aware that emergency situations arise, which may delay or change your surgical time. If this happens, we will notify you as soon as possible and regret any inconvenience. If you already have an Advance Directive, please fax a copy to [phone] or email to for it to be [...] day. Yousuf Killian MD documented in this encounterMarietta Osteopathic Clinic04-10-2023 History of Present illness Narrative* Mikaela Upton LPN - 10/27/2022 10:47 AM EDT Neuro SPINE CARE COORDINATION [facility] PRE-OP VISIT Met with patient via [facility]SEA for pre op education. Given both written and verbal instructions re : Skin prep, wound care, pain management and post op restrictions. Provided to patient: [facility] Surgery Guide, Spine Surgery Pre/post op education. Yes Reviewed with patient to report to desk J19 for surgery ? Yes. Reviewed with the patient to call [phone] the day before to get surgery report [...] answered. Mikaela Upton LPN documented in this encounterMarietta Osteopathic Clinic04-05-2023 Miscellaneous Notes* Telephone Encounter - Naomi Raya RN - 10/22/2022 2:13 PM EDT Neuro SPINE CARE COORDINATION QUICK NOTE As per Dr. Lopez- MRI review L3 foraminal stenosis - L3-4 decompression recommended with no fusion Call to the pt and LM on identified VM requesting a call back - call back number has been provided. documented in this encounterMarietta Osteopathic Clinic03-31-2023 Miscellaneous Notes* Telephone Encounter - Mya Johnosn - 10/17/2022 12:36 PM EDT withoutReceived outside imaging/report: Transmitted Yes - MRI images Report Yes Type of study MRI Lumbar spine w/wo contrast 03/21/22 Xray lumbar limited 10/10/22 Forwarded to team for review. Mya Johnson documented in this encounterMarietta Osteopathic Clinic03-29-2023 Miscellaneous Notes* Telephone Encounter - Naomi Raya RN - 10/15/2022 2:51 PM EDT Neuro SPINE CARE COORDINATION QUICK NOTE Pending review with Dr. Lopez * Telephone Encounter - Ilda Johnson - 10/15/2022 2:09 PM EDT Pt's called; she was advised that images have been received. Please advise once reviewed; ph: [phone] * Telephone Encounter - [place] Jonah [facility] [place] 10/15/2022 2:07 PM EDT Images received via PACS and are available in Get Images. * Telephone Encounter - [place]essica Mckenzie [facility] [place] 10/14/2022 9:20 AM EDT Pt's called checking for receipt of the following image being sent from [facility]: 03/21/22: MRI Lumbar Spine W & WO Contrast (report scanned) Images have not yet arrived; she will call back tomorrow to check again. FYI: Dr. Lopez requested this at 10/10/22 OV. documented in this [facility]* Encounter Date Diagnosis Assessment Notes Treatment Notes Treatment Clinical Notes Sep, Primary hypertension (ICD-10 - I10) [place] [employer] Other 03-24-2023 History of Present illness Narrative* [...] IV DATA: Not applicable SIGNED BY: RT Magnus(Kaila) October 10, 2022 4:26 PM documented in this encounter[facility] History of Present illness Narrative* Rubin Lopez MD - 10/10/2022 3:55 PM EDT SPINE SURGERY OUTPATIENT CONSULT This is an in-person visit. SERVICE DATE: 10/10/2022 PCP: DO Emily Barry Paulette is a 72 year old male presenting [...] TIME: 3:56 PM PAGER: documented in this [facility] Evaluation note* Encounter Date Diagnosis Assessment Notes [...] for EGD and colonoscopy later this year [employer] Other 03-07-2023 Evaluation note* Encounter Date Diagnosis Assessment Notes Treatment Notes Treatment Clinical Notes Sep, Anemia, unspecified type (ICD-10 - D64.9) [employer] Other 02-07-2023 Evaluation note* Encounter Date Diagnosis [...] normal. Due for CRC screening, consider colonoscopy [employer] Other 08-18-2022 Evaluation note* Encounter Date Diagnosis [...] of both lower extremities (ICD-10 - M62.9) [employer] Other 08-18-2022 Evaluation note* Encounter Date Diagnosis Assessment Notes Treatment Notes Treatment Clinical Notes Feb, Strain of gluteus medius of left lower extremity, initial encounter (ICD-10 - S76.012A) [employer] Other 08-04-2022 Evaluation note* Encounter Date Diagnosis [...] is not improving as he would like. [employer] Other 04-01-2022 History general Narrative - Reported* Type Description Date Medical History hypertension Surgical History sinus surgery 1997 Surgical History back fusion 10/2021 Hospitalization History leg injury 2005 [employer] Other 03-30-2022 NoteMR#: [id number] I [facility] Pt. Name: Emily Caldwell Admitted: 10/11/2021 Discharged: [...] P/Sonja Cisneros CNP Date Trans: 10/16/2021 05:14 A/jose a [id number] [facility] [place] [employer] Other Evaluation note* Diagnosis S/P lumbar fusion- Primary Arthrodesis status Neural foraminal stenosis of lumbar spine Spinal stenosis, lumbar region, without neurogenic claudication [facility]* Diagnosis S/P lumbar fusion Arthrodesis status [facility] Diagnosis S/P spinal fusion- Primary Arthrodesis status Spinal stenosis of lumbar region with neurogenic claudication Spinal stenosis, lumbar region, with neurogenic claudication Pre-op testing Preoperative examination, unspecified documented [facility] this [facility]* Diagnosis Preop testing- Primary Preoperative examination, unspecified Essential (primary) hypertension Unspecified essential hypertension Gastroesophageal reflux disease with esophagitis without hemorrhage Anemia, unspecified type Resting tremor Abnormal involuntary movements S/P spinal fusion Arthrodesis status Spinal stenosis of lumbar region with neurogenic claudication Spinal stenosis, lumbar region, with neurogenic claudication Pre-op testing Preoperative examination, unspecified documented [facility] this [facility]* Diagnosis Neural foraminal stenosis of lumbar [...] Preoperative examination, unspecified [facility] this [facility]* Diagnosis S/P laminectomy- Primary Other postprocedural status documented in this encounter [facility]* Diagnosis Onset Date Resolution Status Contact with and (suspected) exposure to covid-19 noneactive [facility] Work Phone: Evaluation note* Diagnosis Onset Date Resolution Status Contact with and (suspected) exposure to covid-19 noneactive Flu-like symptoms noneactive Acute bronchitis due to other specified organisms acute Primary hypertension acute Elevated cholesterol acute IFG (impaired fasting glucose) acute MARU (obstructive sleep apnea) acute Primary hypertension acute [facility] Work Phone: Evaluation note* Diagnosis Onset Date Resolution Status Chest pain acute Elevated cholesterol acute IFG (impaired fasting glucose) acute MARU (obstructive sleep apnea) acute Primary hypertension acute Cervical spondylosis acute Lumbar spondylosis with myelopathy acute [facility] Work Phone: Evaluation note* Diagnosis S/P lumbar fusion- Primary Arthrodesis status S/P laminectomy Other postprocedural status Chronic bilateral low back pain without sciatica Left foot drop Other acquired deformity of ankle and foot documented [facility] this [facility]* Diagnosis Preop testing- Primary Preoperative examination, unspecified Essential (primary) hypertension Unspecified essential hypertension Gastroesophageal reflux disease with esophagitis without hemorrhage Anemia, unspecified type Resting tremor Abnormal involuntary movements S/P lumbar laminectomy- Primary Other postprocedural status Radiculopathy, lumbar region Thoracic or lumbosacral neuritis or radiculitis, unspecified [facility]* Diagnosis Radiculopathy, lumbar region- Primary Thoracic or lumbosacral neuritis or radiculitis, unspecified S/P lumbar laminectomy Cervical paraspinal muscle spasm Spasm of muscle Radiculopathy, unspecified spinal region [facility] Diagnosis Onset Date Resolution Status Admit Date Cervical spondylosis acute 2024 9:16am Chronic kidney disease acute [facility]2024 9:16am Gastroesophageal reflux dise ase with esophagitis without hemorrhage acute August 18 9:16am IFG (impaired fasting glucose) acute August 18, 2024 9:16am Lumbar spondylosis with myelopathy acute August 18 9:16am Medicare annual wellness vis it, subsequent acute August 18 9:16am Memory deficit acute August 182024 9:16am MARU (obstructive sleep apnea) acute August 18, 2024 9:16am Primary hypertension acute 2024 9:16am Resting tremor acute August 182024 9:16am Screening for colon cancer acute August 18, 2024 9:16am Screening PSA (prostate spec ific antigen) acute August 18 9:16am [facility] Work Phone: History general Narrative - Reported* [...] leg injury 2005 Hospitalization History see surgical [employer] Other History general Narrative - Reported* Type [...] leg injury 2005 Hospitalization History see surgical [employer] Other History general Narrative - Reported* Type [...] leg injury 2005 Hospitalization History see surgical [employer] Other Reason for referral (narrative)* Diagnostic Procedure Only (Routine) - Pending Review Specialty Diagnoses / Procedures Referred By Bia t Referred To Contact XR IMAGING Diagnoses S/P lumbar fusion Procedures XR LUMBAR LIMITED 2V FLEX/EXT RADEX SPINE LUMBOSACRAL 2/3 VIEWS Rubin Lopez MD [address] [place] [address] Xr Imaging Referral ID Status Reason Start Date Expiration Date Visits Requested Visits Authorized [id number] Pending Review Auto-Generat ed Referral 10/10/2022 11/09/2023 1 1 [facility] for referral (narrative)* Diagnostic Procedure Only (Routine) - Pending Review Specialty Diagnoses / Procedures Referred By Contac t Referred To Contact XR IMAGING Diagnoses S/P lumbar fusion Procedures XR LUMBAR LIMITED 2V FLEX/EXT RADEX SPINE LUMBOSACRAL 2/3 VIEWS Rubin Lopez MD [address] [place] [address] Xr Imaging Referral ID Status Reason Start Date Expiration Date Visits Requested Visits Authorized [id number] Pending Review Auto-Generat ed Referral 10/10/2022 11/09/2023 1 1 T [facility] for referral (narrative)* Outpatient Procedure (Routine) - Closed Specialty Diagnoses / Procedures Referred By Contac t Referred To Contact [facility] Diagnoses Preop testing Procedures ECG COMPLETE ECG ROUTINE ECG W/LEAST 12 LDS W/I&R Kaylin Latif MD, PhD [address] [place] [address] [facility] [address] [place] [address] Referral ID Status Reason Start Date Expiration Date V isits Requested Visits Authorized [id number] Closed Auto-Generate d Referral 10/31/2022 10/31/2023 1 1 T [facility] for visit Narrative* Rehabilitation - Outpatient (Routine) - Authorized Specialty Diagnoses / Procedures Referred By Contac t Referred To Contact Physical Therapy Diagnoses Other specified postprocedural states Radiculopathy, lumbar region S/P lumbar laminectomy Procedures [facility] Fabiana Ricci MD [address] [facility] [address] [place] [address] Phone: tel: fax: Sasha Lacey, PT [address] [place] [address] Phone: tel: fax: Referral ID Status Reason Start Date Expiration Date Visits Requested Visits Authorized [id number] Authorized Consult and Treat 07/04/2024 12/31/2024 18 18 [facility] Summary Purpose Family History No Family History Records Found Relationship Condition Age at Onset Recorded Date/T elton father Unknown Myocardial infarction Unknown Not Specified Diabetes mellitus Unknown Unknown Relationship Condition Age at Onset Recorded Date/T elton father Unknown Myocardial infarction Unknown mother Diabetes mellitus Unknown Unknown Advance Directives No Advanced Directives Records Found Advance Directive Response Recorded Date/ Time Advance [...] HIGH COMPLEX 45 MINS Rubin Lopez MD [address] [place] [address] [facility] [address] [place] [address] Referral ID Status Reason Start Date Expiration Date Visits Requested Visits Authorized [id number] Authorized PCP Requested Referral Auto-Generate d Referral 01/19/2024 01/18/2025 99 99 Specialty Diagnoses / Procedures Referred By Contac t Referred To Contact Diagnoses S/P spinal fusion Spinal stenosis of lumbar region with neurogenic claudication Pre-op testing Procedures REFER TO PACC - PRE ANESTHESIA CONSULTATION CLINIC OFFICE/OUTPATIENT [facility] MDM 60-74 MINUTES Linda Blevins PA-C [address] [place] [address] Referral ID Status Reason Start Date Expiration Date Visits Requested Visits Authorized [id number] Authorized PCP Requested Referral 10/22/2022 10/22/2023 1 1 Specialty Diagnoses / Procedures Referred By Bia mitchell Referred To Contact [facility] Diagnoses S/P spinal fusion Spinal stenosis of lumbar region with neurogenic claudication Pre-op testing Procedures CONSULT TO [facility] OFFICE/OUTPATIENT [facility] 60-74 MINUTES Linda Blevins PA-C [address] [place] [address] Referral ID Status Reason Start Date Expiration Date Visits Requested Visits Authorized [id number] Authorized PCP Requested Referral 10/22/2022 10/22/2023 1 [...] specific antigen ) August 18, 2024 9:16am Chief Complaint Admit Date Check Up January 02, 2025 2:48 pm G56.22 January 25, 2025 7:59a m Reason for Visit Admit Date Chronic kidney disease January 02, 2025 2 :48pm IFG (impaired fasting glucose) December 2:48pm Lumbar spondylosis with myelopathy January 02, 2025 2:48pm Muscle cramps January 02, 2025 2:48 pm Primary hypertension January 02, 2025 2:4 8pm Pruritus January 02, 2025 2:48 pm Resting tremor January 02, 2025 2:48 pm Ulnar neuropathy at elbow of left upper extremity January 02, 2025 2:48pm Additional Source Comments REASON FOR VISIT (unrecogniz ed section and content) Reason Comments New Patient Reason Comments Radio Main J1 Specialty Diagnoses / Procedures Referred By Contac t Referred To Contact XR IMAGING Diagnoses S/P lumbar fusion Procedures XR LUMBAR LIMITED 2V FLEX/EXT RADEX SPINE LUMBOSACRAL 2/3 VIEWS Rubin Lopez MD [address] [place] [address] Xr Imaging Referral ID Status Reason Start Date Expiration Date Visits Requested Visits Authorized [id number] Pending Review Auto-Generat ed Referral 10/10/2022 11/09/2023 [...] and content) DATE CREATED AUTHOR 03/29/2022 [facility] DATE CREATED AUTHOR AUTHOR'S ORGANIZ ATION 09/30/2022 [facility] DATE CREATED AUTHOR AUTHOR'S ORGANIZ ATION 10/07/2022 [facility] DATE CREATED AUTHOR AUTHOR'S ORGANIZ ATION 07/06/2024 [facility] DATE CREATED AUTHOR AUTHOR'S ORGANIZ ATION 07/30/2024 [facility] EPIC DATE CREATED AUTHOR AUTHOR'S ORGANIZ ATION 10/19/2024 [facility] DATE CREATED AUTHOR AUTHOR'S ORGANIZ ATION 02/10/2025 [facility] Source Comments (unrecognize d section and content) In the event this informatio n is protected by the Federal Confidentiality of Alcohol and Drug Abuse Patient Records regulations: The Federal rules restrict any use of the information to criminally investigate or prosecute any alcohol or drug abuse patient.[facility] ClinicIn the event this information is protected by the Federal Confidentiality of Alcohol and Drug Abuse Patient Records regulations: The Federal rules restrict any use of the information to criminally investigate or prosecute any alcohol or drug abuse patient.[facility] ClinicIn the event this information is protected by the Federal Confidentiality of Alcohol and Drug Abuse Patient Records regulations: The Federal rules restrict any use of the information to criminally investigate or prosecute any alcohol or drug abuse patient.[facility] ClinicIn the event this information is protected by the Federal Confidentiality of Alcohol and Drug Abuse Patient Records regulations: The Federal rules restrict any use of the information to criminally investigate or prosecute any alcohol or drug abuse patient.[facility] ClinicIn the event this information is protected by the Federal Confidentiality of Alcohol and Drug Abuse Patient Records regulations: The Federal rules restrict any use of the information to criminally investigate or prosecute any alcohol or drug abuse patient.[facility] ClinicIn the event this information is protected by the Federal Confidentiality of Alcohol and Drug Abuse Patient Records regulations: The Federal rules restrict any use of the information to criminally investigate or prosecute any alcohol or drug abuse patient.[facility] ClinicIn the event this information is protected by the Federal Confidentiality of Alcohol and Drug Abuse Patient Records regulations: The Federal rules restrict any use of the information to criminally investigate or prosecute any alcohol or drug abuse patient.[facility] ClinicIn the event this information is protected by the Federal Confidentiality of Alcohol and Drug Abuse Patient Records regulations: The Federal rules restrict any use of the information to criminally investigate or prosecute any alcohol or drug abuse patient.[facility] ClinicIn the event this information is protected by the Federal Confidentiality of Alcohol and Drug Abuse Patient Records regulations: The Federal rules restrict any use of the information to criminally investigate or prosecute any alcohol or drug abuse patient.[facility] ClinicIn the event this information is protected by the Federal Confidentiality of Alcohol and Drug Abuse Patient Records regulations: The Federal rules restrict any use of the information to criminally investigate or prosecute any alcohol or drug abuse patient.[facility] ClinicIn the event this information is protected by the Federal Confidentiality of Alcohol and Drug Abuse Patient Records regulations: The Federal rules restrict any use of the information to criminally investigate or prosecute any alcohol or drug abuse patient.[facility] ClinicIn the event this information is protected by the Federal Confidentiality of Alcohol and Drug Abuse Patient Records regulations: The Federal rules restrict any use of the information to criminally investigate or prosecute any alcohol or drug abuse patient.[facility] ClinicIn the event this information is protected by the Federal Confidentiality of Alcohol and Drug Abuse Patient Records regulations: The Federal rules restrict any use of the information to criminally investigate or prosecute any alcohol or drug abuse patient.[facility] Care Teams (unrecognized sec tion and content) Team Status: Active Member Role Status Dates Hector Fraga , DO Primary Care Provider Active Team Status: [...] January 04, 2024 End: January 04, 2024 Weaving Professor Relationship Specialty Start Date End Date Héctor Jean Baptiste PCP - General Family Medicine 01/28/16 Weaving Professor Relationship Specialty Start Date End Date Héctor Jean Baptiste PCP - General Family Medicine 01/28/16 Weaving Professor Relationship Specialty Start Date End Date Héctor Jean Baptiste PCP - General Family Medicine 01/28/16 Weaving Professor Relationship Specialty Start Date End Date Héctor Jean Baptiste PCP - General Family Medicine 01/28/16 Weaving Professor Relationship Specialty Start Date End Date Héctor Jean Baptiste PCP - General Family Medicine 01/28/16 Weaving Professor Relationship Specialty Start Date End Date Héctor Jean Baptiste PCP - General Family Medicine 01/28/16 Weaving Professor Relationship Specialty Start Date End Date Hector Fraga, DO [address] [place] [address] PCP - General Internal Medicine 10/27/22 Weaving Professor Relationship Specialty Start Date End Date Hector Fraga, DO [address] [place] [address] PCP - General Internal Medicine 10/27/22 Weaving Professor Relationship Specialty Start Date End Date Hector Fraga, DO [address] [place] [address] PCP - General Internal Medicine 10/27/22 Weaving Professor Relationship Specialty Start Date End Date Hector Fraga, DO [address] [place] [address] PCP - General Internal Medicine 10/27/22 Team [...] September 16, 2023 End: September 16, 2023 Weaving Professor Relationship Specialty Start Date End Date Hector Fraga [address] [place] [address] PCP - General Internal Medicine 10/27/22 Weaving Professor Relationship Specialty Start Date End Date Hector Fraga DO [address] [place] [address] PCP - General Internal Medicine 10/27/22 Weaving Professor Relationship Specialty Start Date End Date Hector Fraga DO [address] [place] [address] PCP - General Internal Medicine 10/27/22 Team Status: Inactive Member Role Status Dates Hector Fraga DO Primary Care Provider Active Start: January 02, 2025 End: January 02, 2025 Hector Fraga DO Attending Provider Active Sta rt: January 02, 2025 End: January 02, 2025 Team Status: Active Member Role Status Dates Hector Fraga DO Primary Care Provider Active Start: January 03, 2025 Hector Fraga DO Attending Provider Active Sta rt: January 03, 2025 Team Status: Inactive Member Role Status Dates Hector Fraga DO Primary Care Provider Active Start: January 25, 2025 End: January 25, 2025 Hector Fraga DO Attending Provider Active Sta rt: January 25, 2025 End: January 25, 2025 Goals (unrecognized section and content) Goals may [...] BE BASED ON THE PRIMARY CLINICAL RECORDS. [facility]. provides no warranty or guarantee of the accuracy or completeness of information in this document.
== END 2025-02-16 08:36 | disposition home or self-care (01) ==
LOC: MRI 08:35
PROVIDERS: PCP Internal Medicine; Visit Provider Internal Medicine
DX: R94.131 Abnormal electromyogram [EMG] (principal); G95.9 Disease of spinal cord, unspecified; M50.30 Other cervical disc degeneration, unspecified cervical region
CPT/HCPCS: 70030; 72141